=== PATIENT | female | born 1995 | race Hispanic/Latino ===

== ENCOUNTER 2017-09-25 12:31 | Emergency (ER) | payer BC, SELFPAY ==
[2017-09-25] MEDS ORDERED: DIAZEPAM 2 MG TABLET ONE (13:23)
--- NOTE | 2017-09-25 13:23 | ER ---
Nurse's Notes [facility] Name: Brittany Ingram Age: 22 yrs Sex: Female : 1995 Arrival Date: 09/25/2017 Time: 12:33 Bed 15 Private MD: Diagnosis: Anxiety disorder, unspecified Presentation: 09/25 12:37 Presenting complaint: Patient states: "I had a panic attack last night and I aj hyperventilated so much that I couldn't stand up." Patient ambulated to triage with steady gait. Transition of care: patient was not received from another setting of care. Onset of symptoms was September 24, 2017. Care prior to arrival: None. 12:37 Method Of Arrival: Ambulatory aj 12:37 Acuity: WILL 4 aj Triage Assessment: 12:38 General: Appears in no apparent distress. comfortable, Behavior is calm, cooperative, aj appropriate for age. Pain: Denies pain. Neuro: Level of Consciousness is awake, alert, obeys commands, Oriented to person, place, time, situation. Respiratory: Reports shortness of breath Airway is patent Respiratory effort is even, unlabored, Respiratory pattern is regular, symmetrical. Derm: Skin is intact, is healthy with good turgor, Skin is pink, warm \\T\\ dry. normal. 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 - Social history:: Smoking status: Patient/guardian denies using tobacco. Screenin:19 Abuse screen: Denies threats or abuse. Denies injuries from another. Nutritional sv screening: No deficits noted. Tuberculosis screening: No symptoms or risk factors identified. Fall Risk None identified. Assessment: 13:20 General: Appears in no apparent distress. comfortable, well developed, Behavior is sv calm, cooperative, appropriate for age, Reports she's been having more frequent anxiety attacks. Pt stated that she works and is in school and hasn't had much sleep. Pain: Denies pain. Neuro: Level of Consciousness is awake, alert, obeys commands, Oriented to person, place, time, situation, Moves all extremities. Full function Gait is steady. Cardiovascular: Patient's skin is warm and dry. Respiratory: Respiratory effort is even, unlabored, Respiratory pattern is regular, symmetrical. Derm: Skin is pink, warm \\T\\ dry. Musculoskeletal: Range of motion: intact in all extremities. Vital Signs: 12:38 BP 144 / 94; Pulse 87; Resp 20; Temp 97.9; Pulse Ox 98% on R/A; Weight 63.5 kg; Height aj 5 ft. 2 in. (157.48 cm); Pain 0/10; 12:38 Body Mass Index 25.61 (63.50 kg, 157.48 cm) aj ED Course: 12:33 Patient arrived in ED. as 12:38 Triage completed. aj 12:38 Arm band placed on right wrist. Patient placed in waiting room, Patient notified of wait time. 12:40 Liza Greene FNP-C is PHCP. kb 12:40 Sameer Donnelly MD is Attending Physician. kb 13:04 Danielle Benitez, RN is Primary Nurse. sv 13:19 Patient has correct armband on for positive identification. Bed in low position. Call sv light in reach. Adult w/ patient. Door closed. Head of bed elevated. 13:29 No provider procedures requiring assistance completed. Patient did not have IV access sv during this emergency room visit. Administered Medications: 13:29 Drug: Valium 2 mg Route: PO; sv 13:29 Follow up: Response: Medication administered at discharge. sv Outcome: 13:22 Discharge ordered by MD. kb 13:29 Discharged to home ambulatory, with family. sv 13:29 Condition: stable 13:29 Discharge instructions given to patient, Instructed on discharge instructions, follow up and referral plans. Demonstrated understanding of instructions, follow-up care. 13:30 Patient left the ED. sv Signatures: Liza Greene FNP-C FNP-Danielle Bradshaw RN Cortney Sin RN RN aj Martinez, Amelia as
--- NOTE | 2017-09-25 13:23 | EDPHYS ---
Physician Documentation [facility] Name: Brittany Ingram Age: 22 yrs Sex: Female : 1995 Arrival Date: 09/25/2017 Time: 12:33 Bed 15 Private MD: ED Physician Sameer Donnelly HPI: 09/25 13:17 This 22 yrs old Female presents to ER via Ambulatory with complaints of kb Anxiety. 13:17 The patient presents to the emergency department with anxiety, over unknown kb circumstances. Onset: The symptoms/episode began/occurred yesterday. Associated signs and symptoms: Pertinent positives; anxiety, shortness of breath, Pertinent negatives: abdominal pain, chest pain, chills, delusions, depression, fever, hallucinations, headache, homicidal ideation, nausea, night sweats, palpitations, paranoia, substance abuse, suicide ideation, tremor, vomiting. Severity of symptoms: At their worst the symptoms were moderate in the emergency department the symptoms have improved. The patient has not experienced similar symptoms in the past. The patient has not recently seen a physician. Pt states she has been having a lot of anxiety. Last night had an attack and was hyperventilating so she passed out. States she has been going to school and work and not sleeping much. Also gets nervous during the morning chappell at work because of all the people coming in. 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 - Social history:: Smoking status: Patient/guardian denies using tobacco. ROS: 13:16 Constitutional: Negative for fever, chills, and weight loss, Cardiovascular: Negative kb for chest pain, palpitations, and edema, Respiratory: Negative for shortness of breath, cough, wheezing, and pleuritic chest pain, Abdomen/GI: Negative for abdominal pain, nausea, vomiting, diarrhea, and constipation, MS/Extremity: Negative for injury and deformity, Skin: Negative for injury, rash, and discoloration, Neuro: Negative for headache, weakness, numbness, tingling, and seizure. 13:16 Psych: Positive for anxiety, Negative for depression, drug dependence, alcohol dependence, auditory hallucinations, visual hallucinations, homicidal ideation, insomnia, suicide gesture, suicidal ideation. Exam: 13:16 Constitutional: This is a well developed, well nourished patient who is awake, alert, kb and in no acute distress. Head/Face: Normocephalic, atraumatic. Neck: Trachea midline, no thyromegaly or masses palpated, and no cervical lymphadenopathy. Supple, full range of motion without nuchal rigidity, or vertebral point tenderness. No Meningismus. Chest/axilla: Normal chest wall appearance and motion. Nontender with no deformity. No lesions are appreciated. Cardiovascular: Regular rate and rhythm with a normal S1 and S2. No gallops, murmurs, or rubs. Normal PMI, no JVD. No pulse deficits. Respiratory: Lungs have equal breath sounds bilaterally, clear to auscultation and percussion. No rales, rhonchi or wheezes noted. No increased work of breathing, no retractions or nasal flaring. Abdomen/GI: Soft, non-tender, with normal bowel sounds. No distension or tympany. No guarding or rebound. No evidence of tenderness throughout. Skin: Warm, dry with normal turgor. Normal color with no rashes, no lesions, and no evidence of cellulitis. MS/ Extremity: Pulses equal, no cyanosis. Neurovascular intact. Full, normal range of motion. Neuro: Awake and alert, GCS 15, oriented to person, place, time, and situation. Cranial nerves II-XII grossly intact. Motor strength 5/5 in all extremities. Sensory grossly intact. Cerebellar exam normal. Normal gait. Vital Signs: 12:38 BP 144 / 94; Pulse 87; Resp 20; Temp 97.9; Pulse Ox 98% on R/A; Weight 63.5 kg; Height aj 5 ft. 2 in. (157.48 cm); Pain 0/10; 12:38 Body Mass Index 25.61 (63.50 kg, 157.48 cm) aj MDM: 13:00 Patient medically screened. kb 13:16 Data reviewed: vital signs, nurses notes. Data interpreted: Pulse oximetry: on room air kb is 98 %. Interpretation: normal. Counseling: I had a detailed discussion with the patient and/or guardian regarding: the historical points, exam findings, and any diagnostic results supporting the discharge/admit diagnosis, the need for outpatient follow up, a family practitioner, to return to the emergency department if symptoms worsen or persist or if there are any questions or concerns that arise at home. Administered Medications: 13:29 Drug: Valium 2 mg Route: PO; sv 13:29 Follow up: Response: Medication administered at discharge. sv Disposition: 09/26 08:01 Co-signature as Attending Physician, Sameer Donnelly MD I agree with the assessment and wa plan of care. Disposition: 09/25/17 13:22 Discharged to Home. Impression: Anxiety disorder, unspecified. - Condition is Stable. - Discharge Instructions: Panic Attacks, [id number]. - Medication Reconciliation Form, Thank You Letter, Antibiotic Education, Prescription Opioid Use form. - Work release form (09/25/17 13:31). hb - Follow up: Emergency Department; When: As needed; Reason: Worsening of condition. Follow up: Private Physician; When: 2 - 3 days; Reason: Recheck today's complaints, Continuance of care, Re-evaluation by your physician. Signatures: Liza Greene, QUALITY CONTROL SPECIALIST-C QUALITY CONTROL SPECIALIST-Ckb Danielle Benitez, RN Cortney Sin RN Sameer Jaime MD MD wa Baxter, Heather RN
== END 2017-09-25 13:30 | disposition home or self-care (01) ==
LOC: ER 12:31
DX: F41.9 Anxiety disorder, unspecified (principal)
CPT/HCPCS: 99283

== ENCOUNTER 2019-01-18 23:04 | Emergency (ER) | payer SELFPAY ==
--- OUTSIDE RECORDS SUMMARY | 2019-01-18 23:07 | XMS REPORT | Clinical Summary ---
:1995 Author Organization [facility] Address [address] [place] [address] Care Team Providers Name Role Phone Asked, No Pcp Primary Care Provider Unavailable Allergies No Known Allergies Medications Medication Sig Dispensed Refills Start Date End Date Status acetaminophen-codeine Take 1 tablet 20 tablet 0 10/22/2018 10/27/2018 (TYLENOL WITH CODEINE by mouth every #3) 300-30 mg per 6 (six) hours tablet as needed (severe pain) for up to [address] ondansetron ODT Take 1 tablet 10 tablet 0 10/22/2018 10/27/2018 (ZOFRAN ODT) 4 MG (4 mg total) by disintegrating tablet mouth every 8 (eight) hours as needed for nausea or vomiting for up to 5 days. sulfamethoxazole-trime Take 1 tablet 6 tablet 0 10/22/2018 10/25/2018 thoprim (BACTRIM DS) by mouth 2 800-160 mg per tablet (two) times a day for 3 days. smx-tmp DS (BACTRIM) 800-160 mg tabs (1tab q12 D10) Active Problems Not on file Encounters Date Type Specialty Care Team Description 10/22/2018 Emergency Emergency Medicine Juan David Dumont, Syncope and collapse (Primary Dx); Migraine without status migrainosus, not intractable, unspecified migraine type; Non-intractable vomiting with nausea, unspecified vomiting type; Periumbilical abdominal pain; Urinary tract infection without hematuria, site unspecified 10/22/2018 Travel after 01/17/2018 Family History Medical History Relation Name Comments No Known Problems Brother No Known Problems Cousin No Known Problems Daughter No Known Problems Father No Known Problems Maternal Grandfather No Known Problems Maternal Grandmother No Known Problems Mother No Known Problems Other No Known Problems Paternal Grandfather No Known Problems Paternal Grandmother No Known Problems Sister No Known Problems Son Asthma Neg Hx Diabetes Neg Hx Heart failure Neg Hx Hyperlipidemia Neg Hx Hypertension Neg Hx Migraines Neg Hx Osteoarthritis Neg Hx Rashes / Skin problems Neg Hx Rheum arthritis Neg Hx Seizures Neg Hx Stroke Neg Hx Thyroid disease Neg Hx Relation Name Status Comments Brother Cousin Daughter Father Maternal Grandfather Maternal Grandmother Mother Other Paternal Grandfather Paternal Grandmother Sister Son Social History Tobacco Use Types Packs/Day Years Used Date Never Smoker Tobacco Cessation: Counseling Given: No Alcohol Use Drinks/Week oz/Week Comments Yes socia Alcohol Habits Answer Date Recorded How often do you have a drink containing alcohol? Never 10/22/2018 How many drinks containing alcohol do you have on a typical Not asked day when you are drinking? How often do you have six or more drinks on one occasion? Not asked Sex Assigned at Date Recorded Not on file Job Start Date Occupation Industry Not on file Not on file Not on file Travel History Travel Start Travel End No recent travel history available. Last Filed Vital Signs Vital Sign Reading Time Taken Blood Pressure 102/66 10/22/2018 12:00 PM CDT Pulse 62 10/22/2018 12:00 PM CDT Temperature 37.1 C (98.7 F) 10/22/2018 11:53 AM CDT Respiratory Rate 19 10/22/2018 12:00 PM CDT Oxygen Saturation 97% 10/22/2018 12:00 PM CDT Inhaled Oxygen Concentration - - Weight 72.6 kg (160 lb) 10/22/2018 9:22 AM CDT Height 157.5 cm (5' 2") 10/22/2018 9:22 AM CDT Body Mass Index 29.26 10/22/2018 9:22 AM CDT Plan of Treatment Health Maintenance Due Date Last Done Comments CHLAMYDIA SCREENING 2013 INFLUENZA VACCINE 01/14/2019 Procedures Procedure Name Priority Date/Time Associated Comments Diagnosis CT ABDOMEN PELVIS W STAT 10/22/2018 11:43 Results for this CONTRAST AM CDT procedure are in the results section. CT HEAD WO CONTRAST STAT 10/22/2018 11:17 Results for this AM CDT procedure are in the results section. ECG ED PRELIMINARY Routine 10/22/2018 10:05 Results for this INTERPRETATION AM CDT procedure are in the results section. ESTIMATED GFR STAT 10/22/2018 9:46 Results for this AM CDT procedure are in the results section. TROPONIN, I-STAT STAT 10/22/2018 9:46 Results for this AM CDT procedure are in the results section. AMYLASE LEVEL STAT 10/22/2018 9:46 Results for this AM CDT procedure are in the results section. COMPREHENSIVE METABOLIC STAT 10/22/2018 9:46 Results for this PANEL AM CDT procedure are in the results section. HC COMPLETE BLD COUNT STAT 10/22/2018 9:46 Results for this W/AUTO DIFF AM CDT procedure are in the results section. HCG QUALITATIVE, URINE STAT 10/22/2018 9:45 Results for this SCREEN AM CDT procedure are in the results section. URINALYSIS STAT 10/22/2018 9:45 Results for this AM CDT procedure are in the results section. ECG 12-LEAD STAT 10/22/2018 9:26 Results for this AM CDT procedure are in the results section. after 01/17/[address] Abdomen Pelvis W Contrast (10/22/2018 11:43 AM CDT) Specimen Narrative Performed At EXAMINATION:CT ABDOMEN PELVIS W CONTRAST [facility]IANT CLINICAL HISTORY: 23 yearsFemale periumbilical abdominal painvomiting TECHNIQUE: Multiple axial images of the abdomen and pelvis were obtained following intravenous administration of iodinated contrast. Sagittal and coronal computerized reformatted images were also obtained. CT imaging was performed with iterative reconstruction techniques and/or automated exposure control to reduce radiation dose. COMPARISON:None. IMPRESSION: LUNG BASES: The lung bases are free of acute disease. ABDOMEN: Liver: The liver is normal. No focal mass. Gallbladder/Biliary: The gallbladder is normal. There is no evidence of intra or extrahepatic biliary ductal dilatation. Spleen: The spleen is not enlarged. Pancreas: The pancreas is unremarkable. Adrenal Glands: The adrenal glands are unremarkable. Kidneys: The kidneys are unremarkable. No mass, hydronephrosis or calculi. Vascular: The abdominal aorta is nonaneurysmal. Nodes: No enlarged retroperitoneal or mesenteric lymphadenopathy. Bowel: No bowel obstruction or inflammatory changes. Appendix is normal. Ascites/fluid collections: No ascites or fluid collections. PELVIS: Bladder, uterus and ovaries are within normal limits. There is no pelvic adenopathy. Trace fluid in the pelvic cul-de-sac noted, likely physiologic. MUSCULOSKELETAL: Visualized osseous structures are within normal limits. SUMMARY: 1.No acute abnormality noted in the abdomen and pelvis. 2.No intestinal obstruction. Normal appendix. Procedure Note Interface, Radiology Results Incoming - 10/22/2018 11:56 AM CDT EXAMINATION: CT ABDOMEN PELVIS W CONTRAST CLINICAL HISTORY: 23 yearsFemale periumbilical abdominal pain vomiting TECHNIQUE: Multiple axial images of the abdomen and pelvis were obtained following intravenous administration of iodinated contrast. Sagittal and coronal computerized reformatted images were also obtained. CT imaging was performed with iterative reconstruction techniques and/or automated exposure control to reduce radiation dose. COMPARISON: None. IMPRESSION: LUNG BASES: The lung bases are free of acute disease. ABDOMEN: Liver: The liver is normal. No focal mass. Gallbladder/Biliary: The gallbladder is normal. There is no evidence of intra or extrahepatic biliary ductal dilatation. Spleen: The spleen is not enlarged. Pancreas: The pancreas is unremarkable. Adrenal Glands: The adrenal glands are unremarkable. Kidneys: The kidneys are unremarkable. No mass, hydronephrosis or calculi. Vascular: The abdominal aorta is nonaneurysmal. Nodes: No enlarged retroperitoneal or mesenteric lymphadenopathy. Bowel: No bowel obstruction or inflammatory changes. Appendix is normal. Ascites/fluid collections: No ascites or fluid collections. PELVIS: Bladder, uterus and ovaries are within normal limits. There is no pelvic adenopathy. Trace fluid in the pelvic cul-de-sac noted, likely physiologic. MUSCULOSKELETAL: Visualized osseous structures are within normal limits. SUMMARY: 1. No acute abnormality noted in the abdomen and pelvis. 2. No intestinal obstruction. Normal appendix. Performing Organization Address City/State/Zipcode Phone Number [facility] [address] [place] [address] CT Head Wo Contrast (10/22/2018 11:17 AM CDT) Specimen Narrative Performed At EXAMINATION: CT HEAD WO CONTRAST [facility] CLINICAL HISTORY: headachesyncopephotophobia COMPARISON:None TECHNIQUE: Noncontrast enhanced images of the brain were obtained from the skull base to the vertex. Both soft tissue and bone reconstruction algorithms were performed.CT imaging was performed with iterative reconstruction technique and/or automated exposure control to reduce radiation dose. FINDINGS: The brain parenchyma has no acute lesion. The waters-white matter differentiation is preserved. No evidence of acute intra or extra-axial hemorrhage, mass, mass effect or acute territorial infarction. There is no acute hydrocephalus. Basal cisterns are patent. No acute intracranial trauma or hemorrhage. No acute soft tissue hematoma or laceration. Paranasal sinuses shows no acute air-fluid levels. Mastoid air cells are clear.No skull fractures or aggressive bony lesions. IMPRESSION: No acute intracranial abnormality identified. [id number] Procedure Note Interface, Radiology Results Incoming - 10/22/2018 11:44 AM CDT EXAMINATION: CT HEAD WO CONTRAST CLINICAL HISTORY: headache syncope photophobia COMPARISON: None TECHNIQUE: Noncontrast enhanced images of the brain were obtained from the skull base to the vertex. Both soft tissue and bone reconstruction algorithms were performed. CT imaging was performed with iterative reconstruction technique and/or automated exposure control to reduce radiation dose. FINDINGS: The brain parenchyma has no acute lesion. The waters-white matter differentiation is preserved. No evidence of acute intra or extra-axial hemorrhage, mass, mass effect or acute territorial infarction. There is no acute hydrocephalus. Basal cisterns are patent. No acute intracranial trauma or hemorrhage. No acute soft tissue hematoma or laceration. Paranasal sinuses shows no acute air-fluid levels. Mastoid air cells are clear. No skull fractures or aggressive bony lesions. IMPRESSION: No acute intracranial abnormality identified. [id number] Performing Organization Address City/State/Zipcode Phone Number [facility] [address] [place] [address] ECG ED Preliminary Interpretation - Not an Order (10/22/2018 10:05 AM CDT) Narrative Performed At Juan David Dumont MD 10/22/2018 12:08 PM ECG ED Preliminary Interpretation - Not an Order Performed by: Juan David Dumont MD Authorized by: Juan David Dumont MD Interpretation: Interpretation: normal Rate: ECG rate:97 ECG rate assessment: normal Rhythm: Rhythm: sinus rhythm Ectopy: Ectopy: none QRS: QRS axis:Normal QRS intervals:Normal Conduction: Conduction: normal ST segments: ST segments:Normal T waves: T waves: normal Estimated GFR (10/22/2018 9:46 AM CDT) [facility] Estimated GFR >=90 mL/min/1.73 [facility] Comment: m2 [facility] [employer] G1 >=90 Normal or high G2 60-89Mildly decreased [id number] to moderately decreased [id number] to severely decreased G4 15-29Severely decreased G5 <15Kidney failure The eGFR was calculated using the Chronic Kidney Disease Epidemiology Collaboration (CKD-EPI) equation. Interpretation is based on recommendations of the National Kidney Foundation-Kidney Disease Outcomes Quality Initiative (NKF-KDOQI) published in 2014. Specimen Plasma specimen Performing Organization Address City/[facility]/Zipcode Phone Number DEPARTMENT PATHOLOGY AND [address] [place] [address] EMER[address]ENCY [address] Troponin, I-Stat (10/22/2018 9:46 AM CDT) Pathologist [facility] Troponin, I-Stat 0.00 0.00 - 0.08 [facility] Comment: ng/mL [facility] 0.09 - 1.49 ng/mlMay indicate increased risk of acute [facility] coronary syndrome. >=1.5 ng/mlConsistent with acute myocardial infarction. The diagnostic value of a single normal or non-diagnostic result is questionable.Serial samples at 2-6 hour intervals are required to rule out acute myocardial injury. Specimen Plasma specimen Performing Organization Address City/[facility] Phone Number DEPARTMENT OF PATHOLOGY AND [address] [place] [address] CBC with platelet and differential (10/22/2018 9:46 AM CDT) WBC 7.91 4.50 - 11.00 k/uL [facility] RBC 4.60 4.20 - 5.50 m/uL [facility] HGB 13.2 12.0 - 16.0 g/dL [facility] HCT 39.4 37.0 - 47.0 % [facility] MCV 85.7 82.0 - 100.0 fL [facility] MCH 28.7 27.0 - 34.0 pg [facility] MCHC 33.5 31.0 - 37.0 g/dL [facility] RDW - SD 40.2 37.0 - 55.0 fL [facility] MPV 9.4 8.8 - 13.2 fL [facility] Platelet count 356 150 - 400 k/uL [facility] Neutrophils 81.9 (H) 39.0 - 69.0 % [facility] Lymphocytes 14.2 (L) 25.0 - 45.0 % [facility] Monocytes 3.5 0.0 - 10.0 % [facility] Eosinophils 0.1 0.0 - 5.0 % [facility] Basophils 0.3 0.0 - 1.0 % [facility] Specimen Blood Performing Organization Address City/[facility] Phone Number DEPARTMENT OF PATHOLOGY AND [address] [place] [address] Amylase level (10/22/2018 9:46 AM CDT) Amylase 28 14 - 97 U/L [facility] Specimen Plasma specimen Performing Organization Address City/[facility] Phone Number DEPARTMENT OF PATHOLOGY AND [address] [place] [address] Comprehensive metabolic panel (10/22/2018 9:46 AM CDT) Sodium 138 128 - 145 mEq/L [facility] Potassium 3.8 3.6 - 5.1 mEq/L [facility] CO2 22 18 - 33 mEq/L [facility] Chloride 101 98 - 108 mEq/L [facility] Glucose 96 73 - 118 mg/dL [facility] Calcium 9.6 8.0 - 10.3 mg/dL [facility] BUN 9 7 - 22 mg/dL [facility] Creatinine 0.6 0.5 - 0.9 mg/dL [facility] Alkaline phosphatase 79 42 - 141 U/L [facility] ALT 16 10 - 47 U/L [facility] AST 23 11 - 38 U/L [facility] Total bilirubin 0.6 0.2 - 1.6 mg/dL [facility] Albumin 4.2 3.3 - 5.5 g/dL [facility] Protein 7.3 6.4 - 8.1 g/dL [facility] Anion gap 15@ANIO 7 - 15 mEq/L [facility] A/G ratio 1.4 0.7 - 3.8 [facility] Specimen Plasma specimen Performing Organization Address City/[facility] Phone Number DEPARTMENT OF PATHOLOGY AND [address] [place] [address] Urinalysis (10/22/2018 9:45 AM CDT) Glucose, UA Negative Negative [facility] Bilirubin, UA Negative Negative [facility] Ketones, UA Negative Negative [facility] Specific gravity, 1.010 1.001 - 1.035 [facility] Blood, UA Small (A) Negative [facility] pH, UA 5.5 5.0 - 8.5 [facility] Protein, UA Negative Negative [facility] Urobilinogen, UA <2.0 <2.0 [facility] Nitrite, UA Positive (A) Negative [facility] Leukocyte esterase, Small (A) Negative [facility] Color, UA Yellow [facility] Appearance, UA Hazy [facility] Specimen Urine Performing Organization Address City/[facility] Phone Number DEPARTMENT OF PATHOLOGY AND [address] [place] [address] hCG qualitative, urine screen (10/22/2018 9:45 AM CDT) hCG qualitative, Negative [facility] urine Comment: [facility] Sensitivity of HCG test: 25 mIU/mL [facility] Negative test results in patients suspected to be should be retested with a sample obtained 48-72 hours later, or by performing a quantitative assay. Specimen Urine Performing Organization Address City/State/Zipcode Phone Number DEPARTMENT OF PATHOLOGY AND [address] [facility] [place] [address] GENOMIC MEDICINE, [facility] [address] [place] [address] [facility] ECG 12 lead (10/22/2018 9:26 AM CDT) Ventricular rate 97 [facility] Atrial rate 97 [facility] FL interval 108 [facility] QRSD interval 84 [facility] QT interval 354 [facility] QTC interval 449 [facility] P axis 1 38 [facility] QRS axis 1 31 [facility] T wave axis 18 [facility] EKG impression Sinus rhythm with short [facility] FL-Junctional ST depression, probably normal-Borderline ECG-No previous ECGs available-Electronicall y Signed By Sherly HANLEY, Chris Sherwood ([id number]) on 10/23/2018 9:28:31 PM Specimen Narrative Performed At Performing Organization Address City/State/Zipcode Phone Number [facility] [address] [place] [address] after 01/17/2018 Advance Directives Patient has advance care planning documents on file. For more information, please contact:[facility] [address] [place] [address]
--- OUTSIDE RECORDS SUMMARY | 2019-01-18 23:07 | XMS REPORT ---
:1995 Author Organization [facility] Address [address] [place] [address] [place] [address] Care Team Providers Name Role Phone Unavailable Unavailable Unavailable Problems This patient has no known problems. Allergies, Adverse Reactions, Alerts This patient has no known allergies or adverse reactions. Medications This patient has no known medications.
--- NOTE | 2019-01-19 01:03 | ER ---
Nurse's Notes [facility] Name: Brittany Ingram Age: 23 yrs Sex: Female : 1995 Arrival Date: 01/18/2019 Time: 23:17 Bed 15 Private MD: Diagnosis: Chest pain on breathing Presentation: 01/18 23:17 Presenting complaint: Patient states: right rib pain with inspiration since this ak1 morning. no resp distress noted in triage. Transition of care: patient was not received from another setting of care. Onset of symptoms is unknown. Risk Assessment: Do you want to hurt yourself or someone else? Patient reports no desire to harm self or others. Initial Sepsis Screen: Does the patient meet any 2 criteria? No. Patient's initial sepsis screen is negative. Does the patient have a suspected source of infection? No. Patient's initial sepsis screen is negative. Care prior to arrival: None. 23:17 Method Of Arrival: Ambulatory ak1 23:17 Acuity: WILL 3 ak1 Triage Assessment: 23:18 General: Appears in no apparent distress. Behavior is calm, cooperative. ak1 [employer]: 23:18 irregular ak1 Historical: - Allergies: 23:18 No Known Allergies; ak1 - Home Meds: 23:18 None [Active]; ak1 - PMHx: 23:18 None; ak1 - PSHx: 23:18 None; ak1 - Immunization history:: Adult Immunizations unknown. - Social history:: Smoking status: Patient uses tobacco products, denies chronic smoking, but will smoke occasionally. - Ebola Screening: : No symptoms or risks identified at this time. Assessment: 01/19 01:17 Reassessment: Patient appears in no apparent distress at this time. Patient is alert, aa1 oriented x 3, equal unlabored respirations, skin warm/dry/pink. Discussed d/c \T\ f/u instructions with pt \T\ significant other; denies questions or concerns at this time. Ambulatory to lobby with steady gait. Vital Signs: 01/18 23:18 BP 135 / 90; Pulse 67; Resp 18; Temp 97.7; Pulse Ox 98% on R/A; Weight 77.11 kg (R); ak1 Height 5 ft. 2 in. (157.48 cm) (R); Pain 6/10; 01/19 01:17 BP 127 / 82; Pulse 63; Resp 16; Temp 97.9; Pulse Ox 99% on R/A; Pain 3/10; aa1 01/18 23:18 Body Mass Index 31.09 (77.11 kg, 157.48 cm) ak1 ED Course: 01/18 23:17 Patient arrived in ED. ak1 23:18 Triage completed. ak1 23:18 Arm band placed on Patient placed in waiting room, Patient notified of wait time. ak1 23:38 Liza Greene FNP-C [facility]. kb 23:38 Jessee Swenson MD is Attending Physician. kb 01/19 00:09 Patient moved to radiology via wheelchair. kw 00:12 Chest Pa And Lat (2 Views) XRAY In Process Unspecified. EDMS 00:14 X-ray completed. Patient tolerated procedure well. Patient moved back from radiology. kw 00:24 Marianna Henning, RN is Primary Nurse. aa1 00:41 EKG done, by ED staff, reviewed by Liza LEIGH. aa1 01:17 No provider procedures requiring assistance completed. Patient did not have IV access aa1 during this emergency room visit. Administered Medications: No medications were administered Outcome: 01:01 Discharge ordered by MD. kb 01:17 Discharged to home ambulatory, with significant other. aa1 01:17 Condition: good 01:17 Discharge instructions given to patient, significant other, Instructed on discharge instructions, follow up and referral plans. Demonstrated understanding of instructions, follow-up care. 01:32 Patient left the ED. aa1 Signatures: Dispatcher [employer] EDID Liza Greene FNP-C BAKER HEAD-Marianna Gallo, RN RN aa1 Donna Velasco Amber, RN RN ak1
--- NOTE | 2019-01-19 01:03 | EDPHYS ---
Physician Documentation [facility] Name: Brittany Ingram Age: 23 yrs Sex: Female : 1995 Arrival Date: 01/18/2019 Time: 23:17 Bed 15 Private MD: ED Physician Jessee Swenson HPI: 01/19 00:33 This 23 yrs old Female presents to ER via Ambulatory with complaints of right kb rib pain with inspiration. 00:33 The patient or guardian reports chest pain that is located primarily in the anterior kb chest wall, right. The pain radiates to right back. Associated signs and symptoms: The patient has no apparent associated signs or symptoms. The chest pain is described as sharp. Duration: The patient or guardian reports multiple episodes. Modifying factors: The symptoms are alleviated by nothing. the symptoms are aggravated by breathing. Severity of pain: At its worst the pain was mild moderate in the emergency department the pain is unchanged. The patient has experienced similar episodes in the past, chronically. The patient has not recently seen a physician. Pt reports right upper chest pain that radiates to the back. Has the pain with inspiration only. States she has had this pain since she was little, but not as often now. 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 - Social history:: Smoking status: Patient uses tobacco products, denies chronic smoking, but will smoke occasionally. - Ebola Screening: : No symptoms or risks identified at this time. ROS: 01/19 00:32 Constitutional: Negative for fever, chills, and weight loss, ENT: Negative for injury, kb pain, and discharge, Neck: Negative for injury, pain, and swelling, Respiratory: Negative for shortness of breath, cough, wheezing, and pleuritic chest pain, Abdomen/GI: Negative for abdominal pain, nausea, vomiting, diarrhea, and constipation, Back: Negative for injury and pain, MS/Extremity: Negative for injury and deformity, Skin: Negative for injury, rash, and discoloration, Neuro: Negative for headache, weakness, numbness, tingling, and seizure. Cardiovascular: Positive for chest pain, of the anterior aspect of right upper chest, with inspiration. Exam: 00:32 Constitutional: This is a well developed, well nourished patient who is awake, alert, kb and in no acute distress. Head/Face: Normocephalic, atraumatic. ENT: Nares patent. No nasal discharge, no septal abnormalities noted. Tympanic membranes are normal and external auditory canals are clear. Oropharynx with no redness, swelling, or masses, exudates, or evidence of obstruction, uvula midline. Mucous membranes moist. Neck: Trachea midline, no thyromegaly or masses palpated, and no cervical lymphadenopathy. Supple, full range of motion without nuchal rigidity, or vertebral point tenderness. No Meningismus. Chest/axilla: Normal chest wall appearance and motion. Nontender with no deformity. No lesions are appreciated. Cardiovascular: Regular rate and rhythm with a normal S1 and S2. No gallops, murmurs, or rubs. Normal PMI, no JVD. No pulse deficits. Respiratory: Lungs have equal breath sounds bilaterally, clear to auscultation and percussion. No rales, rhonchi or wheezes noted. No increased work of breathing, no retractions or nasal flaring. Abdomen/GI: Soft, non-tender, with normal bowel sounds. No distension or tympany. No guarding or rebound. No evidence of tenderness throughout. Skin: Warm, dry with normal turgor. Normal color with no rashes, no lesions, and no evidence of cellulitis. MS/ Extremity: Pulses equal, no cyanosis. Neurovascular intact. Full, normal range of motion. Neuro: Awake and alert, GCS 15, oriented to person, place, time, and situation. Cranial nerves II-XII grossly intact. Motor strength 5/5 in all extremities. Sensory grossly intact. Cerebellar exam normal. Normal gait. Vital Signs: 01/18 23:18 BP 135 / 90; Pulse 67; Resp 18; Temp 97.7; Pulse Ox 98% on R/A; Weight 77.11 kg (R); ak1 Height 5 ft. 2 in. (157.48 cm) (R); Pain 6/10; 01/19 01:17 BP 127 / 82; Pulse 63; Resp 16; Temp 97.9; Pulse Ox 99% on R/A; Pain 3/10; aa1 01/18 23:18 Body Mass Index 31.09 (77.11 kg, 157.48 cm) ak1 MDM: 01/18 23:40 Patient medically screened. kb 01/19 00:33 Data reviewed: vital signs, nurses notes. Data interpreted: Pulse oximetry: on room air kb is 98 %. Interpretation: normal. 01:01 Counseling: I had a detailed discussion with the patient and/or guardian regarding: the kb historical points, exam findings, and any diagnostic results supporting the discharge/admit diagnosis, radiology results, the need for outpatient follow up, a family practitioner, to return to the emergency department if symptoms worsen or persist or if there are any questions or concerns that arise at home. 01/18 23:56 Order name: Chest Pa And Lat (2 Views) XRAY kb 01/19 00:08 Order name: EKG; Complete Time: 00:10 kb 01/19 00:08 Order name: EKG - Nurse/Tech; Complete Time: 00:36 kb Administered Medications: No medications were administered Disposition: 07:12 Co-signature as Attending Physician, Jessee Swenson MD Available for consultation at ps1 all times. . Disposition: 01/19/19 01:01 Discharged to Home. Impression: Chest pain on breathing. - Condition is Stable. - Discharge Instructions: Costochondritis, [id number]. - Medication Reconciliation Form, Thank You Letter, Antibiotic Education, Prescription Opioid Use form. - Work release form (01/19/19 07:40). bd - Follow up: Emergency Department; When: As needed; Reason: Worsening of condition. Follow up: Private Physician; When: 2 - 3 days; Reason: Recheck today's complaints, Continuance of care, Re-evaluation by your physician. Signatures: Dispatcher [employer] Liza Gonzalez, REESE WASHINGTON-Marianna Gallo RN RN aa1 Juana Ho RN RN ak1 Jessee Swenson MD MD ps1 Dirrim, Barbara bd Corrections: (The following items were deleted from the chart) 01:32 01:01 01/19/2019 01:01 Discharged to Home. Impression: Chest pain on breathing. aa1 Condition is Stable. Forms are Medication Reconciliation Form, Thank You Letter, Antibiotic Education, Prescription Opioid Use. Follow up: Emergency Department; When: As needed; Reason: Worsening of condition. Follow up: Private Physician; When: 2 - 3 days; Reason: Recheck today's complaints, Continuance of care, Re-evaluation by your physician. kb
--- NOTE | 2019-01-19 07:34 | EKG ---
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
--- NOTE | 2019-01-19 08:43 | RAD REPORT ---
EXAM DESCRIPTION: Leodan Ramirez (2 Views)01/19/2019 12:12 am CLINICAL HISTORY: Chest pain COMPARISON: 2008 FINDINGS: The lungs appear clear of acute infiltrate. The heart is normal size IMPRESSION: No acute abnormalities displayed
== END 2019-01-19 01:32 | disposition home or self-care (01) ==
LOC: ER 23:04
DX: R07.1 Chest pain on breathing (principal); Z72.0 Tobacco use
CPT/HCPCS: 71046; 93005; 99283

== ENCOUNTER 2019-05-19 22:58 | Emergency (ER) | payer SELFPAY ==
--- OUTSIDE RECORDS SUMMARY | 2019-05-19 23:00 | XMS REPORT ---
:1995 [facility] [address] [place] [address] [place] [id number] Care Team Providers Name Role Phone Unavailable Unavailable Unavailable Problems This patient has no known problems. Allergies, Adverse Reactions, Alerts This patient has no known allergies or adverse reactions. Medications This patient has no known medications.
[2019-05-19] MEDS ORDERED: ONDANSETRON 4 MG/2 ML VIAL ONE (23:38)
[2019-05-19] MEDS ORDERED: NA CHLORIDE 0.9% 1,000 ML ONE (23:38)
[2019-05-20 00:26] LABS: Basophils % 0.3 % (0-1.3); Hematocrit 38.6 % (36.0-45.0); Lymphocytes % 32.6 % (15.3-44.8); MPV 7.7 fL (7.6-11.3); RBC Red Blood Cell Count 4.53 M/uL (3.86-4.86)
[2019-05-20 00:27] LABS: ALT/SGPT 22 U/L (12-78); AST/SGOT 12 U/L (15-37); Albumin 3.4 g/dL (3.4-5.0); Alkaline Phosphatase 91 U/L (45-117); BUN Blood Urea Nitrogen 13 mg/dL (7-18); Bicarbonate 28 mmol/L (21-32); Bilirubin Direct < 0.1 mg/dL (0-0.2); Bilirubin Total 0.3 mg/dL (0.2-1.0); Glucose Level 114 mg/dL (74-106); Lipase 88 U/L (73-393); Protein, Total 7.1 g/dL (6.4-8.2); Sodium Level 140 mmol/L (136-145)
[2019-05-20 00:57] LABS: Urine Blood NEGATIVE (NEG); Urine Glucose NEGATIVE (NEG); Urine Protein NEGATIVE (NEG); Urine pH 7.5 (5.0-7.0)
--- NOTE | 2019-05-20 01:02 | EDPHYS ---
Physician Documentation [facility] Name: Brittany Ingram Age: 24 yrs Sex: Female : 1995 Arrival Date: 05/19/2019 Time: 23:06 Bed 20 Private MD: ED Physician Jimi Andrews HPI: 05/20 03:33 This 24 yrs old Female presents to ER via Ambulatory with complaints of Cough. tw4 03:33 The patient or guardian reports cough. tw4 03:33 Onset: The symptoms/episode began/occurred 3 day(s) ago. Severity of symptoms: At their tw4 worst the symptoms were moderate. Modifying factors: The symptoms are alleviated by nothing, the symptoms are aggravated by nothing. Associated signs and symptoms: The patient has no apparent associated signs or symptoms. The patient has not experienced similar symptoms in the past. 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 - Social history:: Smoking status: Patient uses tobacco products, denies chronic smoking, but will smoke occasionally. - Ebola Screening: : Patient negative for fever greater than or equal to 101.5 degrees Fahrenheit, and additional compatible Ebola Virus Disease symptoms Patient denies exposure to infectious person. ROS: 05/20 03:33 Eyes: Negative for injury, pain, redness, and discharge, ENT: Negative for injury, tw4 pain, and discharge, Cardiovascular: Negative for chest pain, palpitations, and edema, Back: Negative for injury and pain, MS/Extremity: Negative for injury and deformity, Skin: Negative for injury, rash, and discoloration, Neuro: Negative for headache, weakness, numbness, tingling, and seizure. Constitutional: Positive for body aches. Respiratory: Positive for cough, Negative for dyspnea on exertion, hemoptysis, orthopnea, pleurisy, shortness of breath. Abdomen/GI: Positive for nausea and vomiting, nausea, vomiting, and diarrhea, nausea, vomiting, diarrhea, Negative for abdominal pain. Exam: 03:33 Constitutional: This is a well developed, well nourished patient who is awake, alert, tw4 and in no acute distress. Head/Face: Normocephalic, atraumatic. Chest/axilla: Normal chest wall appearance and motion. Nontender with no deformity. No lesions are appreciated. Cardiovascular: Regular rate and rhythm with a normal S1 and S2. No gallops, murmurs, or rubs. Normal PMI, no JVD. No pulse deficits. Respiratory: Lungs have equal breath sounds bilaterally, clear to auscultation and percussion. No rales, rhonchi or wheezes noted. No increased work of breathing, no retractions or nasal flaring. Abdomen/GI: Soft, non-tender, with normal bowel sounds. No distension or tympany. No guarding or rebound. No evidence of tenderness throughout. Back: No spinal tenderness. No costovertebral tenderness. Full range of motion. Skin: Warm, dry with normal turgor. Normal color with no rashes, no lesions, and no evidence of cellulitis. MS/ Extremity: Pulses equal, no cyanosis. Neurovascular intact. Full, normal range of motion. Neuro: Awake and alert, GCS 15, oriented to person, place, time, and situation. Cranial nerves II-XII grossly intact. Motor strength 5/5 in all extremities. Sensory grossly intact. Cerebellar exam normal. Normal gait. Vital Signs: 05/19 23:20 BP 126 / 79; Pulse 87; Resp 18; Temp 98.4; Pulse Ox 100% ; Weight 76.66 kg; Height 5 wh ft. 2 in. (157.48 cm); 05/20 00:30 BP 121 / 107; Pulse 83; Resp 18; Pulse Ox 100% on R/A; 05/19 23:20 Body Mass Index 30.91 (76.66 kg, 157.48 cm) MDM: 05/19 23:24 Patient medically screened. tw4 05/20 03:33 Differential Diagnosis: Obstructed Airway Bronchitis Influenza Upper Respiratory tw4 Infection. Data reviewed: vital signs, nurses notes. Data reviewed: lab test result(s), CBC, white blood cell count, hemoglobin, hematocrit, platelets, electrolytes, sodium, potassium, chloride, serum bicarbonate, BUN, creatinine, serum glucose, hepatic panel. Data reviewed: lab test result(s), Flu: negative. Data interpreted: Pulse oximetry: Interpretation: normal. Counseling: I had a detailed discussion with the patient and/or guardian regarding: the historical points, exam findings, and any diagnostic results supporting the discharge/admit diagnosis, lab results. Medication response: Zofran relieved the patient's nausea. Response to treatment: the patient's symptoms have resolved after treatment, and as a result, I will discharge patient. Special discussion: I discussed with the patient/guardian in detail that at this point there is no indication for admission to the hospital. It is understood, however, that if the symptoms persist or worsen the patient needs to return immediately for re-evaluation. 05/19 23:24 Order name: Basic Metabolic Panel; Complete Time: 00:48 tw4 05/20 00:48 Interpretation: Normal except: GLUC 114; GFR 81. 05/19 23:24 Order name: CBC with Diff; Complete Time: 00:48 tw4 05/20 00:48 Interpretation: Within normal limits. 05/19 23:24 Order name: Creatinine for Radiology; Complete Time: 00:48 tw4 05/20 00:48 Interpretation: Within normal limits: CRE 0.86. tw05/19 23:24 Order name: Hepatic Function; Complete Time: 00:48 tw4 05/20 00:48 Interpretation: Normal except: AST 12; GLOB 3.7; A/G 0.9. 05/19 23:24 Order name: Lipase; Complete Time: 00:48 tw4 05/20 00:48 Interpretation: Within normal limits: LIP 88. 05/20 00:30 Order name: Urine Dipstick--Ancillary (enter results); Complete Time: 00:59 cm6 05/20 00:59 Interpretation: Normal except: UPH 7.5. 05/19 23:24 Order name: IV Saline Lock; Complete Time: 23:30 tw4 05/19 23:24 Order name: Labs collected and sent; Complete Time: 23:31 tw4 05/19 23:31 Order name: EKG - Nurse/Tech; Complete Time: 23:31 wh 05/20 00:30 Order name: Urine --Ancillary (enter results); Complete Time: 00:59 cm6 EC:33 Rate is 90 beats/min. Rhythm is regular. QRS [place] is Normal. ME interval is normal. QRS tw4 interval is normal. No Q waves. T waves are Normal. No ST changes noted. Clinical impression: Normal ECG. Interpreted by me. Reviewed by me. Administered Medications: 05/19 23:42 Drug: NS 0.9% 1000 ml Route: IV; Rate: 1 bolus; Site: right antecubital; 05/20 01:14 Follow up: Response: No adverse reaction; IV Status: Completed infusion 05/19 23:42 Drug: Zofran 4 mg Route: IVP; Site: right antecubital; 05/20 01:14 Follow up: Response: No adverse reaction; Nausea is decreased Disposition: 05/20/19 01:01 Discharged to Home. Impression: Other viral enteritis. - Condition is Stable. - Discharge Instructions: Food Choices to Help Relieve Diarrhea, Adult, Viral Gastroenteritis, Adult, Nausea and Vomiting, Adult, Roob-en-Yrnb, Diarrhea, Adult, [id number]. - Prescriptions for Zofran 4 mg Oral Tablet - take 1 tablet by ORAL route every 12 hours As needed; 6 tablet. Lomotil 2.5- 0.025 mg Oral Tablet - take 2 tablet by ORAL route once daily As needed; 20 tablet. - Medication Reconciliation Form, Thank You Letter, Antibiotic Education, Prescription Opioid Use form. - Work release form (05/20/19 01:16). - Follow up: Private Physician; When: Upon discharge from the Emergency Department; Reason: Recheck today's complaints, Continuance of care. - Problem is new. - Symptoms have improved. Signatures: Dispatcher [employer] EDOR Harpal Morrissey Jimi Andrews MD MD tw4 Corrections: (The following items were deleted from the chart) 05/19 23:22 23:17 Immunization history: [facility]/20 01:14 01:01 05/20/2019 01:01 Discharged to Home. Impression: Other viral enteritis. Condition is Stable. Forms are Medication Reconciliation Form, Thank You Letter, Antibiotic Education, Prescription Opioid Use. Follow up: Private Physician; When: Upon discharge from the Emergency Department; Reason: Recheck today's complaints, Continuance of care. Problem is new. Symptoms have improved. tw4
--- NOTE | 2019-05-20 01:02 | ER ---
Nurse's Notes [facility] Name: Brittany Ingram Age: 24 yrs Sex: Female : 1995 Arrival Date: 05/19/2019 Time: 23:06 Bed 20 Private MD: Diagnosis: Other viral enteritis Presentation: 05/19 23:15 Presenting complaint: Patient states: C/O chest pain and vomiting that started yesterday. Diarrhea that started Friday. Transition of care: patient was not received from another setting of care. Onset of symptoms was May 19, 2019. Risk Assessment: Do you want to hurt yourself or someone else? Patient reports no desire to harm self or others. Initial Sepsis Screen: Does the patient meet any 2 criteria? No. Patient's initial sepsis screen is negative. Does the patient have a suspected source of infection? No. Patient's initial sepsis screen is negative. Care prior to arrival: None. 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 - Social history:: Smoking status: Patient uses tobacco products, denies chronic smoking, but will smoke occasionally. - Ebola Screening: : Patient negative for fever greater than or equal to 101.5 degrees Fahrenheit, and additional compatible Ebola Virus Disease symptoms Patient denies exposure to infectious person. Screenin:17 Abuse screen: Denies threats or abuse. Denies injuries from another. Nutritional screening: No deficits noted. Tuberculosis screening: No symptoms or risk factors identified. Fall Risk None identified. Assessment: 23:19 General: Appears in no apparent distress. Behavior is calm, cooperative, appropriate for age. Pain: Complains of pain in chest Pain does not radiate. Pain began 1 day ago. Neuro: Level of Consciousness is awake, alert, obeys commands, Oriented to person, place, time, situation, Appropriate for age. Cardiovascular: Heart tones S1 S2 Rhythm is regular. Respiratory: Airway is patent Respiratory effort is even, unlabored, Respiratory pattern is regular, symmetrical, Breath sounds are clear bilaterally. GI: Abdomen is flat, non-distended. GI: Reports diarrhea, vomiting. : No signs and/or symptoms were reported regarding the genitourinary system. EENT: No signs and/or symptoms were reported regarding the EENT system. Derm: Skin is intact, is healthy with good turgor, Skin is pink, warm \T\ dry. normal. Musculoskeletal: Circulation, motion, and sensation intact. 05/20 00:42 Reassessment: Patient appears in no apparent distress at this time. No changes from previously documented assessment. Patient and/or family updated on plan of care and expected duration. Pain level reassessed. Patient is alert, oriented x 3, equal unlabored respirations, skin warm/dry/pink. Vital Signs: 05/19 23:20 BP 126 / 79; Pulse 87; Resp 18; Temp 98.4; Pulse Ox 100% ; Weight 76.66 kg; Height 5 ft. 2 in. (157.48 cm); 05/20 00:30 BP 121 / 107; Pulse 83; Resp 18; Pulse Ox 100% on R/A; 05/19 23:20 Body Mass Index 30.91 (76.66 kg, 157.48 cm) ED Course: 05/19 23:06 Patient arrived in ED. ag3 23:10 Harpal Morrissey is Primary Nurse. 23:16 Triage completed. 23:18 Patient has correct armband on for positive identification. Placed in gown. Bed in low wh position. Call light in reach. Side rails up X 1. Pulse ox on. NIBP on. 23:18 Arm band placed on. 23:24 Jimi Andrews MD is Attending Physician. tw4 23:40 Initial lab(s) drawn, by or, sent to lab. Inserted saline lock: 22 gauge in left jd2 antecubital area, using aseptic technique. Blood collected. 05/20 01:12 No provider procedures requiring assistance completed. IV discontinued, intact, bleeding controlled, No redness/swelling at site. Administered Medications: 05/19 23:42 Drug: NS 0.9% 1000 ml Route: IV; Rate: 1 bolus; Site: right antecubital; 05/20 01:14 Follow up: Response: No adverse reaction; IV Status: Completed infusion 05/19 23:42 Drug: Zofran 4 mg Route: IVP; Site: right antecubital; 05/20 01:14 Follow up: Response: No adverse reaction; Nausea is decreased Outcome: 01:01 Discharge ordered by . tw4 01:13 Discharged to home ambulatory, with friend. 01:13 Condition: stable 01:13 Discharge instructions given to patient, Instructed on discharge instructions, follow up and referral plans. medication usage, POC Viral Gastroenteritis Demonstrated understanding of instructions, follow-up care, medications, POC Prescriptions given X 2. 01:14 Patient left the ED. Signatures: Kecia Jung Winsy Jimi Andrews MD MD tw4 Anastasiia Bunch 3 Corrections: (The following items were deleted from the chart) 05/19 23:22 23:17 Immunization history: Adult Immunizations not up to date, [facility]
[2019-05-20 02:51] VITALS: TEMP 98.4; O2SAT 100
[2019-05-20 02:52] VITALS: BP 121/107
--- NOTE | 2019-05-20 22:57 | EKG ---
Test Date: 2019-05-19 Test Time: 23:18:40 Stock Broker: CARON MEASUREMENT RESULTS: Intervals: Rate: 90 ND: 122 QRSD: 84 QT: 362 QTc: 442 [place]: P: 38 ND: 122 QRS: 44 T: 41 INTERPRETIVE STATEMENTS: Normal sinus rhythm Normal ECG Compared to ECG 01/19/2019 00:35:46 Sinus arrhythmia no longer present Electronically Signed On 05-20-19 22:56:12 CYBER THREAT ANALYST by Reynaldo Chu
== END 2019-05-20 01:14 | disposition home or self-care (01) ==
LOC: ER 22:58
DX: A08.39 Other viral enteritis (principal); Z72.0 Tobacco use; Z91.040 Latex allergy status; Z91.048 Other nonmedicinal substance allergy status
CPT/HCPCS: 36415; 80048; 80076; 81003; 81025; 83690; 85025; 93005; 96361; 96374; 99284; J2405; J7030

== ENCOUNTER 2020-09-11 15:05 | Emergency (ER) | payer OTHER, SELFPAY ==
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
--- NOTE | 2020-09-11 16:07 | RAD REPORT ---
EXAM DESCRIPTION: US - Matter Jesikaal Tm 1 - 09/11/2020 3:47 pm CLINICAL HISTORY: ABD PAIN Early . COMPARISON: No comparisons FINDINGS: A single gestational sac is seen within the uterus. The shape of the sac is within normal limits for gestational age. Within the sac is a single pole with crown-rump length of 16 mm, co rrelating to estimated gestational age of 14 weeks 6 days. Estimated date of delivery is 03/06/2021. Heart rate is 155 BPM. The placenta is not yet developed / visualized due to early gestational age. The maternal adnexa and right ovary are within normal limits. Normal Doppler blood flow was demonstra jeancarlos to the right ovary. The left ovary was obscured by bowel gas. IMPRESSION: Single live early intrauterine gestation with estimated gestational age of 14 weeks 6 da ys, ZULY 03/06/2021. No unusual or unexpected finding.
--- NOTE | 2020-09-11 16:40 | ER ---
Nurse's Notes [facility] Name: Brittany Ingram Age: 25 yrs Sex: Female : 1995 Arrival Date: 09/11/2020 Time: 15:08 Bed 24 Private MD: Diagnosis: 14 weeks gestation of Presentation: 09/11 15:14 Chief complaint: Patient states: cramps on LUQ and lower abdominal area x 4 - 5 days. ca1 15 wks . HX of miscarriages. Coronavirus screen: Client denies travel out of the [place] in the last 14 days. At this time, the client does not indicate any symptoms associated with coronavirus-19. Ebola Screen: Patient negative for fever greater than or equal to 101.5 degrees Fahrenheit, and additional compatible Ebola Virus Disease symptoms Patient denies exposure to infectious person. Patient denies travel to an Ebola-affected area in the 21 days before illness onset. No symptoms or risks identified at this time. Initial Sepsis Screen: Does the patient meet any 2 criteria? No. Patient's initial sepsis screen is negative. Does the patient have a suspected source of infection? No. Patient's initial sepsis screen is negative. Risk Assessment: Do you want to hurt yourself or someone else? Patient reports no desire to harm self or others. Onset of symptoms was September 11, 2020. 15:14 Method Of Arrival: Ambulatory ca1 15:14 Acuity: WILL 3 ca1 Triage Assessment: 16:55 General: Appears Behavior is calm, cooperative. 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 - Social history:: Smoking status: Patient denies any tobacco usage or history of. Screenin:59 Abuse screen: Denies threats or abuse. Denies injuries from another. Nutritional iw screening: No deficits noted. Tuberculosis screening: No symptoms or risk factors identified. Fall Risk None identified. Assessment: 16:00 General: Appears in no apparent distress. Behavior is calm, cooperative. Pain: iw Complains of pain in left lower quadrant and right lower quadrant. Neuro: Level of Consciousness is awake, alert, obeys commands, Oriented to person, place, time, situation. Cardiovascular: Patient's skin is warm and dry. Respiratory: Respiratory effort is even, unlabored, Respiratory pattern is regular. GI: Bowel sounds present X 4 quads. Abd is soft X 4 quads Reports lower abdominal pain. Derm: Skin is intact, is healthy with good turgor. Musculoskeletal: Range of motion: intact in all extremities. Vital Signs: 15:14 BP 133 / 90; Pulse 106; Resp 18 S; Temp 97.9(TE); Pulse Ox 99% on R/A; Weight 77.11 kg ca1 (R); Height 5 ft. 2 in. (157.48 cm) (R); Pain 0/10; 15:14 Body Mass Index 31.09 (77.11 kg, 157.48 cm) ca1 ED Course: 15:08 Patient arrived in ED. as 15:12 Liza Greene FNP-C is PHCP. kb 15:12 Aiden Vela MD is Attending Physician. kb 15:17 Triage completed. ca1 15:18 Arm band placed on right wrist. ca1 15:46 Matter Eval Tm 1 In Process Unspecified. EDMS 16:00 Patient has correct armband on for positive identification. iw 16:37 Anabelle Mendosa, RN is Primary Nurse. iw 16:59 No provider procedures requiring assistance completed. Patient did not have IV access iw during this emergency room visit. Administered Medications: No medications were administered Outcome: 16:40 Discharge ordered by MD. kb 16:59 Discharged to home ambulatory. iw 16:59 Condition: good 16:59 Discharge instructions given to family, Instructed on discharge instructions, follow up and referral plans. Demonstrated understanding of instructions, follow-up care. 17:00 Patient left the ED. iw Signatures: Dispatcher [employer] EDMS Liza Greene FNP-C FNP-Nargis Webster as Anabelle Mendosa, RN RN iw Clary Perales RN RN ca1
--- NOTE | 2020-09-11 16:40 | EDPHYS ---
Physician Documentation [facility] Name: Brittany Ingram Age: 25 yrs Sex: Female : 1995 Arrival Date: 09/11/2020 Time: 15:08 Bed 24 Private MD: ED Physician Aiden Vela HPI: 09/11 15:17 This 25 yrs old Female presents to ER via Ambulatory with complaints of Pelvic kb Pain - 15 wks preg, Abdominal Pain. 15:17 The patient presents to the emergency department with abdominal pain, of the right kb lower quadrant and left lower quadrant, that started 4 day(s) ago, described as crampy. The estimated gestational age is 15 weeks. course: care: none. Previous pregnancies: in previous pregnancies patient has had. Associated signs and symptoms: Pertinent positives: abdominal pain. The patient has experienced a previous episode. The patient has not recently seen a physician. Pt reports she is 15 weeks . Has had lower abd cramping for 4 days. Last check-up was when she was 6 weeks , then she moved here and hasn't found a dr. . 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 - Social history:: Smoking status: Patient denies any tobacco usage or history of. ROS: 15:19 Constitutional: Negative for fever, chills, and weight loss, Respiratory: Negative for kb shortness of breath, cough, wheezing, and pleuritic chest pain, : Negative for injury, bleeding, discharge, and swelling, MS/Extremity: Negative for injury and deformity, Skin: Negative for injury, rash, and discoloration, Neuro: Negative for headache, weakness, numbness, tingling, and seizure. 15:19 Abdomen/GI: Positive for abdominal cramps. Exam: 15:19 Constitutional: This is a well developed, well nourished patient who is awake, alert, kb and in no acute distress. Head/Face: Normocephalic, atraumatic. Respiratory: Respirations even and unlabored. No increased work of breathing, no retractions or nasal flaring. Abdomen/GI: Soft, non-tender. No distention Skin: Warm, dry with normal turgor. Normal color. MS/ Extremity: Pulses equal, no cyanosis. Neurovascular intact. Full, normal range of motion. Neuro: Awake and alert, GCS 15, oriented to person, place, time, and situation. Moves all extremities. Normal gait. Vital Signs: 15:14 BP 133 / 90; Pulse 106; Resp 18 S; Temp 97.9(TE); Pulse Ox 99% on R/A; Weight 77.11 kg ca1 (R); Height 5 ft. 2 in. (157.48 cm) (R); Pain 0/10; 15:14 Body Mass Index 31.09 (77.11 kg, 157.48 cm) ca1 MDM: 15:19 Data reviewed: vital signs, nurses notes. Data interpreted: Pulse oximetry: on room air kb is 99 %. Interpretation: normal. 15:22 Patient medically screened. kb 16:20 Counseling: I had a detailed discussion with the patient and/or guardian regarding: the kb historical points, exam findings, and any diagnostic results supporting the discharge/admit diagnosis, the need for outpatient follow up, an OB/Gyne specialist, to return to the emergency department if symptoms worsen or persist or if there are any questions or concerns that arise at home. 09/11 16:46 Order name: Urine Dipstick--Ancillary (enter results) 09/11 16:46 Order name: Urine --Ancillary (enter results) bd 09/11 15:17 Order name: Urine Test (obtain specimen); Complete Time: 16:37 kb 09/11 15:17 Order name: NPO; Complete Time: 16:37 kb 09/11 15:17 Order name: Urine Dipstick-Ancillary (obtain specimen); Complete Time: 16:37 kb 09/11 15:46 Order name: Matter Eval Tm 1; Complete Time: 16:13 EDMS Administered Medications: No medications were administered Disposition: 09/11/20 16:40 Discharged to Home. Impression: 14 weeks gestation of . - Condition is Stable. - Discharge Instructions: Second Trimester of , [id number]. - Medication Reconciliation Form, Thank You Letter, Antibiotic Education, Prescription Opioid Use form. - Follow up: Emergency Department; When: As needed; Reason: Worsening of condition. Follow up: Private Physician; When: 2 - 3 days; Reason: Recheck today's complaints, Continuance of care, Re-evaluation by your physician. Addendum: 09/12/2020 18:43 Co-signature as Attending Physician, Aiden Vela MD. m a2 Signatures: Dispatcher [employer] Liza Greene, PHYSIOTHERAPY ASSISTANT-C PHYSIOTHERAPY ASSISTANT-Anabelle Hardy, RN RN iw Aiden Vela MD MD pa2 Clary Perales RN RN ca1 Corrections: (The following items were deleted from the chart) 09/11 15:46 15:17 Transvaginal Ob+US.RAD.BRZ ordered. [facility] 17:00 16:40 09/11/2020 16:40 Discharged to Home. Impression: 14 weeks gestation of . iw Condition is Stable. Forms are Medication Reconciliation Form, Thank You Letter, Antibiotic Education, Prescription Opioid Use. Follow up: Emergency Department; When: As needed; Reason: Worsening of condition. Follow up: Private Physician; When: 2 - 3 days; Reason: Recheck today's complaints, Continuance of care, Re-evaluation by your physician. kb
[2020-09-11 17:24] VITALS: BP 133/90; TEMP 97.9; O2SAT 99
[2020-09-11 17:27] LABS: Urine Blood NEGATIVE (Negative); Urine Glucose NEGATIVE (Negative); Urine Protein NEGATIVE (NEG); Urine Specific Gravity 1.025 (1.005-1.030); Urine Specific Gravity/Preg 1.025 (1.005-1.030); Urine pH 6.5 (5.0-7.0)
== END 2020-09-11 17:00 | disposition home or self-care (01) ==
LOC: ER 15:05
DX: O26.891 Other specified pregnancy related conditions, first trimester (principal); Z3A.14 14 weeks gestation of pregnancy; Z91.040 Latex allergy status; Z91.048 Other nonmedicinal substance allergy status
CPT/HCPCS: 76801; 81003; 81025; 99283

== ENCOUNTER 2021-05-13 11:30 | Emergency (ER) | payer OTHER ==
--- OUTSIDE RECORDS SUMMARY | 2021-05-13 11:44 | XMS REPORT | Continuity of Care Document ---
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 (MACROBID) 00 :00 (two) Medical 100 mg times Branch capsule daily for 7 days. Nitrofurant 2020- No [id number] 100mg Take 1 Univers oin&Nit. 4-19 - capsule by ity of Macrocryst 00:00: 04:59 mouth 2 [place] as (MACROBID) 00 :00 (two) Medical 100 mg times Branch capsule daily for 7 days. Saline No Notes: Memoria Flush 0.9% 2-22 Same as: l 07:45: BD [place] 00 Posiflush Sterile Sodium No 1,000 mL, Memori a Chloride 2-22 1000 l 0.9% 07:45: ml/hr, Huy (Bolus) IV 00 Infuse Over: 1 hr, Route: IV, 1,000, Drug form: INJ, ONCE, Priority: STAT, Dosing Weight 79 kg, Start date: 08/07/20 1:45:00 [employer], Stop date: 08/07/20 1:45:00 [employer], 0 Saline 2021-0 No Notes: Memoria Flush 0.9% 2-22 Same as: l 07:45: BD [facility] 00 Posiflush Sterile Sodium 2021-0 No 1,000 mL, Memori a Chloride 2-22 1000 l 0.9% 07:45: ml/hr, [facility] (Bolus) IV 00 Infuse Over: 1 hr, Route: IV, 1,000, Drug form: INJ, ONCE, Priority: STAT, Dosing Weight 79 kg, Start date: 08/07/20 1:45:00 [employer], Stop date: 08/07/20 1:45:00 [employer], 0 Saline 2021-0 No Notes: Memoria Flush 0.9% 2-22 Same as: l 07:45: BD [facility] 00 Posiflush Sterile Sodium 2021-0 No 1,000 mL, Memori a Chloride 2-22 1000 l 0.9% 07:45: ml/hr, [facility] (Bolus) IV 00 Infuse Over: 1 hr, Route: IV, 1,000, Drug form: INJ, ONCE, Priority: STAT, Dosing Weight 79 kg, Start date: 08/07/20 1:45:00 [employer], Stop date: 08/07/20 1:45:00 [employer], 0 Saline 2021-0 No Notes: Memoria Flush 0.9% 2-22 Same as: l 07:45: BD [place] 00 Posiflush Sterile Sodium 2021-0 No 1,000 mL, Memori a Chloride 2-22 1000 l 0.9% 07:45: ml/hr, [facility] (Bolus) IV 00 Infuse Over: 1 hr, Route: IV, 1,000, Drug form: INJ, ONCE, Priority: STAT, Dosing Weight 79 kg, Start date: 08/07/20 1:45:00 [employer], Stop date: 08/07/20 1:45:00 [employer], 0 Saline 2021-0 No Notes: Memoria Flush 0.9% 2-22 Same as: l 07:45: BD [facility] 00 Posiflush Sterile Sodium 2021-0 No 1,000 mL, Memori a Chloride 2-22 1000 l 0.9% 07:45: ml/hr, Huy (Bolus) IV 00 Infuse Over: 1 hr, Route: IV, 1,000, Drug form: INJ, ONCE, Priority: STAT, Dosing Weight 79 kg, Start date: 08/07/20 1:45:00 [employer], Stop date: 08/07/20 1:45:00 [employer], 0 Acetaminoph No Notes: Do M emoria en 2-13 not exceed l 23:14: 4 gm/day. [facility] 00 (Same as: Tylenol) Acetaminoph No Notes: Do M emoria en 2-13 not exceed l 23:14: 4 gm/day. Huy 00 (Same as: Tylenol) Acetaminoph No Notes: Do M emoria en 2-13 not exceed l 23:14: 4 gm/day. Huy 00 (Same as: Tylenol) Acetaminoph No Notes: Do M emoria en 2-13 not exceed l 23:14: 4 gm/day. Huy 00 (Same as: Tylenol) Acetaminoph No Notes: Do M emoria en 2-13 not exceed l 23:14: 4 gm/day. Huy 00 (Same as: Tylenol) Tylenol No Notes: Do Memor ia - not exceed l 06:39: 4 gm/day. Huy 00 (Same as: Tylenol) Zofran No Notes: Memoria - (Same as: l 06:39: Zofran) Huy MEDICATION WASTE Product Size: 4 mg Product Wasted: ___ mg Tylenol No Notes: Do Memor ia -23 not exceed l 06:39: 4 gm/day. Huy (Same as: Tylenol) Zofran No Notes: Memoria - (Same as: l 06:39: Zofran) Huy 00 MEDICATION WASTE Product Size: 4 mg Product Wasted: ___ mg Tylenol No Notes: Do Memor ia - not exceed l 06:39: 4 gm/day. (Same as: Tylenol) No Notes: Memoria 07-08 (Same as: l 06:39: Zofran) MEDICATION WASTE Product Size: 4 mg Product Wasted: ___ mg Tylenol No Notes: Do Memor ia 07-08 not exceed l 06:39: 4 gm/day. (Same as: Tylenol) No Notes: Memoria 07-08 (Same as: l 06:39: Zofran) MEDICATION WASTE Product Size: 4 mg Product Wasted: ___ mg Tylenol No Notes: Do Memor ia 07-08 not exceed l 06:39: 4 gm/day. (Same as: Tylenol) No Notes: Memoria 07-08 (Same as: l 06:39: Zofran) MEDICATION WASTE Product Size: 4 mg Product Wasted: ___ mg norgestimat 2015-06 No 1{tbl} Take 1 U nivers e-ethinyl 0-28 04-19 tablet by ity of estradiol 00:00: 00:00 mouth [place] (SPRINTEC) 00 :00 daily. Medical 0.25-35 Branch mg-mcg per tablet traMADOL 2015-06 No 50mg Take 1 Univer s (ULTRAM) 50 0-26 04-19 tablet by it y of mg tablet 00:00: 00:00 mouth [place] 00 :00 every 6 Medical (six) Branch hours as needed for Pain (scale 4-6) or Pain (scale 7-10). PNV without 2015-06- No [id number] 1{each} Take 1 Univers Ca-Iron 0-06 04-19 Each by ity of PsCmplx-FA 00:00: 00:00 mouth [place] (SELECT-OB, 00 :00 daily. Medica l FOLIC Branch ACID,) 29-1 mg Chew proMETHazin 2015-06- No [id number] 25mg Take 1 Univers e 0-06 04-19 tablet by ity of (PHENERGAN) 00:00: 00:00 [place] 25 mg 00 :00 every 6 Medical tablet (six) Branch hours as needed for Nausea and Vomiting (N/V). Immunizations Ordered Filled Immunization Date Status Comments [facility] e Immunization Name Name Adacel IM 2020-12-25 Completed [facility] [id number] 14:07:00 Health Fluzone 2020-07-10 Completed [facility] Quadrivalent IM 18:43:00 Health Prefilled Syringe 0.5 mL (PF) [id number] Influenza Virus 2020-06-30 Completed Universit y of Vaccine 00:00:00 [facility] Influenza Virus 2020-06-30 Completed Universit y of Vaccine 00:00:00 [facility] Influenza Virus 2016-03-21 Completed Universit y of Vaccine Quad IM 3+ 00:00:00 [facility] Influenza Virus 2016-03-21 Completed Universit y of Vaccine Quad IM 3+ 00:00:00 [facility] Influenza Virus 2016-03-21 Completed Universit y of Vaccine Quad IM 3+ 00:00:00 [facility] Influenza Virus 2016-03-21 Completed Universit y of Vaccine Quad IM 3+ 00:00:00 [facility] Influenza Virus 2016-03-21 Completed Universit y of Vaccine Quad IM 3+ 00:00:00 [facility] Influenza Virus 2016-03-21 Completed Universit y of Vaccine Quad IM 3+ 00:00:00 [facility] Influenza Virus 2016-03-21 Completed Universit y of Vaccine Quad IM 3+ 00:00:00 [facility] Influenza Virus 2016-03-21 Completed Universit y of Vaccine Quad IM 3+ 00:00:00 [facility] Influenza Virus 2016-03-21 Completed Universit y of Vaccine Quad IM 3+ 00:00:00 [facility] Influenza Virus 2016-03-21 Completed Universit y of Vaccine Quad IM 3+ 00:00:00 [facility] Influenza Virus 2016-03-21 Completed Universit y of Vaccine Quad IM 3+ 00:00:00 [facility] Influenza Virus 2016-03-21 Completed Universit y of Vaccine Quad IM 3+ 00:00:00 [facility] Influenza Virus 2016-03-21 Completed Universit y of Vaccine Quad IM 3+ 00:00:00 [facility] Influenza Virus 2016-03-21 Completed Universit y of Vaccine Quad IM 3+ 00:00:00 [facility] Influenza Virus 2016-03-21 Completed Universit y of Vaccine Quad IM 3+ 00:00:00 [facility] TDAP 2015-03-21 Completed University of 00:00:00 [facility] Branch TDAP 2015-03-21 Completed University of 00:00:00 [facility] Branch TDAP 2015-03-21 Completed University of 00:00:00 [facility] Branch TDAP 2015-03-21 Completed University of 00:00:00 [facility] Branch TDAP 2015-03-21 Completed University of 00:00:00 [facility] Branch TDAP 2015-03-21 Completed University of 00:00:00 [facility] Branch TDAP 2015-03-21 Completed University of 00:00:00 [facility] Branch TDAP 2015-03-21 Completed University of 00:00:00 [facility] TDAP 2015-03-21 Completed University of 00:00:00 [facility] TDAP 2015-03-21 Completed University of 00:00:00 [facility] TDAP 2015-03-21 Completed University of 00:00:00 [facility] TDAP 2015-03-21 Completed University of 00:00:00 [facility] TDAP 2015-03-21 Completed University of 00:00:00 [facility] TDAP 2015-03-21 Completed University of 00:00:00 [facility] TDAP 2015-03-21 Completed University of 00:00:00 [facility] Vital Signs Vital Name Observation Time Observation Value Comments Source Heart rate 2020-10-12 16:45:00 81 /min [facility] Oxygen saturation in 2020-10-12 16:45:00 99 /min [facility] Arterial blood by [facility] Pulse oximetry Branch Systolic blood 2020-10-12 15:30:00 123 mm[Hg] Univer sity of pressure [facility] Diastolic blood 2020-10-12 15:30:00 77 mm[Hg] Unive rsity of pressure [facility] Body temperature 2020-10-12 15:30:00 36.89 Kisha Univ ersity of [facility] Respiratory rate 2020-10-12 15:30:00 18 /min Univ ersity of [facility] Body height 2020-10-12 15:00:00 157.5 cm Universi ty [facility] Body weight 2020-10-12 15:00:00 77.565 kg Universi ty [facility] BMI 2020-10-12 15:00:00 31.28 kg/m2 Universi ty [facility] Systolic blood 2020-10-02 19:36:00 122 mm[Hg] Univer sity of pressure [facility] Diastolic blood 2020-10-02 19:36:00 78 mm[Hg] Unive rsity of [facility] Heart rate 2020-10-02 19:36:00 91 /min Universi ty [facility] Body temperature 2020-10-02 19:36:00 36.89 [facility] 2020-10-02 19:36:00 16 /min [facility] [place] [facility] Body height 2020-10-02 19:36:[address] [facility] Body weight 2020-10-02 19:36:00 78.835 kg [facility] BMI 2020-10-02 19:36:00 31.79 kg/m2 [facility] blood pressure, 2021-04-20 16:50:04 76 mm[Hg] [facility] diastolic Health blood pressure, 2021-04-20 16:50:04 116 mm[Hg] [facility] systolic Health pulse rate 2021-04-20 16:50:04 64 /min [facility] Health temperature E&M 2021-04-20 16:50:04 98.1 [degF] [facility] Health temperature site 2021-04-20 16:50:04 oral [facility] weight E&M 2021-04-20 16:50:04 163 [lb_av] [facility] Health height E&M 2021-04-20 16:50:04 62.3 [in_i] [facility] Health Systolic blood 2021-03-10 14:26:00 137 mm[Hg] [facility] pressure Diastolic blood 2021-03-10 14:26:00 88 mm[Hg] [facility] pressure Heart rate 2021-03-10 14:26:00 99 /min [facility] Body temperature 2021-03-10 14:26:00 36.56 Kisha [facility] Respiratory rate 2021-03-10 14:26:00 16 /min [facility] Oxygen saturation in 2021-03-10 14:26:00 97 /min [facility] Arterial blood by Pulse oximetry Body height 2021-03-10 11:15:[address] [facility] Body weight 2021-03-10 11:15:[address] [facility] BMI 2021-03-10 11:15:00 32.92 kg/m2 [facility] pulse rate 2021-03-03 09:45:41 85 /min [facility] temperature E&M 2021-03-03 09:45:41 98.2 [degF] [facility] blood pressure, 2021-03-03 09:45:41 75 mm[Hg] [facility] diastolic Health blood pressure, 2021-03-03 09:45:41 127 mm[Hg] [facility] systolic Health weight E&M 2021-03-03 09:45:41 190.0 [lb_av] [facility] 2021-03-03 09:45:41 oral [facility] Health height E&M 2021-03-03 09:45:41 62.3 [in_i] [facility] Systolic (mm Hg) 2021-03-03 02:52:00 Teja rial [place] Diastolic (mm Hg) 2021-03-03 02:52:00 Mem orial [facility] Temperature Oral (F) 2021-03-03 02:52:00 98.2 F [facility] Respitory Rate 2021-03-03 02:52:00 Memori al [facility] Weight 2021-03-03 02:29:00 [facility] Systolic (mm Hg) 2021-03-03 02:29:00 Teja rial [facility] Diastolic (mm Hg) 2021-03-03 02:29:00 Mem orial [facility] Heart Rate 2021-03-03 02:29:00 [facility] Respitory Rate 2021-03-03 02:29:00 Memori al [facility] Temperature Oral (F) 2021-03-03 02:29:00 98.2 F [facility], 2021-02-22 16:03:08 80 mm[Hg] [facility] diastolic Health blood pressure, 2021-02-22 16:03:08 130 mm[Hg] [facility] systolic Health pulse rate 2021-02-22 16:03:08 94 /min [facility] Health temperature E&M 2021-02-22 16:03:08 98.4 [degF] [facility] Health weight E&M 2021-02-22 16:03:08 189.8 [lb_av] [facility] temperature site 2021-02-22 16:03:08 oral [facility] Health height E&M 2021-02-22 16:03:08 62.3 [in_i] [facility] Height 2021-02-18 08:23:00 157.48 cm [facility] Huy BMI Calculated 2021-02-18 08:23:00 Ritu cookie [facility]uy Weight 2021-02-18 08:23:00 [facility] Systolic (mm Hg) 2021-02-18 08:23:00 Tejalluvia Son Diastolic (mm Hg) 2021-02-18 08:23:00 [facility] Heart Rate 2021-02-18 08:23:00 [facility] 2021-02-18 08:23[facility]00 [facility] Temperature Oral (F) 2021-02-18 08:23:00 98.2 F [facility] blood pressure, 2021-02-15 10:30:42 80 mm[Hg] [facility] diastolic Health blood pressure, 2021-02-15 10:30:42 120 mm[Hg] [facility] systolic Health pulse rate 2021-02-15 10:30:42 97 /min [facility] Health temperature E&M 2021-02-15 10:30:42 99.6 [degF] [facility] Health weight E&M 2021-02-15 10:30:42 189.6 [lb_av] [facility] temperature site 2021-02-15 10:30:42 oral [facility] Health height E&M 2021-02-15 10:30:42 62.3 [in_i] [facility] pulse rate 2021-02-08 13:25:59 85 /min [facility] temperature E&M 2021-02-08 13:25:59 98.1 [degF] [facility] Health blood pressure, 2021-02-08 13:25:59 80 mm[Hg] [facility] diastolic Health blood pressure, 2021-02-08 13:25:59 119 mm[Hg] [facility] systolic Health weight E&M 2021-02-08 13:25:59 144 [lb_av] [facility] Health temperature site 2021-02-08 13:25:59 oral [facility] height E&M 2021-02-08 13:25:59 62.3 [in_i] [facility] Health blood pressure, 2021-01-08 10:15:00 75 mm[Hg] [facility] diastolic Health blood pressure, 2021-01-08 10:15:00 120 mm[Hg] [facility] systolic Health pulse rate 2021-01-08 10:15:00 80 /min [facility] temperature [facility] 2021-01-08 10:15:00 oral [facility] Health temperature E&M 2021-01-08 10:15:00 98.6 [degF] [facility] Health height E&M 2021-01-08 10:15:00 62.3 [in_i] [facility] weight E&M 2021-01-08 10:15:00 183.8 [lb_av] [facility] Health temperature site 2020-12-25 13:48:49 oral [facility] height E&M 2020-12-25 13:48:49 62.3 [in_i] [facility] blood pressure, 2020-12-25 13:48:49 80 mm[Hg] [facility] diastolic Health blood pressure, 2020-12-25 13:48:49 122 mm[Hg] [facility] systolic Health pulse rate 2020-12-25 13:48:49 101 /min [facility] weight E&M 2020-12-25 13:48:49 184.4 [lb_av] [facility] temperature E&M 2020-12-25 13:48:49 98.0 [degF] [facility] Temperature Oral (F) 2020-08-07 09:58:00 99.0 F [facility] Heart Rate 2020-08-07 09:09:00 [facility] Respitory Rate 2020-08-07 09:09:00 Memori al [place] Systolic (mm Hg) 2020-08-07 09:09:00 Teja rial [facility] Diastolic (mm Hg) 2020-08-07 09:09:00 Mem orial [facility] Weight 2020-08-07 07:20:00 [facility] Systolic (mm Hg) 2020-08-07 07:20:00 Teja rial [facility] Diastolic (mm Hg) 2020-08-07 07:20:00 Mem orial Huy Heart Rate 2020-08-07 07:20:00 [facility] Respitory Rate 2020-08-07 07:20:00 Memori al [place] Temperature Oral (F) 2020-08-07 07:20:00 99 F [facility] Temperature Oral (F) 2020-07-30 02:24:00 98.4 F [facility] Heart Rate 2020-07-30 02:24:00 [facility] Respitory Rate 2020-07-30 02:24:00 Memori al [place] Systolic (mm Hg) 2020-07-30 02:24:00 Teja rial [facility] Diastolic (mm Hg) 2020-07-30 02:24:00 Mem orial [facility] Weight 2020-07-29 22:43:00 [facility] Systolic (mm Hg) 2020-07-29 22:43:00 Teja rial [facility]uy Diastolic (mm Hg) 2020-07-29 22:43:00 Mem orial Huy Heart Rate 2020-07-29 22:43:00 [facility] Respitory Rate 2020-07-29 22:43:00 Memori al [facility] Temperature Oral (F) 2020-07-29 22:43:00 98.3 F [facility] pulse rate 2020-07-10 17:20:38 75 /min [facility] blood pressure, 2020-07-10 17:20:38 73 mm[Hg] [facility] diastolic Health blood pressure, 2020-07-10 17:20:38 112 mm[Hg] [facility] systolic Health temperature E&M 2020-07-10 17:20:38 98.1 [degF] [facility] Health height E&M 2020-07-10 17:20:38 62.3 [in_i] [facility] weight E&M 2020-07-10 17:20:38 171.8 [lb_av] [facility] 2020-07-10 17:20:38 oral [facility] Health Systolic (mm Hg) 2020-07-08 08:37:00 Teja rial [facility] Diastolic (mm Hg) 2020-07-08 08:37:00 Mem orial [facility] Heart Rate 2020-07-08 08:37:00 [facility] Respitory Rate 2020-07-08 08:37:00 Memori al [facility] Temperature Oral (F) 2020-07-08 08:37:00 98.1 F [facility] Weight 2020-07-08 05:30:00 [facility] Systolic (mm Hg) 2020-07-08 05:30:00 Teja rial [facility] Diastolic (mm Hg) 2020-07-08 05:30:00 Mem orial [facility] Heart Rate 2020-07-08 05:30:00 [facility] Respitory Rate 2020-07-08 05:30:00 Memori al [facility] Temperature Oral (F) 2020-07-08 05:30:00 98.5 F [facility] BMI Calculated 2016-03-31 06:14:00 Memori al [facility] Weight 2016-03-31 06:14:00 [facility] Height 2016-03-31 06:14:00 162.48 cm [facility] Temperature Oral (F) 2016-03-31 06:14:00 98.9 F [facility] Systolic (mm Hg) 2016-03-31 06:14:00 Teja rial Huy Diastolic (mm Hg) 2016-03-31 06:14:00 Mem orial [facility] Heart Rate 2016-03-31 06:14:00 [facility] Respitory Rate 2016-03-31 06:14:00 Ritu Walker Procedures Procedure Date / Time Performing Clinician Source Performed Consultation 2021-04-20 17:42:42 [facility] ([place] [facility]) Health XR CHEST 2 VW 2021-03-10 13:19:00 [facility] PELVIS W 2021-03-10 13:18:37 CharyBarak mcgee [facility] CONTRAST COVID-19 QUALITATIVE 2021-03-10 12:36:00 Uma Rios [facility] RT-PCR URINE CULTURE 2021-03-10 12:24:00 [facility] URINALYSIS 2021-03-10 12:24:00 Chary [facility] HCG QUALITATIVE, URINE 2021-03-10 12:24:00 CharyBarak [facility] SCREEN BLOOD CULTURE, AEROBIC & 2021-03-10 12:15:00 Hcary [facility] ANAEROBIC BLOOD CULTURE, AEROBIC & 2021-03-10 12:02:00 Chary [facility] ANAEROBIC RESPIRATORY PATHOGEN 2021-03-10 11:48:00 CharyBarak mcgee [facility] PANEL WITH COVID-19 RT-PCR INFLUENZA ANTIGEN 2021-03-10 11:48:00 CharyBarak mcgee [facility] LACTIC ACID, I-STAT 2021-03-10 11:48:00 CharyBarak mcgee [facility] MANUAL DIFFERENTIAL 2021-03-10 11:48:00 CharyBarak mcgee [facility] CBC WITH PLATELET AND 2021-03-10 11:48:00 CharyBarak [facility] DIFFERENTIAL COMPREHENSIVE METABOLIC 2021-03-10 11:48:00 Chary [facility] PANEL AMYLASE LEVEL 2021-03-10 11:48:[address] [facility] ESTIMATED GFR 2021-03-10 11:48:[address] [facility] [id number] 2021-03-05 00:00:00 ALEXYS BENNETT [place] 2021-01-08 09:26:45 Provider, Darlin Tamayo [employer] Education/Supportive Health Services Health Counseling Consultation 2021-01-08 09:25:26 ProviderDarlin [facility] Health Services Health AUTHORIZATION FOR 2021-01-05 05:01:00 Doctor Unassigned, No [facility] RE[facility] PHI Name Medical Branch Consultation 2020-12-25 14:25:16 Gavi [facility] ([place] Only) Health Becoming A Mom 2020-12-25 14:25:16 Gavi Devine [facility] Vx - Ix admin via 2020-12-25 14:07:15 [facility]avi [facility] ID IM or jet injects Health without counseling by physician Adacel Intramuscular 2020-12-25 14:06:03 [facility]avi [facility] Suspension 5-2-15.5 Health Vaccines Ordered - Print 2020-12-25 14:06:03 Gavi [facility] Consent/Declination Health Forms MEDICAL 2020-11-14 05:01:00 Doctor Unassigned, No [facility] sity [facility] RELEASE/CLEARANCE FORMS Name Medical Branch MEDICAL 2020-10-16 05:01:00 Doctor Unassigned, No [facility] RELEASE/CLEARANCE FORMS Name Medical Branch MEDICAL 2020-10-16 05:01:00 Doctor Unassigned, No [facility] [place] RELEASE/CLEARANCE FORMS Name Medical Branch EXTERNAL PROVIDER 2020-10-13 05:01:00 Doctor Unassigned, No [facility] RECORDS Name Medical Branch ADC CLC OR [facility] ONLY - 2020-10-12 17:32:00 Noni Hobson [facility] WET PREP Medical Branch URINALYSIS 2020-10-12 16:05:00 Noni Hobson [place] [facility] [place] [facility] COVID-19 (ID NOW RAPID 2020-10-12 16:05:[address] [facility] Medical Branch POCT TEST 2020-10-02 19:34:00 Noni Hobson [facility] Medical Branch POCT URINALYSIS W/O 2020-10-02 19:33:00 Noni Hobson [facility] SPECIFIC GRAVITY Medical Branch Vaccines Ordered - Print 2020-07-10 19:01:01 Monty [facility] Consent/Declination Health Forms [employer]ipper 2020-07-10 19:01:01 Monty Devine [facility] [employer]iders - Car Seat 2020-07-10 19:01:01 [facility] Education Class Health Becoming A Mom 2020-07-10 19:01:01 Monty Devine [employer] [facility] Ultrasound of 2020-07-10 19:00:56 [facility] Uterus- 1st trimester Health First Vx - Ix admin via 2020-07-10 18:41:44 [facility] ID IM or jet injects Health without counseling by physician Fluzone Quadrivalent IM 2020-07-10 18:41:44 Monty [facility] Prefilled Syringe 0.5 mL Health (PF) Health 2020-06-29 16:29:05 Provider, [facility] [employer] Education/Supportive Health Services Health Counseling Plan of Care Planned Activity Planned Date Details Comments Source Future Scheduled 2025-03-21 DTaP,Tdap,and Td Univers [facility] Test 00:00:00 Vaccines (2 - Td) Medical Br anch [code = DTaP,Tdap,and Td Vaccines (2 - Td)] Future Scheduled 2023-10-03 Screening for [facility] Test 00:00:00 malignant neoplasm of Medica l Branch cervix (procedure) [code = 016439512] Future Scheduled 2021-10-12 Screening for [facility] Test 00:00:00 Chlamydia trachomatis Medica l Branch (procedure) [code = 960419844] Future Scheduled 2021-02-14 INFLUENZA VACCINE Univer sity [facility] Test 00:00:00 (Season Ended) [code = Medic al Branch INFLUENZA VACCINE (Season Ended)] Future Scheduled 2009 Depression screening Uni [facility] Test 00:00:00 (procedure) [code = Medical Branch 702480181] Future Scheduled 2008 [facility]IN[facility] 2-dose series) [code = Medic al Branch HPV VACCINES (1 - 2-dose series)] Future Scheduled 2007 MENINGOCOCCAL B [facility] Test 00:00:00 VACCINES (1 of 2 - Medical B ranch Risk Bexsero 2-dose series) [code = MENINGOCOCCAL B VACCINES (1 of 2 - Risk Bexsero 2-dose series)] Future Scheduled CHLAMYDIA SCREENING [facility] Test [code = CHLAMYDIA SCREENING] Future Scheduled COVID-19 VACCINE (1) [facility] Test [code = COVID-19 VACCINE (1)] Future Scheduled Hepatitis C screening [facility] Test (procedure) [code = 450408158] Future Scheduled [facility] Test malignant neoplasm of cervix (procedure) [code = 874326181] Future Scheduled INFLUENZA VACCINE [facility] Test [code = INFLUENZA VACCINE] Encounters Start End Encounter Admission Attending Care Care Encounter Source Date/Time Date/Time Type Type Clinicians Facility Department ID 2021-04-27 Outpatient marco [facility] [id number] Legacy 09:08:04 [id number] [facility] 2021-04-15 Outpatient U [facility] ERT [id number] [facility] [facility] [id number] Univers 16:04:08 [facility] 2021-04-05 Inpatient [facility] JAMES [id number] [facility] 01:10:00 [id number] [facility] 2021-03-11 Inpatient EM Franquraheel, [facility] OBPP [id number] [facility] 08:40:00 Nathan [id number] [facility] 2021-03-10 Inpatient EM Franquraheel, [facility] OBPP [id number] [facility] 12:42:00 Nathan [id number] [facility] 2021-03-04 Inpatient Luisito Wu [facility] PHILIP [id number] [facility] 10:49:00 [id number] [facility] 2021-03-03 Inpatient ROCK Umanzor PHILIP [id number] [facility] 20:33:00 Gavi [id number] [facility] 2020-12-29 Inpatient MHSW MHSW 1197 [facility]HS W 10:54:40 2021-04-20 2021-04-20 Office NicoleMarileeLatha [facility] 81 [id number] Legacy 00:00:00 00:00:00 Visit Mirtha Lind 11 105 Gisela Gannon Lizzy Romero [facility] 2021-04-05 2021-04-05 Emergency EM Jd, [facility] [id number] [facility] 01:10:00 04:00:00 Berto 54 [facility] 2021-03-11 2021-03-17 Inpatient EM Carolina, [facility] OBPP [id number] [facility] 08:40:00 11:24:00 Nathan 01 [facility] 2021-03-10 2021-03-10 Emergency Barak Trevino 1.2.840.1 [id number] Methodi 06:11:00 10:28:[address] 3.430.2.7 Hospit a .3.690428 l .8 2021-03-10 2021-03-10 Travel 1.2.840.1 1.2.438.784 [id number] [id number] Methodi 00:00:00 00:00:[address] 3.430.2.7 0.2.7.3.698 Ho spita .3.658578 084.8 l .8 2021-03-04 2021-03-08 Inpatient EM Laureen Watkins [facility] OBPP [id number] [facility] 11:31:00 11:39:00 10 [facility] 2021-03-06 2021-03-06 [facility] [id number] [facility] 22:49:00 22:49:[id number] [facility] 2021-03-03 2021-03-03 Emergency EM Noé, [facility] PHILIP [id number] [facility] 20:33:00 21:17:00 Gavi 53 [facility] 2021-03-03 2021-03-03 Emergency Critical access hospital [id number] Memoria 02:26:00 03:19:00 r Huy 07 l [facility] 2021-03-03 2021-03-03 Office Monty Devine [facility] En counter/ Legacy 00:00:00 00:00:00 Visit Lavinia Pillai [id number] Yessica Osman [id number] [facility] 2021-03-02 2021-03-02 Emergency E [facility] 7507 [facility] 21:26:00 21:26:00 2021-01-31 2021-03-02 Recurring Critical access hospital [id number] Memoria 18:43:00 04:59:00 r Huy 00 l [facility] 2021-02-22 2021-02-22 Office Monty Devine [facility] 81 [id number] Legacy 00:00:00 00:00:00 Visit Flaquito Casey 28783 [facility] 2021-02-18 2021-02-18 Emergency Critical access hospital 85601 [id number] Memoria 08:01:37 08:56:00 r Huy 06 l [facility] 2021-02-18 2021-02-18 Emergency E [facility] 7506 [facility] 03:01:00 03:01:00 2021-02-15 2021-02-15 Office Korey Costello [facility] [id number] Legacy 00:00:00 00:00:00 Visit Courtney Valdovinos 87588 [facility] 2021-02-08 2021-02-08 Office Monty Devine [facility] 81 [id number] Legacy 00:00:00 00:00:00 Visit Yamilex Haines 1 0826 Yessica Osman [facility] 2021-01-31 2021-01-31 Outpatient [facility] 9600 [facility] 13:43:00 13:43:00 2021-01-08 2021-01-08 Office Gavi Devine [facility] [id number] Legacy 00:00:00 00:00:00 Visit Luisa Shahid 84149 Lizzy Nath [facility] 2021-01-05 2021-01-05 Orders Doctor VANESA 1.2.840.114 [id number] Univers 00:00:00 00:00:00 Only Unassigned, FLORENTINO 350.1.13.10 ity of [place] [facility] 4.2.7.2.686 Eliseo as [phone] [address] 2020-12-25 2020-12-25 Office Gavi Devine [facility] [id number] Legacy 00:00:00 00:00:00 Visit Courtney Valdovinos 19189 Sabrina Negro Rosa He alth 2020-12-21 2020-12-21 Emergency E [facility] 7505 [facility] 23:43:00 23:43:00 2020-12-01 2020-12-01 Emergency E [facility] 7504 [facility] 21:53:00 21:53:00 2020-11-30 2020-11-[address] [facility] 294 064Q-20 Univers 14:30:00 14:30:00 [id number] ity [facility] 2020-11-30 2020-11-30 Outpatient R FISH, TANJA [facility] [id number] Univers 14:30:00 14:30:00 ity [facility] 2020-11-23 2020-11-23 Outpatient R FISH, TANJA [facility] 294 064Q-20 Univers 14:30:00 14:30:00 [id number] [facility] 2020-11-23 2020-11-[address] [facility] [id number] Univers 14:30:00 14:30:00 ity [facility] 2020-11-20 2020-11-20 Outpatient R FISH, TANJA [facility] 294 064Q-20 Univers 14:30:00 14:30:00 [id number] [facility] 2020-11-20 2020-11-[address] [facility] [id number] Univers 14:30:00 14:30:00 ity [facility] 2020-11-14 2020-11-14 Orders Doctor ALEXIS 1.2.840.114 [id number] Univers 00:00:00 00:00:00 Only Unassigned, FLORENTINO 350.1.13.10 ity of [address]7.2.686 [place] as [phone] [address] 2020-11-09 2020-11-09 Outpatient R T[address]JA [facility] 294 064Q-20 Univers 13:00:00 13:00:00 [id number] ity [facility] 2020-11-09 2020-11-09 [address] [facility] [facility] [id number] Univers 13:00:00 13:00:00 ity [facility] 2020-11-02 2020-11-02 Outpatient R [address] [facility] 294 064Q-20 Univers 14:30:00 14:30:00 [id number] ity [facility] 2020-11-02 2020-11-02 [address] [facility] [facility] [id number] Univers 14:30:00 14:30:00 ity [facility] 2020-10-31 2020-10-31 Agricultural Pilot Ultrasound, [facility] 1.2 .840.114 [id number] Univers 14:09:40 15:09:40 Visit Collins Mayfield DRUM STRAIGHTENER 350.1.13.10 ity [facility] 4.2.7.2.686 [place]iseo as MATERNAL [phone] [facility] [address] [place] [address] 2020-10-31 2020-10-[address] [facility] [id number] Univers 14:00:00 14:00:00 [id number] ity [facility] 2020-10-31 2020-10-[address] [facility] [id number] Univers 14:00:00 14:00:00 ity [facility] 2020-10-30 2020-10-30 Outpatient R [address]I [facility]ON [facility] [id number] 4Q-20 Univers 15:30:00 15:30:00 [id number] ity [facility] 2020-10-30 2020-10-30 [address] [facility] [id number] Univers 15:30:00 15:30:00 ity [facility] 2020-10-20 2020-10-20 Telephone Noni Hobson ILLOBITO 1.2.840.114 [id number] Univers 00:00:00 00:00:00 [place] 350.1.13.10 i [place] [phone] Hi dical nal [address] [place] [address] 2020-10-18 2020-10-18 Telephone Noni Hobson [facility] 1.2.840.114 [id number] Univers 00:00:00 00:00:00 Cam [place] 350.1.13.10 i ty of [place] [phone] Hi dical nal [address] [place] [address] 2020-10-17 2020-10-17 Telephone Noni Hobson [facility] 1.2.840.114 [id number] Univers 00:00:00 00:00:00 Cam [place] 350.1.13.10 i ty of [place] 4[place].7.2.[place] [phone] Hi dical nal [address] [place] [address] 2020-10-16 2020-10-16 Orders Doctor VANESA 1.2.840.114 [id number] Univers 00:00:00 00:00:00 Only Unassigned, FLORENTINO 350.1.13.10 ity of [place] [facility] 4.2.7.2.686 [place] as [phone] [address] 2020-10-13 2020-10-13 Orders Doctor VANESA 1.2.840.114 [id number] Univers 00:00:00 00:00:00 Only Unassigned, FLORENTINO 350.1.13.10 ity of [place] [facility] 4.2.7.2.686 [place] as [phone] [address] 2020-10-13 2020-10-13 Telephone Noni Hobson [facility] 1.2.840.114 [id number] Univers 00:00:00 00:00:00 Cam [place] 350.1.13.10 i ty of [place] [phone] Hi dical nal [address] [place] [address] 2020-10-12 2020-10-12 Emergency Noni Hobson [facility] 1.2.840.114 [id number] Univers 09:48:00 12:45:00 Melba Munguia 350.1.13.10 i ty of [place] 4[place]2.7.2.686 [place] [phone] [address] 2020-10-10 2020-10-[address] [facility] [id number] 4Q-20 Univers 11:15:00 11:15:00 FLAQUITO [id number] ity of [facility] 2020-10-10 2020-10-[address] [facility] [id number] Univers 11:15:00 11:15:00 [facility] 2020-10-04 2020-10-04 [facility] 1.2.235.703 [id number] Univers 00:00:00 00:00:00 Management Flaquito Munguia 350.1.13.10 ity of [place] [phone] Hi dical nal 134 [facility] 2020-10-02 2020-10-02 Agricultural Pilot Cyril, [place] [facility] 1.2.8 40.114 [id number] Univers 16:04:43 16:19:43 Visit Noni Hobson Melba Munguia 350.1.13.10 ity of [place].2.[place] [phone] Hi dical nal 353 [facility] 2020-10-02 2020-10-02 [facility] 1.2.212.232 [id number] 8204 Univers 14:17:16 15:41:44 Melba Munguia 350.1.13.10 ity of Visit [place] 4[place]2.7.2.[place] [phone] Hi dical nal 134 [facility] 2020-10-02 2020-10-[address] [facility] [id number] 4Q-20 Univers 14:15:00 14:15:00 [id number] ity of [facility] 2020-10-02 2020-10-02 Out[facility] [id number] Univers 14:15:00 14:15:00 [facility] 2020-09-25 2020-09-[address] [facility] [id number] Univers 18:00:00 18:00:00 LYRIC [facility] 2020-09-25 2020-09-25 Out[address] R [address] [facility] [id number] [id number] Univers 14:30:00 14:30:00 [id number] [facility] 2020-09-20 2020-09-[address] [facility] [id number] Univers 14:30:00 14:30:00 DEEPIKA [id number] [facility] 2020-09-20 2020-09-[address] [facility] [id number] Univers 14:30:00 14:30:00 DEEPIKA [facility] 2020-09-07 2020-09-07 Outpatient R TANJA [facility]AH [facility] 294 064Q-20 Univers 10:30:00 10:30:00 [id number] [facility] 2020-09-07 2020-09-07 Outpatient R TANJA [facility] [facility] [id number] Univers 10:30:00 10:30:00 [facility] 2020-08-07 2020-08-07 [facility] 36039 18079 Memoria 07:18:07 10:08:00 patrick Son 03 l [facility] 2020-08-07 2020-08-07 Emergency E [facility] 7503 [facility] 01:18:00 01:18:00 2020-07-29 2020-07-30 [facility] 39555 41378 Memoria 22:36:22 02:28:00 patrick Son 02 l [facility] 2020-07-10 2020-07-10 Office Monty Devine [facility] 81 [id number] [facility] 00:[facility]:00 00:00:00 Visit Yuliet Bucio 32070 Lorelei Ojeda Rosa He alth Prieto, Natalie 2020-07-08 2020-07-08 [facility] [id number] [id number] Memoria 05:28:36 09:18:00 r Huy 01 l [facility] 2016-03-31 2016-03-31 Emergency Critical access hospital [id number] [id number] Memoria 05:34:00 11:16:00 r [place] 00 l [facility] Results Test Description Test Time Test Comments Results Result Comments Source HCG SERUM 2021-04-05 02:43:00 Test Item Value Reference Range Interpretation Comme nts HCG SERUM (test code = HCG) <1 INTERPRETATION:VALUES BETWEEN 15-20 milliInternatio nal units/mL NEED TO BERETESTED WITHIN 48 HOURS . All units for these ranges are in milliInternatio nalunits/mL0-1 WK AFTER CONCEPTION 0-50 1-2 WKS AFTER CONCEPTION 40-3002-3 WK S AFTER CONCEPTION 100-1,0003-4 WK S AFTER CONCEPTION 500-6,0001-2 MO NTHS AFTER CONCEPTION 5,000-200,0002- 3 MONTHS AFTER CONCEPTION 10,000-100,0002 ND TRIMESTER 3,000-50,0003RD TRIMESTER 1,000-50,000 SP ECIMENS WITH AN HCG LEVEL FROM 0-6 milliInternatio nalunits/mL SHOULD BE CONSIDERED NEGATIVE COMPREHENSIVE METABOLIC [id number] 02:41:00 Test Item Value Reference Range Interpretation Comments SODIUM (test code = NA) 141 mEq/L 135-145 N POTASSIUM (test code = K) 4.6 mEq/L 3.5-5.0 N CHLORIDE (test code = CL) 106 mEq/L 100-115 N CARBON DIOXIDE (test code = CO2) 27 mEq/L 22-31 N ANION GAP (test code = GAP) 13.00 10-20 N GLUCOSE (test code = GLU) 93 mg/dL 65-110 N BLOOD UREA NITROGEN (test code = 11 mg/dL 7-18 N BUN) GLOMERULAR FILTRATION RATE (test 104 ml/min >60 N code = GFR) CREATININE (test code = CREAT) 0.7 mg/dL 0.5-1.0 N TOTAL PROTEIN (test code = PROT) 7.3 gm/dL 6.3-8.2 N ALBUMIN (test code = ALB) 3.6 gm/dL 3.4-4.8 N CALCIUM (test code = CA) 8.7 mg/dL 8.4-10.2 N BILIRUBIN TOTAL (test code = 0.5 mg/dL 0.2-1.0 N BILT) SGOT/AST (test code = AST) 47 units/L 15-37 H SGPT/ALT (test code = ALT) 25 units/L 12-78 N ALKALINE PHOSPHATASE TOTAL (test 127 units/L 46-116 H code = ALKP) [id number] 02:41:00 Test Item Value Reference Range Interpretation Comments LIPASE (test code = LIP) 87 units/L 73-393 N CBC W/AUTO [id number] 02:15:00 Test Item Value Reference Range Interpretation Comments WHITE BLOOD CELL (test code = WBC) 11.6 K/mm3 6.5-12.3 N RED BLOOD CELL (test code = RBC) 4.64 M/mm3 3.51-4.69 N HEMOGLOBIN (test code = HGB) 11.0 g/dL 10.1-13.8 N HEMATOCRIT (test code = HCT) 36.6 % 32.5-41.8 N MEAN CELL VOLUME (test code = MCV) 78.9 fL 84.6-96.6 L MEAN CELL HGB (test code = MCH) 23.7 pg 27.3-33.9 L MEAN CELL HGB CONCETRATION (test 30.1 gm/dL 32.0-34.2 L code = MCHC) RED CELL DISTRIBUTION WIDTH (test 24.2 % 12.2-16.3 H code = RDW) PLATELET COUNT (test code = PLT) 299 K/mm3 134-363 N MEAN PLATELET VOLUME (test code = 10.5 fL 9.2-12.7 N MPV) NEUTROPHIL % (test code = NT%) 74.8 % 57.9-77.3 N LYMPHOCYTE % (test code = LY%) 17.6 % 14.5-29.7 N MONOCYTE % (test code = MO%) 5.3 % 3.6-10.2 N EOSINOPHIL % (test code = EO%) 1.7 % 0.0-3.0 N BASOPHIL % (test code = BA%) 0.3 % 0.1-0.9 N NEUTROPHIL # (test code = NT#) 8.7 K/mm3 LYMPHOCYTE # (test code = LY#) 2.0 K/mm3 MONOCYTE # (test code = MO#) 0.6 K/mm3 EOSINOPHIL # (test code = EO#) 0.20 K/mm3 BASOPHIL # (test code = BA#) 0.0 K/mm3 RBC MORPHOLOGY REQUIRED (test code NORMAL NORMAL = RBCM) PLATELET MORPHOLOGY REQUIRED (test NORMAL NORMAL code = PLTMR) UA RFLX MICR CULT IF [id number] 01:43:00 Test Item Value Reference Range Interpretation Comments UA COLOR (test code = YELLOW YELLOW COLU) UA APPEARANCE (test code CLOUDY CLEAR A = APPU) UA GLUCOSE DIPSTICK (test NEGATIVE NEG code = DGLUU) UA BILIRUBIN DIPSTICK NEGATIVE NEG (test code = BILU) UA KETONE DIPSTICK (test NEGATIVE NEG code = KETU) UA SPECIFIC GRAVITY (test 1.027 1.001-1.035 N code = SGU) UA BLOOD DIPSTICK (test NEG NEG code = VICTORIA) UA PH DIPSTICK (test code 5.0 5-9 = MONIKA) UA PROTEIN DIPSTICK (test 1+ NEG A code = PROU) UA UROBILINIOGEN DIPSTICK NEGATIVE mg/dL NEG (test code = URO) UA NITRITE DIPSTICK (test NEG NEG code = JACINDA) UA LEUKOCYTE ESTERASE 3+ NEG A DIPSTICK (test code = LEUU) UA WBC (test code = WBCU) TOO NUMEROUS TO CNT NONE SEEN A #/hpf UA RBC (test code = RBCU) 16-20 #/hpf NONE SEEN A UA EPITHELIAL CELLS (test MANY #/HPF RARE-FEW A code = EPIU) UA BACTERIA (test code = RARE /HPF RARE-FEW BACU) UA TRANSITIONAL CELLS FEW #/hpf NONE SEEN (test code = TRANU) UA MUCUS (test code = 2+ NONE SEEN MUCU) Indication for culture: Flank PainSpecimen Description: CLEAN CATCH- US ABDOMEN [id number] 00:00:00 [facility] : 1995 Sex: F Patient Name: FANI GARCIA Unit No: [id number] EXAMS: CPT CODE: [id number] US ABDOMEN LTD 88846 PROCEDURE INFORMATION: Exam: US Abdomen, Limited; Right Upper Quadrant Exam date and time: 04/05/2021 1:53 AM Age: 25 years old Clinical indication: Abdominal pain; Generalized; Prior surgery; Surgery date: 1-6 months; Surgery type: C/s 03/05/21; Additional info: Abd pain, S/P TECHNIQUE: Imaging protocol: US abdomen. Real time ultrasound with image documentation. Limited exam focused on the right upper quadrant. COMPARISON: OT US PELVISCOMPLETE 03/12/2021 5:18 PM FINDINGS: Liver: Normal. No masses. Gallbladder: There are echogenic foci with posterior shadowing in the gallbladder is within the dependent portion. The gallbladder wall is normal in thickness. Common bile duct: Normal. No stones. No dilation. Pancreas: Visualized pancreas is unremarkable. Right kidney: Normal. No mass. No hydronephrosis. IMPRESSION: Cholelithiasis. at 0245 Reported and signed by: Lauren Dee MD CC: CARLOS POLK NP Technologist: Caroline Durham RDMS Probe: Trnscrbd D/ (0245) GCD.CPS Orig Print D/T: S: 04/05/2021 (0245) [facility] NAME: FANI GARCIA Radiology Department PHYS: Berto Harp [address] : 1995 AGE: 25 SEX: F [place], [place] [address] LOC: KOURTNEY PHONE #: [phone] EXAM DATE: 04/05/2021 STATUS: REG ER FAX #: [phone] RAD NO: Page 1 Signed Report Patient Name: FANI GARCIA Unit No: [id number] EXAMS: CPT CODE: [id number] US ABDOMEN LTD 21417 <Continued> [facility] NAME: JOSEFANI Radiology Department PHYS: MAJOREboniMeghna Berto Miles [address] : 1995 AGE: 25 SEX: F [place], [place] [address] LOC: CarmelERS PHONE #: [phone] EXAM DATE: 04/05/2021 STATUS: REG ER FAX #: [phone] RAD NO: Page 2 Signed ReportBASIC METABOLIC [id number] 08:04:00 Test Item Value Reference Range Interpretation Comments SODIUM (test code = NA) 143 mEq/L 135-145 N POTASSIUM (test code = K) 4.7 mEq/L 3.5-5.0 N CHLORIDE (test code = CL) 106 mEq/L 100-115 N CARBON DIOXIDE (test code = CO2) 29 mEq/L 22-31 N ANION GAP (test code = GAP) 13.00 10-20 N GLUCOSE (test code = GLU) 79 mg/dL 65-110 N BLOOD UREA NITROGEN (test code = 10 mg/dL 7-18 N BUN) GLOMERULAR FILTRATION RATE (test 153 ml/min >60 N code = GFR) CREATININE (test code = CREAT) 0.5 mg/dL 0.5-1.0 N CALCIUM (test code = CA) 9.0 mg/dL 8.4-10.2 N CBC W/AUTO [id number] 07:53:00 Test Item Value Reference Range Interpretation Comments WHITE BLOOD CELL (test code = WBC) 8.8 K/mm3 6.5-12.3 N RED BLOOD CELL (test code = RBC) 4.00 M/mm3 3.51-4.69 N HEMOGLOBIN (test code = HGB) 8.5 g/dL 10.1-13.8 L HEMATOCRIT (test code = HCT) 29.7 % 32.5-41.8 L MEAN CELL VOLUME (test code = MCV) 74.3 fL 84.6-96.6 L MEAN CELL HGB (test code = MCH) 21.3 pg 27.3-33.9 L MEAN CELL HGB CONCETRATION (test 28.6 gm/dL 32.0-34.2 L code = MCHC) RED CELL DISTRIBUTION WIDTH (test 20.5 % 12.2-16.3 H code = RDW) PLATELET COUNT (test code = PLT) 771 K/mm3 134-363 H MEAN PLATELET VOLUME (test code = 9.8 fL 9.2-12.7 N MPV) NEUTROPHIL % (test code = NT%) 61.4 % 57.9-77.3 N LYMPHOCYTE % (test code = LY%) 30.1 % 14.5-29.7 H MONOCYTE % (test code = MO%) 5.3 % 3.6-10.2 N EOSINOPHIL % (test code = EO%) 1.9 % 0.0-3.0 N BASOPHIL % (test code = BA%) 0.5 % 0.1-0.9 N NEUTROPHIL # (test code = NT#) 5.4 K/mm3 LYMPHOCYTE # (test code = LY#) 2.7 K/mm3 MONOCYTE # (test code = MO#) 0.5 K/mm3 EOSINOPHIL # (test code = EO#) 0.17 K/mm3 BASOPHIL # (test code = BA#) 0.0 K/mm3 RBC MORPHOLOGY REQUIRED (test code NORMAL NORMAL = RBCM) PLATELET MORPHOLOGY REQUIRED (test NORMAL NORMAL code = PLTMR) BASIC METABOLIC [id number] 05:26:00 Test Item Value Reference Range Interpretation Comments SODIUM (test code = NA) 144 mEq/L 135-145 N POTASSIUM (test code = K) 4.4 mEq/L 3.5-5.0 N CHLORIDE (test code = CL) 108 mEq/L 100-115 N CARBON DIOXIDE (test code = CO2) 28 mEq/L 22-31 N ANION GAP (test code = GAP) 12.50 10-20 N GLUCOSE (test code = GLU) 83 mg/dL 65-110 N BLOOD UREA NITROGEN (test code = 8 mg/dL 7-18 N BUN) GLOMERULAR FILTRATION RATE (test 153 ml/min >60 N code = GFR) CREATININE (test code = CREAT) 0.5 mg/dL 0.5-1.0 N CALCIUM (test code = CA) 8.6 mg/dL 8.4-10.2 N VANCOMYCIN [id number] 05:26:00 Test Item Value Reference Range Interpretation Comments VANCOMYCIN TROUGH (test code = 6.30 mcg/mL 10.0-20.0 L VANCT) CBC W/AUTO [id number] 05:17:00 Test Item Value Reference Range Interpretation Comments WHITE BLOOD CELL (test code = WBC) 11.1 K/mm3 6.5-12.3 N RED BLOOD CELL (test code = RBC) 3.84 M/mm3 3.51-4.69 N HEMOGLOBIN (test code = HGB) 8.2 g/dL 10.1-13.8 L HEMATOCRIT (test code = HCT) 28.7 % 32.5-41.8 L MEAN CELL VOLUME (test code = MCV) 74.7 fL 84.6-96.6 L MEAN CELL HGB (test code = MCH) 21.4 pg 27.3-33.9 L MEAN CELL HGB CONCETRATION (test 28.6 gm/dL 32.0-34.2 L code = MCHC) RED CELL DISTRIBUTION WIDTH (test 19.9 % 12.2-16.3 H code = RDW) PLATELET COUNT (test code = PLT) 656 K/mm3 134-363 H MEAN PLATELET VOLUME (test code = 9.8 fL 9.2-12.7 N MPV) NEUTROPHIL % (test code = NT%) 66.3 % 57.9-77.3 N LYMPHOCYTE % (test code = LY%) 25.2 % 14.5-29.7 N MONOCYTE % (test code = MO%) 6.1 % 3.6-10.2 N EOSINOPHIL % (test code = EO%) 1.4 % 0.0-3.0 N BASOPHIL % (test code = BA%) 0.2 % 0.1-0.9 N NEUTROPHIL # (test code = NT#) 7.4 K/mm3 LYMPHOCYTE # (test code = LY#) 2.8 K/mm3 MONOCYTE # (test code = MO#) 0.7 K/mm3 EOSINOPHIL # (test code = EO#) 0.15 K/mm3 BASOPHIL # (test code = BA#) 0.0 K/mm3 RBC MORPHOLOGY REQUIRED (test code NORMAL NORMAL = RBCM) PLATELET MORPHOLOGY REQUIRED (test NORMAL NORMAL code = PLTMR) BASIC METABOLIC [id number] 09:18:00 Test Item Value Reference Range Interpretation Comments SODIUM (test code = NA) 141 mEq/L 135-145 N POTASSIUM (test code = K) 5.0 mEq/L 3.5-5.0 N CHLORIDE (test code = CL) 107 mEq/L 100-115 N CARBON DIOXIDE (test code = CO2) 26 mEq/L 22-31 N ANION GAP (test code = GAP) 13.10 10-20 N GLUCOSE (test code = GLU) 76 mg/dL 65-110 N BLOOD UREA NITROGEN (test code = 7 mg/dL 7-18 N BUN) GLOMERULAR FILTRATION RATE (test 153 ml/min >60 N code = GFR) CREATININE (test code = CREAT) 0.5 mg/dL 0.5-1.0 N CALCIUM (test code = CA) 8.6 mg/dL 8.4-10.2 N CBC W/AUTO [id number] 09:01:00 Test Item Value Reference Range Interpretation Comments WHITE BLOOD CELL (test code = WBC) 12.5 K/mm3 6.5-12.3 H RED BLOOD CELL (test code = RBC) 3.90 M/mm3 3.51-4.69 N HEMOGLOBIN (test code = HGB) 8.2 g/dL 10.1-13.8 L HEMATOCRIT (test code = HCT) 28.9 % 32.5-41.8 L MEAN CELL VOLUME (test code = MCV) 74.1 fL 84.6-96.6 L MEAN CELL HGB (test code = MCH) 21.0 pg 27.3-33.9 L MEAN CELL HGB CONCETRATION (test 28.4 gm/dL 32.0-34.2 L code = MCHC) RED CELL DISTRIBUTION WIDTH (test 19.8 % 12.2-16.3 H code = RDW) PLATELET COUNT (test code = PLT) 692 K/mm3 134-363 H MEAN PLATELET VOLUME (test code = 10.2 fL 9.2-12.7 N MPV) NEUTROPHIL % (test code = NT%) 72.8 % 57.9-77.3 N LYMPHOCYTE % (test code = LY%) 20.5 % 14.5-29.7 N MONOCYTE % (test code = MO%) 4.3 % 3.6-10.2 N EOSINOPHIL % (test code = EO%) 1.2 % 0.0-3.0 N BASOPHIL % (test code = BA%) 0.2 % 0.1-0.9 N NEUTROPHIL # (test code = NT#) 9.1 K/mm3 LYMPHOCYTE # (test code = LY#) 2.6 K/mm3 MONOCYTE # (test code = MO#) 0.5 K/mm3 EOSINOPHIL # (test code = EO#) 0.15 K/mm3 BASOPHIL # (test code = BA#) 0.0 K/mm3 RBC MORPHOLOGY REQUIRED (test code NORMAL NORMAL = RBCM) PLATELET MORPHOLOGY REQUIRED (test NORMAL NORMAL code = PLTMR) URINALYSIS [id number] 19:15:00 Test Item Value Reference Range Interpretation Comments UA COLOR (test code = COLU) YELLOW YELLOW UA APPEARANCE (test code = Slightly-Cloudy CLEAR APPU) UA GLUCOSE DIPSTICK (test NEGATIVE NEG code = DGLUU) UA BILIRUBIN DIPSTICK (test NEGATIVE NEG code = BILU) UA KETONE DIPSTICK (test code NEGATIVE NEG = KETU) UA SPECIFIC GRAVITY (test 1.024 1.001-1.035 N code = SGU) UA BLOOD DIPSTICK (test code 1+ NEG A = VICTORIA) UA PH DIPSTICK (test code = 6.0 5-9 MONIKA) UA PROTEIN DIPSTICK (test NEGATIVE NEG code = PROU) UA UROBILINIOGEN DIPSTICK NEGATIVE mg/dL NEG (test code = URO) UA NITRITE DIPSTICK (test NEG NEG code = JACINDA) UA LEUKOCYTE ESTERASE 2+ NEG A DIPSTICK (test code = LEUU) UA WBC (test code = WBCU) 31-40 #/hpf NONE SEEN A UA RBC (test code = RBCU) 6-10 #/hpf NONE SEEN A UA EPITHELIAL CELLS (test RARE #/HPF RARE-FEW code = EPIU) UA BACTERIA (test code = RARE /HPF RARE-FEW BACU) UA MUCUS (test code = MUCU) 1+ NONE SEEN URINE SAMPLE: CLEAN CATCHCBC W/AUTO [id number] 07:45:00 Test Item Value Reference Range Interpretation Comments WHITE BLOOD CELL (test code = WBC) 13.3 K/mm3 6.5-12.3 H RED BLOOD CELL (test code = RBC) 3.74 M/mm3 3.51-4.69 N HEMOGLOBIN (test code = HGB) 7.9 g/dL 10.1-13.8 L HEMATOCRIT (test code = HCT) 27.0 % 32.5-41.8 L MEAN CELL VOLUME (test code = MCV) 72.2 fL 84.6-96.6 L MEAN CELL HGB (test code = MCH) 21.1 pg 27.3-33.9 L MEAN CELL HGB CONCETRATION (test 29.3 gm/dL 32.0-34.2 L code = MCHC) RED CELL DISTRIBUTION WIDTH (test 18.3 % 12.2-16.3 H code = RDW) PLATELET COUNT (test code = PLT) 574 K/mm3 134-363 H MEAN PLATELET VOLUME (test code = 9.3 fL 9.2-12.7 N MPV) NEUTROPHIL % (test code = NT%) 76.0 % 57.9-77.3 N LYMPHOCYTE % (test code = LY%) 16.3 % 14.5-29.7 N MONOCYTE % (test code = MO%) 5.0 % 3.6-10.2 N EOSINOPHIL % (test code = EO%) 1.4 % 0.0-3.0 N BASOPHIL % (test code = BA%) 0.2 % 0.1-0.9 N NEUTROPHIL # (test code = NT#) 10.1 K/mm3 LYMPHOCYTE # (test code = LY#) 2.2 K/mm3 MONOCYTE # (test code = MO#) 0.7 K/mm3 EOSINOPHIL # (test code = EO#) 0.19 K/mm3 BASOPHIL # (test code = BA#) 0.0 K/mm3 RBC MORPHOLOGY REQUIRED (test code NORMAL NORMAL = RBCM) PLATELET MORPHOLOGY REQUIRED (test NORMAL NORMAL code = PLTMR) BASIC METABOLIC [id number] 06:24:00 Test Item Value Reference Range Interpretation Comments SODIUM (test code = NA) 141 mEq/L 135-145 N POTASSIUM (test code = K) 3.9 mEq/L 3.5-5.0 N CHLORIDE (test code = CL) 107 mEq/L 100-115 N CARBON DIOXIDE (test code = CO2) 25 mEq/L 22-31 N ANION GAP (test code = GAP) 12.80 10-20 N GLUCOSE (test code = GLU) 83 mg/dL 65-110 N BLOOD UREA NITROGEN (test code = 6 mg/dL 7-18 L BUN) GLOMERULAR FILTRATION RATE (test 153 ml/min >60 N code = GFR) CREATININE (test code = CREAT) 0.5 mg/dL 0.5-1.0 N CALCIUM (test code = CA) 8.5 mg/dL 8.4-10.2 N BASIC METABOLIC [id number] 08:55:00 Test Item Value Reference Range Interpretation Comments SODIUM (test code = NA) 142 mEq/L 135-145 N POTASSIUM (test code = K) 4.3 mEq/L 3.5-5.0 N CHLORIDE (test code = CL) 107 mEq/L 100-115 N CARBON DIOXIDE (test code = CO2) 26 mEq/L 22-31 N ANION GAP (test code = GAP) 13.30 10-20 N GLUCOSE (test code = GLU) 75 mg/dL 65-110 N BLOOD UREA NITROGEN (test code = 7 mg/dL 7-18 N BUN) GLOMERULAR FILTRATION RATE (test 153 ml/min >60 N code = GFR) CREATININE (test code = CREAT) 0.5 mg/dL 0.5-1.0 N CALCIUM (test code = CA) 8.5 mg/dL 8.4-10.2 N CBC W/AUTO [id number] 08:42:00 Test Item Value Reference Range Interpretation Comments WHITE BLOOD CELL (test code = WBC) 13.3 K/mm3 6.5-12.3 H RED BLOOD CELL (test code = RBC) 3.70 M/mm3 3.51-4.69 N HEMOGLOBIN (test code = HGB) 7.8 g/dL 10.1-13.8 L HEMATOCRIT (test code = HCT) 26.6 % 32.5-41.8 L MEAN CELL VOLUME (test code = MCV) 71.9 fL 84.6-96.6 L MEAN CELL HGB (test code = MCH) 21.1 pg 27.3-33.9 L MEAN CELL HGB CONCETRATION (test 29.3 gm/dL 32.0-34.2 L code = MCHC) RED CELL DISTRIBUTION WIDTH (test 18.5 % 12.2-16.3 H code = RDW) PLATELET COUNT (test code = PLT) 561 K/mm3 134-363 H MEAN PLATELET VOLUME (test code = 9.9 fL 9.2-12.7 N MPV) NEUTROPHIL % (test code = NT%) 80.8 % 57.9-77.3 H LYMPHOCYTE % (test code = LY%) 12.5 % 14.5-29.7 L MONOCYTE % (test code = MO%) 4.1 % 3.6-10.2 N EOSINOPHIL % (test code = EO%) 1.3 % 0.0-3.0 N BASOPHIL % (test code = BA%) 0.2 % 0.1-0.9 N NEUTROPHIL # (test code = NT#) 10.8 K/mm3 LYMPHOCYTE # (test code = LY#) 1.7 K/mm3 MONOCYTE # (test code = MO#) 0.5 K/mm3 EOSINOPHIL # (test code = EO#) 0.17 K/mm3 BASOPHIL # (test code = BA#) 0.0 K/mm3 RBC MORPHOLOGY REQUIRED (test code NORMAL NORMAL = RBCM) PLATELET MORPHOLOGY REQUIRED (test NORMAL NORMAL code = PLTMR) - DUP AB/PEL/SC/[id number] 00:00:00 [facility] 1995 Sex: F Patient Name: FANI GARCIA Unit No: [id number] EXAMS: CPT CODE: [id number] [facility] AB/PEL/SC/LTD 11277 PROCEDURE INFORMATION: Exam: US Duplex Artery or Vein of the Abdominal and/or Reproductive Organs, Limited Ovaries Exam date and time: 03/12/2021 5:18 PM Age: 25 yearsold Clinical indication: Pelvic pain; Prior surgery; Surgery date: 3-7 days post-operative; Additional info: Pelvic pain, fever, after c/s on 03/05 TECHNIQUE: Imaging protocol: Real-time duplex ultrasound scan of the arterial or venous flow with waters scale, color Doppler flow and spectral waveform analysis with image documentation. Limited duplex exam focused on the ovaries. Duplex images required to evaluate for torsion and other vascular conditions. COMPARISON: OT US FLW UP 03/04/2021 11:49 AM FINDINGS: Right ovary Doppler: Blood flow identified in the right ovary. Left ovary Doppler: Blood flow identified in the left ovary. IMPRESSION:Blood flow noted in both ovaries. PROCEDURE INFORMATION: Exam: US Pelvis Complete, Transabdominal and US Pelvis, Transvaginal Exam date and time: 03/12/2021 5:18 PM Age: 25 years old Clinical indication: Pelvic pain; Prior surgery; Surgery date: 3-7 days post-operative; Additional info: Pelvic pain, fever, after c/s on 03/05 TECHNIQUE: Imaging protocol: Real-time transabdominal and transvaginal pelvic ultrasound (complete) with image documentation. Transvaginal imaging was used for better evaluation of the endometrium, adnexa, and/or cervix. COMPARISON: OT US FLW UP 03/04/2021 11:49 AM FINDINGS: Uterus/cervix: Uterus measures 17.0 x 7.5 x 12.0 cm in greatest dimensions with endometrium measuring 5 mm in thickness. No evidence of retained products of conception is present in endometrial cavity. Changes related to are present in lower uterine segment. No evidence of uterine fibroid is seen. Right adnexa: Rt ovary measures 4.8 x 2.4 x 3.1 cm.Blood flow present in the rt. ovary. Left adnexa: Lt ovary measures 5.0 x 1.3 x 3.2 cm. Blood flow [facility] NAME: FANI GARCIA Radiology Department PHYS: Nathan Berry MD [address] : 1995 AGE: 25 SEX: F [place], [place] [address] LOC: Sarah Wakefield PHONE #: [phone] EXAM DATE: 03/12/2021 STATUS: ADM IN FAX #: [phone] RAD NO: Page 1 Signed Report (CONTINUED) Patient Name: FANI GARCIA Unit No: [id number] EXAMS: CPT CODE: [id number] DUP AB/PEL/SC/LTD 27247 <Continued> present in the lt. ovary. Adjacent to the left ovary and separate from it, there are 2 fluid collections identified which measure 2.2 x 1.1 x 4.6 cm and 2.4 x 1.3 x 5.2 cm. These are thought to represent postsurgical fluid collection after C- section. In addition, a 1.5 x 0.9 x 1.7 cm echogenic free fluid is present in posterior cul-de-sac. Urinary bladder: No significant abnormality seen IMPRESSION: 1. Postpartumuterus without retained products of conception. Changes related to in lower uterine segment. 2. Normal sonographic appearance of ovaries. 3. 2 fluid collections adjacent to the left ovary as described above. These may represent postsurgical collections, possibility of superimposed infection cannot be excluded and clinical correlation is recommended. 4. Small amount of echogenic free fluid in posterior cul-de-sac. at 0720 Reported and signed by: Romeo Flood MD CC: Nathan Figueroa MD Technologist: Lupe Willard RDMS, RVT Probe: Trnscrbd D/ (0720) GCD.CPS Orig Print D/T: S: 03/13/2021 (0721) [facility] Department PHYS: Nathan Berry MD [address] : 1995 AGE: 25 SEX: F [place], [place] [address] LOC: F.2218 A PHONE #: [phone] EXAM DATE: 03/12/2021 STATUS: ADM IN FAX #: [phone] RAD NO: Page 2 Signed Report Patient Name: FANI GARCIA Unit No: [id number] EXAMS: CPT CODE: [id number] DUP AB/PEL/SC/LTD 90000 <Continued> [facility] Rad[facility] Department PHYS: Nathan Berry MD [address] : AGE: 25 SEX: F [place], [place] [address] LOC: [id number] PHONE #: [phone] EXAM DATE: 03/12/2021 STATUS: ADM IN FAX #: [phone] RAD NO: Page 3 Signed Report- US TRANSVAGINAL [id number] 00:00:00[facility] 1995 Sex: F Patient Name: FANI GARCIA Unit No: [id number] EXAMS: CPT CODE: [id number] US TRANSVAGINAL W/PELVIS 41056 PROCEDURE INFORMATION: Exam: US Duplex Artery or Vein of the Abdominal and/or Reproductive Organs, Limited Ovaries Exam date and time: 03/12/2021 5:18 PM Age: 25 yearsold Clinical indication: Pelvic pain; Prior surgery; Surgery date: 3-7 days post-operative; Additional info: Pelvic pain, fever, after c/s on 03/05 TECHNIQUE: Imaging protocol: Real-time duplex ultrasound scan of the arterial or venous flow with waters scale, color Doppler flow and spectral waveform analysis with image documentation. Limited duplex exam focused on the ovaries. Duplex images required to evaluate for torsion and other vascular conditions. COMPARISON: OT US FLW UP 03/04/2021 11:49 AM FINDINGS: Right ovary Doppler: Blood flow identified in the right ovary. Left ovary Doppler: Blood flow identified in the left ovary. IMPRESSION:Blood flow noted in both ovaries. PROCEDURE INFORMATION: Exam: US Pelvis Complete, Transabdominal and US Pelvis, Transvaginal Exam date and time: 03/12/2021 5:18 PM Age: 25 years old Clinical indication: Pelvic pain; Prior surgery; Surgery date: 3-7 days post-operative; Additional info: Pelvic pain, fever, after c/s on 03/05 TECHNIQUE: Imaging protocol: Real-time transabdominal and transvaginal pelvic ultrasound (complete) with image documentation. Transvaginal imaging was used for better evaluation of the endometrium, adnexa, and/or cervix. COMPARISON: OT US FLW UP 03/04/2021 11:49 AM FINDINGS: Uterus/cervix: Uterus measures 17.0 x 7.5 x 12.0 cm in greatest dimensions with endometrium measuring 5 mm in thickness. No evidence of retained products of conception is present in endometrial cavity. Changes related to are present in lower uterine segment. No evidence of uterine fibroid is seen. Right adnexa: Rt ovary measures 4.8 x 2.4 x 3.1 cm.Blood flow present in the rt. ovary. Left adnexa: Lt ovary measures 5.0 x 1.3 x 3.2 cm. Blood flow [facility] NAME: FANI GARCIA Radiology Department PHYS: Nathan Berry MD [address] : 1995 AGE: 25 SEX: F [place], [place] [address] LOC: [place]2218 A PHONE #: [phone] EXAM DATE: 03/12/2021 STATUS: ADM IN FAX #: [phone] RAD NO: Page 1 Signed Report (CONTINUED) Patient Name: FAIN GARCIA Unit No: [id number] EXAMS: CPT CODE: [id number] US TRANSVAGINAL W/PELVIS 95265 <Continued> present in the lt. ovary. Adjacent to the left ovary and separate from it, there are 2 fluid collections identified which measure 2.2 x 1.1 x 4.6 cm and 2.4 x 1.3 x 5.2 cm. These are thought to represent postsurgical fluid collection after C- section. In addition, a 1.5 x 0.9 x 1.7 cm echogenic free fluid is present in posterior cul-de-sac. Urinary bladder: No significant abnormality seen IMPRESSION: 1. Postpartumuterus without retained products of conception. Changes related to in lower uterine segment. 2. Normal sonographic appearance of ovaries. 3. 2 fluid collections adjacent to the left ovary as described above. These may represent postsurgical collections, possibility of superimposed infection cannot be excluded and clinical correlation is recommended. 4. Small amount of echogenic free fluid in posterior cul-de-sac. at 0720 Reported and signed by: Romeo Flood MD CC: Nathan Figueroa MD Technologist: Lupe Willard RDMS, RVT Probe: [id number] Trnscrbd D/ (719) GCD.CPS Orig Print D/T: S: 03/13/2021 (81) [facility] NAME: [facility] Radiology Department PHYS: Nathan Berry MD [address] : 1995 AGE: 25 SEX: F [place] [address] LOC: F.2218 A PHONE #: [phone] EXAM DATE: 03/12/2021 STATUS: ADM IN FAX #: [phone] RAD NO: Page 2 Signed Report Patient Name: [facility] Unit No: [id number] EXAMS: CPT CODE: [id number] US TRANSVAGINAL W/PELVIS 80207 <Continued> [facility] NAME: [facility] Radiology Department PHYS: Nathan Berry MD [address] : AGE: 25 SEX: F [place], [place] [address] LOC: F.2218A PHONE #: [phone] EXAM DATE: 03/12/2021 STATUS: ADM IN FAX #: [phone] RAD NO: Page 3 Signed Report- US PELVIS [id number] 00:00:00[facility] 1995 Sex: F Patient Name: FANI GARCIA Unit No: [id number] EXAMS: CPT CODE: [id number] US PELVIS COMPLETE 20531 PROCEDURE INFORMATION: Exam: US Duplex Artery or Vein of the Abdominal and/or Reproductive Organs, Limited Ovaries Exam date and time: 03/12/2021 5:18 PM Age: 25 yearsold Clinical indication: Pelvic pain; Prior surgery; Surgery date: 3-7 days post-operative; Additional info: Pelvic pain, fever, after c/s on 03/05 TECHNIQUE: Imaging protocol: Real-time duplex ultrasound scan of the arterial or venous flow with waters scale, color Doppler flow and spectral waveform analysis with image documentation. Limited duplex exam focused on the ovaries. Duplex images required to evaluate for torsion and other vascular conditions. COMPARISON: OT US FLW UP 03/04/2021 11:49 AM FINDINGS: Right ovary Doppler: Blood flow identified in the right ovary. Left ovary Doppler: Blood flow identified in the left ovary. IMPRESSION:Blood flow noted in both ovaries. PROCEDURE INFORMATION: Exam: US Pelvis Complete, Transabdominal and US Pelvis, Transvaginal Exam date and time: 03/12/2021 5:18 PM Age: 25 years old Clinical indication: Pelvic pain; Prior surgery; Surgery date: 3-7 days post-operative; Additional info: Pelvic pain, fever, after c/s on 03/05 TECHNIQUE: Imaging protocol: Real-time transabdominal and transvaginal pelvic ultrasound (complete) with image documentation. Transvaginal imaging was used for better evaluation of the endometrium, adnexa, and/or cervix. COMPARISON: OT US FLW UP 03/04/2021 11:49 AM FINDINGS: Uterus/cervix: Uterus measures 17.0 x 7.5 x 12.0 cm in greatest dimensions with endometrium measuring 5 mm in thickness. No evidence of retained products of conception is present in endometrial cavity. Changes related to are present in lower uterine segment. No evidence of uterine fibroid is seen. Right adnexa: Rt ovary measures 4.8 x 2.4 x 3.1 cm.Blood flow present in the rt. ovary. Left adnexa: Lt ovary measures 5.0 x 1.3 x 3.2 cm. Blood flow [facility] NAME: CESAR GARCIAANDRA Radiology Department PHYS: Laureen Greenwood MD [address] : 1995 AGE: 25 SEX: F [place], [place] [address] LOC: [place]2218 [place] PHONE #: [phone] EXAM DATE: 03/12/2021 STATUS: ADM IN FAX #: [phone] RAD NO: Page 1 Signed Report (CONTINUED) Patient Name: FANI GARCIA Unit No: [id number] EXAMS: CPT CODE: [id number] US PELVIS COMPLETE 97208 <Continued> present in the lt. ovary. Adjacent to the left ovary and separate from it, there are 2 fluid collections identified which measure 2.2 x 1.1 x 4.6 cm and 2.4 x 1.3 x 5.2 cm. These are thought to represent postsurgical fluid collection after . In addition, a 1.5 x 0.9 x 1.7 cm echogenic free fluid is present in posterior cul-de-sac. Urinary bladder: No significant abnormality seen IMPRESSION: 1. Postpartumuterus without retained products of conception. Changes related to in lower uterine segment. 2. Normal sonographic appearance of ovaries. 3. 2 fluid collections adjacent to the left ovary as described above. These may represent postsurgical collections, possibility of supe rimposed infection cannot be excluded and clinical correlation is recommended. 4. Small amount of echogenic free fluid in posterior cul-de-sac. at 0720 Reported and signed by: Romeo Flood MD CC: Laureen Watkins MD; Nathan Figueroa MD Technologist: Lupe Willard RDMS, RVT Probe: Trnscrbd D/ (0720) GCD.CPS Orig Print D/T: S: 03/13/2021 (0720) [facility] NAME: [facility] Radiology Department PHYS: Laureen Greenwood MD [address] : 1995 AGE: 25 SEX: F [place] [address] LOC: F.2218 A PHONE #: [phone] EXAM DATE: 03/12/2021 STATUS: ADM IN FAX #: [phone] RAD NO: Page 2 Signed Report [facility] Unit No: [id number] EXAMS: CPT CODE: [id number] US PELVIS COMPLETE 20170 <Continued> [facility] NAME: [facility] Radiology Department PHYS: Laureen Greenwood MD [address] : 1995 AGE: 25 SEX: F [place] [address] LOC: F.2218A PHONE #: [phone] EXAM DATE: 03/12/2021 STATUS: ADM IN FAX #: [phone] RAD NO: Page 3 Signed ReportBASIC METABOLIC [id number] 04:18:00 Test Item Value Reference Range Interpretation Comments SODIUM (test code = NA) 143 mEq/L 135-145 N POTASSIUM (test code = K) 3.8 mEq/L 3.5-5.0 N CHLORIDE (test code = CL) 110 mEq/L 100-115 N CARBON DIOXIDE (test code = CO2) 26 mEq/L 22-31 N ANION GAP (test code = GAP) 11.20 10-20 N GLUCOSE (test code = GLU) 83 mg/dL 65-110 N BLOOD UREA NITROGEN (test code = 6 mg/dL 7-18 L BUN) GLOMERULAR FILTRATION RATE (test 153 ml/min >60 N code = GFR) CREATININE (test code = CREAT) 0.5 mg/dL 0.5-1.0 N CALCIUM (test code = CA) 7.8 mg/dL 8.4-10.2 L VANCOMYCIN [id number] 04:18:00 Test Item Value Reference Range Interpretation Comments VANCOMYCIN TROUGH (test code = 5.40 mcg/mL 10.0-20.0 L VANCT) CBC W/AUTO [id number] 04:01:00 Test Item Value Reference Range Interpretation Comments WHITE BLOOD CELL (test code = WBC) 12.6 K/mm3 6.5-12.3 H RED BLOOD CELL (test code = RBC) 3.48 M/mm3 3.51-4.69 L HEMOGLOBIN (test code = HGB) 7.3 g/dL 10.1-13.8 L HEMATOCRIT (test code = HCT) 25.0 % 32.5-41.8 L MEAN CELL VOLUME (test code = MCV) 71.8 fL 84.6-96.6 L MEAN CELL HGB (test code = MCH) 21.0 pg 27.3-33.9 L MEAN CELL HGB CONCETRATION (test 29.2 gm/dL 32.0-34.2 L code = MCHC) RED CELL DISTRIBUTION WIDTH (test 18.0 % 12.2-16.3 H code = RDW) PLATELET COUNT (test code = PLT) 482 K/mm3 134-363 H MEAN PLATELET VOLUME (test code = 10.2 fL 9.2-12.7 N MPV) NEUTROPHIL % (test code = NT%) 70.9 % 57.9-77.3 N LYMPHOCYTE % (test code = LY%) 19.4 % 14.5-29.7 N MONOCYTE % (test code = MO%) 5.9 % 3.6-10.2 N EOSINOPHIL % (test code = EO%) 1.3 % 0.0-3.0 N BASOPHIL % (test code = BA%) 0.2 % 0.1-0.9 N NEUTROPHIL # (test code = NT#) 9.0 K/mm3 LYMPHOCYTE # (test code = LY#) 2.5 K/mm3 MONOCYTE # (test code = MO#) 0.7 K/mm3 EOSINOPHIL # (test code = EO#) 0.16 K/mm3 BASOPHIL # (test code = BA#) 0.0 K/mm3 RBC MORPHOLOGY REQUIRED (test code NORMAL NORMAL = RBCM) PLATELET MORPHOLOGY REQUIRED (test NORMAL NORMAL code = PLTMR) BASIC METABOLIC [id number] 06:14:00 Test Item Value Reference Range Interpretation Comments SODIUM (test code = NA) 140 mEq/L 135-145 N POTASSIUM (test code = K) 3.6 mEq/L 3.5-5.0 N CHLORIDE (test code = CL) 107 mEq/L 100-115 N CARBON DIOXIDE (test code = CO2) 25 mEq/L 22-31 N ANION GAP (test code = GAP) 11.70 10-20 N GLUCOSE (test code = GLU) 84 mg/dL 65-110 N BLOOD UREA NITROGEN (test code = 6 mg/dL 7-18 L BUN) GLOMERULAR FILTRATION RATE (test 153 ml/min >60 N code = GFR) CREATININE (test code = CREAT) 0.5 mg/dL 0.5-1.0 N CALCIUM (test code = CA) 8.2 mg/dL 8.4-10.2 L CBC W/AUTO [id number] 05:54:00 Test Item Value Reference Range Interpretation Comments WHITE BLOOD CELL (test code = WBC) 11.4 K/mm3 6.5-12.3 N RED BLOOD CELL (test code = RBC) 3.50 M/mm3 3.51-4.69 L HEMOGLOBIN (test code = HGB) 7.4 g/dL 10.1-13.8 L HEMATOCRIT (test code = HCT) 25.3 % 32.5-41.8 L MEAN CELL VOLUME (test code = MCV) 72.3 fL 84.6-96.6 L MEAN CELL HGB (test code = MCH) 21.1 pg 27.3-33.9 L MEAN CELL HGB CONCETRATION (test 29.2 gm/dL 32.0-34.2 L code = MCHC) RED CELL DISTRIBUTION WIDTH (test 17.9 % 12.2-16.3 H code = RDW) PLATELET COUNT (test code = PLT) 389 K/mm3 134-363 H MEAN PLATELET VOLUME (test code = 10.4 fL 9.2-12.7 N MPV) NEUTROPHIL % (test code = NT%) 69.1 % 57.9-77.3 N LYMPHOCYTE % (test code = LY%) 19.7 % 14.5-29.7 N MONOCYTE % (test code = MO%) 7.6 % 3.6-10.2 N EOSINOPHIL % (test code = EO%) 1.6 % 0.0-3.0 N BASOPHIL % (test code = BA%) 0.2 % 0.1-0.9 N NEUTROPHIL # (test code = NT#) 7.9 K/mm3 LYMPHOCYTE # (test code = LY#) 2.3 K/mm3 MONOCYTE # (test code = MO#) 0.9 K/mm3 EOSINOPHIL # (test code = EO#) 0.18 K/mm3 BASOPHIL # (test code = BA#) 0.0 K/mm3 RBC MORPHOLOGY REQUIRED (test code NORMAL NORMAL = RBCM) PLATELET MORPHOLOGY REQUIRED (test NORMAL NORMAL code = PLTMR) COMPREHENSIVE METABOLIC [id number] 16:19:00 Test Item Value Reference Range Interpretation Comments SODIUM (test code = NA) 143 mEq/L 135-145 N POTASSIUM (test code = K) 4.2 mEq/L 3.5-5.0 N CHLORIDE (test code = CL) 107 mEq/L 100-115 N CARBON DIOXIDE (test code = CO2) 25 mEq/L 22-31 N ANION GAP (test code = GAP) 15.20 10-20 N GLUCOSE (test code = GLU) 71 mg/dL 65-110 N BLOOD UREA NITROGEN (test code = 5 mg/dL 7-18 L BUN) GLOMERULAR FILTRATION RATE (test 124 ml/min >60 N code = GFR) CREATININE (test code = CREAT) 0.6 mg/dL 0.5-1.0 N TOTAL PROTEIN (test code = PROT) 5.8 gm/dL 6.3-8.2 L ALBUMIN (test code = ALB) 2.1 gm/dL 3.4-4.8 L CALCIUM (test code = CA) 8.4 mg/dL 8.4-10.2 N BILIRUBIN TOTAL (test code = 0.3 mg/dL 0.2-1.0 N BILT) SGOT/AST (test code = AST) 17 units/L 15-37 N SGPT/ALT (test code = ALT) 11 units/L 12-78 L ALKALINE PHOSPHATASE TOTAL (test 175 units/L 46-116 H code = ALKP) LACTIC [id number] 16:19:00 Test Item Value Reference Range Interpretation Comments LACTIC ACID (test code = LACT) 0.8 MMOL/L 0.5-2.2 N CBC W/AUTO [id number] 15:55:00 Test Item Value Reference Range Interpretation Comments WHITE BLOOD CELL (test code = WBC) 12.1 K/mm3 6.5-12.3 N RED BLOOD CELL (test code = RBC) 3.90 M/mm3 3.51-4.69 N HEMOGLOBIN (test code = HGB) 8.2 g/dL 10.1-13.8 L HEMATOCRIT (test code = HCT) 28.0 % 32.5-41.8 L MEAN CELL VOLUME (test code = MCV) 71.8 fL 84.6-96.6 L MEAN CELL HGB (test code = MCH) 21.0 pg 27.3-33.9 L MEAN CELL HGB CONCETRATION (test 29.3 gm/dL 32.0-34.2 L code = MCHC) RED CELL DISTRIBUTION WIDTH (test 18.1 % 12.2-16.3 H code = RDW) PLATELET COUNT (test code = PLT) 358 K/mm3 134-363 N IMMATURE PLATELET FRACTION (test 7.4 % 0.0-10.8 N code = IPF) MEAN PLATELET VOLUME (test code = 11.5 fL 9.2-12.7 N MPV) NEUTROPHIL % (test code = NT%) 75.8 % 57.9-77.3 N LYMPHOCYTE % (test code = LY%) 13.9 % 14.5-29.7 L MONOCYTE % (test code = MO%) 8.4 % 3.6-10.2 N EOSINOPHIL % (test code = EO%) 0.8 % 0.0-3.0 N BASOPHIL % (test code = BA%) 0.2 % 0.1-0.9 N NEUTROPHIL # (test code = NT#) 9.2 K/mm3 LYMPHOCYTE # (test code = LY#) 1.7 K/mm3 MONOCYTE # (test code = MO#) 1.0 K/mm3 EOSINOPHIL # (test code = EO#) 0.10 K/mm3 BASOPHIL # (test code = BA#) 0.0 K/mm3 RBC MORPHOLOGY REQUIRED (test code NORMAL NORMAL = RBCM) PLATELET MORPHOLOGY REQUIRED (test NORMAL NORMAL code = PLTMR) CT Abdomen Pelvis W [id number] 13:25:46Examination: CT ABDOMEN PELVIS W CONTRAST Clinical history: Abdominal pain fever, 4 days s p stat csection with fever Comparison: October 22, 2018 Technique: Multiple computerized axial tomographic imageswere obtained of the abdomen and pelvis following administration of IV contrast.Sagittal and coronalcomputerized reformatted images were also obtained. Enteric contrast was not CT scans are performedusing radiation dose reduction techniques. Technical factors are evaluated and adjusted to ensure appropriate moderation of exposure. Automated dose management technology is applied to adjust radiation exposure while achieving a diagnostic quality image. IMPRESSION: The visualized lung bases are clear. Abdomen:1. There is mild hepatic steatosis. Borderline bilateral hydronephrosis is likely relatedto recent uterus. There is no evidence of ureteral calculus. The liver, spleen, adrenal glands, pancreas, and kidneys are otherwise unremarkable. 2. Minimal layering sludge or gravel is present within the gallbladder. The pancreatic and biliary ducts are not dilated. The abdominal aorta is normal caliber. 3. The bowel is not dilated. The appendix is normal. 4. There is no significant abdominal wall defect, hernia, or abscess. Pelvis:1. The patient reportedly underwent 4 days ago. Expected postsurgical changes and gas are present within the anterior abdominal wall without abdominal wall hematoma or abscess. 2. Enlarged heterogeneous uterus measuring 18.4 x 9.6 x 14.9 cm is compatible with recent state. A small amount of residual fluid or debris is present throughout the endometrial cavity. Mild heterogeneous central endometrial enhancement may represent asymmetric enhancement of the endometrium, though is nonspecific. 3. There is no pelvic hematoma or acute osseous pathology. CONCLUSION: 1.ENLARGED UTERUS IS COMPATIBLE RECENT STATE. SMALL AMOUNTOF FLUID AND/OR DEBRIS AND GAS WITHIN THE ENDOMETRIAL CAVITY MAY REPRESENT RETAINED PRODUCTS. THERE IS NO EVIDENCE OF FREE PELVIC OR ABDOMINAL WALL HEMATOMA. 2.NO ABSCESS. 3.PLEASE SEE ABOVE. [id number] Interface, Radiology Results 03/10/2021 8:28 AM CDT Examination: CT ABDOMEN PELVIS W CONTRASTClinical history: Abdominal pain fever, 4 days s p stat csection with feverComparison: October 22, 2018Technique: Multiple computerized axial tomographic images were obtained of the abdomen and pelvis following administration of IV contrast.Sagittal and coronal computerized reformatted images were also obtained. Enteric contrast wasnotCT scans are performed using radiation dose reduction techniques. Technical factors are evaluated and adjusted to ensure appropriate moderation of exposure. Automated dose management technology is applied to adjust radiation exposure while achieving a diagnostic quality image.IMPRESSION: The visualized lung bases are clear.Abdomen:1. There is mild hepatic steatosis. Borderline bilateral hydronephrosis is likely related to recent uterus. There is no evidence of ureteral calculus. The liver, spleen, adrenal glands, pancreas, and kidneys are otherwise unremarkable.2. Minimal layering sludge or gravel is present within the gallbladder. The pancreatic and biliary ducts are not dilated. The abdominal aorta is normal caliber.3. The bowel is not dilated. The appendix is normal.4. There is no significant abdominal wall defect, hernia, or abscess.Pelvis:1. The patient reportedly underwent 4 days ago. Expected postsurgical changes and gas are present within the anterior abdominal wall without abdominal wall hematoma or abscess.2. Enlarged heterogeneous uterus measuring 18.4 x 9.6 x 14.9 cm is compatible with recent state. A small amount of residual fluid or debris is present throughout the endometrial cavity. Mild heterogeneous central endometrial enhancement may represent asymmetric enhancement of the endometrium, though is nonspecific.3. There is no pelvic hematoma or acute osseous pathology.CONCLUSION: 1.ENLARGED UTERUS IS COMPATIBLE RECENT STATE. SMALL AMOUNT OF FLUID AND/OR DEBRIS AND GAS WITHIN THE ENDOMETRIAL CAVITY MAY REPRESENT RETAINED PRODUCTS. THERE IS NO EVIDENCE OF FREE PELVIC OR ABDOMINAL WALL HEMATOMA.2.NO ABSCESS.3.PLEASE SEE ABOVE.[id number] [id number] 13:25:02EXAMINATION: XR CHEST 2 VW CLINICAL HISTORY: fever s p c section 4 days ago COMPARISON: None IMPRESSION: The lungs are clear. The heart is not enlarged. No acute bony abnormality. 6 mm linear density projected over the right medial base. Suspect artifact. [id number] Interface, Radiology Results 03/10/2021 8:28 AM CDT EXAMINATION: XR CHEST 2 VWCLINICAL HISTORY: fever s p c section 4 days agoCOMPARISON: NoneIMPRESSION :The lungs are clear.The heart is not enlarged.No acute bony abnormality.6 mm linear density projected over the right medial base. Suspect artifact.[id number] THIRD [id number] 16:12:00 Test Item Value Reference Range Interpretation Comments PLACENTA THIRD TRIMESTER (test code = PLACIII) RUN DATE: 03/08/21 [facility] PAGE 1 RUN TIME: 1910 Specimen Inquiry RUN USER: INTERFACE [place]ERRAT ENT: MELIDA GARCIARA LOC: SURESH U #: [id number] AGE/SX: ROOM: [facility] RE03/04/21REG DR: Laureen Watkins MD : 89 BED: A DIS: 03/08/21 STATUS: DIS IN TLOC: SPEC #: [id number] RECD: 03/06/21 STATUS: JOHN ALBERT #: [id number] RAOUL: 03/05/21- SUBM DR: Laureen Watkins MD ENTERED: 03/06/21 SP TYPE: PLACIII OT DR: ORDERED: LEVEL V SURGICA CODES: [id number] - PLACENTA, NOS PROCEDURES: LEVEL V SURGICA (Incomplete) TISSUES: PLACENTA, NOS - PLACENTA CLINICAL HISTORY 25 year old, 39.6 weeks, section, chorioamnionitis, sepsis, category II FHR (wpd) FINAL DIAGNOSIS Placenta, section: - placenta with mature third trimester villous morphology, 595 gms (approximately 80th percentile) - acute deciduitis - acute chorionic vasculitis - villous infarcts, 0.1 - 0.4 cm - subchorionic and perivillous fibrin deposition - membranes: acute chorioamnionitis, Stage 2; pigment-laden macrophages, compatible with meconium - trivascular umbilical cord: acute vasculitis, Stage 2; focal acute funisitis CPT: 10954 [facility]/wpd GROSS DESCRIPTION The specimen was received in a container labeled with the patient's name, unit number and designated "placenta". The following attributes are observed: Cord insertion: 6 cm from margin Cord length: 37 cm Number of vessels: 3 Cord color: Blue-kulkarni Other cord findings: None surface findings: Steel blue, wrinkled, glistening Vasculature: Unremarkable blood vasculature Membranes rupture site: At the margin CONTINUED ON NEXT PAGE RUN DATE: 03/08/21 [facility] PAGE 2 RUN TIME: 1910 Specimen Inquiry RUN USER: INTERFACE SPEC #: [id number] PATIENT: FANI AGRCIA #[id number] (Continued) ------- GROSS DESCRIPTION (Continued) Membrane color: Kulkarni Other membrane findings: Thickened and opaque The trimmed placental weight: 595 gm Disk measurement: 24 x 22 x 3.3 cm Accessory lobes: None Maternal surface: Contains focal pinpoint calcium deposits Parenchyma: Red, beefy, and spongy Parenchyma lesions: None Cassettes: A1 through A4 hz/wptri 03/06/21 ---- Signed Chelsey Bautista 03/07/21 1612 END OF REPORT [id number] 14:18:00 Test Item Value Reference Range Interpretation Comments FERRITIN (test code = MANJIT) 31.4 NG/ML 6.24-137 N [id number] 14:18:00 Test Item Value Reference Range Interpretation Comments FERRITIN (test code = MANJIT) 31.4 NG/ML 6.24-137 HGB [id number] 17:06:00 Test Item Value Reference Range Interpretation Comments HEMOGLOBIN (test code = HGB) 7.3 g/dL 10.1-13.8 L HEMATOCRIT (test code = HCT) 24.3 % 32.5-41.8 L CBC W/AUTO [id number] 09:04:00 Test Item Value Reference Range Interpretation Comments WHITE BLOOD CELL (test 15.1 K/mm3 6.5-12.3 H code = WBC) RED BLOOD CELL (test 3.22 M/mm3 3.51-4.69 L code = RBC) HEMOGLOBIN (test code = 7.0 g/dL 10.1-13.8 L RESU LTS CALLED TO HGB) DUSTIN GOMEZ AD BACK & CONFIRME D? YBY [id number] 03/06/21 0753Re sults verified by rep eat analysis HEMATOCRIT (test code = 23.5 % 32.5-41.8 L Resu lts verified by HCT) repeat analysis MEAN CELL VOLUME (test 73.0 fL 84.6-96.6 L code = MCV) MEAN CELL HGB (test 21.7 pg 27.3-33.9 L code = MCH) MEAN CELL HGB 29.8 gm/dL 32.0-34.2 L CONCETRATION (test code = MCHC) RED CELL DISTRIBUTION 17.2 % 12.2-16.3 H WIDTH (test code = RDW) PLATELET COUNT (test 275 K/mm3 134-363 N code = PLT) MEAN PLATELET VOLUME 10.4 fL 9.2-12.7 N (test code = MPV) MANUAL DIFF REQUIRED YES (test code = MDIFF) RBC MORPHOLOGY REQUIRED NORMAL NORMAL (test code = RBCM) PLATELET MORPHOLOGY NORMAL NORMAL REQUIRED (test code = PLTMR) WBC [id number] 09:04:00 Test Item Value Reference Range Interpretation Comments SEGMENTED NEUTROPHILS (test code = 82 % 56.5-79.4 H SEG) LYMPHOCYTE (test code = LYMPH) 11 % 20-40 L TOTAL CELLS COUNTED (test code = 100 #CELLS TCC) BAND NEUTROPHIL (test code = BAND) 7 % 0-5 H PLATELET ESTIMATE (test code = ADEQUATE ADEQ PLTEST) PLATELET MORPHOLOGY (test code = NORMAL NORMAL PLTMORPH) CAPILLARY BLOOD [id number] 14:45:00 Test Item Value Reference Range Interpretation Comments CAPILLARY BLOOD GAS PH (test code 7.269 7.35-7.45 L = PHC) CAPILLARY BLOOD GAS PCO2 (test 40.9 mmHg code = PCO2C) CAPILLARY BLOOD GAS PO2 (test code 39.8 mmHg = PO2C) CBG HCO3 (test code = HCO3C) 18.3 meq/L CBG BASE EXCESS (test code = BEC) -8.1 CBG O2 SATURATION (test code = 67.7 % SATC) CAPILLARY BLOOD GAS TYPE (test CBLA code = TYPEC) CAPILLARY BLOOD GAS FIO2 (test 21.0 % code = FIO2C) CAPILLARY BLOOD [id number] 14:45:00 Test Item Value Reference Range Interpretation Comments CAPILLARY BLOOD GAS PH (test code 7.248 7.35-7.45 L = PHC) CAPILLARY BLOOD GAS PCO2 (test 47.0 mmHg code = PCO2C) CAPILLARY BLOOD GAS PO2 (test code 39.9 mmHg = PO2C) CBG HCO3 (test code = HCO3C) 20.1 meq/L CBG BASE EXCESS (test code = BEC) -7.2 CBG O2 SATURATION (test code = 66.2 % SATC) CAPILLARY BLOOD GAS TYPE (test CBLV code = TYPEC) CAPILLARY BLOOD GAS FIO2 (test 21.0 % code = FIO2C) LACTIC [id number] 14:03:00 Test Item Value Reference Range Interpretation Comments LACTIC ACID (test code = LACT) <0.3 MMOL/L 0.5-2.2 L LACTIC [id number] 10:24:00 Test Item Value Reference Range Interpretation Comments LACTIC ACID (test 3.0 MMOL/L 0.5-2.2 H RESULTS CA LLED TO code = LACT) ROBYN MORSE.RE AD BACK & CONFIRMED? YE S.BY [id number] 1024. COMPREHENSIVE METABOLIC [id number] 10:22:00 Test Item Value Reference Range Interpretation Comments SODIUM (test code = NA) 139 mEq/L 135-145 N POTASSIUM (test code = K) 3.6 mEq/L 3.5-5.0 N CHLORIDE (test code = CL) 105 mEq/L 100-115 N CARBON DIOXIDE (test code = CO2) 21 mEq/L 22-31 L ANION GAP (test code = GAP) 17.10 10-20 N GLUCOSE (test code = GLU) 111 mg/dL 65-110 H BLOOD UREA NITROGEN (test code = 3 mg/dL 7-18 L BUN) GLOMERULAR FILTRATION RATE (test 104 ml/min >60 N code = GFR) CREATININE (test code = CREAT) 0.7 mg/dL 0.5-1.0 N TOTAL PROTEIN (test code = PROT) 5.8 gm/dL 6.3-8.2 L ALBUMIN (test code = ALB) 2.0 gm/dL 3.4-4.8 L CALCIUM (test code = CA) 8.0 mg/dL 8.4-10.2 L BILIRUBIN TOTAL (test code = 0.7 mg/dL 0.2-1.0 N BILT) SGOT/AST (test code = AST) 15 units/L 15-37 N SGPT/ALT (test code = ALT) 8 units/L 12-78 L ALKALINE PHOSPHATASE TOTAL (test 243 units/L 46-116 H code = ALKP) PROTHROMBIN [id number] 10:03:00 Test Item Value Reference Range Interpretation Comments PROTHROMBIN TIME PATIENT (test code 11.3 secs 10.1-12.3 N = PTP) IS PATIENT ON ANTICOAGULANTS ? NINTERNATIONAL NORMAL [id number] 10:03:00 Test Item Value Reference Range Interpretation Comments INTERNATIONAL NORMAL 1.02 The INR is to be used RATIO (test code = INR) only for monitoring oral anticoagulantth erapy. INDICATION INR VALUE 1. Prophylaxis inc luding high risk cintron rgery 2.0 - 2.52. Deep venous thr ombosis. Pulmonary em bolism. Atrial fibrilla tion or bioprostheti c heart valves 2.0 - 3.03. Mechanical hear t valves or recurren t systemic emboli sm. 3.0 - 3.5 IS PATIENT ON ANTICOAGULANTS ? NTHROMBOPLASTIN TIME [id number] 10:03:00 Test Item Value Reference Range Interpretation Comments THROMBOPLASTIN TIME PARTIAL (test 27.3 secs 22-38 N code = PTT) IS PATIENT ON ANTICOAGULANTS ? NCBC W/AUTO [id number] 09:58:00 Test Item Value Reference Range Interpretation Comments WHITE BLOOD CELL (test 19.8 K/mm3 6.5-12.3 H Resul ts verified by code = WBC) repeat analysis RED BLOOD CELL (test 4.07 M/mm3 3.51-4.69 N code = RBC) HEMOGLOBIN (test code = 9.0 g/dL 10.1-13.8 L HGB) HEMATOCRIT (test code = 30.1 % 32.5-41.8 L HCT) MEAN CELL VOLUME (test 74.0 fL 84.6-96.6 L code = MCV) MEAN CELL HGB (test code 22.1 pg 27.3-33.9 L = MCH) MEAN CELL HGB 29.9 gm/dL 32.0-34.2 L CONCETRATION (test code = MCHC) RED CELL DISTRIBUTION 17.3 % 12.2-16.3 H WIDTH (test code = RDW) PLATELET COUNT (test 309 K/mm3 134-363 N code = PLT) MEAN PLATELET VOLUME 10.5 fL 9.2-12.7 N (test code = MPV) NEUTROPHIL % (test code 89.6 % 57.9-77.3 H = NT%) LYMPHOCYTE % (test code 4.6 % 14.5-29.7 L = LY%) MONOCYTE % (test code = 5.0 % 3.6-10.2 N MO%) EOSINOPHIL % (test code 0.0 % 0.0-3.0 N = EO%) BASOPHIL % (test code = 0.1 % 0.1-0.9 N BA%) NEUTROPHIL # (test code 17.7 K/mm3 = NT#) LYMPHOCYTE # (test code 0.9 K/mm3 = LY#) MONOCYTE # (test code = 1.0 K/mm3 MO#) EOSINOPHIL # (test code 0 K/mm3 = EO#) BASOPHIL # (test code = 0.0 K/mm3 BA#) RBC MORPHOLOGY REQUIRED NORMAL NORMAL (test code = RBCM) PLATELET MORPHOLOGY NORMAL NORMAL REQUIRED (test code = PLTMR) UA RFLX MICR CULT IF [id number] 09:54:00 Test Item Value Reference Range Interpretation Comments UA COLOR (test code = COLU) YELLOW YELLOW UA APPEARANCE (test code = CLEAR CLEAR APPU) UA GLUCOSE DIPSTICK (test NEGATIVE NEG code = DGLUU) UA BILIRUBIN DIPSTICK (test NEGATIVE NEG code = BILU) UA KETONE DIPSTICK (test code 1+ NEG A = KETU) UA SPECIFIC GRAVITY (test 1.011 1.001-1.035 N code = SGU) UA BLOOD DIPSTICK (test code 1+ NEG A = VICTORIA) UA PH DIPSTICK (test code = 6.0 5-9 MONIKA) UA PROTEIN DIPSTICK (test NEGATIVE NEG code = PROU) UA UROBILINIOGEN DIPSTICK NEGATIVE mg/dL NEG (test code = URO) UA NITRITE DIPSTICK (test NEG NEG code = JACINDA) UA LEUKOCYTE ESTERASE NEG NEG DIPSTICK (test code = LEUU) UA WBC (test code = WBCU) 0-2 #/hpf NONE SEEN UA RBC (test code = RBCU) 11-15 #/hpf NONE SEEN A UA EPITHELIAL CELLS (test NONE SEEN #/HPF RARE-FEW code = EPIU) UA MUCUS (test code = MUCU) RARE NONE SEEN Indication for culture: Temperature > 100.4 FSpecimen Description: CATHETERDRUGS OF ABUSE [id number] 14:13:00 Test Item Value Reference Range Interpretation Comments UR COCAINE (test code = NEGATIVE NEGATIVE DETE CTION CUT OFF: COCAU) 150 ng/mL UR CANNABINOIDS (test NEGATIVE NEGATIVE DETECT ION CUT OFF: code = CANU) 50 ng/mL UR AMPHETAMINE (test code NEGATIVE NEGATIVE DE TECTION CUT OFF: = AMPHU) 500 ng/mL UR BARBITURATE QUAL (test NEGATIVE NEGATIVE DE TECTION CUT OFF: code = BARBQLU) 200 ng/mL UR BENZODIAZEPINE (test NEGATIVE NEGATIVE DETE CTION CUT OFF: code = BENZU) 150 ng/mL UR OPIATES QUAL (test NEGATIVE NEGATIVE DETECT ION CUT OFF: code = OPIAQLU) 100 ng/mL UR PHENCYCLIDINE (PCP) NEGATIVE NEGATIVE DETEC TION CUT OFF: (test code = PHENCU) 25 ng/m L AG HEPATITIS B [id number] 13:25:00 Test Item Value Reference Range Interpretation Comments AG HEPATITIS B SURFACE (test code NONREACTIVE NONREACTIVE = HBSAG) AB HEPATITIS C [id number] 13:25:00 Test Item Value Reference Range Interpretation Comments AB HEPATITIS C (test code = NONREACTIVE NONREACTIVE HCVAB) SIGNAL TO CUTOFF (test code = 0.09 <0.80 N CUTOFF) AB [id number] 13:25:00 Test Item Value Reference Range Interpretation Comments AB TREPONEMA (test code = TREPAB) NONREACTIVE NONREACTIVE AB HIV 1 13:25:00 Test Item Value Reference Range Interpretation Comments AB HIV 1 2 (test NONREACTIVE NONREACTIVE Done by S [employer] code = TFC01BL) 4th Gen HIV Ag/Ab Combo Screen COVID 19 Asymptomatic IH [id number] 12:50:00 Test Item Value Reference Range Interpretation Comments COVID 19 NEGATIVE NEGATIVE This test has b een Asymptomatic IH AG authorize d only for the (test code = detection ofpro teins from COVNONPUIAG) SARS-CoV-2, not for any other viruses orpathogens. N egative results should be treated as presumptive andconfirmed wi th a molecular assay , if necessary for patientmanageme nt. Negative result s do not rule out COVID- 19 andshould not b e used as the sole basis for treatment orpat ient management deci sions, including infec tion controldecision s. Negative result s should be considered i n thecontext of a patient's recent exposure s, history and thepresence of clinical signs and symptoms consis tent withCOVID-19. T his test has not been FD A cleared or approved; th e test hasbeen authori rock by FDA under an Emerge ncy Use Authorization(E UA) for use by laborato gia certified under the CLIA thatmeet the re quirements to perform mode rate, high or waivedcomple xity tests. This radha t is authorized for use at thePoint of Car e (POC), i.e., in patien t care settingsoperati ng under a CLIA Certificat e of Waiver, Certifi yu ofCompliance, o r Certificate of Accreditation. This test is only authori rock for the duration of thedeclaration that circumstances e xist justifying theauthorizatio n of emergency use o f in vitro diagnostic test sfor detection and/o r diagnosis of CO VID-19 under Rgkvomv61 4(b)(1) of the Act, 21 U.S .C. 360bbb-3(b)(1), unless theauthorizatio n is terminated or r evoked sooner. 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: IN ROOMCBC W/AUTO [id number] 11:54:00 Test Item Value Reference Range Interpretation Comments WHITE BLOOD CELL (test code = WBC) 9.3 K/mm3 6.5-12.3 N RED BLOOD CELL (test code = RBC) 4.28 M/mm3 3.51-4.69 N HEMOGLOBIN (test code = HGB) 9.2 g/dL 10.1-13.8 L HEMATOCRIT (test code = HCT) 31.0 % 32.5-41.8 L MEAN CELL VOLUME (test code = MCV) 72.4 fL 84.6-96.6 L MEAN CELL HGB (test code = MCH) 21.5 pg 27.3-33.9 L MEAN CELL HGB CONCETRATION (test 29.7 gm/dL 32.0-34.2 L code = MCHC) RED CELL DISTRIBUTION WIDTH (test 17.2 % 12.2-16.3 H code = RDW) PLATELET COUNT (test code = PLT) 391 K/mm3 134-363 H MEAN PLATELET VOLUME (test code = 10.6 fL 9.2-12.7 N MPV) NEUTROPHIL % (test code = NT%) 70.9 % 57.9-77.3 N LYMPHOCYTE % (test code = LY%) 22.1 % 14.5-29.7 N MONOCYTE % (test code = MO%) 5.6 % 3.6-10.2 N EOSINOPHIL % (test code = EO%) 0.9 % 0.0-3.0 N BASOPHIL % (test code = BA%) 0.1 % 0.1-0.9 N NEUTROPHIL # (test code = NT#) 6.6 K/mm3 LYMPHOCYTE # (test code = LY#) 2.0 K/mm3 MONOCYTE # (test code = MO#) 0.5 K/mm3 EOSINOPHIL # (test code = EO#) 0.08 K/mm3 BASOPHIL # (test code = BA#) 0.0 K/mm3 RBC MORPHOLOGY REQUIRED (test code NORMAL NORMAL = RBCM) PLATELET MORPHOLOGY REQUIRED (test NORMAL NORMAL code = PLTMR) - US FLW [id number] 00:00:00 [facility] : 1995 Sex: F Patient Name: FANI GARCIA Unit No: [id number] EXAMS: CPT CODE: [id number] [place] [address] PROCEDURE INFORMATION: Exam: US ; Follow up Exam date and time: 03/04/2021 11:49 AM Age: 25 years old Clinical indication: Lmp or gestational age (in weeks): 39.6; Other: Loss of fluid; ; Additional info: Noc doc pateint leaking fluid TECHNIQUE: Imaging protocol: Transabdominal ultrasound of the uterus, real time with image documentation. Follow-up (eg, re-evaluation of size by measuring standard growth parameters and amniotic fluid volume, re-evaluation of organ system(s) suspected or confirmed to be abnormal on aprevious scan). COMPARISON: No relevant prior studies available. FINDINGS: Gestation: Intrauterine gestation. Presentation: Cephalic. Placenta: Posteriorly located with maturity gradeof 3. No placenta previa. Amniotic fluid index: 9.8 cm. BIOMETRY: Gestational age (AUA): 39 weeks 6 days Estimated due date (AUA): 03/05/2021 Estimated weight: 3641 g (79.7%) Biparietal diameter: 8.6 cm, 34 weeks 4 days Head circumference: 32.2 cm, 36 weeks 2 days Abdominal circumference: 35.9 cm, 39 weeks 6 days Femur length: 7.7 cm, 39 weeks 3 days biometric ratios: FL/BPD 89.7 (71-87); FL/AC: 21 (20-24); HC/AC: 0.9 (0.91-1.05); CI: 74.7 (70-86) MATERNAL: Cervix: Not visualized. IMPRESSION: Viable intrauterine as described. at 1233 Reported and signed by: Kg Andrade MD CC: Luisito Wu III, MD Technologist: Radha Dickson RDMS Probe: Trnscrbd D/ (1233) GCD.CPS Orig Print D/T: S: 03/04/2021 (1233) [facility] Radiology Department PHYS: Luisito Oropeza III, MD [address] : 1995 AGE: 25 SEX: F [place] [address] LOC: LISA Pierre PHONE #: [phone] EXAM DATE: 03/04/2021 STATUS: ADM IN FAX #: [phone] RAD NO: Page 1 Signed Report Patient Name: FANI GARCIA Unit No: [id number] EXAMS: CPT CODE: [id number] US FLW UP [address]4634 <Continued> [facility] NAME: CESAR GARCIAANDRA Radiology Department PHYS: Luisito Oropeza III, MD [address] : 1995 AGE: 25 SEX: F [place] [address] LOC: LISA Pierre PHONE #: [phone] EXAM DATE: 03/04/2021 STATUS: ADM IN FAX #: [phone] RAD NO: Page 2 Signed ReportVaginal Group B Strep by Real- Time [id number] 14:15:00 Test Item Value Reference Range Interpretation Comments Vaginal Group B Strep by Real-Time Negative Negative PCR (test code = 301817) [facility] [id number] 14:15:00 Test Item Value Reference Range Interpretation Comments Neisseria gonorrhoeae DNA probe Negative Negative (test code = 63682-5) [facility] [id number] 14:15:00 Test Item Value Reference Range Interpretation Comments chlamydia DNA probe (test code = Negative Negative 83286-7) [facility] [id number] 15:00:00 Test Item Value Reference Range Interpretation Comments urine culture (test code = 630-4) LESS [facility]blood glucose, 1 hour after 50 gm oral [id number] 15:00:00 Test Item Value Reference Range Interpretation Comments blood glucose, 1 hour after 50 gm 123 mg/dL 65-139 oral glucose (test code = 1039) [facility]HIV[facility]CMIA (Chemiluminescent Microparticle Immuno Assay) 2020-12-25 15:00:00 Test Item Value Reference Range Interpretation Comments HIV-CMIA (Chemiluminescent Non Reactive Non Reactive Microparticle Immuno Assay) (test code = 564732) [facility] HospitalTreponema pallidum particle agglutination assay (TPPA test)2020-12-25 15:00:00 Test Item Value Reference Range Interpretation Comments Treponema pallidum particle Non Reactive Non Reactive agglutination assay (TPPA test) (test code = 98121-8) [facility] Hospitalrub[facility] antibody, serum, [id number] 15:00:00 Test Item Value Reference Range Interpretation Comments rubella antibody, 1.35 (unknown See_Comment [Automat ed message] serum, IgG (test unit) The system which code = 5334-8) generated thi s result transmitted ref erence range: Immune > 0.99. The reference r alisa was not used to interpret this result as normal/abnor mal. [facility] tszvnikoox0020-95-67 15:00:00 Test Item Value Reference Range Interpretation Comments bacteria, urine microscopy (test code = Few None seen/Few 5769-5) [facility] Hospitalcasts, afkac7446-36-39 15:00:00 Test Item Value Reference Range Interpretation Comments casts, urine (test code = 5626) None seen None seen [facility]epithelial cells, rcjtn9813-41-72 15:00:00 Test Item Value Reference Range Interpretation Comments epithelial cells, urine (test code = >10 0-10 A 5787-7) [facility] HospitalRBC, Fmkvs4177-01-43 15:00:00 Test Item Value Reference Range Interpretation Comments RBC, Urine (test code = None seen /hpf 0-2 73482-2) [facility] ihbxrswqmn7835-78-89 15:00:00 Test Item Value Reference Range Interpretation Comments WBC urine on microscopy (test code = 0-5 /hpf 0-5 1016) [facility]urinalysis, microscopic wegrbhyezbi4543-04-04 15:00:00 Test Item Value Reference Range Interpretation Comments urinalysis, microscopic See below: examination (test code = 89139-1) [facility] Hospitalnitrate, wdspe1417-66-53 15:00:00 Test Item Value Reference Range Interpretation Comments nitrate, urine (test code = 09235-0) Negative Negative [facility] Hospitalurobilinogen, urine, semiquantitative (dipstick) 2020-12-25 15:00:00 Test Item Value Reference Range Interpretation Comments urobilinogen, urine, 0.2 (unknown 0.2-1.0 semiquantitative (dipstick) unit) (test code = 5818-0) [facility]bilirubin, tmuab2394-97-37 15:00:00 Test Item Value Reference Range Interpretation Comments bilirubin, urine (test code = Negative Negative 5770-3) [facility] Hospitalketones, urine, by test ewkjh5369-36-10 15:00:00 Test Item Value Reference Range Interpretation Comments ketones, urine, by test strip (test Trace Negative A code = 5797-6) [facility]glucose, urine, fetxqlfsnuytllwo8126-70-58 15:00:00 Test Item Value Reference Range Interpretation Comments glucose, urine, semiquantitative Negative Negative (test code = 5792-7) [facility]protein, urine, semiquantitative (dipstick)2020-12-25 15:00:00 Test Item Value Reference Range Interpretation Comments protein, urine, semiquantitative 1+ Negative/Trace A (dipstick) (test code = 1753-3) [facility] Hospitalleukocyte esterase, urine, by ctuipuaa4557-44-63 15:00:00 Test Item Value Reference Range Interpretation Comments leukocyte esterase, urine, by dipstick Trace Negative A (test code = 5799-2) [facility] Healthappearance, wgasf1264-80-64 15:00:00 Test Item Value Reference Range Interpretation Comments appearance, urine (test code = 5767-9) Clear Clear [facility] Hospitalurine pftkp9121-89-30 15:00:00 Test Item Value Reference Range Interpretation Comments urine color (test code = 5778-6) Yellow Yellow [facility] HospitalpH, urine, ryczaualosfefzgp1126-46-85 15:00:00 Test Item Value Reference Range Interpretation Comments pH, urine, semiquantitative 5.5 (unknown 5.0-7.5 (test code = 5803-2) unit) [facility] Hospitalspecific gravity, body nczsh4724-43-13 15:00:00 Test Item Value Reference Range Interpretation Comments specific gravity, body 1.029 (unknown unit) 1.005-1.030 fluid (test code = 2964-5) [facility] Hospitalimmature granulocytes, percentage of total cells, blood 2020-12-25 15:00:00 Test Item Value Reference Range Interpretation Comments immature granulocytes, percentage of 0 % total cells, blood (test code = 82664-8) [facility] Hospitalbasophil count, xajabsno4462-17-91 15:00:00 Test Item Value Reference Range Interpretation Comments basophil count, absolute (test 0.0 x10E3/uL 0.0-0.2 code = 07756-7) [facility] HealthEosinophil Absolute Seogm0151-88-05 15:00:00 Test Item Value Reference Range Interpretation Comments Eosinophil Absolute Count (test 0.1 X10E3/UL 0.0-0.4 code = 63208-5) [facility] Hospitalmonocyte count, blood, nmpsgdlbz8390-40-20 15:00:00 Test Item Value Reference Range Interpretation Comments monocyte count, blood, automated 0.5 X10E3/UL 0.1-0.9 (test code = 742-7) [facility] Hospitallymphocyte count, blood, cascxxbhr5116-91-65 15:00:00 Test Item Value Reference Range Interpretation Comments lymphocyte count, blood, 2.2 X10E3/UL 0.7-3.1 automated (test code = 731-0) [facility] HospitalAbsolute Pzzqdzpqsih5260-15-80 15:00:00 Test Item Value Reference Range Interpretation Comments Absolute Neutrophils (test code 6.4 X10E3/UL 1.4-7.0 = 37009-8) [facility] Hospitalbasophils as percent of blood qyoucozcem5010-32-30 15:00:00 Test Item Value Reference Range Interpretation Comments basophils as percent of blood 0 % leukocytes (test code = 707-0) [facility] Hospitaleosinophils as percent of blood ajwrtmatfm2124-44-46 15:00:00 Test Item Value Reference Range Interpretation Comments eosinophils as percent of blood 1 % leukocytes (test code = 713-8) [facility] Healthmonocytes as percent of blood cnplgjorbf2174-31-65 15:00:00 Test Item Value Reference Range Interpretation Comments monocytes as percent of blood 5 % leukocytes (test code = 5905-5) [facility]allymphocytes as percent of blood zhxunigdgl3858-59-57 15:00:00 Test Item Value Reference Range Interpretation Comments lymphocytes as percent of blood 24 % leukocytes (test code = 736-9) [facility] Hospitalneutrophils as percent of blood pugecuixpb2268-26-49 15:00:00 Test Item Value Reference Range Interpretation Comments neutrophils as percent of blood 70 % leukocytes (test code = 770-8) [facility] Hospitalplatelet iwlii0330-95-17 15:00:00 Test Item Value Reference Range Interpretation Comments platelet count (test code = 400 X10E3/UL 150-450 777-3) [facility] Hospitalred blood cell distribution dhafc3614-38-35 15:00:00 Test Item Value Reference Range Interpretation Comments red blood cell distribution width 13.5 % 11.7-15.4 (test code = 788-0) [facility] corpuscular hemoglobin concentration, EMC9321-43-07 15:00:00 Test Item Value Reference Range Interpretation Comments mean corpuscular hemoglobin 32.3 G/DL 31.5-35.7 concentration, RBC (test code = 786-4) [facility] corpuscular hemoglobin, FWP9597-44-32 15:00:00 Test Item Value Reference Range Interpretation Comments mean corpuscular hemoglobin, RBC 25.5 pg 26.6-33.0 L (test code = 785-6) [facility] corpuscular volume, YRC1912-52-71 15:00:00 Test Item Value Reference Range Interpretation Comments mean corpuscular volume, RBC (test code 79 fL 79-97 = 787-2) [facility] Hospitalhematocrit, fqtku4834-01-62 15:00:00 Test Item Value Reference Range Interpretation Comments hematocrit, blood (test code = 4544-3) 31.6 % 34.0-46.6 L [facility] Hospitalhemoglobin, ihlvj3961-62-61 15:00:00 Test Item Value Reference Range Interpretation Comments hemoglobin, blood (test code = 10.2 g/dL 11.1-15.9 L 718-7) [facility] Hospitalerythrocyte (RBC) zldzo6109-01-74 15:00:00 Test Item Value Reference Range Interpretation Comments erythrocyte (RBC) count (test 4.00 X10E6/UL 3.77-5.28 code = 789-8) [facility] Hospitalleukocyte count, vxipa6572-50-09 15:00:00 Test Item Value Reference Range Interpretation Comments leukocyte count, blood (test 9.2 X10E3/UL 3.4-10.8 code = 6690-2) [facility] HospitalCystic Fibrosis DNA, Whole Hyhdj9379-97-06 00:00:00 Test Item Value Reference Range Interpretation Comments Cystic Fibrosis DNA, Whole Blood Negative N (test code = 47530) [facility] CLC OR LCC ONLY - WET DUWG5861-48-58 18:17:39 Test Item Value Reference Range Interpretation Comments CLUE CELLS WET PREP (test code = Few None Seen HPF A 1524241717) BACTERIA WET PREP (test code = Moderate None Seen HPF A 6451105573) WBC WET PREP (test code = Few None Seen HPF A 7386629968) RBC WET PREP (test code = None Seen None Seen HPF 6050207748) TRICHOMONAS WET PREP (test code = None Seen None Seen HPF 2345029386) YEAST WET PREP (test code = Few None Seen HPF A 2325615690) Lab Interpretation (test code = Abnormal 64769-1) [facility]53:10 Test Item Value Reference Range Interpretation Comments APPEARANCE (test code = Hazy Clear A 8751230373) COLOR (test code = Yellow Yellow 6357350827) PH (test code = 4.8-8.0 5067474486) SP GRAVITY (test code = 1.003-1.030 6150946678) GLU U QUAL (test code = Normal Normal 8430291613) BLOOD (test code = 1+ Negative A 9876449586) KETONES (test code = Negative Negative 4273873225) PROTEIN (test code = Negative Negative 2887-8) UROBILIN (test code = Normal Normal 7744509764) BILIRUBIN (test code = Negative Negative 1607534296) NITRITE (test code = Negative Negative 8581221201) LEUK WILFREDO (test code = 250/uL Negative A 8104211157) RBC/HPF (test code = See_Comment [Autom ated message] 5184330983) The system [employer] generated this result transmitted ref erence range: 0 - 3 HP F. The reference range was not used to int erpret this result as normal/abnormal . WBC/HPF (test code = See_Comment [Autom ated message] 0666440967) The system [employer] generated this result transmitted ref erence range: 0 - 5 HP F. The reference range was not used to int erpret this result as normal/abnormal . BACTERIA (test code = Few Negative A 5359161837) MUCOUS (test code = Slight Negative LPF A 2083368597) SQ EPITH (test code = HPF 2067484190) Lab Interpretation (test Abnormal code = 83433-0) [facility]COVID[facility] ([facility] NOW RAPID TESTING)2020-10-12 16:30:06 Test Item Value Reference Range Interpretation Comments SARS-CoV-2 Rapid ID NOW Not Detected Not Detected (test code = 98913-2) ALANIS (test code = ALANIS) ID NOW COVID-19 Assay is an isothermal nucleic acid amplification test intended for the qualitative detection of nucleic acid from SARS-CoV-2 viral RNA in nasopharyngeal (EDUCATION ADVISER) specimens. It is used under Emergency Use Authorization (EUA) by FDA. The limit of detection (LOD) of the assay is 125 Genome Equivalents/mL. A positive result is indicative of the presence of SARS-CoV-2 RNA. ?Clinical correlation with patient history and other diagnostic information is necessary to determine patient infection status. A negative (Not Detected) result does not preclude SARS-CoV-2 infection. In patients with clinical symptoms and other tests that are consistent with SARS-CoV-2 infection, negative results should be treated as presumptive negative and a new specimen should be tested with alternative PCR molecular test. Invalid: Please collect a new specimen for repeat patient testing if clinically indicated. Lab Interpretation Normal (test code = 33119-4) [facility] URINALYSIS W/O SPECIFIC WTZSYWR6273-41-06 19:34:00 Test Item Value Reference Range Interpretation Comments POCT PH U (test code = 3254) 6 mg/dl 5-8 POCT U LEUK EST (test code = 1+ Negative - Negative 3263) POCT U NIT (test code = 3262) positive Negative - Negative POCT U PROT (test code = 3259) trace Negative - Negative POCT U GLU (test code = 3256) neg Negative - Negative POCT U KETONE (test code = 3258) neg Negative - Negative POCT U BLD (test code = 3257) neg Negative - Negative [facility]PO[facility] JAER0654-86-91 19:34:00 Test Item Value Reference Range Interpretation Comments POCT PREG (test code Positive = 1605) On board controls Yes acceptable with C Line (test code = 3574) POCT PREG LOT # (test code = 3575) POCT PREG TEST DATE (test code = 3576) ALANIS (test code = ALANIS) accurate development and interpretation of all internal controls [facility] FWJOM0619-57-25 09:32:00Clear (08/07/20 3:32 AM)[facility] SCARH6285-46-49 09:32:00 Test Item Value Reference Range Interpretation Comments UA Spec Grav (test code = UA Spec 1.019 1 Grav) [facility] FPZAQ0546-13-89 09:32:00 Test Item Value Reference Range Interpretation Comments UA pH (test code = UA pH) 7.0 1 5.0-8.0 [facility] DGOPZ8802-25-23 09:32:00Negative *NA*(08/07/20 3:32 AM) [facility] PMQNU4647-08-99 09:32:00Negative (08/07/20 3:32 AM) [facility] MQPLS8134-14-76 09:32:00Negative (08/07/20 3:32 AM) [facility] XJLVB9048-45-64 09:32:00Negative (08/07/20 3:32 AM) [facility] RTKBW6896-41-72 09:32:00<1[facility] YEYIJ6609-62-66 09:32:001[facility] MPRFC4974-52-66 09:32:00Clear (08/07/20 3:32 AM)[facility] VBUWC8995-22-89 09:32:00 Test Item Value Reference Range Interpretation Comments UA Spec Grav (test code = UA Spec 1.019 1 Grav) [facility] AICOA4078-91-98 09:32:00 Test Item Value Reference Range Interpretation Comments UA pH (test code = UA pH) 7.0 1 5.0-8.0 [facility] NQTZS4732-49-39 09:32:00Negative *NA*(08/07/20 3:32 AM) [facility] ARVSH1561-24-49 09:32:00Negative (08/07/20 3:32 AM) [facility] OJNII2489-12-94 09:32:00Negative (08/07/20 3:32 AM) [facility] LNKBP6792-24-57 09:32:00Negative (08/07/20 3:32 AM) [facility] BRVXA9052-95-67 09:32:00<1[facility] QWTEA1209-08-55 09:32:001[facility] VXEAS2004-74-49 09:32:00Clear (08/07/20 3:32 AM)[facility] LVRSL8137-83-46 09:32:00 Test Item Value Reference Range Interpretation Comments UA Spec Grav (test code = UA Spec 1.019 1 Grav) [facility] EYCKX2546-94-06 09:32:00 Test Item Value Reference Range Interpretation Comments UA pH (test code = UA pH) 7.0 1 5.0-8.0 [facility] DGQWY0215-53-58 09:32:00Negative *NA*(08/07/20 3:32 AM) [facility] ENXDN7301-97-07 09:32:00Negative (08/07/20 3:32 AM) [facility] KYYFT0046-92-23 09:32:00Negative (08/07/20 3:32 AM) [facility] WVTZP5792-23-03 09:32:00Negative (08/07/20 3:32 AM) [facility] GRQLG8428-13-04 09:32:00<1[facility] KJWIZ9213-47-17 09:32:001[facility] UZAGQ7500-08-44 09:32:00Clear (08/07/20 3:32 AM)[facility] UETJH7731-41-35 09:32:00 Test Item Value Reference Range Interpretation Comments UA Spec Grav (test code = UA Spec 1.019 1 Grav) [facility] XTUMS8858-89-40 09:32:00 Test Item Value Reference Range Interpretation Comments UA pH (test code = UA pH) 7.0 1 5.0-8.0 [facility] LCNTD7578-61-30 09:32:00Negative *NA*(08/07/20 3:32 AM) [facility] UXEAK2930-95-40 09:32:00Negative (08/07/20 3:32 AM) [facility] IARIP3915-33-70 09:32:00Negative (08/07/20 3:32 AM) [facility] QVVXJ1466-24-57 09:32:00Negative (08/07/20 3:32 AM) [facility] XMRVE3691-19-63 09:32:00<1[facility] BTDJZ1521-46-60 09:32:001[facility] MTCEB1961-99-70 09:32:00Clear (08/07/20 3:32 AM)[facility] FGZHR9754-25-46 09:32:00 Test Item Value Reference Range Interpretation Comments UA Spec Grav (test code = UA Spec 1.019 1 Grav) [facility] KVGRR9903-63-25 09:32:00 Test Item Value Reference Range Interpretation Comments UA pH (test code = UA pH) 7.0 1 5.0-8.0 [facility] HTLNI4869-67-99 09:32:00Negative *NA*(08/07/20 3:32 AM) [facility] VOYMH4142-50-11 09:32:00Negative (08/07/20 3:32 AM) [facility] YSWCJ9826-13-45 09:32:00Negative (08/07/20 3:32 AM) [facility] PAJBI4175-78-42 09:32:00Negative (08/07/20 3:32 AM) [facility] RXZEU4208-95-60 09:32:00<1[facility] KFNGU0136-92-92 09:32:001[facility] QfqpkioSDIPZQJBMBMAZ1196-76-56 09:00:88147003 [facility] GdxynsfRAZFTFVJTGSNC4021-03-25 09:00:51421583Avoftjml [facility] GZXGIAIMWOPVB4211-47-87 09:00:52831458Cywcioki EjgcibzUICSHDBHEZLCN9543-67-44 09:00:31884052Zwtydvgr GsgarysSANEEYOOIBYZW9001-13-90 09:00:41032725Dprghwvu HermannCHEM GUYWM3030-42-86 08:03:000.60[facility]annCHEM MZJHM1937-56-30 08:03:07019Ntdbszzq [facility]annCHE[facility] GXXGH5380-87-61 08:03:003.4[facility]annCHEM XFMWC9376-29-93 08:03:51242Uvxfmakw [facility]CHE[facility] NNHMV2467-53-15 08:03:0027 [facility]annCHE[facility] JJZIJ0715-83-09 08:03:009.0[facility]annCHEM PANEL 2020-08-07 08:03:0010.4[facility]annCHEM COJCW4507-45-29 08:03:98414Kccdbwlv VnymlswRGBKLMBTORCRD2321-94-71 08:03:00Positive *NA*(08/07/20 2:03 AM)[facility] PyuxtzqHVWZYOBMFH3436-79-81 08:03:008.9[facility] VttuxvoAPWOGXAJNE0305-85-15 08:03:004.22[facility] XunlhrwGVDTMHNBHB3496-10-98 08:03:0012.2[facility] Huy VGGMMGHOPM2901-96-56 08:03:0036.5[facility] BjxplrbQSPSETLDFF7024-70-59 08:03:00 86.6[facility] VysnmyyRVDLSXQIXH1339-44-01 08:03:00 Test Item Value Reference Range Interpretation Comments MCH (test code = MCH) 28.9 pg 27.0-31.0 [facility] TywqysdKAGNHGAJTD2217-51-51 08:03:0033.4[facility]annHEMATOLOGY 2020-08-07 08:03:0013.7[facility] YhgsnpcSTGGYDTULC5687-82-16 08:03:58729Lkntstxb JwmwzrzAHPHJEJKQI3622-59-02 08:03:007.8[facility] TmkbldxKUSNQOCVZJ0623-44-28 08:03:00 Test Item Value Reference Range Interpretation Comments PT (test code = PT) 12.7 s 12.0-14.7 [facility] MbipllyCCZZBHTUGD3800-25-21 08:03:00 Test Item Value Reference Range Interpretation Comments INR (test code = INR) 0.96 1 0.85-1.17 [facility] PhujanrGWYESZKDIL9177-49-16 08:03:00 Test Item Value Reference Range Interpretation Comments PTT (test code = PTT) 29.4 s 22.9-35.8 [facility] MsfivtjOEBTCMVMFC8272-52-19 08:03:0068.7[facility]annHEMATOLOGY 2020-08-07 08:03:0024.2[facility] MxphflwLALPNXNCHA7785-31-80 08:03:005.0[facility] PqdcaqlAKYPGQHVET4253-28-44 08:03:001.8[facility] JuqfctoVQXNQVHWLH5404-76-63 08:03:000.3[facility] ZlgypxhXOCMWWTLAN2508-69-91 08:03:006.1[facility] OMPRHBIXUL2285-13-26 08:03:002.2[facility] ImjhnnvJULSTPDPUL2198-45-32 08:03:000.4 [facility] FsapyypZZOLZGFJJV7752-62-18 08:03:000.2[facility]annHEMATOLOGY 2020-08-07 08:03:000.0[facility]annCARDIAC CKWGAZR0871-65-75 08:03:00<0.02 [facility]annCHEM EMJLM4056-10-43 08:03:0091[facility]annCHEM PANEL 2020-08-07 08:03:004[facility]annCHEM OVDYS1246-49-87 08:03:000.60[facility]annCHEM RDNJJ6617-36-60 08:03:72278Qadqlqxc [facility]annCHEM MHAOZ7350-36-34 08:03:003.4[facility]annCHEM PXFJQ8066-73-47 08:03:30164Hjngibww [facility]annCHEM LXIUO0462-35-97 08:03:0027[facility]annCHEM XXJDY0860-62-15 08:03:009.0 [facility]annCHE[facility] KUVSG1188-14-64 08:03:0010.4[facility]annCHEM PANEL 2020-08-07 08:03:72824Dtjxkknc RtmcpoaYYMZMRLGDPVJX0279-94-81 08:03:00Positive *NA*(08/07/20 2:03 AM)[facility] GaprjusDPUJGOSCYT0139-67-13 08:03:008.9[facility] UqfaifnVJPYSSJODA0953-13-36 08:03:004.22[facility] KwoxdjfBLLQEIFZZN0352-82-07 08:03:0012.2[facility]annCARDIAC YWROOPO9778-32-02 08:03:00<0.02[facility]annCHEM GHSRV9992-45-55 08:03:0091[facility]annCHEM HPVCW7686-19-33 08:03:004[facility]annCHEM TZADD9516-92-51 08:03:000.60[facility]annCHEM SFOOX7843-26-61 08:03:56532Zhbdwpsd [facility]annCHEM PYSFM9085-60-66 08:03:003.4 [facility]annCHEM CMFPP7589-73-39 08:03:91820Ijegwjbo [facility]annHEMATOLOGY 2020-08-07 08:03:0036.5[facility]annCHEM ZOJVI3179-48-72 08:03:0027[facility]annCHEM OFGUG8955-61-94 08:03:009.0[facility]annCHEM NNRYZ4507-65-29 08:03:0010.4[facility]annCHEM LVJZC1694-72-83 08:03:36796Ziugnuyt [facility] XTHCZKHJVNCTQ8497-52-23 08:03:00Positive *NA*(08/07/20 2:03 AM)[facility] KOMLKFDQJP0072-88-55 08:03:008.9[facility] ClkaiugLPYUWZKPRM1171-23-89 08:03:00 4.22[facility] WkhzumyNQWLLWAQRO6638-00-49 08:03:0012.2[facility]annHEMATOLOGY 2020-08-07 08:03:0036.5[facility] MhgtvykETOODDLFCS4121-19-19 08:03:0086.6[facility] XgnmgvbGPFZJUFYME5819-66-50 08:03:0086.6[facility] UqymmhsSTZWWKLLGD0874-37-73 08:03:00 Test Item Value Reference Range Interpretation Comments MCH (test code = MCH) 28.9 pg 27.0-31.0 [facility] HospitalNuxiaxhKDSWVAKQWC7957-30-62 08:03:0033.4[facility]annHEMATOLOGY 2020-08-07 08:03:0013.7[facility] SdfkzzrIIJASFVDIQ8409-00-77 08:03:27511Zazwfthl SbryiuhCLXAUXSIQG4380-73-10 08:03:007.8[facility] XhnezinGGKFTIIJKQ8723-31-80 08:03:00 Test Item Value Reference Range Interpretation Comments PT (test code = PT) 12.7 s 12.0-14.7 [facility] HospitalNtuiphoGYNBOADSJD3294-83-25 08:03:00 Test Item Value Reference Range Interpretation Comments INR (test code = INR) 0.96 1 0.85-1.17 [facility] HospitalGpmybxfBJEAIODXJH7440-46-11 08:03:00 Test Item Value Reference Range Interpretation Comments PTT (test code = PTT) 29.4 s 22.9-35.8 [facility] HospitalShxkfmmRGKQCGZROR1248-97-00 08:03:0068.7[facility]HEMATOLOGY 2020-08-07 08:03:0024.2[facility] FhwtfnfUNHGNXRAPO6214-36-57 08:03:00 Test Item Value Reference Range Interpretation Comments MCH (test code = MCH) 28.9 pg 27.0-31.0 [facility] PlkfzulJTTKQPOHVW1387-35-05 08:03:005.0[facility]annHEMATOLOGY 2020-08-07 08:03:001.8[facility] XnzucwuSXUYOHAIOS0432-39-81 08:03:000.3[facility] YpioxdzJZMHBUQJWG2159-75-48 08:03:006.1[facility] WorjxylOYROMAPAXH3722-27-80 08:03:002.2[facility] HxhfypcIWCZYXDVPH5090-33-80 08:03:000.4[facility] HARGICHGXK1695-76-81 08:03:000.2[facility] EaixequYTKPLWEMLN3259-04-90 08:03:000.0 [facility] IfsxkwnVTLCKVJBRF4937-89-14 08:03:0033.4[facility]annHEMATOLOGY 2020-08-07 08:03:0013.7[facility] ZmrjciqIJECZGBUCM2859-41-53 08:03:22565Lfnyrrfp CkfrsohWSCMUMQSBB2347-59-56 08:03:007.8[facility] WiymjydGKHKNGCSDX4158-36-34 08:03:00 Test Item Value Reference Range Interpretation Comments PT (test code = PT) 12.7 s 12.0-14.7 [facility] ZqjsczyWQFHESRKXJ3492-93-97 08:03:00 Test Item Value Reference Range Interpretation Comments INR (test code = INR) 0.96 1 0.85-1.17 [facility] XwascvbFTVOHBWCZD4094-53-40 08:03:00 Test Item Value Reference Range Interpretation Comments PTT (test code = PTT) 29.4 s 22.9-35.8 [facility] IpbimatLOCJHEFELP0960-60-45 08:03:0068.7[facility]annHEMATOLOGY 2020-08-07 08:03:0024.2[facility] IuiffliDFRFLHBLSX3845-92-01 08:03:005.0[facility] TnsbxkzJDDCOLAKZJ0288-85-51 08:03:001.8[facility] XrhrrgiNEUXDZJPLO9169-28-62 08:03:000.3[facility] GqbjrnuQHVYKRPAQU7335-38-58 08:03:006.1[facility] DPXBLONTDQ7737-91-36 08:03:002.2[facility] AwliqfaBTQEJBNVNG4608-49-78 08:03:000.4 [facility]annCARDIAC FZBSGBX5873-10-52 08:03:00<0.02[facility] HermannCHEM RRIWF4006-91-74 08:03:0091[facility]annCHEM NZFUO0819-06-64 08:03:004[facility]annCHEM AVWLQ2963-73-66 08:03:000.60[facility]annCHEM DMSQO9919-29-82 08:03:46193Euajckev HermannCHEM GEUHF8152-41-47 08:03:003.4[facility] HermannCHEM ICBMM1748-32-18 08:03:42293Timnnusx [facility]annCHEM WTYLF7697-41-55 08:03:0027 [facility]annCHE[facility] PCCZW7442-59-03 08:03:009.0[facility]annHEMATOLOGY 2020-08-07 08:03:000.2[facility]annCHEM KMNTM2529-56-75 08:03:0010.4[facility] HermannCHEM XCXAM1284-49-10 08:03:03110Vbqmvfci WdanvdnNFJKMEPQLAZAT1783-45-95 08:03:00Positive *NA*(08/07/20 2:03 AM)[facility] FeupswnZCXSSKPTVT6898-25-82 08:03:008.9[facility] StrhajsMHCMVOCFIE8267-76-04 08:03:004.22[facility] ZZPTDNUKAY4595-04-74 08:03:0012.2[facility] WhtosntNGORKABOPK4440-52-72 08:03:00 36.5[facility] HloqhatPWOOUVCNCY4173-86-14 08:03:0086.6[facility]annHEMATOLOGY 2020-08-07 08:03:00 Test Item Value Reference Range Interpretation Comments MCH (test code = MCH) 28.9 pg 27.0-31.0 [facility] ZyfsgjpPAZSOYXIGU7716-71-63 08:03:0033.4[facility]annHEMATOLOGY 2020-08-07 08:03:000.0[facility] XnpyyfsPELUCAUXDO6270-67-49 08:03:0013.7[facility] KmuazjpSAYHDKIOUH7215-30-47 08:03:08839Cwlsmvnr IibvpknLTIZRPXAYD7403-18-78 08:03:007.8[facility] XcoweavLPPEOCVMCC0637-58-91 08:03:00 Test Item Value Reference Range Interpretation Comments PT (test code = PT) 12.7 s 12.0-14.7 [facility] LkggztgTRTXVUOPIW4056-33-83 08:03:00 Test Item Value Reference Range Interpretation Comments INR (test code = INR) 0.96 1 0.85-1.17 [facility] GaiyxshCQNHVBYYAD8364-28-46 08:03:00 Test Item Value Reference Range Interpretation Comments PTT (test code = PTT) 29.4 s 22.9-35.8 [facility] BghzibuWPGAMXWVHR4009-54-11 08:03:0068.7[facility]annHEMATOLOGY 2020-08-07 08:03:0024.2[facility] NoozybsTWJDHDYRQO0812-25-40 08:03:005.0[facility] VnbhdanYJTTYPILEM9343-74-49 08:03:001.8[facility] JajcccmLUZZUMAMCZ4165-72-72 08:03:000.3[facility] GbobabnLXOOZDRDGW5852-08-25 08:03:006.1[facility] PASHNGIEMU9186-29-92 08:03:002.2[facility] UwnwfpbIIKLQMNKCE8936-21-66 08:03:000.4 [facility] IksobphJFWSEMAJOU7568-18-07 08:03:000.2[facility]annHEMATOLOGY 2020-08-07 08:03:000.0[facility]annCARDIAC ZCTVJSL5343-71-37 08:03:00<0.02 [facility]annCHEM EOPWF7900-99-25 08:03:0091[facility]annCHEM PANEL 2020-08-07 08:03:004[facility]annCHEM CGUDS5221-52-40 08:03:000.60[facility]annCHEM VBAND6933-50-34 08:03:05096Kylaions HermannCHEM YKQSF2114-13-44 08:03:003.4[facility]annCHEM UKRLG3594-28-30 08:03:40419Gjzjrkej HermannCHEM JTLSM6412-75-16 08:03:0027[facility]annCHEM LJVDT4346-92-71 08:03:009.0 [facility]annCHEM QIGOA2245-39-60 08:03:0010.4[facility]annCHEM PANEL 2020-08-07 08:03:34688Exdvddlc SmlhwjgLDQNNGYGKAWKE6836-53-11 08:03:00Positive *NA*(08/07/20 2:03 AM)[facility] ZgujallZWZYMZZOSL8433-59-96 08:03:008.9[facility] KillckuRWVHZBRAAG8376-34-09 08:03:004.22[facility] DniydshVZFCXCNTML3285-30-25 08:03:0012.2[facility] KxiznvwNXPCJDPEAN3961-68-29 08:03:0036.5[facility] RPWLCWRHHC4854-14-83 08:03:0086.6[facility] YmryrcpJLHYEJQVEB2385-47-62 08:03:00 Test Item Value Reference Range Interpretation Comments MCH (test code = MCH) 28.9 pg 27.0-31.0 [facility] VfywpmpLFFBUIZAEW3367-74-80 08:03:0033.4[facility]annHEMATOLOGY 2020-08-07 08:03:0013.7[facility] NemzqcjGFLUHRLFYJ5068-26-07 08:03:36598Xqojyoth JeztnvlGNALFPDQMK1253-76-12 08:03:007.8[facility] EbbzdqiELNWWFONNA6626-75-61 08:03:00 Test Item Value Reference Range Interpretation Comments PT (test code = PT) 12.7 s 12.0-14.7 [facility] UknspdfLKXGMAECHO6628-49-03 08:03:00 Test Item Value Reference Range Interpretation Comments INR (test code = INR) 0.96 1 0.85-1.17 [facility] YcjvdpuTGDTWNQCJD8354-71-10 08:03:00 Test Item Value Reference Range Interpretation Comments PTT (test code = PTT) 29.4 s 22.9-35.8 [facility] TudxboiFKUUBBYUCL8647-11-28 08:03:0068.7[facility]annHEMATOLOGY 2020-08-07 08:03:0024.2[facility] LvoluvyRLRFBOWRVK5385-01-80 08:03:005.0[facility] XbxcdzxLEOQEHQWYR8863-35-54 08:03:001.8[facility] VchrpmuSRSXVFTYPR0421-29-08 08:03:000.3[facility] LjixxkcITXVSUXQEJ4008-57-00 08:03:006.1[facility] CKVWPPHWLS8699-52-36 08:03:002.2[facility] AqtzcsiHADJXKGQGB4139-86-79 08:03:000.4 [facility] KpukqwuZSVUSZJIYU4300-92-69 08:03:000.2[facility]annHEMATOLOGY 2020-08-07 08:03:000.0[facility]annCARDIAC MSNNAQE6604-25-56 08:03:00<0.02 [facility]annCHEM YCLWA9431-60-93 08:03:0091[facility]annCHEM PANEL 2020-08-07 08:03:004[facility]annCHEM EMSEU2639-84-03 23:56:0025[facility]annCHEM PFFQW6437-10-27 23:56:0068[facility]annCHEM MBQHL2589-21-66 23:56:000.3[facility]annCHEM UCBUR0461-24-78 23:56:40093Fwlpyiaz HermannCHEM CGEKU2542-74-14 23:56:0058[facility] CfmbphgQDJKJCYEIAIVK9399-50-88 23:56:54696655 [facility] GoncqrtXTIRXDRSEK0827-35-87 23:56:006.7[facility]annHEMATOLOGY 2020-07-29 23:56:004.33[facility] GnxwlkcJGXTLCPUFY7963-91-04 23:56:0012.4[facility] GemnqbvVOBUBJMHZH4414-65-94 23:56:0037.9[facility] BtblaodHBFTKZCMHR5317-64-28 23:56:0087.6[facility] RmfnyerDFOSVFMHWO3310-08-31 23:56:00 Test Item Value Reference Range Interpretation Comments MCH (test code = MCH) 28.7 pg 27.0-31.0 [facility] UjfuhjfTBBBKMUHFP7577-96-93 23:56:0032.7[facility]annHEMATOLOGY 2020-07-29 23:56:0013.8[facility] DpmmcpfKEEZCMUCWT0886-62-81 23:56:33030Ddwbljgn DcuovflERDXYSIINP5900-66-40 23:56:007.6[facility] XjbrtvhFMFWSUQUJU0775-53-61 23:56:0070.4[facility] EcigbeoMDNLVNJTQO2097-70-46 23:56:0021.9[facility] YTWLQBOFBJ3551-82-78 23:56:006.2[facility] CaitzexRURJMYCTIJ5555-04-09 23:56:001.2 [facility] RproxjnPJHQQPBWYO6151-95-27 23:56:000.3[facility]annHEMATOLOGY 2020-07-29 23:56:004.7[facility] FlivmouDYPEQUMZBW2509-00-54 23:56:001.5[facility] ZzsntnhRPGIQQZKHV8808-30-91 23:56:000.4[facility] QefoedlXNXHQMEYDN8882-66-29 23:56:000.1[facility] MimakjnZWSWFWVLNG0774-30-30 23:56:000.0[facility]UR[facility] FXHOM3991-89-16 23:56:00Slight *ABN*(07/29/20 5:56 PM)[facility] QKVKT9857-12-64 23:56:00 Test Item Value Reference Range Interpretation Comments UA Spec Grav (test code = UA Spec 1.023 1 Grav) [facility] CUQON5389-55-21 23:56:00 Test Item Value Reference Range Interpretation Comments UA pH (test code = UA pH) 5.0 1 5.0-8.0 [facility] QLAST8348-44-83 23:56:00Negative *NA*(07/29/20 5:56 PM) [facility] CRBTP3490-39-34 23:56:00Large *ABN*(07/29/20 5:56 PM) [facility] JXZVJ6205-86-62 23:56:00Positive *ABN*(07/29/20 5:56 PM)[facility] XFNZW5975-93-86 23:56:00Trace *ABN*(07/29/20 5:56 PM)[facility] KDBHM3048-08-41 23:56:009[facility] ETZGV1859-72-57 23:56:003[facility]annCHEM TRTCP9539-34-16 23:56:0089[facility]annCHEM KZGAZ8682-70-10 23:56:005[facility]annCHEM QFQXF7628-29-58 23:56:000.60[facility]annCHEM TTTJN0512-22-69 23:56:36812Wicsvmkp HermannCHEM ALTZB8763-71-76 23:56:004.8[facility]annCHEM WBVCW1204-43-76 23:56:36294 [facility]annCHE[facility] JJTWW7149-46-94 23:56:0026[facility]annCHEM PANEL 2020-07-29 23:56:0011.8[facility]annCHEM VYPKO3811-71-03 23:56:009.3[facility]annCHEM RKELS9193-24-85 23:56:00 Test Item Value Reference Range Interpretation Comments B/C Ratio (test code = B/C Ratio) 8 1 6-25 [facility]annCHE[facility] UOIWD3264-97-07 23:56:007.6[facility]annCHEM PANEL 2020-07-29 23:56:003.4[facility]annCHEM JQGMC2362-67-19 23:56:004.2[facility]annCHEM MUOAM1135-01-91 23:56:00 Test Item Value Reference Range Interpretation Comments A/G Ratio (test code = A/G Ratio) 0.8 1 0.7-1.6 [facility]annCHEM EPKWX6230-98-91 23:56:0022[facility]annCHEM PANEL 2020-07-29 23:56:0025[facility]annCHEM KZXLQ5210-70-93 23:56:0068[facility]annCHEM NHKWN9106-54-39 23:56:000.3[facility]annCHEM DPKIX8744-85-54 23:56:11722Pqugpksz HermannCHEM EWPWG0243-89-84 23:56:0058[facility] FTUNINGQCVFBG3159-84-18 23:56:61747414Ryydewlt NspggjjORPPRAXMVH3790-62-62 23:56:006.7[facility] PeirgsnLXQIUBJAPU5679-62-10 23:56:004.33[facility] LHDIVNQRRU7751-14-04 23:56:0012.4[facility] OlxpxpkAHBKXXVQGO5947-64-07 23:56:00 37.9[facility] EpgmtacIKWHTUGWVW0975-00-90 23:56:0087.6[facility]annHEMATOLOGY 2020-07-29 23:56:00 Test Item Value Reference Range Interpretation Comments MCH (test code = MCH) 28.7 pg 27.0-31.0 [facility] FdzkdnfVUIGPZYXOI8490-03-31 23:56:0032.7[facility]annHEMATOLOGY 2020-07-29 23:56:0013.8[facility] IistewvRTBMLHLPBN6153-27-49 23:56:72789Orphkiwb XtjutgdIQGVHDAQWL1691-53-19 23:56:007.6[facility] FthaqgvFNAFPBUUHL6691-68-86 23:56:0070.4[facility] AkbjxhkWIWYJDGCKS9757-37-62 23:56:0021.9[facility] UURCBOMVFV0442-33-13 23:56:006.2[facility] WltkdkyGRITZPGAKX0708-01-89 23:56:001.2 [facility] TpojbyvIPAHVQATQP1798-60-58 23:56:000.3[facility]annHEMATOLOGY 2020-07-29 23:56:004.7[facility] WcjanalKUXENRLWMZ1304-52-88 23:56:001.5[facility] BhfsjacWQVEYZFJNC1779-88-96 23:56:000.4[facility] YxwkipqITPUANMYMB3168-83-79 23:56:000.1[facility] EfevlwqLFUVEIEHIS1669-01-87 23:56:000.0[facility] LRRWV3961-37-60 23:56:00Slight *ABN*(07/29/20 5:56 PM)[facility] SNDXL6461-28-61 23:56:00 Test Item Value Reference Range Interpretation Comments UA Spec Grav (test code = UA Spec 1.023 1 Grav) [facility] DWNBQ4607-76-73 23:56:00 Test Item Value Reference Range Interpretation Comments UA pH (test code = UA pH) 5.0 1 5.0-8.0 [facility] OQCIR4967-24-74 23:56:00Negative *NA*(07/29/20 5:56 PM) [facility] RZRVM0877-22-58 23:56:00Large *ABN*(07/29/20 5:56 PM) [facility] MHGMG9738-17-80 23:56:00Positive *ABN*(07/29/20 5:56 PM)[facility] TRKLJ5457-21-88 23:56:00Trace *ABN*(07/29/20 5:56 PM)[facility] QOWXF4210-90-67 23:56:009[facility] KUUXM1775-09-76 23:56:003[facility]annCHEM UEEOM2547-65-68 23:56:0089[facility]annCHEM JEYOU8731-06-74 23:56:005[facility]annCHEM PIYBL0063-08-65 23:56:000.60[facility]annCHEM TEUCX1687-26-30 23:56:50992Egddfpit HermannCHEM TSKCJ3926-36-25 23:56:004.8[facility]annCHEM YOMNA9417-36-63 23:56:67079 [facility]annCHEM VCGVU9825-57-92 23:56:0026[facility]annCHEM PANEL 2020-07-29 23:56:0011.8[facility]annCHEM UOUTK2192-07-29 23:56:009.3[facility]annCHEM GYUXV3173-49-64 23:56:00 Test Item Value Reference Range Interpretation Comments B/C Ratio (test code = B/C Ratio) 8 1 6-25 [facility]annCHEM MQCFX1182-51-42 23:56:007.6[facility]annCHEM PANEL 2020-07-29 23:56:003.4[facility]annCHEM CZVLN3800-33-44 23:56:004.2[facility]annCHEM OSJVT6793-88-46 23:56:00 Test Item Value Reference Range Interpretation Comments A/G Ratio (test code = A/G Ratio) 0.8 1 0.7-1.6 [facility]annCHE[facility] QBJOX8351-29-28 23:56:0022[facility]annCHEM PANEL 2020-07-29 23:56:0025[facility]annCHEM QHLJR2613-72-50 23:56:0068[facility]annCHEM IINSL1364-07-28 23:56:000.3[facility]annCHEM CJEVE1330-59-85 23:56:38884Xvxovgon HermannCHEM AENFN1176-22-50 23:56:0058[facility] SJVWNJLFDCPXF2417-96-67 23:56:90858695Rynnytks XxgocwoFEHZCLHPIZ1389-88-22 23:56:006.7[facility] JiqyqzbMUARABRBCH9532-80-21 23:56:004.33[facility] IHTVCLILFR8579-38-52 23:56:0012.4[facility] XuesktwUQZNUJDIXM9685-92-29 23:56:00 37.9[facility] HqpayenJJVUMYRUJJ9899-50-02 23:56:0087.6[facility]annHEMATOLOGY 2020-07-29 23:56:00 Test Item Value Reference Range Interpretation Comments MCH (test code = MCH) 28.7 pg 27.0-31.0 [facility] QmxnuayARWMVSVPLM8760-82-05 23:56:0032.7[facility]annHEMATOLOGY 2020-07-29 23:56:0013.8[facility] ZmfjiitKCJWTBSOFC3866-10-57 23:56:93047Thhmrshb XcoxoztCSGXELTCLA9812-77-44 23:56:007.6[facility] RgkbiywVSCLXHJGAS2299-32-00 23:56:0070.4[facility] OltnpcyWWCOELXCDD9941-55-67 23:56:0021.9[facility] DLGOPGIATC6630-36-63 23:56:006.2[facility] QrrfyubQVLWGNAWCQ5926-09-34 23:56:001.2 [facility] XsrekagVGLMKZVRZB8230-50-00 23:56:000.3[facility]annHEMATOLOGY 2020-07-29 23:56:004.7[facility] TbmqehaDIPLFOYRNV5166-38-15 23:56:001.5[facility] FcgbdjuFYGZJEBAJF0691-77-85 23:56:000.4[facility] OkcyewrCARKKESDKM1190-07-53 23:56:000.1[facility] EospednQKQKTTVHXH0743-99-54 23:56:000.0[facility]UR[facility] PZTOZ0562-56-94 23:56:00Slight *ABN*(07/29/20 5:56 PM)[facility] AJGYW7597-43-86 23:56:00 Test Item Value Reference Range Interpretation Comments UA Spec Grav (test code = UA Spec 1.023 1 Grav) [facility] JTPGE1416-61-16 23:56:00 Test Item Value Reference Range Interpretation Comments UA pH (test code = UA pH) 5.0 1 5.0-8.0 [facility] DMLQS8165-17-33 23:56:00Negative *NA*(07/29/20 5:56 PM) [facility] PJUDM3469-90-84 23:56:00Large *ABN*(07/29/20 5:56 PM) [facility] JRDLV7943-86-59 23:56:00Positive *ABN*(07/29/20 5:56 PM)[facility] DDPMR3736-04-87 23:56:00Trace *ABN*(07/29/20 5:56 PM)[facility] KYFVK7878-76-84 23:56:009[facility] HXKQY6554-56-92 23:56:003[facility]annCHEM DAUSI4084-75-88 23:56:0089[facility]annCHEM CAYNZ0657-32-41 23:56:005[facility]annCHEM CTFIO2364-25-77 23:56:000.60[facility]annCHEM HAAZU0572-46-44 23:56:55283Rzalgscq HermannCHEM IFCVF1521-74-07 23:56:004.8[facility]annCHEM ZWIVB0060-90-64 23:56:58197 [facility]annCHEM SEINO7871-14-22 23:56:0026[facility]annCHEM PANEL 2020-07-29 23:56:0011.8[facility]annCHEM NWIXV7120-42-08 23:56:009.3[facility]annCHEM JIKDE1038-16-30 23:56:00 Test Item Value Reference Range Interpretation Comments B/C Ratio (test code = B/C Ratio) 8 1 6-25 [facility]annCHE[facility] XVUHI8993-24-73 23:56:007.6[facility]annCHEM PANEL 2020-07-29 23:56:003.4[facility]annCHEM UHWJX1844-35-31 23:56:004.2[facility]annCHEM XKSLD1705-43-59 23:56:00 Test Item Value Reference Range Interpretation Comments A/G Ratio (test code = A/G Ratio) 0.8 1 0.7-1.6 [facility]annCHE[facility] ACIQN3937-69-77 23:56:0022[facility]annCHEM PANEL 2020-07-29 23:56:0025[facility]annCHEM IGQCD6628-61-55 23:56:0068[facility]annCHEM HORWM8286-25-72 23:56:000.3[facility]annCHEM SBISB8996-32-65 23:56:48376Iifukclb HermannCHEM FOUKO2547-34-45 23:56:0058[facility] HLQOAXEIPIIVO5512-06-79 23:56:95917338Nyhqeosb CecbuerWYJLLUCYDJ1759-54-91 23:56:006.7[facility] UbtogxrUTZQUYRYAL3718-22-67 23:56:004.33[facility] YOVBECKPQW7330-02-21 23:56:0012.4[facility] SyejglnOGSOEXZTRU2955-72-03 23:56:00 37.9[facility] UvboolaQLSJOSVHVV3723-48-32 23:56:0087.6[facility]annHEMATOLOGY 2020-07-29 23:56:00 Test Item Value Reference Range Interpretation Comments MCH (test code = MCH) 28.7 pg 27.0-31.0 [facility] TmpdxnoZLOPGISFTS2393-99-25 23:56:0032.7[facility]annHEMATOLOGY 2020-07-29 23:56:0013.8[facility] IzlkzfuOONZZFVAMC1995-26-18 23:56:82547Laljxdqa PasmxgwUGUCACFZYM2327-76-21 23:56:007.6[facility] ZbeoekzAJAEEXBMIC4917-10-22 23:56:0070.4[facility] JvmgldjVAWJRPNXFP0092-80-72 23:56:0021.9[facility] IJFJJOGFNV6399-89-81 23:56:006.2[facility] HkqbpezXCNHPBHKWU0621-97-22 23:56:001.2 [facility] CjejlyxQDSPZMLPQZ9501-05-82 23:56:000.3[facility]annHEMATOLOGY 2020-07-29 23:56:004.7[facility] TfelggiCBVEFJYFYI2134-29-53 23:56:001.5[facility] QdrvnjdIXAHEPLKZD5279-94-91 23:56:000.4[facility] ZhmmiamJLJXMRVACD0425-03-39 23:56:000.1[facility] WqxmompUMZPVWJDKU8486-02-68 23:56:000.0[facility] HJZSY8185-00-35 23:56:00Slight *ABN*(07/29/20 5:56 PM)[facility] QPQCF5681-54-99 23:56:00 Test Item Value Reference Range Interpretation Comments UA Spec Grav (test code = UA Spec 1.023 1 Grav) [facility] ISHIP8244-04-79 23:56:00 Test Item Value Reference Range Interpretation Comments UA pH (test code = UA pH) 5.0 1 5.0-8.0 [facility] KXIXS4412-94-29 23:56:00Negative *NA*(07/29/20 5:56 PM) [facility] NTKLE3584-51-28 23:56:00Large *ABN*(07/29/20 5:56 PM) [facility] TTJAK6048-00-65 23:56:00Positive *ABN*(07/29/20 5:56 PM)[facility] MXENP5306-29-92 23:56:00Trace *ABN*(07/29/20 5:56 PM)[facility] EMJNH9932-97-07 23:56:009[facility] INNYO3086-24-05 23:56:003[facility]annCHEM GOFXQ1208-88-66 23:56:0089[facility]annCHEM WCQIS3704-06-80 23:56:0089[facility]annCHEM ZXPSN0297-46-30 23:56:005[facility]annCHEM ATLWK2626-79-89 23:56:000.60[facility]annCHEM GYHQQ8625-11-66 23:56:61648Cxyauuwl HermannCHEM PCPUC3325-72-62 23:56:005 [facility]annCHEM XZVXM4478-95-65 23:56:004.8[facility]annCHEM PANEL 2020-07-29 23:56:76409Dtjchhhe HermannCHEM DQOBF2206-47-24 23:56:0026[facility]annCHEM VBUCS6368-47-47 23:56:0011.8[facility]annCHEM PTOYR7464-05-31 23:56:009.3[facility]annCHEM BAWTA6828-33-65 23:56:00 Test Item Value Reference Range Interpretation Comments B/C Ratio (test code = B/C Ratio) 8 1 6-25 [facility]annCHE[facility] GAYSK0478-82-43 23:56:007.6[facility]annCHEM PANEL 2020-07-29 23:56:003.4[facility]annCHEM EYZIB1387-54-51 23:56:004.2[facility]annCHEM GZDTK3324-19-11 23:56:00 Test Item Value Reference Range Interpretation Comments A/G Ratio (test code = A/G Ratio) 0.8 1 0.7-1.6 [facility]annCHE[facility] ZKYQP0516-51-45 23:56:000.60[facility]annCHEM PANEL 2020-07-29 23:56:0022[facility]annCHEM MNSIG3228-93-01 23:56:0025[facility]annCHEM GTWWR2990-46-09 23:56:0068[facility]annCHEM KKTEE7937-05-38 23:56:000.3[facility]annCHEM LNXTE0337-35-41 23:56:05073Kgtcogff HermannCHEM FDQMN6908-55-34 23:56:0058[facility] XwlspunZKYIOASKWKQZD3932-22-14 23:56:30334614 [facility] [place]YYCZRQSLHX9522-46-82 23:56:006.7[facility]annHEMATOLOGY 2020-07-29 23:56:004.33[facility] OiuzpszSPLPPZJNLB6433-52-21 23:56:0012.4[facility] HermannCHEM ZJBML3212-72-63 23:56:87525Zyyvrzut PuinuvtGSCBXXQMOB4567-77-28 23:56:0037.9[facility] HvvssrnEVXOCLOBBI1916-09-92 23:56:0087.6[facility] CXOVSTCSXP4746-32-42 23:56:00 Test Item Value Reference Range Interpretation Comments MCH (test code = MCH) 28.7 pg 27.0-31.0 [facility] NpqdndzSMYHAFSNYL4999-58-20 23:56:0032.7[facility]annHEMATOLOGY 2020-07-29 23:56:0013.8[facility] CxuevebMRCDXKGJDC3872-42-67 23:56:80488Gzlrvuje UbxgvvvZIBYLSJYSB5347-54-13 23:56:007.6[facility] JwkglwcHMGOXVIINB3294-81-53 23:56:0070.4[facility] YnvxsgpHCAMWEMBET0583-79-46 23:56:0021.9[facility] TOOMMEAEJA4509-59-81 23:56:006.2[facility] HermannCHEM HBLGS8015-53-42 23:56:004.8 [facility] FgbflmkRVEMEZEZYY4134-53-00 23:56:001.2[facility]annHEMATOLOGY 2020-07-29 23:56:000.3[facility] SzllexaLZHZVULVTG3147-88-67 23:56:004.7[facility] YscfmijCKOCDMJSZV9654-78-91 23:56:001.5[facility] WxwbevbUADKZJHBWL5270-64-68 23:56:000.4[facility] XiudhyrYLJBXMATFU5931-62-34 23:56:000.1[facility] OCVRKZXRNA9781-17-24 23:56:000.0[facility] SQJUK9522-91-20 23:56:00Slight *ABN*(07/29/20 5:56 PM)[facility] DLNQI7342-01-25 23:56:00 Test Item Value Reference Range Interpretation Comments UA Spec Grav (test code = UA Spec 1.023 1 Grav) [facility] UFWNA2939-92-03 23:56:00 Test Item Value Reference Range Interpretation Comments UA pH (test code = UA pH) 5.0 1 5.0-8.0 [facility]annCHEM GGDSX6776-94-77 23:56:17236Ftpytgtf [facility]URINE AND STOOL 2020-07-29 23:56:00Negative *NA*(07/29/20 5:56 PM)[facility] STOOL 2020-07-29 23:56:00Large *ABN*(07/29/20 5:56 PM)[facility] STOOL 2020-07-29 23:56:00Positive *ABN*(07/29/20 5:56 PM)[facility] KPVWQ4875-30-44 23:56:00Trace *ABN*(07/29/20 5:56 PM)[facility] RELFB7426-23-20 23:56:009[facility]UR[facility] UKSFF8846-07-62 23:56:003 [facility]annCHEM XIVYT0216-72-08 23:56:0026[facility] HermannCHEM PANEL 2020-07-29 23:56:0011.8[facility] HermannCHEM GBVMK0508-45-36 23:56:009.3[facility] HermannCHEM UAHMB3355-75-60 23:56:00 Test Item Value Reference Range Interpretation Comments B/C Ratio (test code = B/C Ratio) 8 1 6-25 [facility]annCHEM DRJMU1940-89-55 23:56:007.6[facility]annCHEM PANEL 2020-07-29 23:56:003.4[facility] HermannCHEM RHQSC5595-65-99 23:56:004.2[facility] HermannCHEM TDRFK9942-07-11 23:56:00 Test Item Value Reference Range Interpretation Comments A/G Ratio (test code = A/G Ratio) 0.8 1 0.7-1.6 [facility] HermannCHEM [id number] 23:56:0022[facility] Hermannrapid plasma reagin antibody, [id number] 19:54:00 Test Item Value Reference Range Interpretation Comments rapid plasma reagin antibody, Non Reactive Non Reactive serum (test code = 5291-0) [facility] [id number] 19:54:00 Test Item Value Reference Range Interpretation Comments Neisseria gonorrhoeae DNA probe Negative Negative (test code = 09282-1) [facility] [id number] 19:54:00 Test Item Value Reference Range Interpretation Comments chlamydia DNA probe (test code = Negative Negative 32640-1) [facility]imm[facility], percentage of total cells, blood 2020-07-10 19:54:00 Test Item Value Reference Range Interpretation Comments immature granulocytes, percentage of 0 % total cells, blood (test code = 17532-9) [facility], [id number] 19:54:00 Test Item Value Reference Range Interpretation Comments basophil count, absolute (test 0.0 x10E3/uL 0.0-0.2 code = 57244-2) [facility] HospitalEosinophil Absolute [id number] 19:54:00 Test Item Value Reference Range Interpretation Comments Eosinophil Absolute Count (test 0.1 X10E3/UL 0.0-0.4 code = 03592-0) [facility], blood, [id number] 19:54:00 Test Item Value Reference Range Interpretation Comments monocyte count, blood, automated 0.4 X10E3/UL 0.1-0.9 (test code = 742-7) [facility], blood, [id number] 19:54:00 Test Item Value Reference Range Interpretation Comments lymphocyte count, blood, 1.7 X10E3/UL 0.7-3.1 automated (test code = 731-0) [facility] HospitalAbsolute Foipbaymkuv5178-07-14 19:54:00 Test Item Value Reference Range Interpretation Comments Absolute Neutrophils (test code 5.8 X10E3/UL 1.4-7.0 = 56996-1) [facility] percent of blood [id number] 19:54:00 Test Item Value Reference Range Interpretation Comments basophils as percent of blood 0 % leukocytes (test code = 707-0) [facility]aleosin[facility] percent of blood pgrtspvnro9534-15-93 19:54:00 Test Item Value Reference Range Interpretation Comments eosinophils as percent of blood 1 % leukocytes (test code = 713-8) [facility]mon[facility] percent of blood [id number] 19:54:00 Test Item Value Reference Range Interpretation Comments monocytes as percent of blood 5 % leukocytes (test code = 5905-5) [facility]mph[facility] percent of blood yfcezmcnwo9461-83-92 19:54:00 Test Item Value Reference Range Interpretation Comments lymphocytes as percent of blood 21 % leukocytes (test code = 736-9) [facility]neutrophils [facility] percent of blood [id number] 19:54:00 Test Item Value Reference Range Interpretation Comments neutrophils as percent of blood 73 % leukocytes (test code = 770-8) [facility] Hospitalplatelet [id number] 19:54:00 Test Item Value Reference Range Interpretation Comments platelet count (test code = 361 X10E3/UL 150-450 777-3) [facility]red [facility] cell distribution [id number] 19:54:00 Test Item Value Reference Range Interpretation Comments red blood cell distribution width 13.0 % 11.7-15.4 (test code = 788-0) [facility]mean corpuscular hemoglobin concentration, [id number] 19:54:00 Test Item Value Reference Range Interpretation Comments mean corpuscular hemoglobin 32.6 G/DL 31.5-35.7 concentration, RBC (test code = 786-4) [facility]mean [facility] hemoglobin, [id number] 19:54:00 Test Item Value Reference Range Interpretation Comments mean corpuscular hemoglobin, RBC 28.7 pg 26.6-33.0 (test code = 785-6) [facility]mean corpus[facility] volume, [id number] 19:54:00 Test Item Value Reference Range Interpretation Comments mean corpuscular volume, RBC (test code 88 fL 79-97 = 787-2) [facility]hematocrit, [id number] 19:54:00 Test Item Value Reference Range Interpretation Comments hematocrit, blood (test code = 4544-3) 38.6 % 34.0-46.6 [facility]hemoglobin, [id number] 19:54:00 Test Item Value Reference Range Interpretation Comments hemoglobin, blood (test code = 12.6 g/dL 11.1-15.9 718-7) [facility]erythrocyte (RBC) [id number] 19:54:00 Test Item Value Reference Range Interpretation Comments erythrocyte (RBC) count (test 4.39 X10E6/UL 3.77-5.28 code = 789-8) [facility]leuk[facility] count, [id number] 19:54:00 Test Item Value Reference Range Interpretation Comments leukocyte count, blood (test 7.9 X10E3/UL 3.4-10.8 code = 6690-2) [facility] Hospitalphencyclidine screen, [id number] 19:54:00 Test Item Value Reference Range Interpretation Comments phencyclidine screen, urine (test Negative Cutoff=25 code = 3936-2) [facility]opiates, urine, ckrblkiluwqoulwv6185-45-01 19:54:00 Test Item Value Reference Range Interpretation Comments opiates, urine, semiquantitative Negative Hpesrd=717 (test code = 3879-4) [facility] Hospitalcannabinoid screen, [id number] 19:54:00 Test Item Value Reference Range Interpretation Comments cannabinoid screen, urine (test code Negative Cutoff=50 = 3426-4) [facility] Hospitalurine ripbdqk2937-92-39 19:54:00 Test Item Value Reference Range Interpretation Comments urine culture (test code = Escherichia coli A 630-4) [facility]benzodiazepine screen, [id number] 19:54:00 Test Item Value Reference Range Interpretation Comments benzodiazepine screen, urine (test Negative Vhjdud=345 code = 3390-2) [facility], ijmdm0810-11-74 19:54:00 Test Item Value Reference Range Interpretation Comments amphetamine screen, urine (test code Negative Vqvxcd=3523 = 3349-8) [facility] odomunx7445-14-39 19:54:00 Test Item Value Reference Range Interpretation Comments hepatitis B surface antigen (test Negative Negative code = 79) [facility] yjqsgwdt0655-90-34 19:54:00 Test Item Value Reference Range Interpretation Comments Rh antibody (test code = 256) Negative Negative [facility] 1 hour after 50 gm oral zeiofoi8328-96-50 19:54:00 Test Item Value Reference Range Interpretation Comments blood glucose, 1 hour after 50 gm 135 mg/dL 65-139 oral glucose (test code = 1039) [facility]HIV[facility] (Chemiluminescent Microparticle Immuno Assay) 2020-07-10 19:54:00 Test Item Value Reference Range Interpretation Comments HIV-CMIA (Chemiluminescent Non Reactive Non Reactive Microparticle Immuno Assay) (test code = 638553) [facility] gvbuzbj1814-36-74 19:54:00 Test Item Value Reference Range Interpretation Comments Rh antigen (test code = 255) Positive [facility] blood uxsyk0247-04-34 19:54:00 Test Item Value Reference Range Interpretation Comments ABO blood group (test code = 116) O [facility] dojmo3190-79-52 19:54:00 Test Item Value Reference Range Interpretation Comments alcohol, urine (test code = 2458) Negative % Cutoff=0.020 [facility]coc[facility], emtwj5914-11-83 19:54:00 Test Item Value Reference Range Interpretation Comments cocaine, urine (test code = 3292) Negative Wpbese=123 [facility], dfocx0381-81-31 19:54:00 Test Item Value Reference Range Interpretation Comments barbiturates screen, urine (test Negative Ruzrtb=515 code = 2460) [facility] antibody, rakju0034-32-16 19:54:00 Test Item Value Reference Range Interpretation Comments hepatitis C antibody, serum (test code <0.1 0.0-0.9 = 5199-5) [facility] HospitalHerpes Simplex Virus Vhterle9178-89-85 17:20:38 Test Item Value Reference Range Interpretation Comments Herpes Simplex Virus Genital (test code no = 4258) [facility]CHE[facility] LBWBV3917-24-28 06:04:60058Naaasijf HermannCHEM LUKYG2790-29-33 06:04:009[facility]annCHE[facility] FNILM0679-29-79 06:04:000.80 [facility]CHE[facility] KQEEO4553-75-39 06:04:94338Rmiizhjm HermannCHEM PANEL 2020-07-08 06:04:003.7[facility]annCHEM WENRI2944-06-19 06:04:69909Gadinsgj HermannCHEM LUJEY8942-85-40 06:04:0026[facility]annCHEM KYBIX8250-60-04 06:04:009.6[facility]annCHEM FDWNO9012-00-09 06:04:007.8[facility]annCHEM SMWWB0527-03-21 06:04:003.8[facility]annCHEM ZEIIU9660-91-99 06:04:0026 [facility]annCHEM NEDVS6738-41-34 06:04:0012[facility]annCHEM PANEL 2020-07-08 06:04:0082[facility] HermannCHEM LVDRF6826-63-87 06:04:000.3[facility]annCHEM IWAZE6632-42-79 06:04:009.7[facility]annCHEM RGNWC2599-30-06 06:04:00 Test Item Value Reference Range Interpretation Comments B/C Ratio (test code = B/C Ratio) 11 1 12-08 [facility] HermannCHEM JEICD5983-43-10 06:04:004.0[facility] HermannCHEM PANEL 2020-07-08 06:04:00 Test Item Value Reference Range Interpretation Comments A/G Ratio (test code = A/G Ratio) 1.0 1 0.7-1.6 [facility]annCHEM LFSEB7711-71-62 06:04:95853Kvbmuhbz HermannENDOCRINOLOGY 2020-07-08 06:04:9986237Iwghzmgf OvfpesvYAEIWOMQZN2323-85-46 06:04:009.6[facility] DpyamngBOSBUFLRQC9145-49-51 06:04:004.42[facility] YhqavroQXHGHBSRMQ1713-89-86 06:04:0012.5[facility] FrookppAAGFDNJDZX7402-38-41 06:04:0038.6[facility] NWSGEJSSHF3926-74-36 06:04:0087.3[facility] FewpoviMMKTPFSEQB9044-05-95 06:04:00 Test Item Value Reference Range Interpretation Comments MCH (test code = MCH) 28.2 pg 27.0-31.0 [facility] IecxmxnEWQWGFYDVE0954-23-12 06:04:0032.3[facility] HermannHEMATOLOGY 2020-07-08 06:04:0013.3[facility] WybfebgRXEHNJYARY0241-77-28 06:04:21154Ojuopyib JcmrnpeZNANTJEYRU1792-93-35 06:04:007.6[facility] BfhwlxdDIGGHYRWAL3871-22-12 06:04:0077.2[facility] GfkjfgdMBIKZIQNYG9833-97-82 06:04:0017.0[facility] HLXZWXTZMX3781-78-10 06:04:004.2[facility] WyeispsUYQHLPOZVF4289-10-37 06:04:001.4 [facility] TfukjdeDSKURWXETA0508-19-57 06:04:000.2[facility] HermannHEMATOLOGY 2020-07-08 06:04:007.4[facility] WjpomzaFGLSZPELBH4802-35-63 06:04:001.6[facility] ZxhevuaKJQEDLLJQL3061-67-25 06:04:000.4[facility] YfzvnekXELMBUFDKQ0798-86-28 06:04:000.1[facility] WqcpvmwQXGXUZTJZJ9511-63-06 06:04:000.0[facility]UR[facility] ZHGNB1813-69-45 06:04:00Slight *ABN*(07/08/20 12:04 AM)[facility] ZWMRC0171-58-49 06:04:00 Test Item Value Reference Range Interpretation Comments UA Spec Grav (test code = UA Spec 1.020 1 Grav) [facility] YWZJD0485-48-70 06:04:00 Test Item Value Reference Range Interpretation Comments UA pH (test code = UA pH) 5.0 1 5.0-8.0 [facility] IASRU2849-11-94 06:04:00Negative *NA*(07/08/20 12:04 AM)[facility] ZZBOG1142-35-40 06:04:00Negative (07/08/20 12:04 AM) [facility] WXXNJ8718-58-25 06:04:00Positive *ABN*(07/08/20 12:04 AM)[facility] JDUXX8254-96-75 06:04:00Trace *ABN*(07/08/20 12:04 AM)[facility] OHXPS1816-98-34 06:04:006[facility] UWPYX5400-29-31 06:04:002[facility]UR[facility] AND CSQYV2475-01-49 06:04:003 [facility]annCHEM EJVBO8886-86-35 06:04:89549Cjnfvegv HermannCHEM PANEL 2020-07-08 06:04:009[facility] HermannCHEM EMHMV8500-49-36 06:04:000.80[facility]annCHEM XKMVA2942-50-51 06:04:94440Fvpjlqag HermannCHEM CJSZG4021-98-97 06:04:003.7[facility] HermannCHEM VXRHE4525-14-34 06:04:16062Fnkikoid HermannCHEM YBMGD5322-47-95 06:04:0026[facility]annCHEM VZFIA0249-62-84 06:04:009.6 [facility]annCHEM TZPGX3351-09-02 06:04:007.8[facility] HermannCHEM PANEL 2020-07-08 06:04:003.8[facility] HermannCHEM WKCZT2692-04-73 06:04:0026[facility]annCHEM OLCSX9873-14-66 06:04:0012[facility]annCHEM PRDCU5445-31-26 06:04:0082[facility]annCHEM XKVQT2907-11-72 06:04:000.3[facility] HermannCHEM GJXXA3711-38-64 06:04:009.7[facility] HermannCHEM MIHTZ8116-06-91 06:04:00 Test Item Value Reference Range Interpretation Comments B/C Ratio (test code = B/C Ratio) 11 1 6-25 [facility]annCHEM FCTDD7777-58-11 06:04:004.0[facility] HermannCHEM PANEL 2020-07-08 06:04:00 Test Item Value Reference Range Interpretation Comments A/G Ratio (test code = A/G Ratio) 1.0 1 0.7-1.6 [facility] HermannCHEM INRHE0226-32-13 06:04:92014Zlzbajwi HermannENDOCRINOLOGY 2020-07-08 06:04:7728981Meheinci LoryxfjUSLIDRGYXL3289-47-41 06:04:009.6[facility] AobjccsTOWEUXYFNM5396-92-53 06:04:004.42[facility] WvmlpxuWYUOWDACRF6720-38-29 06:04:0012.5[facility] HvorievVAWPDAHEDA3485-20-54 06:04:0038.6[facility] PELBMELXKR1235-90-85 06:04:0087.3[facility] EqmodhtBMHZIRHLLP9607-10-45 06:04:00 Test Item Value Reference Range Interpretation Comments MCH (test code = MCH) 28.2 pg 27.0-31.0 [facility] WchjgxfAMGLZWNHLU2018-09-58 06:04:0032.3[facility] HermannHEMATOLOGY 2020-07-08 06:04:0013.3[facility] IdiyzftUVCLJHCROC9838-17-78 06:04:46354Alqwygvi UmzwgmiUXZLGXURQP7268-39-74 06:04:007.6[facility] CyxrbdbDXWGBFICIH3176-62-59 06:04:0077.2[facility] EedalnwTEKLOINOWR1679-18-72 06:04:0017.0[facility] YDVXVOZCRM0812-12-85 06:04:004.2[facility] QufuayqSFRQAZJRKL2295-00-92 06:04:001.4 [facility] AidmkugLWWWAYMNBF8961-43-32 06:04:000.2[facility] HermannHEMATOLOGY 2020-07-08 06:04:007.4[facility] SliuzgkGXEQCPYBPZ5412-96-64 06:04:001.6[facility] VihrrsaBAJHXAMZHC8951-12-02 06:04:000.4[facility] YgbblbxQTBDWJHFZO5341-74-09 06:04:000.1[facility] ZazldxnUUIJUAUCJX8105-52-40 06:04:000.0[facility]UR[facility] AND RRYMG3200-91-85 06:04:00Slight *ABN*(07/08/20 12:04 AM)[facility] SXRYG0568-24-13 06:04:00 Test Item Value Reference Range Interpretation Comments UA Spec Grav (test code = UA Spec 1.020 1 Grav) [facility] FNMKG4313-98-44 06:04:00 Test Item Value Reference Range Interpretation Comments UA pH (test code = UA pH) 5.0 1 5.0-8.0 [facility] YMSSK6979-95-38 06:04:00Negative *NA*(07/08/20 12:04 AM)[facility] MPAAP6719-01-38 06:04:00Negative (07/08/20 12:04 AM) [facility] ZKANW3484-90-95 06:04:00Positive *ABN*(07/08/20 12:04 AM)[facility] WFYHX1049-99-12 06:04:00Trace *ABN*(07/08/20 12:04 AM)[facility] QMJGR9259-64-09 06:04:006[facility] TVSQC8262-26-16 06:04:002[facility] YJCJN3472-96-13 06:04:003 [facility]annCHEM BFHFD5667-99-35 06:04:85424Zwjmuunj HermannCHEM PANEL 2020-07-08 06:04:009[facility] HermannCHEM AFXUG6252-02-73 06:04:000.80[facility] HermannCHEM EOFYC5436-22-02 06:04:19475Pidqmiwn HermannCHEM YSJYF2550-81-45 06:04:003.7[facility] HermannCHEM KHPFO3205-26-74 06:04:42296Apcbxkbu HermannCHEM DKNJY1518-68-04 06:04:0026[facility] HermannCHEM QYZEW6772-46-49 06:04:009.6 [facility]annCHEM KOGIX0020-96-86 06:04:007.8[facility] HermannCHEM PANEL 2020-07-08 06:04:003.8[facility] HermannCHEM NCESZ1229-46-75 06:04:0026[facility] HermannCHEM CQVXB5951-24-99 06:04:0012[facility] HermannCHEM ZLHPZ8446-72-65 06:04:0082[facility] HermannCHEM ERKNB8805-43-40 06:04:000.3[facility] HermannCHEM RMGHU7137-32-01 06:04:009.7[facility] HermannCHEM MMUFQ7237-97-24 06:04:00 Test Item Value Reference Range Interpretation Comments B/C Ratio (test code = B/C Ratio) 11 1 6-25 [facility]annCHEM QGGRZ7157-79-74 06:04:004.0[facility] HermannCHEM PANEL 2020-07-08 06:04:00 Test Item Value Reference Range Interpretation Comments A/G Ratio (test code = A/G Ratio) 1.0 1 0.7-1.6 [facility]annCHEM FJUYI1950-32-56 06:04:10281Deshspnj HermannENDOCRINOLOGY 2020-07-08 06:04:3227745Dczbpinw JkwogleWBFLIPUJNS2211-32-66 06:04:009.6[facility] LjbeewiVBOBPCMTYX4425-81-81 06:04:004.42[facility] EuoeegeRBZJAQXJAY2805-79-83 06:04:0012.5[facility] GwxvqcsVYEJFDBZDX5279-18-68 06:04:0038.6[facility] XXAYBXEREF1627-79-81 06:04:0087.3[facility] OiwqfhtITRJZOVXRH3749-84-64 06:04:00 Test Item Value Reference Range Interpretation Comments MCH (test code = MCH) 28.2 pg 27.0-31.0 [facility] YctbopqOJQNFCYAGT4578-37-18 06:04:0032.3[facility] HermannHEMATOLOGY 2020-07-08 06:04:0013.3[facility] IdmxchaOBSWYBJQMU4353-95-08 06:04:98549Waywiiur TbraqgoOUBNYHMIEO6095-49-55 06:04:007.6[facility] GeeqihnKOZSPPKRAC9621-15-30 06:04:0077.2[facility] IkzheovWNNVOSVDFA4705-00-58 06:04:0017.0[facility] RHBTRNLXNR7511-59-74 06:04:004.2[facility] BdnmrzeQTNYQYZWLP2843-72-47 06:04:001.4 [facility] ImhlzxeGLIXRLIGLA1890-98-17 06:04:000.2[facility] HermannHEMATOLOGY 2020-07-08 06:04:007.4[facility] CysljjvUEHPQKNIWM3715-84-58 06:04:001.6[facility] KqczvckSUSDNEETTN6852-90-53 06:04:000.4[facility] QmsnlwcYMKMBODKVQ7746-98-02 06:04:000.1[facility] UxrprkpEKNPQDJWOC8998-80-96 06:04:000.0[facility]UR[facility] AND BPULF5569-57-88 06:04:00Slight *ABN*(07/08/20 12:04 AM)[facility] RFWXQ0845-53-83 06:04:00 Test Item Value Reference Range Interpretation Comments UA Spec Grav (test code = UA Spec 1.020 1 Grav) [facility] IKLMK9804-88-09 06:04:00 Test Item Value Reference Range Interpretation Comments UA pH (test code = UA pH) 5.0 1 5.0-8.0 [facility] STBWN6896-23-54 06:04:00Negative *NA*(07/08/20 12:04 AM)[facility] TZYHE8374-18-76 06:04:00Negative (07/08/20 12:04 AM) [facility] EGGKH6112-83-23 06:04:00Positive *ABN*(07/08/20 12:04 AM)[facility] OWNUR1108-70-77 06:04:00Trace *ABN*(07/08/20 12:04 AM)[facility] LGLSG3329-65-25 06:04:006[facility] YDPXO7603-50-19 06:04:002[facility] QSDRK8622-69-95 06:04:003 [facility]annCHEM BZMSP4026-65-42 06:04:19146Jtjzmesj HermannCHEM PANEL 2020-07-08 06:04:009[facility] HermannCHEM WMRFG2548-45-70 06:04:000.80[facility] HermannCHEM ICFTE9977-22-72 06:04:72047Mdptctdh HermannCHEM URICR8427-57-32 06:04:003.7[facility] HermannCHEM NNFMU5932-87-48 06:04:75782Exenaxym HermannCHEM TKSCV2830-67-20 06:04:0026[facility] HermannCHEM PRDCZ9482-08-98 06:04:009.6 [facility]annCHEM UAJOG1418-18-66 06:04:007.8[facility] HermannCHEM PANEL 2020-07-08 06:04:003.8[facility] HermannCHEM THISA2759-04-02 06:04:0026[facility] HermannCHEM KFUEQ1223-99-53 06:04:0012[facility] HermannCHEM KWPPM4523-95-97 06:04:0082[facility] HermannCHEM JOJXT4058-73-39 06:04:000.3[facility] HermannCHEM YGBDG1588-44-69 06:04:009.7[facility] HermannCHEM CBYPZ5821-72-16 06:04:00 Test Item Value Reference Range Interpretation Comments B/C Ratio (test code = B/C Ratio) 11 1 6-25 [facility]annCHEM JFJCL7092-24-08 06:04:004.0[facility] HermannCHEM PANEL 2020-07-08 06:04:00 Test Item Value Reference Range Interpretation Comments A/G Ratio (test code = A/G Ratio) 1.0 1 0.7-1.6 [facility]annCHEM ORNGK4213-10-81 06:04:59194Lvutzwox HermannENDOCRINOLOGY 2020-07-08 06:04:5505102Gndctjpd GolmkzwQVRLVSIZML0908-48-70 06:04:009.6[facility] OkzjtjjQVQACBLYWC3686-04-84 06:04:004.42[facility] EkxsptfZUAWASTAOX9875-94-64 06:04:0012.5[facility] DrwktvlUCJSXHVYBQ4873-29-34 06:04:0038.6[facility] HHNXEMPERF6340-88-31 06:04:0087.3[facility] BxrslifBNEJSSFWFR7905-76-65 06:04:00 Test Item Value Reference Range Interpretation Comments MCH (test code = MCH) 28.2 pg 27.0-31.0 [facility] UtwdgyyEIBIAZHGJA4365-05-87 06:04:0032.3[facility] HermannHEMATOLOGY 2020-07-08 06:04:0013.3[facility] BvhbiywQEOLVBOAIG8750-32-90 06:04:63139Zguhbyos EswzsokFQINGHVZCW7013-56-73 06:04:007.6[facility] VhihwknSKBUXGULIE1415-87-48 06:04:0077.2[facility] TxdjrxaOYUTIMPIUY3104-20-45 06:04:0017.0[facility] SYXYSXCSHJ3096-27-56 06:04:004.2[facility] OjuxxdeVEOATHKMDF6011-57-72 06:04:001.4 [facility] QdidobvMXUQKCUGEC5596-91-09 06:04:000.2[facility] HermannHEMATOLOGY 2020-07-08 06:04:007.4[facility] TjkjzbiTXGEDRGVYE8326-28-60 06:04:001.6[facility] ZuywxltYQNYQHBWPV3527-08-32 06:04:000.4[facility] TjozjbcIKEIAHSDLF4606-61-92 06:04:000.1[facility] JxcvtwrVVNPRPGYZK6688-13-31 06:04:000.0[facility]UR[facility] AND OFMVC7105-29-12 06:04:00Slight *ABN*(07/08/20 12:04 AM)[facility] BUWBZ5563-06-12 06:04:00 Test Item Value Reference Range Interpretation Comments UA Spec Grav (test code = UA Spec 1.020 1 Grav) [facility] VPUMF9800-21-67 06:04:00 Test Item Value Reference Range Interpretation Comments UA pH (test code = UA pH) 5.0 1 5.0-8.0 [facility] XJQBR9552-30-95 06:04:00Negative *NA*(07/08/20 12:04 AM)[facility] OKNYM8597-90-96 06:04:00Negative (07/08/20 12:04 AM) [facility] TBQVS1116-34-10 06:04:00Positive *ABN*(07/08/20 12:04 AM)[facility] ABCNL4213-18-09 06:04:00Trace *ABN*(07/08/20 12:04 AM)[facility] DFXBE8671-85-12 06:04:006[facility] LXBPV8529-77-65 06:04:002[facility] NVXFV0027-87-31 06:04:003 [facility]annCHEM XXQWJ1851-82-72 06:04:04371Nhtcjzyj HermannCHEM PANEL 2020-07-08 06:04:009[facility] HermannCHEM YICBO8763-80-36 06:04:000.80[facility] HermannCHEM QXNDK0062-73-24 06:04:90554Vvizdcwq [facility]annCHEM AEQOI9631-54-95 06:04:003.7[facility] HermannCHEM FJQRH8059-35-36 06:04:91562Yifijope HermannCHEM IXOKW0396-59-20 06:04:0026[facility] HermannCHEM QXHJZ6448-57-44 06:04:009.6 [facility]annCHEM JGJBU6827-07-25 06:04:007.8[facility] HermannCHEM PANEL 2020-07-08 06:04:003.8[facility] HermannCHEM DCXOA9466-86-23 06:04:0026[facility] HermannCHEM YOCYE5994-05-29 06:04:0012[facility] HermannCHEM SHSCV6121-80-94 06:04:0082[facility] HermannCHEM LRBLE2210-73-55 06:04:000.3[facility] HermannCHEM ZFZGP8477-88-63 06:04:009.7[facility] HermannCHEM GBITH6090-95-70 06:04:00 Test Item Value Reference Range Interpretation Comments B/C Ratio (test code = B/C Ratio) 11 1 6-25 [facility]annCHEM NBWIF3693-08-24 06:04:004.0[facility] HermannCHEM PANEL 2020-07-08 06:04:00 Test Item Value Reference Range Interpretation Comments A/G Ratio (test code = A/G Ratio) 1.0 1 0.7-1.6 [facility]annCHEM UICLO5361-27-77 06:04:34147Winobbpe HermannENDOCRINOLOGY 2020-07-08 06:04:2096437Zyycrqsz SuovrurMCVBZHKNBX0186-76-55 06:04:009.6[facility] TjxdgfaDGDCTJGCWL0397-58-01 06:04:004.42[facility] NafljsvIOJAGQCUZM8233-96-66 06:04:0012.5[facility] IholhffKUUWVOOQZY3871-72-89 06:04:0038.6[facility] KEVXYVPICE0894-23-85 06:04:0087.3[facility] CtbbivtBXNXDFLFBA9110-26-07 06:04:00 Test Item Value Reference Range Interpretation Comments MCH (test code = MCH) 28.2 pg 27.0-31.0 [facility] KhpdbafJNIAFMHHHV7934-38-28 06:04:0032.3[facility] HermannHEMATOLOGY 2020-07-08 06:04:0013.3[facility] XhrchoeYQSULVEDOM9253-79-41 06:04:31509Pvkmoihi PjxdhyxNJIVWZSFLY8442-36-83 06:04:007.6[facility] YabaldfTJLPIBAZPU6354-68-86 06:04:0077.2[facility] YfbduofADWSBTFAUE5321-91-14 06:04:0017.0[facility] XWMTKJTXXU1467-10-37 06:04:004.2[facility] IkspphaUOFEMTWEGF8100-90-95 06:04:001.4 [facility] MgpzfvyYXJNFJVJZM8643-43-89 06:04:000.2[facility] HermannHEMATOLOGY 2020-07-08 06:04:007.4[facility] AwvcmxpSTUIXXPHZC8522-60-23 06:04:001.6[facility] SxganhlTLGASBSOSF0648-15-10 06:04:000.4[facility] UzqoulyBBSLFYZYUB7652-64-56 06:04:000.1[facility] JuhiexhYQDFFDADCW2740-37-82 06:04:000.0[facility]UR[facility] AND YSJYA8078-11-43 06:04:00Slight *ABN*(07/08/20 12:04 AM)[facility] GFABS2001-46-83 06:04:00 Test Item Value Reference Range Interpretation Comments UA Spec Grav (test code = UA Spec 1.020 1 Grav) [facility] ZXZPL2673-31-87 06:04:00 Test Item Value Reference Range Interpretation Comments UA pH (test code = UA pH) 5.0 1 5.0-8.0 [facility] BBEQW9608-49-30 06:04:00Negative *NA*(07/08/20 12:04 AM)[facility] MGZMT2694-73-56 06:04:00Negative (07/08/20 12:04 AM) [facility] FWZYS8441-84-39 06:04:00Positive *ABN*(07/08/20 12:04 AM)[facility] FRGFH1666-50-64 06:04:00Trace *ABN*(07/08/20 12:04 AM)[facility] HVRVX9253-77-28 06:04:006[facility] GZALF5273-74-14 06:04:002[facility] QBMSR6148-18-89 06:04:003 [facility] Hermannbeta HCG, urine, rlkhlzcqwrxfrsqe0662-02-85 16:09:20 Test Item Value Reference Range Interpretation Comments beta HCG, urine, semiquantitative positive (test code = 2106-3) [facility]
[2021-05-13] MEDS ORDERED: ONDANSETRON 4 MG/2 ML VIAL ONE (12:30)
[2021-05-13] MEDS ORDERED: MORPHINE 4 MG/ML SYR ONE (12:30)
[2021-05-13] MEDS ORDERED: NA CHLORIDE 0.9% 1,000 ML ONE ×2 (12:30→13:21)
--- NOTE | 2021-05-13 12:55 | RAD REPORT ---
EXAM DESCRIPTION: US - Abdomen Exam Limited - 05/13/2021 12:45 pm CLINICAL HISTORY: EPIGASTRIC PAIN COMPARISON: No comparisons FINDINGS: The gallbladder demonstrates small gallstones in the gallbladder. No pericholecystic fluid or gallbladder wall thickening. The common bile duct mildly prominent measuring 6 mm. The liver demonstrates no findings of intrahepatic biliary dilatation. IMPRESSION: Cholelithiasis. Common bile duct is mildly prominent measuring 6 mm. Choledocholithiasis is a possible. MRCP followup would be suggested.
[2021-05-13 12:58] LABS: Urine Blood 3+ (Negative); Urine Glucose Negative (Negative); Urine Protein Negative (Negative); Urine Specific Gravity >=1.030 (1.005-1.030); Urine pH 5.5 (5.0-7.0)
[2021-05-13 12:59] LABS: Absolute Lymphocytes (CBC) 1.8 K/uL (0.7-4.9); Basophils % 0.3 % (0-1.3); Hematocrit 39.4 % (36.0-45.0); Lymphocytes % 20.6 % (15.3-44.8); MPV 7.9 fL (7.6-11.3)
[2021-05-13 13:15] LABS: ALT/SGPT 108 U/L (12-78); AST/SGOT 106 U/L (15-37); Albumin 3.7 g/dL (3.4-5.0); Alkaline Phosphatase 237 U/L (45-117); BUN Blood Urea Nitrogen 10 mg/dL (7-18); Bicarbonate 28 mmol/L (21-32); Bilirubin Direct 0.4 mg/dL (0-0.2); Bilirubin Total 0.6 mg/dL (0.2-1.0); Glucose Level 94 mg/dL (74-106); Lipase 114 U/L (73-393); Potassium 3.9 mmol/L (3.5-5.1); Sodium Level 142 mmol/L (136-145)
[2021-05-13 13:21] LABS: Urine Specific Gravity/Preg >1.030 (1.005-1.030)
[2021-05-13] MEDS ORDERED: NA CHLORIDE 0.9% 100 ML ONE (13:21)
[2021-05-13] MEDS ORDERED: PIPERACIL/TAZO 3.375 GM VIAL IV ONE (13:21)
[2021-05-13 13:44] LABS: Anisocytosis 1+; Blood Morphology Comment NOTED (NOT SEEN); Platelet Estimate ADEQ; White Blood Cell Scan OK (OK)
--- NOTE | 2021-05-13 13:52 | RAD REPORT ---
EXAM DESCRIPTION: CTAbdomen Pelvis W Contrast - 05/13/2021 1:33 pm CLINICAL HISTORY: Abdominal pain. EPIGASTRIC PAIN COMPARISON: CT ABD PELVIS W CONTRAST dated 06/23/2008 TECHNIQUE: Biphasic CT imaging of the abdomen and pelvis was performed with 100 ml non-ionic IV cont rast. All CT scans are performed using dose optimization technique as appropriate and may include automated exposure control or mA/KV adjustment according to patient size. FINDINGS: The lung bases are clear. The liver, spleen, pancreas, adrenal glands and kidneys are within normal limits. Multi stone choleli thiasis. Common bile duct is mildly prominent measuring up to 7 mm. No bowel obstruction, free air, free fluid or abscess. The appendix is normal in size measuring up t o 7 mm. No evidence of significant lymphadenopathy. No suspicious bony findings. The uterus appears prominent in size. IMPRESSION: Cholelithiasis. Prominent common bile duct for age could indicate choledocholithiasis. F ollowup MRCP or ERCP would be suggested. Prominent uterine size.
--- NOTE | 2021-05-13 14:50 | EDPHYS ---
Physician Documentation [facility] Name: Brittany Ingram Age: 26 yrs Sex: Female : 1995 Arrival Date: 05/13/2021 Time: 11:30 Bed 19 Private MD: ED Physician Emir Casillas HPI: 05/13 12:11 This 26 yrs old Female presents to ER via Ambulatory with complaints of pm1 Epigastric Pain. 12:11 The patient presents with abdominal pain in the epigastric area. Onset: The pm1 symptoms/episode began/occurred this morning. The symptoms do not radiate. Associated signs and symptoms: Pertinent positives: nausea and vomiting, Pertinent negatives: diarrhea, dysuria, fever. The symptoms are described as achy. Modifying factors: The symptoms are alleviated by nothing, the symptoms are aggravated by nothing. Severity of pain: in the emergency department the pain is actually worse. The patient has experienced a previous episode, approximately 1 months ago, diagnosed at another ER with cholelithiasis. The patient has not recently seen a physician. 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 - Social history:: Smoking status: Patient denies any tobacco usage or history of. ROS: 12:11 Constitutional: Negative for fever, chills, and weight loss, Cardiovascular: Negative pm1 for chest pain, palpitations, and edema, Respiratory: Negative for shortness of breath, cough, wheezing, and pleuritic chest pain. 12:11 Back: Negative for injury and pain, MS/Extremity: Negative for injury and deformity, Skin: Negative for injury, rash, and discoloration, Neuro: Negative for headache, weakness, numbness, tingling, and seizure. 12:11 Abdomen/GI: Positive for abdominal pain, nausea and vomiting, of the epigastric area, Negative for diarrhea, constipation. 12:11 All other systems are negative. Exam: 12:11 Constitutional: This is a well developed, well nourished patient who is awake, alert, pm1 and in no acute distress. Head/Face: Normocephalic, atraumatic. 12:11 Back: No spinal tenderness. No costovertebral tenderness. Full range of motion. Skin: Warm, dry with normal turgor. Normal color with no rashes, no lesions, and no evidence of cellulitis. MS/ Extremity: Pulses equal, no cyanosis. Neurovascular intact. Full, normal range of motion. 12:11 Eyes: Exam is negative for acute changes, Extraocular movements: no acute changes. 12:11 ENT: Exam is negative for acute changes, Mouth: no acute changes, Lips: normal, moist, Oral mucosa: normal, pink and intact, moist. 12:11 Cardiovascular: Exam negative for acute changes, Rate: normal, Rhythm: regular, Pulses: no pulse deficits are appreciated. 12:11 Respiratory: Exam negative for acute changes, respiratory distress, shortness of breath. 12:11 Neuro: Exam negative for acute changes, Orientation: is normal, Mentation: is normal, Motor: is normal, moves all fours. 12:11 Abdomen/GI: Inspection: abdomen appears normal, Palpation: soft, in all quadrants, mild pm1 abdominal tenderness, in the epigastric area, rebound tenderness, is not appreciated. Vital Signs: 11:56 BP 133 / 94; Pulse 64; Resp 16; Temp 97.1; Pulse Ox 100% on R/A; Weight 70.76 kg; iw Height 5 ft. 2 in. (157.48 cm); Pain 9/10; 12:34 BP 129 / 90; Pulse 67; Resp 18; Pulse Ox 100% ; Pain 8/10; sl2 14:18 BP 126 / 88; Pulse 69; Resp 18; Pulse Ox 100% on R/A; ld1 11:56 Body Mass Index 28.53 (70.76 kg, 157.48 cm) iw MDM: 12:04 Patient medically screened. pm1 12:55 Data reviewed: vital signs. Data interpreted: Pulse oximetry: on room air is 100 %. pm1 Interpretation: normal. 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 15:03 ED course: Patient passed PO challenge and is currently without any pain. Discussed pm1 with patient and her mother in detail the lab and imaging results. With joint decision making patient decided to follow-up with gastroenterology for further imaging, MRCP, evaluation and treatment. Patient educated on return precautions. Patient reports she does not want surgery if possible and she was educated on dietary restrictions with cholelithiasis. 05/13 12:11 Order name: Basic Metabolic Panel; Complete Time: 13:18 pm1 05/13 12:11 Order name: CBC with Diff; Complete Time: 13:45 pm1 05/13 12:11 Order name: Hepatic Function; Complete Time: 13:18 pm1 05/13 12:11 Order name: Lipase; Complete Time: 13:18 pm1 05/13 12:58 Order name: Urine Dipstick-Ancillary; Complete Time: 13:06 EDMS 05/13 12:59 Order name: Urine --Ancillary (enter results); Complete Time: 13:26 em1 05/13 12:11 Order name: US Abdomen Limited; Complete Time: 12:55 pm1 05/13 13:18 Order name: CT Abd/Pelvis - IV Contrast Only; Complete Time: 14:14 pm1 05/13 13:44 Order name: CBC Smear Scan; Complete Time: 13:45 EDMS 05/13 12:11 Order name: IV Saline Lock; Complete Time: 12:59 pm1 05/13 12:11 Order name: Labs collected and sent; Complete Time: 12:59 pm1 05/13 12:11 Order name: Urine Dipstick-Ancillary (obtain specimen); Complete Time: 12:59 pm1 05/13 12:11 Order name: Urine Test (obtain specimen); Complete Time: 12:59 pm1 05/13 13:19 Order name: NPO; Complete Time: 13:20 pm1 05/13 14:50 Order name: PO challenge; Complete Time: 15:00 pm1 Administered Medications: 12:58 Drug: NS 0.9% 1000 ml Route: IV; Rate: 1000 ml; Site: left antecubital; sl2 12:59 Drug: morphine 4 mg Route: IVP; Site: left antecubital; sl2 12:59 Follow up: Response: No adverse reaction sl2 12:59 Drug: Zofran (Ondansetron) 4 mg Route: IVP; Site: left antecubital; sl2 12:59 Follow up: Response: No adverse reaction sl2 13:57 Drug: NS 0.9% 1000 ml Route: IV; Rate: 125 ml/hr; Site: left antecubital; ld1 13:57 Drug: Zosyn (piperacillin-tazobactam) 3.375 grams Route: IVPB; Infused Over: 60 mins; ld1 Site: left antecubital; Disposition: 05/14 09:24 Co-signature as Attending Physician, Emir Casillas MD I agree with the assessment and sp3 plan of care. Disposition Summary: 05/13/21 14:49 Discharge Ordered Location: Home pm1 Problem: new pm1 Symptoms: have improved pm1 Condition: Stable pm1 Diagnosis - Cholelithiasis pm1 Followup: pm1 - With: Emergency Department - When: As needed - Reason: Worsening of condition Followup: pm1 - With: Private Physician - When: 2 - 3 days - Reason: Recheck today's complaints, Continuance of care, Re-evaluation by your physician Discharge Instructions: - Discharge Summary Sheet pm1 - Cholelithiasis pm1 Forms: - Medication Reconciliation Form pm1 - Thank You Letter pm1 - Antibiotic Education pm1 - Prescription Opioid Use pm1 Prescriptions: - ondansetron 4 mg Oral tablet,disintegrating - take 1 tablet by ORAL route every 8 hours As needed; 12 tablet; Refills: 0, pm1 Product Selection Permitted - dicyclomine 20 mg Oral Tablet - take 1 tablet by ORAL route every 6 hours As needed; 20 tablet; Refills: 0, pm1 Product Selection Permitted Signatures: Dispatcher [employer] Anabelle King RN RN iw Marinas, Patrick, NP TOOL MAKER pm1 Keshia Puckett RN RN ld1 Emir Casillas MD MD sp3 Rocio Brown RN RN sl2
--- NOTE | 2021-05-13 14:50 | ER ---
Nurse's Notes [facility] Name: Brittany Ingram Age: 26 yrs Sex: Female : 1995 Arrival Date: 05/13/2021 Time: 11:30 Bed 19 Private MD: Diagnosis: Cholelithiasis Presentation: 05/13 11:56 Chief complaint: Patient states: has hx of gallstones, started having epigastric pain iw this morning. Coronavirus screen: At this time, the client does not indicate any symptoms associated with coronavirus-19. Ebola Screen: Patient negative for fever greater than or equal to 101.5 degrees Fahrenheit, and additional compatible Ebola Virus Disease symptoms Patient denies exposure to infectious person. Patient denies travel to an Ebola-affected area in the 21 days before illness onset. No symptoms or risks identified at this time. Initial Sepsis Screen: Does the patient meet any 2 criteria? No. Patient's initial sepsis screen is negative. Does the patient have a suspected source of infection? No. Patient's initial sepsis screen is negative. Risk Assessment: Do you want to hurt yourself or someone else? Patient reports no desire to harm self or others. Onset of symptoms was May 13, 2021. 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 - Social history:: Smoking status: Patient denies any tobacco usage or history of. Screenin:34 Abuse screen: Denies threats or abuse. Denies injuries from another. Nutritional sl2 screening: No deficits noted. Tuberculosis screening: No symptoms or risk factors identified. Fall Risk None identified. Assessment: 12:34 General: Appears in no apparent distress. comfortable, Behavior is calm, cooperative, sl2 appropriate for age. Pain: Complains of pain in epigastric area Pain does not radiate. Pain currently is 8 out of 10 on a pain scale. Quality of pain is described as stabbing, throbbing, Pain began gradually, Is continuous. Neuro: Level of Consciousness is awake, alert, obeys commands, Oriented to person, place, time, situation, Appropriate for age. Cardiovascular: Capillary refill < 3 seconds Patient's skin is warm and dry. Respiratory: Airway is patent Respiratory effort is even, unlabored, Respiratory pattern is regular, symmetrical. GI: Abdomen is flat, non-distended. : No signs and/or symptoms were reported regarding the genitourinary system. EENT: No signs and/or symptoms were reported regarding the EENT system. Derm: No signs and/or symptoms reported regarding the dermatologic system. Musculoskeletal: No signs and/or symptoms reported regarding the musculoskeletal system. 12:36 Reassessment: Ultrasound at bedside. sl2 14:18 Reassessment: Patient appears in no apparent distress at this time. No changes from ld1 previously documented assessment. Patient and/or family updated on plan of care and expected duration. Pain level reassessed. Patient is alert, oriented x 3, equal unlabored respirations, skin warm/dry/pink. Vital Signs: 11:56 BP 133 / 94; Pulse 64; Resp 16; Temp 97.1; Pulse Ox 100% on R/A; Weight 70.76 kg; iw Height 5 ft. 2 in. (157.48 cm); Pain 9/10; 12:34 BP 129 / 90; Pulse 67; Resp 18; Pulse Ox 100% ; Pain 8/10; sl2 14:18 BP 126 / 88; Pulse 69; Resp 18; Pulse Ox 100% on R/A; ld1 11:56 Body Mass Index 28.53 (70.76 kg, 157.48 cm) iw ED Course: 11:30 Patient arrived in ED. as 11:58 Triage completed. iw 11:58 Arm band placed on. iw 12:04 Eros Wellington NP is PHCP. pm1 12:04 Emir Casillas MD is Attending Physician. pm1 12:28 Rocio Brown, ROME is Primary Nurse. sl2 12:34 Patient has correct armband on for positive identification. Placed in gown. Bed in low sl2 position. Call light in reach. Side rails up X2. library monitor on. Pulse ox on. NIBP on. Door closed. Noise minimized. Warm blanket given. 12:34 No provider procedures requiring assistance completed. sl2 12:45 US Abdomen Limited In Process Unspecified. EDMS 12:59 Inserted saline lock: 22 gauge in left antecubital area, using aseptic technique. Blood sl2 collected. 13:02 Primary Nurse role handed off by Rocio Brown RN ld1 13:02 Keshia Puckett, RN is Primary Nurse. ld1 13:33 CT Abd/Pelvis - IV Contrast Only In Process Unspecified. EDMS 15:08 IV discontinued, intact, bleeding controlled, No redness/swelling at site. ld1 Administered Medications: 12:58 Drug: NS 0.9% 1000 ml Route: IV; Rate: 1000 ml; Site: left antecubital; sl2 12:59 Drug: morphine 4 mg Route: IVP; Site: left antecubital; sl2 12:59 Follow up: Response: No adverse reaction sl2 12:59 Drug: Zofran (Ondansetron) 4 mg Route: IVP; Site: left antecubital; sl2 12:59 Follow up: Response: No adverse reaction sl2 13:57 Drug: NS 0.9% 1000 ml Route: IV; Rate: 125 ml/hr; Site: left antecubital; ld1 13:57 Drug: Zosyn (piperacillin-tazobactam) 3.375 grams Route: IVPB; Infused Over: 60 mins; ld1 Site: left antecubital; Outcome: 14:49 Discharge ordered by MD. pm1 15:08 Discharged to home ambulatory, with family. ld1 15:08 Condition: stable 15:08 Discharge instructions given to patient, family, Instructed on discharge instructions, follow up and referral plans. medication usage, Demonstrated understanding of instructions, follow-up care, medications, Prescriptions given X 2. 15:08 Patient left the ED. ld1 Signatures: Dispatcher [employer] Nargis Daigle Irene, RN RN iw Marinas, Patrick, EITAN GETTER WELDER pm1 Keshia Puckett, ROME RN ld1 Rocio Brown RN RN sl2
[2021-05-13 15:16] VITALS: TEMP 97.1; O2SAT 100
[2021-05-13 15:18] VITALS: BP 126/88
== END 2021-05-13 15:08 | disposition home or self-care (01) ==
LOC: ER 11:30
DX: K80.20 Calculus of gallbladder without cholecystitis without obstruction (principal); Z91.040 Latex allergy status; Z91.048 Other nonmedicinal substance allergy status; Z20.822 Contact with and (suspected) exposure to COVID-19
CPT/HCPCS: 85025; 80048; 36415; 81025; 80076; 81003; 83690; 74177; 76705; 96375; 96374; 99284; U0003; Q9967; J2543; J7030 ×2; J2405

== ENCOUNTER 2023-03-02 22:05 | Emergency (ER) | payer OTHER ==
--- OUTSIDE RECORDS SUMMARY | 2023-03-02 22:17 | XMS REPORT | Continuity of Care Document ---
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 00:00: 00:00 mouth 00 :00 twice a day for 5 days (METRONIDAZ 2021- No Carrie 1 1 tablet OLE) 500 MG 11-30 [place] by mouth s t OB TABS 00:00: 00:00 twice a 00 :00 day with meals VITAFOL Yes Deb 1 Take 1 [facility] ULTRA 6-[address] [address] OB (PRENAT-FE 00:00: mouth once POLY-METHFO 00 a day L-FA-DHA) 29-0.6-0.4- 200 MG CAPS (TERCONAZOL 2021- No Carrie 1 Insert 1 E) 0.4 % 614 01-[address] OB CREA 00:00: 00:00 ful into 00 :00 vagina at bedtime for 7 days ibuprofen Yes Methodi (ADVIL) 600 9-23 st MG tablet 00:00: Hospita 00 l valacyclovi Yes 500 mg = 1 Memoria r 500 MG 9-18 tab, PO, l Oral Tablet 03:03: BID, 0 Herm christen [Valtrex] 00 Refill(s) valacyclovi Yes 500 mg = 1 Memoria r 500 MG 9-18 tab, PO, l Oral Tablet 03:03: BID, 0 Herm christen [Valtrex] 00 Refill(s) valacyclovi 2021-0 Yes 500 mg = 1 Memoria r 500 MG 18 tab, PO, l Oral Tablet 03:03: BID, 0 Herm christen [Valtrex] 00 Refill(s) VALTREX 2021- No Korey 1 Take 1 Sout [facility] (VALACYCLOV 02-[address] OB IR HCL) 500 00:00: 00:00 mouth MG TABS 00 :00 twice a day VALTREX No Monty 1 Take 1 Sout [facility]we (VALACYCLOV 02-[address] OB IR HCL) 500 00:00: 00:00 mouth MG TABS 00 :00 twice a day for 3 days at first sign of outbreak. Also, start 1 tablet by mouth twice daily starting at 35 weeks to prevent an outbreak. VITAFOL No Gavi 1 1xD 1 capsule S [facility] ULTRA 01-[address] OB (PRENAT-FE 00:00: 00:00 once a day POLY-METHFO 00 :00 L-FA-DHA) 29-0.6-0.4- 200 MG CAPS CALCIUM 2021- No 1 1 tablet [facility] 600/VITAMIN 01-[address] O B D 600-400 00:00: 00:00 day MG-UNIT 00 :00 TABS (FERROUS No Gavi by mouth [facility] GLUCONATE) 12-[address] OB 324 (38 Fe) 00:00: 00:00 MG TABS 00 :00 (TERCONAZOL No Gavi 1 Insert 1 [facility] E) 0.4 % 12-25 Sutaria applicator s t OB CREA 00:00: 00:00 vaginally 00 :00 every night (FAMOTIDINE 2020- No 1 1 tablet S [facility] ) 20 MG 12-[address] OB TABS 00:00: 00:00 once a day 00 :00 (METRONIDAZ No Gavi 1 2xD 1 tablet [facility] OLE) 500 MG 12-[address] OB TABS 00:00: 00:00 twice a 00 :00 day metroNIDAZO Yes [id number] 500mg Take 1 Univers LE (FLAGYL) 5-20 tablet by ity of 500 mg 00:00: mouth 2 [place] tablet 00 (two) Medical times Branch daily. Yes [id number] 1{tbl} Take 1 U nivers vit w/iron 5-20 tablet by ity of fumarate 00:00: mouth [place] and FA 00 daily. Medical ( Branch VITAMIN WITH MINERALS) tablet metroNIDAZO Yes [id number] 500mg Take 1 Univers LE (FLAGYL) 5-20 tablet by ity of 500 mg 00:00: mouth 2 [place] tablet 00 (two) Medical times Branch daily. Yes [id number] 1{tbl} Take 1 U nivers vit w/iron 5-20 tablet by ity of fumarate 00:00: mouth [place] and FA 00 daily. Medical ( Branch VITAMIN WITH MINERALS) tablet fluconazole Yes [id number] 200mg Take 1 Univers (DIFLUCAN) 4-29 tablet by ity of 200 mg 00:00: mouth [place] tablet 00 daily. Medical Branch fluconazole Yes [id number] 200mg Take 1 Univers (DIFLUCAN) 4-29 tablet by ity of 200 mg 00:00: mouth [place] tablet 00 daily. Medical Branch fluconazole Yes [id number] 200mg Take 1 Univers (DIFLUCAN) 4-29 tablet by ity of 200 mg 00:00: mouth [place] tablet 00 daily. Medical Branch fluconazole Yes [id number] 200mg Take 1 Univers (DIFLUCAN) 4-29 tablet by ity of 200 mg 00:00: mouth [place] tablet 00 daily. [facility] Branch fluconazole Yes [id number] 200mg Take 1 Univers (DIFLUCAN) 4-29 tablet by ity of 200 mg 00:00: mouth [place] tablet 00 daily. [facility] Branch fluconazole Yes [id number] 200mg Take 1 Univers (DIFLUCAN) 4-29 tablet by ity of 200 mg 00:00: mouth [place] tablet 00 daily. [facility] Branch fluconazole Yes [id number] 200mg Take 1 Univers (DIFLUCAN) 4-29 tablet by ity of 200 mg 00:00: mouth [place] tablet 00 daily. [facility] Branch fluconazole Yes [id number] 200mg Take 1 Univers (DIFLUCAN) 4-29 tablet by ity of 200 mg 00:00: mouth [place] tablet 00 daily. Medical Branch fluconazole 2020-0 Yes [id number] 200mg Take 1 Univers (DIFLUCAN) 4-29 tablet by ity of 200 mg 00:00: mouth [place] tablet 00 daily. Medical Branch metroNIDAZO 2020-0 Yes [id number] 500mg Take 1 Univers LE 500 mg 4-21 tablet by ity o f tablet 00:00: mouth [place] 00 every 12 Medical (twelve) Branch hours. metroNIDAZO 2020-0 Yes [id number] 500mg Take 1 Univers LE 500 mg 4-21 tablet by ity o f tablet 00:00: mouth [place] 00 every 12 Medical (twelve) Branch hours. metroNIDAZO 2020-0 Yes [id number] 500mg Take 1 Univers LE 500 mg 4-21 tablet by ity o f tablet 00:00: mouth [place] 00 every 12 Medical (twelve) Branch hours. metroNIDAZO 2020-0 Yes [id number] 500mg Take 1 Univers LE 500 mg 4-21 tablet by ity o f tablet 00:00: mouth [place] 00 every 12 Medical (twelve) Branch hours. metroNIDAZO 2020-0 Yes [id number] 500mg Take 1 Univers LE 500 mg 4-21 tablet by ity o f tablet 00:00: mouth [place] 00 every 12 Medical (twelve) Branch hours. metroNIDAZO 2020-0 Yes [id number] 500mg Take 1 Univers LE 500 mg 4-21 tablet by ity o f tablet 00:00: mouth [place] 00 every 12 Medical (twelve) Branch hours. metroNIDAZO 2020-0 Yes [id number] 500mg Take 1 Univers LE 500 mg 4-21 tablet by ity o f tablet 00:00: mouth [place] 00 every 12 Medical (twelve) Branch hours. metroNIDAZO 2020-0 Yes [id number] 500mg Take 1 Univers LE 500 mg 4-21 tablet by ity o f tablet 00:00: mouth [place] 00 every 12 Medical (twelve) Branch hours. metroNIDAZO 2020-0 Yes [id number] 500mg Take 1 Univers LE 500 mg 4-21 tablet by ity o f tablet 00:00: mouth [place] 00 every 12 Medical (twelve) Branch hours. metroNIDAZO 2020-0 Yes [id number] 500mg Take 1 Univers LE 500 mg 4-21 tablet by ity o f tablet 00:00: mouth [place] 00 every 12 Medical (twelve) Branch hours. fluconazole 2020-2020- No [id number] 200mg Take 1 Univers 200 mg 4-21 04-23 tablet by ity of tablet 00:00: 04:59 mouth [place] 00 :00 daily for Medical 1 day. Branch famotidine 2020-0 Yes [id number] 20mg Take 1 Univers 20 mg 4-19 tablet by ity of tablet 00:00: mouth [place] (two) Medical times Branch daily. PNV 2020-0 Yes [id number] Take 1 Univers 102-iron-fo 4-19 TAB-CAP/M2 it y of late-dha 00:00: by mouth [place] (VITAFOL FE 00 daily. Medica l PLUS) 90 mg Branch iron- 1 mg-200 mg Cap famotidine 2020-0 Yes [id number] 20mg Take 1 Univers 20 mg 4-19 tablet by ity of tablet 00:00: mouth [address] [place] [address] (two) Medical times Branch daily. PNV 2020-0 Yes [id number] Take 1 Univers 102-iron-fo 4-19 TAB-CAP/M2 it y of late-dha 00:00: by mouth [place] (VITAFOL FE 00 daily. Medica l PLUS) 90 mg Branch iron- 1 mg-200 mg Cap famotidine 2020-0 Yes [id number] 20mg Take 1 Univers 20 mg 4-19 tablet by ity of tablet 00:00: mouth [address] [place] [address] (two) Medical times Branch daily. PNV 2020-0 Yes [id number] Take 1 Univers 102-iron-fo 4-19 TAB-CAP/M2 it y of late-dha 00:00: by mouth [place] (VITAFOL FE 00 daily. Medica l PLUS) 90 mg Branch iron- 1 mg-200 mg Cap famotidine 2020-0 Yes [id number] 20mg Take 1 Univers 20 mg 4-19 tablet by ity of tablet 00:00: mouth [address] [place] [address] (two) Medical times Branch daily. famotidine 2020-0 Yes [id number] 20mg Take 1 Univers 20 mg 4-19 tablet by ity of tablet 00:00: mouth [address] [place] [address] (two) Medical times Branch daily. famotidine 0 Yes [id number] 20mg Take 1 Univers 20 mg 4-19 tablet by ity of tablet 00:00: mouth (two) Medical times Branch daily. PNV 2020-0 Yes [id number] Take 1 Univers 102-iron-fo 4-19 TAB-CAP/M2 it y of late-dha 00:00: by mouth [place] (VITAFOL FE 00 daily. Medica l PLUS) 90 mg Branch iron- 1 mg-200 mg Cap PNV 2020-0 Yes [id number] Take 1 Univers 102-iron-fo 4-19 TAB-CAP/M2 it y of late-dha 00:00: by mouth [place] (VITAFOL FE 00 daily. Medica l PLUS) 90 mg Branch iron- 1 mg-200 mg Cap famotidine 2020-0 Yes [id number] 20mg Take 1 Univers 20 mg 4-19 tablet by ity of tablet 00:00: mouth (two) Medical times Branch daily. PNV 2020-0 Yes [id number] Take 1 Univers 102-iron-fo 4-19 TAB-CAP/M2 it y of late-dha 00:00: by mouth [place] (VITAFOL FE 00 daily. Medica l PLUS) 90 mg Branch iron- 1 mg-200 mg Cap famotidine 2020-0 Yes [id number] 20mg Take 1 Univers 20 mg 4-19 tablet by ity of tablet 00:00: mouth (two) Medical times Branch daily. PNV 2020-0 Yes [id number] Take 1 Univers 102-iron-fo 4-19 TAB-CAP/M2 it y of late-dha 00:00: by mouth [place] (VITAFOL FE 00 daily. Medica l PLUS) 90 mg Branch iron- 1 mg-200 mg Cap famotidine 2020-0 Yes [id number] 20mg Take 1 Univers 20 mg 4-19 tablet by ity of tablet 00:00: mouth (two) Medical times Branch daily. PNV 2020-0 Yes [id number] Take 1 Univers 102-iron-fo 4-19 TAB-CAP/M2 it y of late-dha 00:00: by mouth [place] (VITAFOL FE 00 daily. Medica l PLUS) 90 mg Branch iron- 1 mg-200 mg Cap famotidine 2020-0 Yes [id number] 20mg Take 1 Univers 20 mg 4-19 tablet by ity of tablet 00:00: mouth 2 [place] (two) Medical times Branch daily. PNV 2020-0 Yes [id number] Take 1 Univers 102-iron-fo 4-19 TAB-CAP/M2 it y of late-dha 00:00: by mouth [place] (VITAFOL FE 00 daily. Medica l PLUS) 90 mg Branch iron- 1 mg-200 mg Cap famotidine 2020-0 Yes [id number] 20mg Take 1 Univers 20 mg 4-19 tablet by ity of tablet 00:00: mouth 2 [place] (two) Medical times Branch daily. PNV 2020-0 Yes [id number] Take 1 Univers 102-iron-fo 4-19 TAB-CAP/M2 it y of late-dha 00:00: by mouth [place] (VITAFOL FE 00 daily. Medica l PLUS) 90 mg Branch iron- 1 mg-200 mg Cap famotidine 2020-0 Yes [id number] 20mg Take 1 Univers 20 mg 4-19 tablet by ity of tablet 00:00: mouth 2 [place] (two) Medical times Branch daily. PNV 2020-0 Yes [id number] Take 1 Univers 102-iron-fo 4-19 TAB-CAP/M2 it y of late-dha 00:00: by mouth [place] (VITAFOL FE 00 daily. Medica l PLUS) 90 mg Branch iron- 1 mg-200 mg Cap famotidine 2020-0 Yes [id number] 20mg Take 1 Univers 20 mg 4-19 tablet by ity of tablet 00:00: mouth 2 [place] (two) Medical times Branch daily. PNV 2020-0 Yes [id number] Take 1 Univers 102-iron-fo 4-19 TAB-CAP/M2 it y of late-dha 00:00: by mouth [place] (VITAFOL FE 00 daily. Medica l PLUS) 90 mg Branch iron- 1 mg-200 mg Cap Nitrofurant 2020- No [id number] 100mg Take 1 Univers oin&Nit. 4-02 10- capsule by ity of Macrocryst 00:00: 04:59 mouth 2 [place] (MACROBID) 00 :00 (two) Medical 100 mg times Branch capsule daily for 7 days. Nitrofurant 2020- No [id number] 100mg Take 1 Univers oin&Nit. 419 10-10 capsule by ity of Macrocryst 00:00: 04:59 mouth 2 [place] (MACROBID) 00 :00 (two) Medical 100 mg times Branch capsule daily for 7 days. Saline No Notes: Memoria Flush 0.9% 2-22 Same as: l 07:45: BD Huy 00 Posiflush Sterile Sodium 0 No 1,000 mL, Memori a Chloride 2-22 1000 l 0.9% 07:45: ml/hr, [place] (Bolus) IV 00 Infuse Over: 1 hr, Route: IV, 1,000, Drug form: INJ, ONCE, Priority: STAT, Dosing Weight 79 kg, Start date: 08/07/20 1:45:00 PRESS FEEDER BROOMCORN, Stop date: 08/07/20 1:45:00 PRESS FEEDER BROOMCORN, 0 Saline No Notes: Memoria Flush 0.9% 2-22 Same as: l 07:45: BD Huy 00 Posiflush Sterile Sodium No 1,000 mL, Memori a Chloride 2-22 1000 l 0.9% 07:45: ml/hr, H[place] (Bolus) IV 00 Infuse Over: 1 hr, Route: IV, 1,000, Drug form: INJ, ONCE, Priority: STAT, Dosing Weight 79 kg, Start date: 08/07/20 1:45:00 PRESS FEEDER BROOMCORN, Stop date: 08/07/20 1:45:00 PRESS FEEDER BROOMCORN, 0 Saline No Notes: Memoria Flush 0.9% 2-22 Same as: l 07:45: BD [place] 00 Posiflush Sterile Sodium 0 No 1,000 mL, Memori a Chloride 2-22 1000 l 0.9% 07:45: ml/hr, Huy (Bolus) IV 00 Infuse Over: 1 hr, Route: IV, 1,000, Drug form: INJ, ONCE, Priority: STAT, Dosing Weight 79 kg, Start date: 08/07/20 1:45:00 PRESS FEEDER BROOMCORN, Stop date: 08/07/20 1:45:00 PRESS FEEDER BROOMCORN, 0 Saline No Notes: Memoria Flush 0.9% 2-22 Same as: l 07:45: BD Huy 00 Posiflush Sterile Sodium No 1,000 mL, Memori a Chloride 2-22 1000 l 0.9% 07:45: ml/hr, [place] (Bolus) IV 00 Infuse Over: 1 hr, Route: IV, 1,000, Drug form: INJ, ONCE, Priority: STAT, Dosing Weight 79 kg, Start date: 08/07/20 1:45:00 PRESS FEEDER BROOMCORN, Stop date: 08/07/20 1:45:00 PRESS FEEDER BROOMCORN, 0 Saline No Notes: Memoria Flush 0.9% 2-22 Same as: l 07:45: BD Huy Posiflush Sterile Sodium No 1,000 mL, Memori a Chloride 2-22 1000 l 0.9% 07:45: ml/hr, [place] (Bolus) IV 00 Infuse Over: 1 hr, Route: IV, 1,000, Drug form: INJ, ONCE, Priority: STAT, Dosing Weight 79 kg, Start date: 08/07/20 1:45:00 PRESS FEEDER BROOMCORN, Stop date: 08/07/20 1:45:00 PRESS FEEDER BROOMCORN, 0 Acetaminoph No Notes: Do M emoria en 2-13 not exceed l 23:14: 4 gm/day. (Same as: Tylenol) Acetaminoph No Notes: Do [...] l 06:39: 4 gm/day. (Same as: Tylenol) Zofran No Notes: Memoria 07-08 (Same as: l 06:39: Zofran) Hyu 00 MEDICATION WASTE Product Size: 4 mg Product Wasted: ___ mg Tylenol No Notes: Do Memor ia 07-08 not exceed l 06:39: 4 gm/day. Huy (Same as: Tylenol) No Notes: Memoria 07-08 (Same as: l 06:39: Zofran) Huy 00 MEDICATION WASTE Product Size: 4 mg Product Wasted: ___ mg Tylenol No Notes: Do Memor ia 07-08 not exceed l 06:39: 4 gm/day. Huy (Same as: Tylenol) No Notes: Memoria 07-08 (Same as: l 06:39: Zofran) Huy 00 MEDICATION WASTE Product Size: 4 mg Product Wasted: ___ mg Tylenol No Notes: Do Memor ia 07-08 not exceed l 06:39: 4 gm/day. Huy (Same as: Tylenol) No Notes: Memoria 07-08 (Same as: l 06:39: Zofran) Huy 00 MEDICATION WASTE Product Size: 4 mg Product Wasted: ___ mg Tylenol No Notes: Do Memor ia 07-08 not exceed l 06:39: 4 gm/day. Huy (Same as: Tylenol) No Notes: Memoria 07-08 (Same as: l 06:39: Zofran) Huy 00 MEDICATION WASTE Product Size: 4 mg Product Wasted: ___ mg norgestimat 2015-06 No 1{tbl} Take 1 U nivers e-ethinyl 0-28 -19 tablet by ity of estradiol 00:00: 00:00 mouth [place] (SPRINTEC) 00 :00 daily. Medical 0.25-35 Branch mg-mcg per tablet traMADOL 2015-06 No 50mg Take 1 Univer s (ULTRAM) 50 0-26 04-19 tablet by it y of mg tablet 00:00: 00:00 mouth [place] 00 :00 every 6 Medical (six) Branch hours as needed for Pain (scale 4-6) or Pain (scale 7-10). PNV without 2015-06- No [id number] 1{each} Take 1 Univers Ca-Iron 0- Each by ity of PsCmplx-FA 00:00: 00:00 mouth [place] (SELECT-OB, 00 :00 daily. Medica l FOLIC Branch ACID,) 29-1 mg Chew proMETHazin 2015-06- No [id number] 25mg Take 1 Univers e 0- tablet by ity of (PHENERGAN) 00:00: 00:00 mouth [place] 25 mg 00 :00 every 6 Medical tablet (six) Branch hours as needed for Nausea and Vomiting (N/V). Immunizations Ordered Filled Immunization Date Status Comments [facility] Immunization Name Name Fluzone 2022-03-22 Completed [facility] Quadrivalent IM 13:09:00 [facility] Prefilled Syringe 0.5 ML (PF) [id number] Adacel IM 2022-03-22 Completed [facility] [id number] 12:37:00 Health Adacel IM 2020-12-25 Completed [facility] [id number] 14:07:00 Health Fluzone 2020-07-10 Completed [facility] Quadrivalent IM 18:43:00 Health Prefilled Syringe 0.5 mL (PF) [id number] Influenza Virus 2020-06-30 Completed Universit y of Vaccine 00:00:00 [facility] Influenza Virus 2020-06-30 Completed Universit y of Vaccine 00:00:00 [facility] Influenza Vaccine 2016-08-29 Completed [facility] 00:00:00 Influenza Virus 2016-03-21 Completed Universit y of Vaccine Quad IM 3+ 00:00:00 [facility] Influenza Virus 2016-03-21 Completed Universit y of Vaccine Quad IM 3+ 00:00:00 [facility] Influenza Virus 2016-03-21 Completed Universit y of Vaccine Quad IM 3+ 00:00:00 [facility] Influenza Virus 2016-03-21 Completed Universit y of Vaccine Quad IM 3+ 00:00:00 [facility] Influenza Virus 2016-03-21 Completed Universit y of Vaccine Quad IM 3+ 00:00:00 [facility] Influenza Virus 2016-03-21 Completed Universit y of Vaccine Quad IM 3+ 00:00:00 [facility] Influenza Virus 2016-03-21 Completed Universit y of Vaccine Quad IM 3+ 00:00:00 [facility] Influenza Virus 2016-03-21 Completed Universit y of Vaccine Quad IM 3+ 00:00:00 [facility] Influenza Virus 2016-03-21 Completed Universit y of Vaccine Quad IM 3+ 00:00:00 [facility] Influenza Virus 2016-03-21 Completed Universit y of Vaccine Quad IM 3+ 00:00:00 [facility] Influenza Virus 2016-03-21 Completed Universit y of Vaccine Quad IM 3+ 00:00:00 [facility] Influenza Virus 2016-03-21 Completed Universit y of Vaccine Quad IM 3+ 00:00:00 [facility] Influenza Virus 2016-03-21 Completed Universit y of Vaccine Quad IM 3+ 00:00:00 [facility] Influenza Virus 2016-03-21 Completed Universit y of Vaccine Quad IM 3+ 00:00:00 [facility] TDAP 2015-03-21 Completed University of 00:00:00 [facility] TDAP 2015-03-21 Completed University of 00:00:00 [facility] TDAP 2015-03-21 Completed University of 00:00:00 [facility] TDAP 2015-03-21 Completed University of 00:00:00 [facility] TDAP 2015-03-21 Completed University of 00:00:00 [facility] TDAP 2015-03-21 Completed University of 00:00:00 [facility] TDAP 2015-03-21 Completed University of 00:00:00 [facility] TDAP 2015-03-21 Completed University of 00:00:00 [facility] TDAP 2015-03-21 Completed University of 00:00:00 [facility] TDAP 2015-03-21 Completed University of 00:00:00 [facility] TDAP 2015-03-21 Completed University of 00:00:00 [facility] TDAP 2015-03-21 Completed University of 00:00:00 [facility] TDAP 2015-03-21 Completed University of 00:00:00 [facility] TDAP 2015-03-21 Completed University of 00:00:00 [facility] Vital Signs Vital Name Observation Time Observation Value Comments Source Heart rate 2020-10-12 16:45:00 81 /min [facility] [place] [facility] Oxygen saturation in 2020-10-12 16:45:00 99 /min [facility] Arterial blood by [facility] Pulse oximetry Branch Systolic blood 2020-10-12 15:30:00 123 mm[Hg] Univer sity of pressure [place] [facility] Diastolic blood 2020-10-12 15:30:00 77 mm[Hg] Unive rsity of pressure [place] [facility] Body temperature 2020-10-12 15:30:00 36.89 Kisha [facility] [place] [facility] Respiratory rate 2020-10-12 15:30:00 18 /min [facility] [place] [facility] Body height 2020-10-12 15:00:00 157.5 cm [facility] [place] [facility] Body weight 2020-10-12 15:00:00 77.565 kg [facility] [place] [facility] BMI 2020-10-12 15:00:00 31.28 kg/m2 [facility] [place] [facility] Systolic blood 2020-10-02 19:36:00 122 mm[Hg] Univer sity of pressure [place] [facility] Diastolic blood 2020-10-02 19:36:00 78 mm[Hg] Unive rsity of pressure [place] [facility] Heart rate 2020-10-02 19:36:00 91 /min [facility] [place] [facility] Body temperature 2020-10-02 19:36:00 36.89 Kisha [facility] [place] [facility] Respiratory rate 2020-10-02 19:36:00 16 /min [facility] [place] [facility] Body height 2020-10-02 19:36:00 157.5 cm [facility] [place] [facility] Body weight 2020-10-02 19:36:00 78.835 kg [facility] [place] [facility] BMI 2020-10-02 19:36:00 31.79 kg/m2 [facility] [place] [facility] weight E&M 2023-01-16 16:51:00 156 [facility] [employer] Body Mass Index 2023-01-16 15:46:07 28.72 kg/m2 [facility] temperature E&M 2023-01-16 15:46:07 98.3 [degF] [facility] pulse rate 2023-01-16 15:46:07 97 /[facility] Di[facility] 2023-01-16 15:46:07 79 mm[Hg] [facility] pressure Health Systolic blood 2023-01-16 15:46:07 112 mm[facility]Hg[facility]&M 2023-01-16 15:46:07 158.0 [lb_av] [facility] site 2023-01-16 15:46:07 oral [facility] Health height E&M 2023-01-16 15:46:07 62.3 [in_i] [facility] Systolic blood 2022-04-21 18:27:39 132 mm[Hg] Method [facility] pressure Diastolic blood 2022-04-21 18:27:39 87 mm[Hg] [facility] pressure Heart rate 2022-04-21 18:27:39 90 /min [facility] Body temperature 2022-04-21 18:27:39 36.94 Kisha [facility] Respiratory rate 2022-04-21 18:27:39 16 /min [facility] Oxygen saturation in 2022-04-21 03:00:00 98 /min [facility] Arterial blood by Pulse oximetry Body weight 2022-04-17 11:00:00 75.7 kg [facility] BMI 2022-04-17 11:00:00 30.52 kg/m2 [facility] Body height 2022-04-16 14:06:00 157.5 cm [facility] Body Mass Index 2022-04-12 14:01:23 30.36 kg/m2 [facility] Diastolic blood 2022-04-12 14:01:23 80 mm[Hg] [facility] [facility] [place] pressure Health Systolic blood 2022-04-12 14:01:23 134 mm[Hg] [facility] 2022-04-12 14:01:23 112 /min [facility] temperature E&M 2022-04-12 14:01:23 98.2 [degF] [facility] weight E&M 2022-04-12 14:01:23 167 [lb_av] [facility] height E&M 2022-04-12 14:01:23 62.3 [in_i] [facility] Body Mass Index 2022-04-08 15:26:17 30.36 kg/m2 [facility] Diastolic blood 2022-04-08 15:26:17 84 mm[Hg] [facility] pressure Health Systolic blood 2022-04-08 15:26:17 127 mm[Hg] [facility] pulse rate 2022-04-08 15:26:17 76 /min [facility] temperature E&M 2022-04-08 15:26:17 97.9 [degF] [facility] weight E&M 2022-04-08 15:26:17 167 [lb_av] [facility] Health temperature site 2022-04-08 15:26:17 oral Lega [facility] height E&M 2022-04-08 15:26:17 62.3 [in_i] [facility] Body Mass Index 2022-03-22 12:25:45 29.42 kg/m2 [facility] Diastolic blood 2022-03-22 12:25:45 73 mm[Hg] [facility] pressure Health Systolic blood 2022-03-22 12:25:45 118 mm[Hg] [facility] pulse rate 2022-03-22 12:25:45 108 /min [facility] temperature E&M 2022-03-22 12:25:45 98 [degF] [facility] weight E&M 2022-03-22 12:25:45 161.8 [lb_av] [facility] 2022-03-22 12:25:45 oral [facility]ega [facility] height E&M 2022-03-22 12:25:45 62.3 [in_i] [facility] Health blood pressure, 2022-01-21 13:15:24 68 mm[Hg] [facility] diastolic Health blood pressure, 2022-01-21 13:15:24 111 mm[Hg] [facility] systolic Health pulse rate 2022-01-21 13:15:24 70 /min [facility] temperature E&M 2022-01-21 13:15:24 98.2 [degF] [facility] weight E&M 2022-01-21 13:15:24 156.6 [lb_av] [facility] temperature site 2022-01-21 13:15:24 oral Lega cy [facility] height E&M 2022-01-21 13:15:24 62.3 [in_i] [facility] Body Mass Index 2022-01-21 13:15:24 28.47 kg/m2 [facility] ([facility] temperature site 2022-01-21 13:15:24 oral Lega cy [facility] height E&M 2021-11-27 13:43:37 62.3 [in_i] [facility] temperature E&M 2021-11-27 13:43:37 98.9 [degF] [facility] pulse rate 2021-11-27 13:43:37 102 /min [facility] blood pressure, 2021-11-27 13:43:37 67 mm[Hg] [facility] diastolic Health blood pressure, 2021-11-27 13:43:37 125 mm[Hg] [facility] systolic Health temperature site 2021-11-27 13:43:37 oral Lega [facility] Health weight E&M 2021-11-27 13:43:37 151.4 [lb_av] [facility] Body Mass Index 2021-11-27 13:43:37 27.52 kg/m2 [facility] ([facility] Health temperature site 2021-11-27 13:43:37 oral Lega [facility] Health blood pressure, 2021-04-20 16:50:04 76 mm[Hg] [facility] diastolic Health blood pressure, 2021-04-20 16:50:04 116 mm[Hg] [facility] systolic Health pulse rate 2021-04-20 16:50:04 64 /min [facility] temperature E&M 2021-04-20 16:50:04 98.1 [degF] [facility] Health temperature site 2021-04-20 16:50:04 oral Lega cy [facility] Health weight E&M 2021-04-20 16:50:04 163 [lb_av] [facility] height E&M 2021-04-20 16:50:04 62.3 [in_i] [facility] Body Mass Index 2021-04-20 16:50:04 29.63 kg/m2 [facility] ([facility] Health temperature site 2021-04-20 16:50:04 oral Lega [facility] Health Systolic blood 2021-03-10 14:26:00 137 mm[Hg] [facility] pressure Diastolic blood 2021-03-10 14:26:00 88 mm[Hg] [facility] pressure Heart rate 2021-03-10 14:26:00 99 /min [facility] Body temperature 2021-03-10 14:26:00 36.56 Kisha [facility] Respiratory rate 2021-03-10 14:26:00 16 /min [facility] Oxygen saturation in 2021-03-10 14:26:00 97 /min [facility] Arterial blood by Pulse oximetry Body height 2021-03-10 11:15:00 157.5 cm [facility] Body weight 2021-03-10 11:15:00 81.647 kg [facility] BMI 2021-03-10 11:15:00 32.92 kg/m2 [facility] pulse rate 2021-03-03 09:45:41 85 /min [facility] temperature E&M 2021-03-03 09:45:41 98.2 [degF] [facility] Health blood pressure, 2021-03-03 09:45:41 75 mm[Hg] [facility] diastolic Health blood pressure, 2021-03-03 09:45:41 127 mm[Hg] [facility] systolic Health weight E&M 2021-03-03 09:45:41 190.0 [lb_av] [facility] temperature site 2021-03-03 09:45:41 oral Lega cy [facility] Health height E&M 2021-03-03 09:45:41 62.3 [in_i] [facility] Body Mass Index 2021-03-03 09:45:41 34.54 kg/m2 [facility] (Ratio) [facility] temperature site 2021-03-03 09:45:41 oral Lega [facility] Health Systolic (mm Hg) 2021-03-03 02:52:00 Teja [facility] [place] Diastolic (mm Hg) 2021-03-03 02:52:00 Mem [facility] [place] Temperature Oral (F) 2021-03-03 02:52:00 98.2 F [facility] Respitory Rate 2021-03-03 02:52:00 [facility] [place] Weight 2021-03-03 02:29:00 [facility] [place] Systolic (mm Hg) 2021-03-03 02:29:00 Teja [facility] Diastolic (mm Hg) 2021-03-03 02:29:00 Mem [facility] Heart Rate 2021-03-03 02:29:00 [facility] [place] Respitory Rate 2021-03-03 02:29:00 Memori al [facility] Temperature Oral (F) 2021-03-03 02:29:00 98.2 F [facility] [place] blood pressure, 2021-02-22 16:03:08 80 mm[Hg] [facility] diastolic [facility] blood pressure, 2021-02-22 16:03:08 130 mm[Hg] [facility] systolic Health pulse rate 2021-02-22 16:03:08 94 /min [facility] temperature E&M 2021-02-22 16:03:08 98.4 [degF] [facility] Health weight E&M 2021-02-22 16:03:08 189.8 [lb_av] [facility] temperature site 2021-02-22 16:03:08 oral Lega [facility] Health height E&M 2021-02-22 16:03:08 62.3 [in_i] [facility] Body Mass Index 2021-02-22 16:03:08 34.51 kg/m2 [facility] ([facility] temperature site 2021-02-22 16:03:08 oral Lega cy [facility] Health Height 2021-02-18 08:23:00 157.48 cm [facility] [place] BMI Calculated 2021-02-18 08:23:00 Ritu Walker Weight 2021-02-18 08:23:00 Phuc Son Systolic (mm Hg) 2021-02-18 08:23:00 Teja Son Diastolic (mm Hg) 2021-02-18 08:23:00 Pedro Son Heart Rate 2021-02-18 08:23:00 Phuc Son Respitory Rate 2021-02-18 08:23:00 Ritu Walker Temperature Oral (F) 2021-02-18 08:23:00 98.2 F [facility] blood pressure, 2021-02-15 10:30:42 80 mm[Hg] [facility] diastolic Health blood pressure, 2021-02-15 10:30:42 120 mm[Hg] [facility] systolic Health pulse rate 2021-02-15 10:30:42 97 /min [facility] temperature E&M 2021-02-15 10:30:42 99.6 [degF] [facility] Health weight E&M 2021-02-15 10:30:42 189.6 [lb_av] [facility] temperature site 2021-02-15 10:30:42 oral [facility] height E&M 2021-02-15 10:30:42 62.3 [in_i] [facility] Body Mass Index 2021-02-15 10:30:42 34.47 kg/m2 [facility] Health temperature site 2021-02-15 10:30:42 oral Lega [facility] Health pulse rate 2021-02-08 13:25:59 85 /min [facility] temperature E&M 2021-02-08 13:25:59 98.1 [degF] [facility] Health blood pressure, 2021-02-08 13:25:59 80 mm[Hg] [facility] diastolic Health blood pressure, 2021-02-08 13:25:59 119 mm[Hg] [facility] systolic Health weight E&M 2021-02-08 13:25:59 144 [lb_av] [facility] temperature site 2021-02-08 13:25:59 oral Lega [facility] height E&M 2021-02-08 13:25:59 62.3 [in_i] [facility] Health Body Mass Index 2021-02-08 13:25:59 26.18 kg/m2 [facility] (Ratio) [facility] site 2021-02-08 13:25:59 oral Lega [facility] Health blood pressure, 2021-01-08 10:15:00 75 mm[Hg] [facility] diastolic Health blood pressure, 2021-01-08 10:15:00 120 mm[Hg] [facility] systolic Health pulse rate 2021-01-08 10:15:00 80 /min [facility] temperature site 2021-01-08 10:15:00 oral Lega [facility] temperature E&M 2021-01-08 10:15:00 98.6 [degF] [facility] height E&M 2021-01-08 10:15:00 62.3 [in_i] [facility]&M 2021-01-08 10:15:00 183.8 [lb_av] [facility] Body Mass Index 2021-01-08 10:15:00 33.41 kg/m2 [facility] (Ratio) [facility] temperature site 2021-01-08 10:15:00 oral Lega [facility] temperature site 2020-12-25 13:48:49 oral Lega [facility] Health height E&M 2020-12-25 13:48:49 62.3 [in_i] [facility] Body Mass Index 2020-12-25 13:48:49 33.52 kg/m2 [facility] (Ratio) [facility] site 2020-12-25 13:48:49 oral Lega [facility] Health blood pressure, 2020-12-25 13:48:49 80 mm[Hg] [facility] diastolic Health blood pressure, 2020-12-25 13:48:49 122 mm[Hg] [facility] systolic Health pulse rate 2020-12-25 13:48:49 101 /min [facility] weight E&M 2020-12-25 13:48:49 184.4 [lb_av] [facility] temperature E&M 2020-12-25 13:48:49 98.0 [degF] [facility] Temperature Oral (F) 2020-08-07 09:58:00 99.0 F [facility] [place] Heart Rate 2020-08-07 09:09:00 [facility] Respitory Rate 2020-08-07 09:09:00 [facility] [place] Systolic (mm Hg) 2020-08-07 09:09:00 Teja [facility] [place] Diastolic (mm Hg) 2020-08-07 09:09:00 [facility] [place] Weight 2020-08-07 07:20:00 [facility] [place] Systolic (mm Hg) 2020-08-07 07:20:00 Teja [facility] Diastolic (mm Hg) 2020-08-07 07:20:00 [facility] [place] Heart Rate 2020-08-07 07:20:00 [facility] Respitory Rate 2020-08-07 07:20:00 [facility] Temperature Oral (F) 2020-08-07 07:20:00 99 F [facility] Temperature Oral (F) 2020-07-30 02:24:00 98.4 F [facility] Heart Rate 2020-07-30 02:24:00 [facility] Respitory Rate 2020-07-30 02:24:00 [facility] [place] Systolic (mm Hg) 2020-07-30 02:24:00 Teja [facility] Diastolic (mm Hg) 2020-07-30 02:24:00 [facility] [place] Weight 2020-07-29 22:43:00 [facility] [place] Systolic (mm Hg) 2020-07-29 22:43:00 Teja [facility] Diastolic (mm Hg) 2020-07-29 22:43:00 [facility] Heart Rate 2020-07-29 22:43:00 [facility] [place] Respitory Rate 2020-07-29 22:43:00 [facility] Temperature Oral (F) 2020-07-29 22:43:00 98.3 F [facility] pulse rate 2020-07-10 17:20:38 75 /min [facility] blood pressure, 2020-07-10 17:20:38 73 mm[Hg] [facility] diastolic Health blood pressure, 2020-07-10 17:20:38 112 mm[Hg] Legac [facility] systolic Health temperature E&M 2020-07-10 17:20:38 98.1 [degF] Leg y [facility] Health height E&M 2020-07-10 17:20:38 62.3 [in_i] [facility] weight E&M 2020-07-10 17:20:38 171.8 [lb_av] [facility] Health Body Mass Index 2020-07-10 17:20:38 31.23 kg/m2 [facility] ([facility] Health temperature site 2020-07-10 17:20:38 oral Lega cy [facility] Health temperature site 2020-07-10 17:20:38 oral Lega [facility] Health Systolic (mm Hg) 2020-07-08 08:37:00 Teja [facility] [place] Diastolic (mm Hg) 2020-07-08 08:37:00 Mem [facility] Heart Rate 2020-07-08 08:37:00 [facility] Respitory Rate 2020-07-08 08:37:00 [facility] Temperature Oral (F) 2020-07-08 08:37:00 98.1 F [facility] Weight 2020-07-08 05:30:00 [facility] Systolic (mm Hg) 2020-07-08 05:30:00 [facility] [place] Diastolic (mm Hg) 2020-07-08 05:30:00 [facility] [place] Heart Rate 2020-07-08 05:30:00 [facility] [place] Respitory Rate 2020-07-08 05:30:00 [facility] [place] Temperature Oral (F) 2020-07-08 05:30:00 98.5 F [facility] [place] BMI Calculated 2016-03-31 06:14:00 [facility] [place] Weight 2016-03-31 06:14:00 [facility] [place] Height 2016-03-31 06:14:00 162.48 cm [facility] [place] Temperature Oral (F) 2016-03-31 06:14:00 98.9 F [facility] [place] Systolic (mm Hg) 2016-03-31 06:14:00 Teja [facility] Diastolic (mm Hg) 2016-03-31 06:14:00 Pedro Son Heart Rate 2016-03-31 06:14:00 [facility] [place] Respitory Rate 2016-03-31 06:14:00 Ritu Walker Procedures Procedure Date / Time Performing Clinician Source Performed Urine - In 2023-01-16 15:51:10 [facility]23-01-14 15:38:03 Provider, [facility] Education/Supportive Health Services Health Counseling RESPIRATORY PATHOGEN 2022-04-20 20:55:00 [facility] PANEL WITH COVID-19 Vikas RT-PCR PREPARE RBC 2022-04-20 20:45:00 [facility] spital Vikas INFLUENZA ANTIGEN TEST, 2022-04-20 19:55:00 [facility] REFLEX NEGATIVE TO RPP Vikas COVID-19 QUALITATIVE 2022-04-20 19:54:00 [facility] RT-PCR Vikas TYPE AND SCREEN 2022-04-20 19:45:00 [facility] spital Vikas HEMOGLOBIN & HEMATOCRIT 2022-04-20 10:00:00 [facility] CBC WITH PLATELET AND 2022-04-20 03:58:00 [facility] DIFFERENTIAL SMEAR REVIEW 2022-04-20 03:58:00 [place] BLOOD CULTURE, AEROBIC & 2022-04-18 05:02:00 [facility] ANAEROBIC Vikas BLOOD CULTURE, AEROBIC & 2022-04-18 04:55:00 [facility] ANAEROBIC Vikas URINE CULTURE 2022-04-18 04:12:00 [facility] CBC WITH PLATELET AND 2022-04-18 03:56:00 [facility] Vikas XR CHEST 1 VW PORTABLE 2022-04-17 10:56:04 [facility] BASIC METABOLIC PANEL 2022-04-17 09:35:00 [facility] AND 2022-04-17 09:35:00 [facility] DIFFERENTIAL [facility] MAGNESIUM LEVEL 2022-04-17 09:35:00 [facility] PHOSPHORUS LEVEL 2022-04-17 09:35:00 [facility] IONIZED CALCIUM 2022-04-17 09:35:00 [facility] PROTHROMBIN TIME WITH INR 2022-04-17 09:35:00 [facility] ESTIMATED GFR 2022-04-17 09:35:00 [facility] CBC WITH PLATELET AND 2022-04-17 00:51:00 [facility] DIFFERENTIAL BASIC METABOLIC PANEL 2022-04-16 21:56:00 [facility] PROTHROMBIN TIME WITH INR 2022-04-16 21:56:00 Fredrick [facility] ESTIMATED GFR 2022-04-16 21:56:00 Fredrick [facility] spital XR CHEST 1 VW PORTABLE 2022-04-16 21:28:57 Elaine Viveros [facility] POC GLUCOSE 2022-04-16 21:14:00 MoodyElaine [facility] XR ABDOMEN 1 VW PORTABLE 2022-04-16 20:32:56 Viveros E[facility] URINE DRUGS OF ABUSE 2022-04-16 20:17:00 [facility] Elaine [facility] SCREEN SURGICAL PATHOLOGY 2022-04-16 19:58:00 [facility] Elaine [facility] REQUEST ND AN EMERGENT 2022-04-16 19:56:00 Robin Mendez [facility] ENDOTRACHEAL AIRWAY Evan LACTIC ACID LEVEL, SEPSIS 2022-04-16 19:02:00 Renetta Herrera [facility] - NOW AND REPEAT 2X EVERY Shakari 3 HOURS TYPE AND SCREEN, 2022-04-16 15:46:00 [facility] OBSTETRICAL PATIENT COVID-19 QUALITATIVE 2022-04-16 15:46:00 [facility] RT-PCR CBC WITH PLATELET AND 2022-04-16 15:46:00 [facility] DIFFERENTIAL HEPATITIS B SURFACE 2022-04-16 15:46:00 [facility] ANTIGEN ZZRAPID HIV 1 & 2 2022-04-16 15:46:00 [facility] SYPHILIS TREPONEMA SCREEN 2022-04-16 15:46:00 [place] WITH RPR CONFIRMATION (REVERSE ALGORITHM) ESTIMATED GFR 2022-04-16 15:45:00 [place] LACTIC ACID LEVEL, SEPSIS 2022-04-16 15:35:00 [facility] - NOW AND REPEAT 2X EVERY Shakari 3 HOURS US RENAL 2022-04-16 12:36:00 Frieda Dunne spital US LIMITED 2022-04-16 12:15:00 her [facility] BLOOD CULTURE, AEROBIC & 2022-04-16 10:42:00 [facility] ANAEROBIC Shakari BLOOD CULTURE, AEROBIC & 2022-04-16 10:36:00 [facility] ANAEROBIC Shakari URINE CULTURE 2022-04-16 10:23:00 [facility] ospital Shakari URINALYSIS SCREEN AND 2022-04-16 10:02:00 [facility] MICROSCOPY, WITH REFLEX Shakari TO CULTURE LACTIC ACID LEVEL, SEPSIS 2022-04-16 09:43:00 [facility] - NOW AND REPEAT 2X EVERY Shakari 3 HOURS CBC WITH PLATELET AND 2022-04-16 09:43:00 [facility] DIFFERENTIAL Shakari COMPREHENSIVE METABOLIC 2022-04-16 09:43:00 [facility] PANEL Shakari PROTHROMBIN TIME WITH INR 2022-04-16 09:43:00 [facility] Yang PARTIAL THROMBOPLASTIN 2022-04-16 09:43:00 [facility] (PTT[facility] Richiesujit ESTIMATED GFR 2022-04-16 09:43:00 Renetta Herrera H ospital Yang Addl Ix admin via ID IM 2022-03-22 13:17:13 Monty Devine [facility] or jet injects with Health counseling by physician for adult Fluzone Quadrivalent IM 2022-03-22 13:17:13 Monty Devine [facility] Prefilled Syringe 0.5 mL Health (PF) First Ix admin via ID IM 2022-03-22 12:36:26 Monty Devine [facility] or jet injects with Health counseling by physician for adult Adacel Intramuscular 2022-03-22 12:36:26 Monty Devine [facility] Suspension 5-2-15.5 Health Vaccines Ordered - Print 2022-03-22 12:36:12 Devine [facility] Consent/Declination Forms Health Health 2021-09-04 15:30:57 Provider, [facility] [employer] [facility] Education/Supportive Health Services Health Counseling Consultation 2021-04-20 17:42:42 Latha Hayes [facility] (DOCTOR OF DENTAL MEDICINE Only) Health XR CHEST 2 VW 2021-03-10 13:19:[address] [facility] PELVIS W 2021-03-10 13:18:37 [facility] CONTRAST COVID-19 QUALITATIVE 2021-03-10 12:36:00 Uma Rios [facility] RT-PCR URINE CULTURE 2021-03-10 12:24:00 [facility] URINALYSIS 2021-03-10 12:24:00 [facility] HCG QUALITATIVE, URINE 2021-03-10 12:24:00 [facility] SCREEN BLOOD CULTURE, AEROBIC & 2021-03-10 12:15:00 [facility] BLOOD CULTURE, AEROBIC & 2021-03-10 12:02:00 CharyBarak mcgee [facility] ANAEROBIC RESPIRATORY PATHOGEN 2021-03-10 11:48:00 CharyBarak mcgee [facility] PANEL WITH COVID-19 RT-PCR INFLUENZA ANTIGEN 2021-03-10 11:48:00 ChrayBarak mcgee [facility] LACTIC ACID, I-STAT 2021-03-10 11:48:00 CharyBarak mcgee [facility] MANUAL DIFFERENTIAL 2021-03-10 11:48:00 CharyBarak [facility] CBC WITH PLATELET AND 2021-03-10 11:48:00 CharyBarak [facility] DIFFERENTIAL COMPREHENSIVE METABOLIC 2021-03-10 11:48:00 CharyBarak mcgee [facility] PANEL AMYLASE LEVEL 2021-03-10 11:48:00 CharyBarak mcgee [facility] ESTIMATED GFR 2021-03-10 11:48:00 CharyBarak mcgee [facility] [id number] 2021-03-05 00:00:00 ALEXYS [facility] 2021-01-08 09:26:45 Provider, [facility] [employer] Education/Supportive Health Services Health Counseling Consultation 2021-01-08 09:25:26 Provider, Darlin barros [facility] Health AUTHORIZATION FOR RELEASE 2021-01-05 05:01:00 Doctor Unassigned, [facility] OF [facility] Consultation 2020-12-25 14:25:16 Gavi Devine [facility] (DOCTOR OF DENTAL MEDICINE Only) Health Becoming A Mom 2020-12-25 14:25:16 aGvi Devine [facility] First Vx - Ix admin via 2020-12-25 14:07:15 Gavi Devine [facility] ID IM or jet injects Health without counseling by physician Adacel Intramuscular 2020-12-25 14:06:03 Gavi Devine [facility] Suspension 5-2-15.5 Health Vaccines Ordered - Print 2020-12-25 14:06:03 Gavi Devine [facility] Consent/Declination Forms Health MEDICAL RELEASE/CLEARANCE 2020-11-14 05:01:00 Doctor Unassigned, [facility] FORMS [facility] [place] MEDICAL RELEASE/CLEARANCE 2020-10-16 05:01:00 Doctor Unassigned, [facility] FORMS [place] [facility] EXTERNAL PROVIDER RECORDS 2020-10-13 05:01:00 Doctor Unassigned, [facility] [place] ADC CLC OR LCC ONLY - WET 2020-10-12 17:32:00 [facility] 2020-10-12 16:05:00 Noni Hobson [place] o f [facility] COVID-19 (ID NOW RAPID 2020-10-12 16:05:00 Noni Hobson [facility] TESTING) [facility] POCT TEST 2020-10-02 19:34:00 Noni Hobson [facility] POCT URINALYSIS W/O 2020-10-02 19:33:00 Noni Hobson [facility] SPECIFIC GRAVITY [facility] [place] Vaccines Ordered - Print 2020-07-10 19:01:01 Monty Devine [facility] Consent/Declination Forms Health [employer] 2020-07-10 19:01:01 Monty Devine [employer] - [employer]at 2020-07-10 19:01:01 Monty Devine [facility] Education Class Health Becoming A Mom 2020-07-10 19:01:01 [facility]ty Devine [employer] [facility] of 2020-07-10 19:00:56 Monty Devine [facility] Uterus- 1st trimester Health First Vx - Ix admin via 2020-07-10 18:41:44 Monty Devine [facility] ID IM or jet injects Health without counseling by physician Fluzone Quadrivalent IM 2020-07-10 18:41:44 Monty Devine [facility] Prefilled Syringe 0.5 mL Health (PF) Health 2020-06-29 16:29:05 Provider, [facility] [employer] [place] Education/Supportive Health Services Health Counseling DELIVERY, Elaine Viveros [facility] Plan of Care Planned Activity Planned Date Details Comments Source Future Scheduled 2023-03-16 IMM Influenza Chu Hea lt Test 00:00:00 Seasonal (>/= 19 yrs) [code = IMM Influenza Seasonal (>/= 19 yrs)] Future Scheduled 2023-03-02 [facility] Test 22:08:15 screening (procedure) [code = [id number]] Future Scheduled 2023-03-02 [facility] Test 22:08:15 malignant neoplasm of cervix (procedure) [code = 259904236] Future Scheduled 2023-03-02 COVID-19 VACCINE (2 [facility] 22:08:15 - Moderna series) [code = COVID-19 VACCINE (2 - Moderna series)] Future Scheduled 2023-03-02 INFLUENZA VACCINE [facility] 22:08:15 (#1) [code = INFLUENZA VACCINE (#1)] Future Scheduled 2018 [facility] 00:[facility]:00 malignant neoplasm of cervix (procedure) [code = 433549709] Future Scheduled 2018 [facility] 00:00:00 malignant neoplasm of cervix (procedure) [code = 959718749] Future Scheduled 1997 COVID-19 Vaccine [facility] 00:00:00 (#1) [code = COVID-19 Vaccine (#1)] Future Scheduled CHLAMYDIA SCREENING [facility] [code = CHLAMYDIA SCREENING] Future Scheduled COVID-[address] [facility] (1) [code = COVID-19 VACCINE (1)] Future Scheduled [facility] (procedure) [code = 288993246] Future Scheduled [facility] malignant neoplasm of cervix (procedure) [code = 276678037] Future Scheduled INFLUENZA VACCINE [facility] [code = INFLUENZA VACCINE] Encounters Start End Encounter Admission Attending Care Care Encounter Source Date/Time Date/Time Type Type Clinicians Facility Department ID 2023-02-11 Outpatient lc.ttarrant [facility] [id number] [place] 12:55:03 [id number] [facility] 2023-01-24 Outpatient lc.ttarrant [facility] [id number] [facility] 12:29:00 [id number] [facility] 2023-01-15 Outpatient lc.swright [facility] [id number] [facility] 18:03:03 [id number] [facility] 2023-01-[address] [id number] [facility] 15:11:07 77469 [facility] 2022-10-[address] [id number] [facility] 05:03:34 [id number] [facility] 2022-07-[address] [id number] [facility] 06:25:12 [id number] [facility] 2022-05-[address] [id number] [facility] 13:51:09 [id number] [facility] 2022-05-06 Inpatient Elective Harms, [facility] [id number] [facility] 00:00:00 Vito 20 2022-04-[address] [id number] [facility] 18:39:02 [id number] [facility] 2022 Inpatient Elective Harms, [facility] [id number] [facility] 10:00:00 Vito 85 2022-04-[address] [id number] [facility] 07:57:03 [id number] [facility] 2022-04-16 Emergency HFD HFD [id number] JUNG - 05:00:08 [place] [facility] ent 2022-02-01 Outpatient [facility] [id number] [place] 15:05:56 [id number] [facility] 2022-01-22 Outpatient [facility] [id number] [place] 13:36:49 [id number] [facility] 2022-01-17 Outpatient [facility] [id number] [place] 10:47:38 [id number] [facility] 2022-01-14 Outpatient [facility] [id number] [place] 10:53:23 [id number] [facility] 2021-12-20 Outpatient [facility] [id number] [place] 08:54:50 [id number] [facility] 2021-12-19 Outpatient [facility] [id number] [place] 09:26:43 [id number] [facility] 2021-12-19 Outpatient BALDEV WALDRON [facility] [id number] 08:28:56 ALEXIS 2021-04-15 Outpatient U [facility] ERT [id number] Univers 16:09:54 [facility] 2021-04-15 Emergency [facility] [id number] Univers 16:04:08 [facility] 2020-12-29 Inpatient VANITA [facility] 1197 [facility] 10:54:40 ALEXIS 2023-01-16 2023-01-19 In-person Deb Buchanan [facility] Legacy [id number] Legacy 00:00:00 00:00:00 encounter Meagan Kumar [id number] Karie Lock Tyrasb Leroy ty Rubens, [place] supervisor plasma [facility] 2023-01-16 2023-01-19 In-person Deb Buchanan [facility] Legacy Encounter/ Legacy 00:00:00 00:00:00 encounter Meagan Kumar [id number] Karie Lock Tyrasb Leroy [id number] ty Art, [place] supervisor plasma [facility] 2022-09-12 2022-09-13 Emergency E JAVIER, [facility] 7510 [facility] 18:40:00 02:01:00 BRADFORD 2022-07-05 2022-07-05 Emergency E NDUM, [facility] 7509 [facility] 17:23:00 22:12:00 DAVID 2022-04-16 2022-04-21 [facility] Frieda 1.2.840.1 [id number] Methodi 04:22:00 13:40:00 Encounter Elaine Viveros 16608.1.[address] 3.430.2.7 Hospit a .3.122291 l .8 2022-04-21 2022-04-21 Documentat Provider, 1.2.840.1 [id number] Methodi 00:00:00 00:00:00 ion Rosa 38456.1.[address] 3.430.2.7 Hospit a .3.276484 l .8 2022-04-16 2022-04-21 Inpatient [facility] 001 [id number] [place] 00:00:00 00:00:[address] [facility] [address] 2022-04-16 2022-04-16 Anesthesia Robin Mendez 1.2.840 .1 [id number] Methodi 14:50:00 16:03:00 Event Nay Fried 39895.1.1 484 s t 3.430.2.7 Hospit a .3.407742 l .8 2022-04-16 2022-04-16 Surgery Viveros, 1.2.840.1 [id number] 0424 Methodi 00:00:00 00:00:00 Elaine Peters 05137.1.[address] 3.430.2.7 Hospit a .3.070797 l .8 2022-04-16 2022-04-16 Travel 1.2.840.1 1.2.851.631 6680 [id number] Methodi 00:00:00 00:00:[address] 3.430.2.7 0.2.7.3.698 Ho spita .3.044676 084.8 l .8 2022-04-14 2022-04-14 Outpatient Urgent Harms, [facility] [id number] [facility] 16:13:00 18:08:00 Vito Service 42 2022-04-14 2022-04-14 Outpatient [facility] [id number] [facility] 16:13:00 16:13:00 42 2022-04-12 2022-04-12 In-person Monty Devine [facility] [id number] [place] 00:00:00 00:00:00 [place] [id number] [facility] 2022-04-12 2022-04-12 In-person Monty Devine [facility] Encounter/ Legacy 00:00:00 00:00:00 encounter Lizzy Willard OB [id number] Communi [id number] [facility] 2022-04-08 2022-04-10 In-person Nehal [facility] [id number] [facility] 00:00:00 00:00:00 [place] [address] Communi Cinthia Grace [facility] 2022-03-22 2022-03-22 In-person Monty Devine [facility] Encounter/ Legacy 00:00:00 00:00:00 encounter Grace Cinthia OB [id number] Communi [id number] Health 2022-03-22 2022-03-22 In-person Monty Devine [facility] [id number] [facility] 00:00:00 00:00:00 [place] [address] [facility] 2022-02-21 2022-02-21 Outpatient [facility] [id number] [place] 00:00:00 00:00:00 SALLIE [address] 2022-01-23 2022-01-24 Emergency E ALAN, [place] 7508 Memoria 22:34:00 01:25:00 MANDA hartman 2022-01-22 2022-01-22 Outpatient [facility] [id number] [place] 15:30:00 16:16:23 Health 2022-01-21 2022-01-21 Office Monty Devine [facility] En counter/ Legacy 00:00:00 00:00:00 Visit Melly Costa [id number] [facility] AngyJana [id number] Health 2022-01-21 2022-01-21 In-person Monty Devine [facility] [id number] [facility] 00:00:00 00:00:00 encounter Melly Costa OB 208 08 [facility] 2021-11-27 2021-11-28 Office Carrie Correa [facility] En counter/ Legacy 00:00:00 00:00:00 Visit Acosta Soares [id number] Communi [id number] Health 2021-11-27 2021-11-28 In-person Carrie Correa [facility] [id number] [facility] 00:00:00 00:00:00 [place] [address] Communi Yamilex Haines ty [facility] 2021-10-30 2021-10-30 Emergency CHARY, [facility] [id number] [place] 00:00:00 00:00:00 BARAK 613 Method i 2021-06-27 2021-06-27 Emergency [facility] [id number] [place] 20:56:00 20:57:00 [facility] 2021-06-27 2021-06-27 Emergency [facility] [id number] [place] 00:00:00 00:00:00 [facility] 2021-06-25 2021-06-25 Emergency JUHI, [facility] 064 [id number] [place] 00:00:00 00:00:00 ELI 843 Method i 2021-05-24 2021-05-26 Outpatient TAMMY, [facility] 401 [id number] [place] 00:00:00 00:00:00 OZ 061 Method i 2021-04-20 2021-04-20 Office Latha Hayes [facility] En counter/ Legacy 00:00:00 00:00:00 Visit Mirtha Lind 19 [id number] Lizzy Lofton [id number] [facility] 2021-04-20 2021-04-20 In-person Latha Hayes Octaviano [facility] [id number] [facility] 00:00:00 00:00:00 [place] [address] Gisela Gannon ty Lizzy Willard [facility] 2021-04-05 2021-04-05 Inpatient EM Jd [facility] [id number] [facility] 01:10:00 04:00:00 Berto Viviane [facility] 2021-03-11 2021-03-17 Inpatient EM Shahramerrol [facility] OB [id number] [facility] 08:40:00 11:24:00 Nathan 01 [facility] 2021-03-10 2021-03-10 Emergency Barak Diez 1.2.840.1 10 [id number] Methodi 06:11:00 10:28:00 Uma Rios 30133.1.1 280 3.430.2.7 Hospit a .3.162073 l .8 2021-03-10 2021-03-10 Travel 1.2.840.1 1.2.372.513 7139 [id number] Methodi 00:00:00 00:00:[address] 3.430.2.7 0.2.7.3.698 Ho spita .3.439928 084.8 l .8 2021-03-04 2021-03-08 Inpatient EM Luisito Wu [facility] PHILIP [id number] [facility] 10:49:00 11:39:00 10 Woman[facility] 2021-03-06 2021-03-06 Outpatient Laureen Gerardo [facility] [id number] [facility] 22:49:00 22:49:[address] [facility] 2021-03-03 2021-03-03 Inpatient EM Noé [facility]IP [id number] [facility] 20:33:00 21:17:00 Gavi 53 [facility] 2021-03-03 2021-03-03 Emergency Critical access hospital [id number] [facility] 02:26:00 03:19:00 r Huy 07 l [facility] 2021-03-03 2021-03-03 In-person Monty Devine [facility] Seferino dong Encounter/ Legacy 00:00:00 00:00:00 encounter Lavinia Pillai OB [id number] Yessica Osman [id number] [facility] 2021-03-02 2021-03-02 Emergency E VANITA [facility] 7507 [facility] 21:26:00 22:19:00 [facility] 2021-01-31 2021-03-02 Recurring Critical access hospital 88982 12827 [facility] 18:43:00 04:59:00 r Huy 00 l [facility] 2021-01-31 2021-03-01 Outpatient VANITA [facility] 9600 [facility] 13:43:00 23:59:00 [facility] 2021-02-22 2021-02-22 Office Monty Devine [facility] En counter/ Legacy 00:00:00 00:00:00 Visit Flaquito Casey 74696 38885 [facility] 003570 [facility] 2021-02-22 2021-02-22 In-person Monty Devine Seferino dong [id number] Legacy 00:00:00 00:00:00 encounter CarmelaFlaquito OB 109 09 [facility] 2021-02-18 2021-02-18 Emergency Critical access hospital 08740 67943 Memoria 08:01:37 08:56:00 r Huy 06 l [facility] 2021-02-18 2021-02-18 Emergency E VANITA, [facility] 7506 [facility] 03:01:00 03:56:00 ALEXIS 2021-02-15 2021-02-15 Office Korey Costello [facility] Encounter/ Legacy 00:00:00 00:00:00 Visit Courtney Valdovinos [id number] [facility] 133929 ty Health 2021-02-15 2021-02-15 In-person Korey Costello [facility] [id number] Legacy 00:00:00 00:00:00 encounter Courtney Valdovinos OB 1090 2 [facility] ty Health 2021-02-08 2021-02-08 Office Monty Devine [facility] En counter/ Legacy 00:00:00 00:00:00 Visit Yessica Simpson 810125 8420 [facility] 539662 ty Health 2021-02-08 2021-02-08 In-person Monty Devine [facility] [id number] [facility] 00:00:00 00:00:00 [place] [address] [facility] Yessica Simpson Health 2021-01-08 2021-01-08 Office Gavi Devine [facility] E ncounter/ Legacy 00:00:00 00:00:00 Visit Luisa Shahid [id number] Lizzy Lofton [id number] Health 2021-01-08 2021-01-08 In-person Gavi Devine [facility] [id number] [facility] 00:00:00 00:00:00 [place] [address] Lizzy Lofton Health 2021-01-05 2021-01-05 Orders Doctor ALEXIS 1.2.840.114 [id number] Univers 00:00:00 00:00:00 Only Unassigned, FLORENTINO 350.1.13.10 ity of [place] [facility] 4.2.7.2.686 Eliseo as [phone] [address] 2020-12-25 2020-12-25 In-person Sybil Gavi [facility] [id number] Legacy 00:00:00 00:00:00 encounter Courtney Valdovinos OB 1071 2 Elaynei Sabrina Mansfield Gisela Moyer 2020-12-25 2020-12-25 Office Gavi Devine [facility] E ncounter/ Legacy 00:00:00 00:00:00 Visit Courtney Valdovinos [id number] 6956 Karie 597108 [facility] 2020-12-21 2020-12-22 [facility] 7505 [facility] 23:43:00 01:16:00 [facility] 2020-12-01 2020-12-01 [facility] 7504 [facility] 21:53:00 23:59:00 [facility] 2020-11-30 2020-11-30 Outpatient R ALYSSA TANJA [facility] [id number] Univers 14:30:00 14:30:00 ity [facility] 2020-11-23 2020-11-23 Outpatient R ALYSSABEATRIZN [facility] [id number] Univers 14:30:00 14:30:00 ity [facility] 2020-11-20 2020-11-20 Outpatient R ALYSSA TANJA [facility] [id number] Univers 14:30:00 14:30:00 ity [facility] 2020-11-14 2020-11-14 Orders Doctor ALEXIS 1.2.840.114 [id number] Univers 00:00:00 00:00:00 Only Unassigned, FLORENTINO 350.1.13.10 ity [place] [facility] 4.2.7.2.686 Eliseo as [phone] [address] 2020-11-09 2020-11-09 Outpatient R BEATRIZ SHAHN [facility] [id number] Univers 13:00:00 13:00:00 ity [facility] 2020-11-02 2020-11-02 Outpatient R TANJA SAHH [facility] [id number] Univers 14:30:00 14:30:00 ity [facility] 2020-10-31 2020-10-31 Soft Water Mechanic Ultrasound, Roberta [facility] 1.2 .840.114 [id number] Univers 14:09:40 15:09:40 Visit Collins Mayfield [employer] 350.1.13.10 ity [facility] 4.2.7.2.686 Eliseo as MATERNAL [phone] Med ical & CHILD [address] [place] [address] 2020-10-31 2020-10-31 Outpatient P [facility] [id number] Univers 14:00:00 14:00:00 ity [facility] 2020-10-30 2020-10-30 Outpatient R NONI HOBSON [facility] [id number] Univers 15:30:00 15:30:00 ity [facility] 2020-10-20 2020-10-20 Telephone Noni Hobson [facility] 1.2.840.114 [id number] Univers 00:00:00 00:00:00 [place] 350.1.13.10 i ty of [place] [phone] N[place] dic[address] 2020-10-18 2020-10-18 Telephone Hobson Noni [facility] 1.2.840.114 [id number] Univers 00:00:00 00:00:00 Cam [place] 350.1.13.10 i ty of [place] [phone] Nv dical nal [address] [place] [address] 2020-10-17 2020-10-17 Telephone Leonid Noni [facility] 1.2.840.114 [id number] Univers 00:00:00 00:00:00 Cam [place] 350.1.13.10 i ty of [place] 4[place]7.2.[place] [phone] Nv dicne nal [address] [place] [address] 2020-10-16 2020-10-16 Orders Doctor ALEXIS 1.2.840.114 [id number] Univers 00:00:00 00:00:00 Only Unassigned, FLORENTINO 350.1.13.10 ity of [place] [facility] 4.2.7.2.686 Eliseo as [phone] [facility] 00[address] [place] 2020-10-13 2020-10-13 Orders Doctor VANESA 1.2.840.114 [id number] Univers 00:00:00 00:00:00 Only Unassigned, FLORENTINO 350.1.13.10 ity of [place] [facility] 4.2.7.2.686 Eliseo as [phone] [facility] 009 [place] 2020-10-13 2020-10-13 Telephone Noni Hobson [facility] 1.2.840.114 [id number] Univers 00:00:00 00:00:00 Cam [place] 350.1.13.10 i ty [place].2.[place] [phone] N[place] dic[address] 2020-10-12 2020-10-12 Emergency Noni Hobson [facility] 1.2.840.114 [id number] Univers 09:48:00 12:45:00 Cam Ezra 350.1.13.10 i ty of [place].2.[place] [phone] [facility] [address]83 [place] 2020-10-10 2020-10-10 Outpatient R MATTHEW [facility] [id number] Univers 11:15:00 11:15:00 FLAQUITO yost of [facility] 2020-10-04 2020-10-04 Case Matthew [facility] 1.2.256.527 [id number] Univers 00:00:00 00:00:00 Management Flaquito Munguia 350.1.13.10 it[place].2.[place] [phone] Nv dical nal 134 [facility] 2020-10-02 2020-10-02 Soft Water Mechanic Cyril, [place] [facility] Main [facility] 1.2.8 40.114 [id number] Univers 16:04:43 16:19:43 Visit Noni Hobson 350.1.13.10 it[place] of [place].7.2.[place] [phone] Nv dical nal 353 [facility] 2020-10-02 2020-10-02 Initial Noni Hobson [facility] 1.2.838.802 [id number] Univers 14:17:16 15:41:44 Cam Ezra 350.1.13.10 ity of Visit [place].7.2.[place] [phone] Nv dical nal 134 [facility] 2020-10-02 2020-10-02 Outpatient R NONI HOBSON [facility] [id number] Univers 14:15:00 14:15:00 [facility] 2020-09-25 2020-09-25 Outpatient R SONI [facility] [id number] Univers 18:00:00 18:00:00 LYRIC [facility] 2020-09-20 2020-09-20 Outpatient R YONI [facility] [id number] Univers 14:30:00 14:30:00 DEEPIKA [facility] 2020-09-07 2020-09-07 Outpatient R ALYSSA TANJA [facility] [id number] Univers 10:30:00 10:30:00 [facility] 2020-08-10 2020-08-[address] [facility]/ Legacy 00:00:00 00:00:00 Visit Lorelei valdez [id number] C ommuni 838420 [facility] 2020-08-10 2020-08-10 Office Mp [facility] Encoun ter/ Legacy 00:00:00 00:00:00 Visit Lorelei valdez [id number] C ommuni 454946 [facility] 2020-08-07 2020-08-07 Emergency Critical access hospital 75108 05320 [facility] 07:18:07 10:08:00 patrick Son 03 l [facility] 2020-08-07 2020-08-07 Emergency Charline LENTZ NEETA [facility] 7503 [facility] 01:18:00 04:08:00 CLAIRE 2020-08-04 2020-08-04 Office Mp [facility] Encoun ter/ Legacy 00:00:00 00:00:00 Visit Lorelei valdez [id number] C ommuni 274691 ty Health 2020-07-29 2020-07-30 Emergency Critical access hospital 90292 52232 Memoria 22:36:22 02:28:00 patrick Son 02 l [facility] 2020-07-28 2020-07-28 Office Mp MATOS Encoun ter/ Legacy 00:00:00 00:00:00 Visit Lorelei valdez [id number] C ommuni 521702 ty Health 2020-07-11 2020-07-11 Office CARLO Devine Encounter/ Legacy 00:00:00 00:00:00 Visit Monty [id number] Com zoila 040310 ty Health 2020-07-11 2020-07-11 Office CARLO Devine Encounter/ Legacy 00:00:00 00:00:00 Visit Monty [id number] Com zoila 797497 ty Health 2020-07-11 2020-07-11 Office CARLO Devine Encounter/ Legacy 00:00:00 00:00:00 Visit Monty [id number] Com zoila 963842 ty Health 2020-07-11 2020-07-11 Office CARLO Devine Encounter/ Legacy 00:00:00 00:00:00 Visit Monyt [id number] Com zoila 275299 ty Health 2020-07-10 2020-07-10 Office Monty Devine En counter/ Legacy 00:00:00 00:00:00 Visit Yuliet Bucio 537215 9195 Lorelei Ojeda 716 500 ty Jamal Simpsonie Health 2020-07-10 2020-07-10 Office CARLO Pro Encounter / Legacy 00:00:00 00:00:00 Visit Darlin [id number] Com zoila 275368 ty Health 2020-07-10 2020-07-10 Office CARLO Devine Encounter/ Legacy 00:00:00 00:00:00 Visit Monty [id number] Com zoila 203969 ty Health 2020-07-10 2020-07-[address] [facility]/ Legacy 00:00:00 00:00:00 Visit Monty [id number] Com zoila 477508 ty Health 2020-07-10 2020-07-[address] [facility] Encounter/ Legacy 00:00:00 00:00:00 Visit Monty [id number] Com zoila 664774 ty Health 2020-07-10 2020-07-10 In-person Monty Devine [facility] [id number] Legacy 00:00:00 00:00:00 encounter Yuliet Bucio OB 1012 5 Communi Evon, Gisela Palacios Natalie 2020-07-08 2020-07-08 [facility] 46616 01594 Memoria 05:28:36 09:18:00 patrick Son 01 l [facility] 2020-07-07 2020-07-07 Office Puma [facility] Encoun er/ Legacy 00:00:00 00:00:00 Visit Lindy [id number] Com zoila 707453 ty Health 2020-07-07 2020-07-07 Office Meek [facility] Encounter / Legacy 00:00:00 00:00:00 Visit Danielle [id number] C ommuni 902302 ty Health 2020-07-04 2020-07-04 Office Mariajose [facility] Encounter/ Legacy 00:00:00 00:00:00 Visit Lilliana [id number] Com zoila 816135 ty Health 2020-06-29 2020-06-29 Office Provider, Public [facility] Services Javier [facility] Encounter/ Legacy 00:00:00 00:00:00 Visit Codi Rinaldi 05091 49684 Communi 871687 ty Health 2020-06-29 2020-06-29 Office CARLO Rinaldi [facility] Encounter/ Legacy 00:00:00 00:00:00 Visit Codi [id number] Co mmuni 134697 [facility] 2016-03-31 2016-03-31 Emergency nullFlavo [facility] 88430 80424 Memoria 05:34:00 11:16:00 patrick Son 00 l [facility] [place] [facility] Results Test Description Test Time Test Comments Results Result Comments Source urine culture 2023-01-16 16:51:00 Test Item Value Reference Range Interpretation Comme nts urine culture (test code = 630-4) 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 [facility] [id number] 16:51:00 Test Item Value Reference Range Interpretation Comments Rh antigen (test code = 255) RH(D) POSITIVE [facility] [id number] 16:51:00 Test Item Value Reference Range Interpretation Comments ABO blood group (test code = 116) O [facility] [id number] 16:51:00 Test Item Value Reference Range Interpretation Comments Rh antibody (test code NO ANTIBODIES DETECTED N = 256) [facility] pallid[facility] particle agglutination assay (TPPA test)2023-01-16 16:51:00 Test Item Value Reference Range Interpretation Comments Treponema pallidum particle NEGATIVE NEGATIVE N agglutination assay (TPPA test) (test code = 66716-5) [facility] fet[facility], maternal ,serum, multiples of median 2023-01-16 16:51:00 Test Item Value Reference Range Interpretation Comments alpha-1 fetoprotein, maternal 1.04 (?) ,serum, multiples of median (test code = 4302) [facility] fet[facility], [id number] 16:51:00 Test Item Value Reference Range Interpretation Comments alpha-1 fetoprotein, serum (test 44.8 ng/mL code = 2754) [facility] of [id number] 16:51:00 Test Item Value Reference Range Interpretation Comments alpha-fetoprotein Screen negative for interpretation of results open NTD. (test code = 8076) [facility], [id number] 16:51:00 Test Item Value Reference Range Interpretation Comments hepatitis C antibody, serum NON-REACTIVE NON-REACTIVE N (test code = 00681-3) [facility]patitis B surface vbgglmv4201-01-01 16:51:00 Test Item Value Reference Range Interpretation Comments hepatitis B surface antigen NON-REACTIVE NON-REACTIVE N (test code = 96845-3) [facility] Islandbasophils as percent of blood recjtexmhx9921-92-75 16:51:00 Test Item Value Reference Range Interpretation Comments basophils as percent of blood 0.1 % N leukocytes (test code = 707-0) [facility] Healtheosinophils as percent of blood mytzomdbqm7061-27-00 16:51:00 Test Item Value Reference Range Interpretation Comments eosinophils as percent of blood 1.0 % N leukocytes (test code = 714-6) [facility] Healthmonocytes as percent of blood ykxqayqzpe1094-08-49 16:51:00 Test Item Value Reference Range Interpretation Comments monocytes as percent of blood 4.1 % N leukocytes (test code = 5905-5) [facility]lymphocytes as percent of blood qkguwrgsna0281-67-43 16:51:00 Test Item Value Reference Range Interpretation Comments lymphocytes as percent of blood 23.2 % N leukocytes (test code = 736-9) [facility] Islandneutrophils as percent of blood ukjgdeqdyw8494-26-04 16:51:00 Test Item Value Reference Range Interpretation Comments neutrophils as percent of blood 71.6 % N leukocytes (test code = 770-8) [facility]basophil count, rjkqmxfx5009-50-37 16:51:00 Test Item Value Reference Range Interpretation Comments basophil count, absolute (test 7 cells/uL 0-200 N code = 36607-6) [facility] IslandAbsolute Eosinophil cqorq8998-38-70 16:51:00 Test Item Value Reference Range Interpretation Comments Absolute Eosinophil count (test 73 cells/mcL 15-500 N code = 84475-7) [facility] Monocyte ujyab9398-94-78 16:51:00 Test Item Value Reference Range Interpretation Comments Absolute Monocyte count (test 299 cells/mcL 200-950 N code = 87839-1) [facility] Islandlymphocytes, mosqxdum0463-39-24 16:51:00 Test Item Value Reference Range Interpretation Comments lymphocytes, absolute (test 1694 CELLS/UL 850-3900 N code = 84876-1) [facility]Absolute Neutrophil iwgfd4820-51-06 16:51:00 Test Item Value Reference Range Interpretation Comments Absolute Neutrophil count 5227 cells/mcL 6761-1970 N (test code = 06034-7) [facility] Islandmean platelet cceota8665-66-85 16:51:00 Test Item Value Reference Range Interpretation Comments mean platelet volume (test code = 10.2 fL 7.5-12.5 N 776-5) [facility] Islandplatelet xtwxe3558-23-92 16:51:00 Test Item Value Reference Range Interpretation Comments platelet count (test code = 327 THOUSAND/UL 140-400 N 777-3) [facility] Islandred blood cell distribution ymsvg0174-58-69 16:51:00 Test Item Value Reference Range Interpretation Comments red blood cell distribution width 13.8 % 11.0-15.0 N (test code = 788-0) [facility] corpuscular hemoglobin concentration, NJW0216-30-22 16:51:00 Test Item Value Reference Range Interpretation Comments mean corpuscular hemoglobin 32.4 G/DL 32.0-36.0 N concentration, RBC (test code = 786-4) [facility] corpuscular hemoglobin, [id number] 16:51:00 Test Item Value Reference Range Interpretation Comments mean corpuscular hemoglobin, RBC 26.5 pg 27.0-33.0 L (test code = 785-6) [facility], QKP0500-27-93 16:51:00 Test Item Value Reference Range Interpretation Comments mean corpuscular volume, RBC (test 81.9 fL 80.0-100.0 N code = 787-2) [facility] Islandhematocrit, gnxvm5027-92-04 16:51:00 Test Item Value Reference Range Interpretation Comments hematocrit, blood (test code = 4544-3) 35.8 % 35.0-45.0 N [facility] Islandhemoglobin, tloex2686-45-42 16:51:00 Test Item Value Reference Range Interpretation Comments hemoglobin, blood (test code = 11.6 g/dL 11.7-15.5 L 718-7) [facility] Islanderythrocyte (RBC) kptsv7721-21-48 16:51:00 Test Item Value Reference Range Interpretation Comments erythrocyte (RBC) count (test 4.37 MILLION/UL 3.80-5.10 N code = 789-8) [facility] Islandleukocyte count, zebdt4411-72-13 16:51:00 Test Item Value Reference Range Interpretation Comments leukocyte count, blood (test 7.3 THOUSAND/UL 3.8-10.8 N code = 6690-2) [facility] IslandNeisseria gonorrhoeae DNA sbuap7432-07-74 16:51:00 Test Item Value Reference Range Interpretation Comments Neisseria gonorrhoeae DNA probe NOT DETECTED NOT DETECTED N (test code = 67798-8) [facility] Islandchlamydia DNA [id number] 16:51:00 Test Item Value Reference Range Interpretation Comments chlamydia DNA probe (test code = NOT DETECTED NOT DETECTED N 81808-5) [facility] IslandHIV-CMIA (Chemiluminescent Microparticle Immuno Assay) 2023-01-16 16:51:00 Test Item Value Reference Range Interpretation Comments HIV-CMIA (Chemiluminescent NON-REACTIVE NON-REACTIVE N Microparticle Immuno Assay) (test code = 48867-9) [facility] Islandurine fojntcl6720-05-93 16:51:00 Test Item Value Reference Range Interpretation Comments urine culture (test 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 These superficial [facility] IslandNeisseria gonorrhoeae DNA gublg4321-88-74 16:51:00 Test Item Value Reference Range Interpretation Comments Neisseria gonorrhoeae DNA probe NOT DETECTED NOT DETECTED N (test code = 13922-3) [facility] Islandchlamydia DNA xpcsa1173-83-31 16:51:00 Test Item Value Reference Range Interpretation Comments chlamydia DNA probe (test code = NOT DETECTED NOT DETECTED N 36045-6) [facility] IslandpH, urine, cckgdlznucmgbfgb2500-46-79 15:46:07 Test Item Value Reference Range Interpretation Comments pH, urine, semiquantitative 5.5 (unknown (test code = 5803-2) unit) [facility] Islandbeta HCG, urine, ujmaxdbfaxuxpuby1194-94-67 15:46:07 Test Item Value Reference Range Interpretation Comments beta HCG, urine, semiquantitative positive (test code = 2106-3) [facility] Islandglucose, urine, gvncsqoacuaqjhin6873-00-40 15:46:07 Test Item Value Reference Range Interpretation Comments glucose, urine, semiquantitative negative (test code = 5792-7) [facility] Islandbilirubin, dtgmi0130-04-07 15:46:07 Test Item Value Reference Range Interpretation Comments bilirubin, urine (test code = negative 5770-3) [facility] Islandketones, urine, by test ulmqb2234-90-81 15:46:07 Test Item Value Reference Range Interpretation Comments ketones, urine, by test strip (test negative code = 5797-6) [facility] Islandblood in urine (hemoglobin) by gkfhkhsq1256-52-35 15:46:07 Test Item Value Reference Range Interpretation Comments blood in urine (hemoglobin) by negative dipstick (test code = 4998) [facility] Islandprotein, urine, semiquantitative (dipstick)2023-01-16 15:46:07 Test Item Value Reference Range Interpretation Comments protein, urine, semiquantitative negative (dipstick) (test code = 1753-3) [facility] Islandurobilinogen, urine, semiquantitative (dipstick) 2023-01-16 15:46:07 Test Item Value Reference Range Interpretation Comments urobilinogen, urine, negative semiquantitative (dipstick) (test code = 5818-0) [facility] Islandnitrite, urine, cqmwoklfpsnbemqi9197-77-14 15:46:07 Test Item Value Reference Range Interpretation Comments nitrite, urine, semiquantitative negative (test code = 5802-4) [facility] Islandleukocyte esterase, urine, by vfbsptgf1178-51-18 15:46:07 Test Item Value Reference Range Interpretation Comments leukocyte esterase, urine, by negative dipstick (test code = 5799-2) [facility] Islandappearance, vbgqk4926-89-73 15:46:07 Test Item Value Reference Range Interpretation Comments appearance, urine (test code = 5767-9) clear [facility] Islandurine srchu8559-62-61 15:46:07 Test Item Value Reference Range Interpretation Comments urine color (test code = 5778-6) light yellow [facility] Islandspecific gravity, qoayx6851-33-98 15:46:07 Test Item Value Reference Range Interpretation Comments specific gravity, urine 1.025 (unknown unit) (test code = 5811-5) [facility] Islandbeta HCG, urine, flgjovobywqgroyy7404-78-84 14:42:55 Test Item Value Reference Range Interpretation Comments beta HCG, urine, semiquantitative positive (test code = 2106-3) [facility] IslandPrepare RBC, 1 Pcbbz8648-18-95 22:43:00 Test Item Value Reference Range Interpretation Comments Product name (test code Apheresis Red Cell AS3 = 25) #1 LR Unit number (test code [id number] = [id number]) Product code (test code [id number] = 3092) Dispense status (test Transfused code = 24) Blood expiration date (test code = 302) Blood type code (test 5100 code = 308) Blood type (test code = O POSITIVE 1314) Compatibility (test Compatible code = 6400) [facility] [Presence] in Respiratory specimen by ILYA with probe nfunyfmsr9497-32-81 22:01:57 Test Item Value Reference Range Interpretation Comments SARS-CoV-2 (COVID-19) RNA Not detected [Presence] in Respiratory specimen by ILYA with probe detection (test code = 67142-2) Whether patient is employed in a Unknown healthcare setting (test code = 11733-1) Whether the patient has symptoms Unknown related to condition of interest (test code = 11955-9) Whether the patient was Unknown hospitalized for condition of interest (test code = 28355-2) Whether the patient was admitted Unknown to intensive care unit (ICU) for condition of interest (test code = 25391-1) Whether patient resides in a Unknown congregate care setting (test code = 17346-0) status (test code = Unknown 84958-9) Date and time of symptom onset Unknown (test code = 84386-9) [facility] lyxzgrd6091-94-29 21:09:06 Test Item Value Reference Range Interpretation Comments Case number (test code = [id number]) Surgical pathology See link below for report (test code = PDF Lab Report 2255) Result status (test code This is Final Report = [id number]) for [id number] [facility] modbrdk1481-76-60 21:15:00 Test Item Value Reference Range Interpretation Comments POC glucose (test code 105 mg/dL 65-99 H [facility] tor Name: = 02196-1) [facility] FacultadDevice ID: [id number] able: 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 Interpretation Abnormal (test code = 52873-4) [facility] (C[facility]) RNA [Presence] in Respiratory specimen by ILYA with probe qmyxiltyn7325-04-86 12:13:29 Test Item Value Reference Range Interpretation Comments SARS-CoV-2 (COVID-19) RNA Not detected [Presence] in Respiratory specimen by ILYA with probe detection (test code = 45135-0) Whether patient is employed in a Unknown healthcare setting (test code = 33104-3) Whether the patient has symptoms Unknown related to condition of interest (test code = 65383-3) Whether the patient was Unknown hospitalized for condition of interest (test code = 90848-0) Whether the patient was admitted Unknown to intensive care unit (ICU) for condition of interest (test code = 21588-7) Whether patient resides in a Unknown congregate care setting (test code = 46502-3) status (test code = Unknown 96614-5) Date and time of symptom onset Unknown (test code = 59849-6) [facility] Jwuinev7426-38-61 18:43:00 Test Item Value Reference Range Interpretation Comments UC, Urine Culture (test Gram negative ruslan code = UC) [place] Count (test code = <10,000 [place] Count) UA, Urinalysis Rflx Cult/Rvcea3770-40-98 17:41:00 Test Item Value Reference Range Interpretation Comments Color,Urine (test code = UCOL) Dark Yellow Yellow A Clarity,Urine (test code = Turbid Clear A UCLAR) Ph, Urine (test code = UPH) 6.0 5.0-9.0 N Specific [place],Urine (test >= 1.030 1.005-1.030 N code = USG) Blood,Urine (test code = UBLD) Trace mg/dL Negative A Protein,Urine (test code = 30 mg/dL Negative A UPRO) Glucose,Urine (UA) (test code Negative mg/dL Negative = UGLU) Ketones,Urine (test code = 15 mg/dL Negative A UKET) Nitrate,Urine (test code = Negative Negative UNIT) Bilirubin,Urine (test code = Small mg/dL Negative A UBIL) Urobilinogen,Urine (test code 1.0 E.U./dL Normal = UURO) Leukocyte Esterase,Urine (test Large mg/dL Negative A code = ULEU) UF REFLEXUF REFLEXUrine Ikcmbpgvkqf0635-41-65 17:41:00 Test Item Value Reference Range Interpretation Comments RBC,Urine (test code = URBCUF) 0-2 /HPF 0-2 WBC,Urine (test code = UWBCUF) >50 /HPF 0-5 A Epithelial Cell,Urine (test code = 26-50 /HPF 0-5 A UECUF) Casts,Urine (test code = UCASTUF) 0-5 /LPF None Seen Bacteria,Urine (test code = Many /hpf None Seen A UBACTUF) UF REFLEXUF REFLEXTreponema pallidum particle agglutination assay (TPPA test) 2022-04-12 15:30:00 Test Item Value Reference Range Interpretation Comments Treponema pallidum particle NEGATIVE N agglutination assay (TPPA test) (test code = 51774-1) [facility] as percent of blood ifrgtifdlf5673-44-47 15:30:00 Test Item Value Reference Range Interpretation Comments basophils as percent of blood 0.1 % N leukocytes (test code = 707-0) [facility] Islandeosinophils as percent of blood dmnjumlscm9943-22-68 15:30:00 Test Item Value Reference Range Interpretation Comments eosinophils as percent of blood 2.5 % N leukocytes (test code = 714-6) [facility] Islandmonocytes as percent of blood ltxekfajcb2052-00-98 15:30:00 Test Item Value Reference Range Interpretation Comments monocytes as percent of blood 5.1 % N leukocytes (test code = 5905-5) [facility] Islandlymphocytes as percent of blood zvczdclmzd1939-82-26 15:30:00 Test Item Value Reference Range Interpretation Comments lymphocytes as percent of blood 18.6 % N leukocytes (test code = 736-9) [facility] Islandneutrophils as percent of blood sajjlgpqsx7495-66-60 15:30:00 Test Item Value Reference Range Interpretation Comments neutrophils as percent of blood 73.7 % N leukocytes (test code = 770-8) [facility] Islandbasophil count, pmpzxitb4096-33-94 15:30:00 Test Item Value Reference Range Interpretation Comments basophil count, absolute (test 7 cells/uL 0-200 N code = 17477-2) [facility]Absolute Eosinophil acvwf8346-83-17 15:30:00 Test Item Value Reference Range Interpretation Comments Absolute Eosinophil count (test 168 cells/mcL 15-500 N code = 91191-4) [facility]Absolute Monocyte smlqy5938-33-74 15:30:00 Test Item Value Reference Range Interpretation Comments Absolute Monocyte count (test 342 cells/mcL 200-950 N code = 04533-0) [facility] Islandlymphocytes, vqzfiajv0472-97-35 15:30:00 Test Item Value Reference Range Interpretation Comments lymphocytes, absolute (test 1246 CELLS/UL 850-3900 N code = 45607-2) [facility]Absolute Neutrophil iumyh8916-41-87 15:30:00 Test Item Value Reference Range Interpretation Comments Absolute Neutrophil count 4938 cells/mcL 8132-5497 N (test code = 66517-4) [facility] platelet cycapi7001-19-29 15:30:00 Test Item Value Reference Range Interpretation Comments mean platelet volume (test code = 10.8 fL 7.5-12.5 N 776-5) [facility] Islandplatelet zfvwi9140-03-15 15:30:00 Test Item Value Reference Range Interpretation Comments platelet count (test code = 323 THOUSAND/UL 140-400 N 777-3) [facility] Islandred blood cell distribution bkbul9616-29-65 15:30:00 Test Item Value Reference Range Interpretation Comments red blood cell distribution width 16.4 % 11.0-15.0 H (test code = 788-0) [facility] corpuscular hemoglobin concentration, [id number] 15:30:00 Test Item Value Reference Range Interpretation Comments mean corpuscular hemoglobin 30.7 G/DL 32.0-36.0 L concentration, RBC (test code = 786-4) [facility] corpuscular hemoglobin, NEY9185-58-66 15:30:00 Test Item Value Reference Range Interpretation Comments mean corpuscular hemoglobin, RBC 21.8 pg 27.0-33.0 L (test code = 785-6) [facility]cular volume, IMC6440-67-33 15:30:00 Test Item Value Reference Range Interpretation Comments mean corpuscular volume, RBC (test 70.9 fL 80.0-100.0 L code = 787-2) [facility]hematocrit, qejan5278-98-00 15:30:00 Test Item Value Reference Range Interpretation Comments hematocrit, blood (test code = 4544-3) 30.9 % 35.0-45.0 L [facility] Islandhemoglobin, gakoo4121-34-67 15:30:00 Test Item Value Reference Range Interpretation Comments hemoglobin, blood (test code = 9.5 g/dL 11.7-15.5 L 718-7) [facility] Islanderythrocyte (RBC) ogixp1294-17-49 15:30:00 Test Item Value Reference Range Interpretation Comments erythrocyte (RBC) count (test 4.36 MILLION/UL 3.80-5.10 N code = 789-8) [facility] Islandleukocyte count, pgwqh3836-98-56 15:30:00 Test Item Value Reference Range Interpretation Comments leukocyte count, blood (test 6.7 THOUSAND/UL 3.8-10.8 N code = 6690-2) [facility] IslandHIV-CMIA (Chemiluminescent Microparticle Immuno Assay) 2022-04-12 15:30:00 Test Item Value Reference Range Interpretation Comments HIV-CMIA (Chemiluminescent NON-REACTIVE NON-REACTIVE N Microparticle Immuno Assay) (test code = 29721-3) [facility] Islandurine uirooku4254-39-47 15:21:00 Test Item Value Reference Range Interpretation Comments urine culture (test 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 These superficial [facility] vpmsfpk2918-72-30 14:32:00 Test Item Value Reference Range Interpretation Comments urine culture (test Greater than 100,000 A code = 630-4) CFU/mL of Escherichia coli [facility] miaedmh1058-74-56 14:24:00 Test Item Value Reference Range Interpretation Comments Rh antigen (test code = 255) RH(D) POSITIVE [facility] IslandABO blood [id number] 14:24:00 Test Item Value Reference Range Interpretation Comments ABO blood group (test code = 116) O [facility] orhjyuuw8820-17-65 14:24:00 Test Item Value Reference Range Interpretation Comments Rh antibody (test code NO ANTIBODIES DETECTED N = 256) [facility] IslandTreponema pallidum particle agglutination assay (TPPA test)2022-01-21 14:24:00 Test Item Value Reference Range Interpretation Comments Treponema pallidum particle NEGATIVE N agglutination assay (TPPA test) (test code = 20552-8) [facility] Islandrubella antibody, serum, [id number] 14:24:00 Test Item Value Reference Range Interpretation Comments rubella antibody, serum, 1.60 (unknown unit) N IgG (test code = 5334-8) [facility] IslandHepatitis C Antibody, Signal to Mnq-Qyf3805-13-08 14:24:00 Test Item Value Reference Range Interpretation Comments Hepatitis C Antibody, 0.10 (unknown unit) <1.00 N Signal to Cut-Off (test code = 74048-0) [facility] Islandhepatitis C antibody, znivh1718-45-70 14:24:00 Test Item Value Reference Range Interpretation Comments hepatitis C antibody, serum NON-REACTIVE NON-REACTIVE N (test code = 5199-5) [facility] yafdqpv2819-86-87 14:24:00 Test Item Value Reference Range Interpretation Comments hepatitis B surface antigen NON-REACTIVE NON-REACTIVE N (test code = 10038-4) [facility] Healthbasophils as percent of blood pnffuwftoy0203-04-73 14:24:00 Test Item Value Reference Range Interpretation Comments basophils as percent of blood 0.1 % N leukocytes (test code = 707-0) [facility] Islandeosinophils as percent of blood spcbqoebad8108-85-32 14:24:00 Test Item Value Reference Range Interpretation Comments eosinophils as percent of blood 1.3 % N leukocytes (test code = 714-6) [facility] Healthmonocytes as percent of blood okwykxxmyb3408-08-25 14:24:00 Test Item Value Reference Range Interpretation Comments monocytes as percent of blood 4.2 % N leukocytes (test code = 5905-5) [facility] Islandlymphocytes as percent of blood pzyleulsus2952-70-39 14:24:00 Test Item Value Reference Range Interpretation Comments lymphocytes as percent of blood 23.5 % N leukocytes (test code = 736-9) [facility] Islandneutrophils as percent of blood lhokhwaels8428-27-49 14:24:00 Test Item Value Reference Range Interpretation Comments neutrophils as percent of blood 70.9 % N leukocytes (test code = 770-8) [facility] Islandbasophil count, ppsyopwf3841-39-61 14:24:00 Test Item Value Reference Range Interpretation Comments basophil count, absolute (test 7 cells/uL 0-200 N code = 58128-1) [facility]Absolute Eosinophil bszkd3224-38-48 14:24:00 Test Item Value Reference Range Interpretation Comments Absolute Eosinophil count (test 88 cells/mcL 15-500 N code = 04467-1) [facility]Absolute Monocyte mschl9398-52-04 14:24:00 Test Item Value Reference Range Interpretation Comments Absolute Monocyte count (test 286 cells/mcL 200-950 N code = 43990-7) [facility] Islandlymphocytes, ddxnhfoz4087-10-14 14:24:00 Test Item Value Reference Range Interpretation Comments lymphocytes, absolute (test 1598 CELLS/UL 850-3900 N code = 04422-9) [facility] bnzha9368-11-62 14:24:00 Test Item Value Reference Range Interpretation Comments Absolute Neutrophil count 4821 cells/mcL 1142-8364 N (test code = 82386-1) [facility] platelet ivbvgf8836-59-43 14:24:00 Test Item Value Reference Range Interpretation Comments mean platelet volume (test code = 10.3 fL 7.5-12.5 N 776-5) [facility] Islandplatelet bjpyj3452-03-68 14:24:00 Test Item Value Reference Range Interpretation Comments platelet count (test code = 338 THOUSAND/UL 140-400 N 777-3) [facility] Islandred blood cell distribution awipi0336-87-94 14:24:00 Test Item Value Reference Range Interpretation Comments red blood cell distribution width 13.5 % 11.0-15.0 N (test code = 788-0) [facility] corpuscular hemoglobin concentration, [id number] 14:24:00 Test Item Value Reference Range Interpretation Comments mean corpuscular hemoglobin 31.7 G/DL 32.0-36.0 L concentration, RBC (test code = 786-4) [facility] corpuscular hemoglobin, [id number] 14:24:00 Test Item Value Reference Range Interpretation Comments mean corpuscular hemoglobin, RBC 25.9 pg 27.0-33.0 L (test code = 785-6) [facility] Islandmean corpuscular volume, [id number] 14:24:00 Test Item Value Reference Range Interpretation Comments mean corpuscular volume, RBC (test 81.7 fL 80.0-100.0 N code = 787-2) [facility] Islandhematocrit, jtnbd2059-55-51 14:24:00 Test Item Value Reference Range Interpretation Comments hematocrit, blood (test code = 4544-3) 33.4 % 35.0-45.0 L [facility] Islandhemoglobin, vvdwb5746-85-48 14:24:00 Test Item Value Reference Range Interpretation Comments hemoglobin, blood (test code = 10.6 g/dL 11.7-15.5 L 718-7) [facility] Islanderythrocyte (RBC) fqgnf9513-86-61 14:24:00 Test Item Value Reference Range Interpretation Comments erythrocyte (RBC) count (test 4.09 MILLION/UL 3.80-5.10 N code = 789-8) [facility] Islandleukocyte count, rmgxl2251-59-95 14:24:00 Test Item Value Reference Range Interpretation Comments leukocyte count, blood (test 6.8 THOUSAND/UL 3.8-10.8 N code = 6690-2) [facility] Islandblood glucose, 1 hour after 50 gm oral fegnxnh3940-02-63 14:24:00 Test Item Value Reference Range Interpretation Comments blood glucose, 1 hour after 50 gm 111 mg/dL <135 N oral glucose (test code = 1039) [facility] IslandHIV-CMIA (Chemiluminescent Microparticle Immuno Assay) 2022-01-21 14:24:00 Test Item Value Reference Range Interpretation Comments HIV-CMIA (Chemiluminescent NON-REACTIVE NON-REACTIVE N Microparticle Immuno Assay) (test code = 11830-4) [facility] orzkmhh1680-20-20 14:24:00 Test Item Value Reference Range Interpretation Comments Rh antigen (test code = 255) RH(D) POSITIVE [facility] IslandABO blood wehox7783-45-74 14:24:00 Test Item Value Reference Range Interpretation Comments ABO blood group (test code = 116) [facility] [id number] 14:24:00 Test Item Value Reference Range Interpretation Comments Rh antibody (test code NO ANTIBODIES DETECTED N = 256) [facility], [id number] 14:24:00 Test Item Value Reference Range Interpretation Comments hepatitis C antibody, serum NON-REACTIVE NON-REACTIVE N (test code = 60251-5) [facility], 1 hour after 50 gm oral [id number] 14:24:00 Test Item Value Reference Range Interpretation Comments blood glucose, 1 hour after 50 gm 111 mg/dL <135 N oral glucose (test code = 1039) [facility] Papillomavirus test [id number] 18:42:00 Test Item Value Reference Range Interpretation Comments Human Papillomavirus test result HPVNotTested (test code = 26155-6) [facility] Papillomavirus test [id number] 18:42:00 Test Item Value Reference Range Interpretation Comments Human Papillomavirus test result HPVNotTested (test code = 92417-5) [facility] [id number] 18:41:00 Test Item Value Reference Range Interpretation Comments chlamydia DNA probe (test code = Negative Negative 39170-7) [facility]ichomonas vaginalis, [id number] 18:41:00 Test Item Value Reference Range Interpretation Comments trichomonas vaginalis, urine (test Negative Negative code = 5813-1) [facility]isseria gonorrhoeae DNA [id number] 18:41:00 Test Item Value Reference Range Interpretation Comments Neisseria gonorrhoeae DNA probe Negative Negative (test code = 63174-0) [facility] gon[facility]rho[facility]ae DNA [id number] 18:41:00 Test Item Value Reference Range Interpretation Comments Neisseria gonorrhoeae DNA probe Negative Negative (test code = 69370-1) [facility] HCG, urine, [id number] 15:07:56 Test Item Value Reference Range Interpretation Comments beta HCG, urine, semiquantitative positive (test code = 2106-3) [facility], urine, [id number] 14:23:19 Test Item Value Reference Range Interpretation Comments beta HCG, urine, semiquantitative positive (test code = 2106-3) [facility] IslandSARS-CoV-2 (COVID-19) RNA [Presence] in Respiratory specimen by ILYA with probe [id number] 23:07:25 Test Item Value Reference Range Interpretation Comments SARS-CoV-2 (COVID-19) RNA Not detected Not-Detected [Presence] in Respiratory specimen by ILYA with probe detection (test code = 91806-6) Whether patient is employed in a healthcare setting (test code = 47316-4) Whether the patient has symptoms related to condition of interest (test code = 16473-6) Patient was hospitalized because of this condition (test code = 57802-3) Whether the patient was admitted to intensive care unit (ICU) for condition of interest (test code = 84461-6) Whether patient resides in a congregate care setting (test code = 82646-2) status (test code = 67513-5) [facility] [id number] 02:43:00 Test Item Value Reference Range Interpretation Comments HCG SERUM (test <1 INTERPRETATI ON:VALUES BETWEEN code = HCG) 15-20 milliInte rnational units/mL NEED T O BERETESTED WITHIN 48 HOURS . All units for these ranges ar e in milliInternatio nalunits/mL0-1 WK AFTER CONCEP TION 0-50 1-2 WKS AFTER ANGI PTION 40-3002-3 WKS AFTER ANGI PTION 100-1,0003-4 WK S AFTER CONCEPTION 500- 6,0001-2 MONTHS AFTER CONCEPTIO N 5,000-200,0002- 3 MONTHS AFTER CONCEPTION 10,0 00-100,0002ND TRIMESTER 3,000 -50,0003RD TRIMESTER 1,000 -50,000 SPECIMENS WITH AN HCG LEVEL FROM 0-6 milliInternatio nalunits/mL SHOULD BE CONSI DERED NEGATIVE COMPREHENSIVE METABOLIC [id number] 02:41:00 Test Item Value Reference Range Interpretation [...] 127 units/L 46-116 H code = ALKP) [id number] 02:41:00 Test Item Value Reference Range Interpretation Comments LIPASE (test code = LIP) 87 units/L 73-393 N CBC W/AUTO [id number] 02:15:00 Test Item Value Reference Range Interpretation [...] = PLTMR) UA RFLX MICR CULT IF [id number] 01:43:00 Test Item Value Reference Range Interpretation [...] Flank PainSpecimen Description: CLEAN CATCH- US ABDOMEN [id number] 00:00:00 [facility] 1995 Sex: F Patient Name: FANI GARCIA Unit No: [id number] EXAMS: CPT CODE: [id number] US ABDOMEN LTD 61308 PROCEDURE INFORMATION: Exam: US Abdomen, Limited; Right Upper Quadrant Exam date and time: 04/05/2021 1:53 AM Age: 25 years old Clinical indication: Abdominal pain; Generalized; Prior surgery; Surgery date: 1-6 months; Surgery type: C/s 03/05/21; Additional info: Abd pain, S/P TECHNIQUE: Imaging p rotocol: US abdomen. Real time ultrasound with image documentation. Limited exam focused on the right upper quadrant. COMPARISON: OT US PELVIS COMPLETE 03/12/2021 5:18 PM FINDINGS: Liver: Normal. No masses. Gallbladder: There are echogenic foci with posterior shadowing in the gallbladder is within the d ependent portion. The gallbladder wall is normal in thickness. Common bile duct: Normal. No stones. No dilation. Pancreas: Visualized pancreas is unremarkable. Right kidney: Normal. No mass. No hydronephrosis. IMPRESSION: Cholelithiasis. at 0245 Reported and signed by: Lauren Dee MD CC: CARLOS POLK NP Technologist: Caroline Durham RDMS Probe: Trnscrbd D/ (0245) GCD.CPS Orig Print D/T: S: 04/05/2021 (0245) [facility] NAME: FANI GARCIA Radiology Department PHYS: Berto Harp [address] : 1995 AGE: 25 SEX: F [place], [place] [address] LOC: [place] PHONE #: [phone] EXAM DATE: 04/05/2021 STATUS: REG ER FAX #: [phone] RAD NO: Page 1 Signed Report Patient Name: FANI GARCIA Unit No: [id number] EXAMS: CPT CODE: [id number] US ABDOMEN LTD 92256 (Continued) [facility] NAME: CESAR GARCIAANDRA Radiology Department PHYS: Berto Harp [address] : 1995 AGE: 25 SEX: F [place], [place] [address] LOC: [place] PHONE #: [phone] EXAM DATE: 04/05/2021 STATUS: REG ER FAX #: [phone] RAD NO: Page 2 Signed ReportBASIC METABOLIC PANEL 2021-03-17 08:04:00 Test Item Value Reference Range Interpretation [...] CA) 9.0 mg/dL 8.4-10.2 N CBC W/AUTO [id number] 07:53:00 Test Item Value Reference Range Interpretation [...] NORMAL NORMAL code = PLTMR) BASIC METABOLIC [id number] 05:26:00 Test Item Value Reference Range Interpretation [...] = CA) 8.6 mg/dL 8.4-10.2 N VANCOMYCIN [id number] 05:26:00 Test Item Value Reference Range Interpretation Comments VANCOMYCIN TROUGH (test code = 6.30 mcg/mL 10.0-20.0 L VANCT) CBC W/AUTO [id number] 05:17:00 Test Item Value Reference Range Interpretation [...] NORMAL NORMAL code = PLTMR) BASIC METABOLIC [id number] 09:18:00 Test Item Value Reference Range Interpretation [...] CA) 8.6 mg/dL 8.4-10.2 N CBC W/AUTO [id number] 09:01:00 Test Item Value Reference Range Interpretation [...] (test NORMAL NORMAL code = PLTMR) URINALYSIS [id number] 19:15:00 Test Item Value Reference Range Interpretation [...] NONE SEEN URINE SAMPLE: CLEAN CATCHCBC W/AUTO [id number] 07:45:00 Test Item Value Reference Range Interpretation [...] NORMAL NORMAL code = PLTMR) BASIC METABOLIC [id number] 06:24:00 Test Item Value Reference Range Interpretation [...] CA) 8.5 mg/dL 8.4-10.2 N BASIC METABOLIC [id number] 08:55:00 Test Item Value Reference Range Interpretation [...] CA) 8.5 mg/dL 8.4-10.2 N CBC W/AUTO [id number] 08:42:00 Test Item Value Reference Range Interpretation [...] NORMAL NORMAL code = PLTMR) - DUP AB/PEL/SC/[id number] 00:00:00 [facility] 1995 Sex: F Patient Name: FANI GARCIA Unit No: [id number] EXAMS: CPT CODE: [id number] DUP AB/PEL/SC/LTD 01939 PROCEDURE INFORMATION: Exam: US Duplex Artery or Vein of the Abdominal and/or Reproductive Organs, Limited Ovaries Exam date and time: 03/12/2021 5:18 PM Age: 25 years old Clinical indication: Pelvic pain; Prior surgery; Surgery date: 3-7 days post-operative; Additional info: Pelvic pain, fever, afterc/s on 03/05 TECHNIQUE: Imaging protocol: Real-time duplex ultrasound scan of the arterial or venous flow with waters scale, color Doppler flow and spectral waveform analysis with image documentation. Limited duplex exam focused on the ovaries. Duplex images required to evaluate for torsion and other vasc ular conditions. COMPARISON: OT US FLW UP 03/04/2021 11:49 AM FINDINGS: Right ovary Doppler: Blood flow identified in the right ovary. Left ovary Doppler: Blood flow identified in the left ovary. IMPRESSION: Blood flow noted in both ovaries. PROCEDURE INFORMATION: Exam: US Pelvis Complete, Transabdominal and US Pelvis, Transvaginal Exam date and time: 03/12/2021 5:18PM Age: 25 years old Clinical indication: Pelvic pain; Prior surgery; Surgery date: 3-7 days post-operative; Additional info: Pelvic pain, fever, after c/s on 03/05 TECHNIQUE: Imaging protocol: Real-time transabdominal and transvaginal pelvic ultrasound (complete) with image documentation. Transvaginal imaging was used for better evaluation of the endometrium, adnexa, and/or cervix. COMPARISON: OT USPREGNANCY FLW UP 03/04/2021 11:49 AM FINDINGS: Uterus/cervix: Uterus measures 17.0 x 7.5 x 12.0 cm ingreatest dimensions with endometrium measuring 5 mm in thickness. No evidence of retained products of conception is present in endometrial cavity. Changes related to are present in lower uterine segment. No evidence of uterine fibroid is seen. Right adnexa: Rt ovary measures 4.8 x 2.4 x 3.1 cm. Blood flow present in the rt. ovary. Left adnexa: Lt ovary measures 5.0 x 1.3 x 3.2 cm. Blood flow [facility] NAME: FANI GARCIA Radiology Department PHYS: Nathan Berry MD [address] : 1995 AGE: 25 SEX: F [place], [place] [address] LOC:F.2218 A PHONE #: [phone] EXAM DATE: 03/12/2021 STATUS: ADM IN FAX #: [phone] RAD NO: Page1 Signed Report (CONTINUED) Patient Name: FANI GARCIA Unit No: [id number] EXAMS: CPT CODE: [id number] DUP AB/PEL/SC/LTD 83430 (Continued) present in the lt. ovary. Adjacent to [...] bladder: No significant abnormality seen IMPRESSION: 1. uterus without retained products of conception. Changes related to in lower uterine segment. 2. Normal sonographic appearance of ovaries.3. 2 fluid collections adjacent to the left [...] Orig Print D/T: S: 03/13/2021 (0721) [facility] NAME: FANI GARCIA Radiology Department PHYS: Nathan Berry MD [address] : 1995 AGE: 25 SEX: F [place], [place] [address] LOC: F.2218 A PHONE #: [phone] EXAM DATE: 03/12/2021 STATUS: ADM IN FAX #: [phone] RAD NO: Page 2 Signed Report Patient Name: FANI GARCIA Unit No: [id number] EXAMS: CPT CODE: [id number] DUP AB/PEL/SC/LTD 66553 (Continued) [facility] NAME: FANI GARCIA Radiology Department PHYS: Nathan Berry MD [address] : 1995 AGE: 25 SEX: F [place], [place] [address] LOC: F.2218 A PHONE #: [phone] EXAM DATE: 03/12/2021 STATUS: ADM IN FAX #: [phone] RAD NO: Page 3 Signed Report- US TRANSVAGINAL W/[id number] 00:00:00[facility] : 1995 Sex: F Patient Name: FANI GARCIA Unit No: [id number] EXAMS: CPT CODE: [id number] US TRANSVAGINAL [id number] PROCEDURE INFORMATION: Exam: US Duplex Artery or Vein of the Abdominal and/or Reproductive Organs, Limited Ovaries Exam date and time: 03/12/2021 5:18 PM Age: 25 years old Clinical indication: Pelvic pain; Prior surgery; Surgery date: 3-7 days post-operative; Additional info: Pelvic pain, fever,after c/s on 03/05 TECHNIQUE: Imaging protocol: Real-time [...] Blood flow identified in the left ovary. IMPRESSION: Blood flow noted in both ovaries. PROCEDURE INFORMATION: Exam: US Pelvis Complete, Transabdominal and US Pelvis, Transvaginal Exam date and time: 03/12/2021 5:18 PM Age: 25 years old Clinical indication: Pelvic pain; Prior surgery; Surgery date: 3-7 days post-operative; Additional info: Pelvic pain, fever, after c/s on 03/05 TECHNIQUE: Imaging protocol: Real-time transabdominal and transvaginal pelvic ultrasound (complete) with image documentation. Transva ginal imaging was used for better evaluation of the endometrium, adnexa, and/or cervix. COMPARISON: OT US FLW UP 03/04/2021 11:49 AM FINDINGS: Uterus/cervix: Uterus measures 17.0 x 7.5 x 12.0 cm in greatest dimensions with endometrium measuring 5 mm in thickness. No evidence of retained products of conception is present in endometrial cavity. Changes related to are present in loweruterine segment. No evidence of uterine fibroid is seen. Right adnexa: Rt ovary measures 4.8 x 2.4 x 3.1 cm. Blood flow present in the rt. ovary. Left adnexa: Lt ovary measures 5.0 x 1.3 x 3.2 cm. Blood flow [facility] NAME: FANI GARCIA Radiology Department PHYS: Nathan Berry MD [address] : 1995 AGE: 25 SEX: F [place], [place] [address] LOC: Sarah [place]field PHONE #: [phone] EXAM DATE: 03/12/2021 STATUS: ADM IN FAX #: [phone] RAD NO: Page 1 Signed Report (CONTINUED) Patient Name: FANI GARCIA Unit No: [id number] EXAMS: CPT CODE: [id number] US TRANSVAGINAL W/PELVIS 96888 (Continued) present in the lt. ovary. Adjacent to [...] bladder: No significant abnormality seen IMPRESSION: 1. uterus without retained products of conception. Changes related to in lower uterine segment. 2. Normal sonographic appearance of ovaries. 3. 2 fluid collections adjacent to the left ovary as described above. These may represent postsurgical collections, possibility of superimposed infection cannot be excluded and clinicalcorrelation is recommended. 4. Small amount of echogenic free fluid in posterior cul-de-sac. at 0720 Reported and signed by: Romeo Flood MD CC: Nathan Figueroa MD Technologist: Lupe Willard RDMS, RVT Probe: [id number] Trnscrbd D/ (0720) GCD.CPS Orig Print D/T: S: 03/13/2021 (0721) [facility] NAME: [facility] Radiology Department PHYS: Nathan Berry MD [address] : 1995 AGE: 25 SEX: F [place] [address] LOC: F.2218 A PHONE #: [phone] EXAM DATE: 03/12 STATUS: ADM IN FAX #: [phone] RAD NO: Page 2 Signed Report [facility] [id number] EXAMS: CPT CODE: [id number] US TRANSVAGINAL W/PELVIS 64094 (Continued) [facility] NAME: [facility] Radiology Department PHYS: Nathan Berry MD[address] : 1995 AGE: 25 SEX: F [place] [address] LOC: Sarah APHONE #: [phone] EXAM DATE: 03/12/2021 STATUS: ADM IN FAX #: [phone] RAD NO: Page 3 SignedReport- US PELVIS COMPLETE 2021-03-13 00:00:00 [facility] : 1995 Sex: F Patient Name: FANI GARCIA Unit No: [id number] EXAMS: CPT CODE: [id number] US PELVIS COMPLETE 28726 PROCEDURE INFORMATION: Exam: US Duplex Artery or Vein of the Abdominal and/or Reproductive Organs,Limited Ovaries Exam date and time: 03/12/2021 5:18 PM Age: 25 years old Clinical indication: Pelvic pain; Prior surgery; Surgery date: 3-7 days post-operative; Additional info: Pelvic pain, fever, after c/s on 03/05 TECHNIQUE: Imaging protocol: Real-time duplex ultrasound scan of the arterial or venousflow with waters scale, color Doppler flow and spectral waveform analysis with image documentation. Limited duplex exam focused on the ovaries. Duplex images required to evaluate for torsion and other vascular conditions. COMPARISON: OT US FLW UP 03/04/2021 11:49 AM FINDINGS: Right ovary Doppler: Blood flow identified in the right ovary. Left ovary Doppler: Blood flow identified in the left ovary. IMPRESSION: Blood flow noted in both ovaries. PROCEDURE INFORMATION: [...] Rt ovary measures 4.8 x 2.4 x 3.1cm. Blood flow present in the rt. ovary. Left adnexa: Lt ovary measures 5.0 x 1.3 x 3.2 cm. Blood flow [facility] NAME: FANI GARCIA Radiology Department PHYS: Doroteo Greenwood MD [address] : 1995 AGE: 25 SEX: F [place], [place] [address] LOC: Sarah [place] PHONE #: [phone] EXAM DATE: 03/12/2021 STATUS: ADM IN FAX #: [phone] RAD NO: Page 1 Signed Report (CONTINUED) Patient Name: FANI GARCIA Unit No: [id number] EXAMS: CPT CODE: [id number] PELVIS COMPLETE 93065 (Continued) present in the lt. ovary. Adjacent to the left ovary and separate from it, there are 2 fluid collections identified which measure 2.2 x 1.1 x 4.6 cm and 2.4 x 1.3 x5.2 cm. These are thought to represent postsurgical fluid collection after . In addition, a1.5 x 0.9 x 1.7 cm echogenic free fluid is present in posterior cul-de-sac. Urinary bladder: No significant abnormality seen IMPRESSION: 1. uterus without retained products of conception. Changes related [...] signed by: Romeo Flood MD CC: Laureen Gerardo MD;Nathan Figueroa MD Technologist: Lupe Willard RDMS, RVT Probe: Trnscrbd D/ (0720) GCD.CPS Orig Print D/T: S: 03/13/2021 (0720) [facility] NAME: [facility] Radiology Department PHYS: Laureen Greenwood MD [address] : 1995 AGE: 25 SEX: F [place] [address] LOC: F.2218 A PHONE #: [phone] EXAM DATE: 03/12/2021 STATUS: ADMIN FAX #: [phone] RAD NO: Page 2 Signed Report [facility] Unit No: [id number] EXAMS: CPT CODE: [id number] US PELVIS COMPLETE 81354 (Continued) [facility] NAME: [facility] Radiology Department PHYS: Laureen Greenwood MD [address] : 1995 AGE: 25 SEX: F [place] [address] LOC: F.2218 A PHONE #: [phone] EXAM DATE: 03/12/2021 STATUS: ADM IN FAX #: [phone] RAD NO: Page 3 Signed ReportBASIC METABOLIC [id number] 04:18:00 Test Item Value Reference Range Interpretation [...] = CA) 7.8 mg/dL 8.4-10.2 L VANCOMYCIN [id number] 04:18:00 Test Item Value Reference Range Interpretation Comments VANCOMYCIN TROUGH (test code = 5.40 mcg/mL 10.0-20.0 L VANCT) CBC W/AUTO [id number] 04:01:00 Test Item Value Reference Range Interpretation [...] NORMAL NORMAL code = PLTMR) BASIC METABOLIC [id number] 06:14:00 Test Item Value Reference Range Interpretation [...] CA) 8.2 mg/dL 8.4-10.2 L CBC W/AUTO [id number] 05:54:00 Test Item Value Reference Range Interpretation [...] NORMAL NORMAL code = PLTMR) COMPREHENSIVE METABOLIC [id number] 16:19:00 Test Item Value Reference Range Interpretation [...] units/L 46-116 H code = ALKP) LACTIC [id number] 16:19:00 Test Item Value Reference Range Interpretation Comments LACTIC ACID (test code = LACT) 0.8 MMOL/L 0.5-2.2 N CBC W/AUTO [id number] 15:55:00 Test Item Value Reference Range Interpretation [...] code = PLTMR) CT Abdomen Pelvis W [id number] 13:25:46Examination: CT ABDOMEN PELVIS W CONTRAST Clinical history: Abdominal pain fever, 4 days s p stat csection with fever Comparison: October 22, 2018 Technique: Multiple computerized axial tomographic images were obtained of the abdomen and pelvis following administration of IV contrast.Sagittal and coronal computerized reformatted images were also obtained. Enteric contrast was not CT scans are performed using radiation dose reduction techniques. Technical factors are evaluated and adjusted to ensure appropriate moderation of exposure. Automated dose management technology is applied to adjust radiation exposure while achieving a diagnostic quality image. IMPRESSION: The visualized lung bases are clear. Abdomen:1. There is mild hepatic steatosis. Borderline bilateral hydronephrosis is likely related to re cent uterus. There is no evidence of ureteral [...] is no pelvic hematoma or acute osseous path ology. CONCLUSION: 1.ENLARGED UTERUS IS COMPATIBLE RECENT STATE. [...] images were also obtained. Enteric contrast was notCT scans are performed using radiation dose reduction [...] is no pelvic hematoma or acute osseous p athology.CONCLUSION: 1.ENLARGED UTERUS IS COMPATIBLE RECENT STATE. SMALL AMOUNT OF FLUID AND/OR DEBRIS AND GAS WITHIN THE ENDOMETRIAL CAVITY MAY REPRESENT RETAINED PRODUCTS. THERE IS NO EVIDENCE OF FREE PELVIC OR ABDOMINAL WALL HEMATOMA.2.NO ABSCESS.3.PLEASE SEE ABOVE.1D2RAD_PS08[facility] [id number] 13:25:02EXAMINATION: XR CHEST 2 VW CLINICAL HISTORY: [...] s p c section 4 days agoCOMPARISON: NoneIMPRESSION:The lungsare clear.The heart is not enlarged.No acute bony abnormality.6 mm linear density projected over theright medial base. Suspect artifact.6OM1RAD_PS02[facility] PLACENTA THIRD [id number] 16:12:00 Test Item Value Reference Range Interpretation Comments PLACENTA THIRD TRIMESTER (test code = PLACIII) RUN DATE: 03/08/21 [facility] PAGE 1 RUN TIME: 1910 Specimen Inquiry RUN USER: INTERFACE [place]ERR[place] ENT: FANI GARCIA LOC: [facility] U #: [id number] AGE/SX: ROOM: [facility] RE03/04/21REG DR: Laureen Gerardo MD : [birth year] BED: A DIS: 03/08/21 STATUS: DIS IN TLOC: SPEC #: [id number] RECD: 03/06/21 STATUS: JOHN ALBERT #: [id number] RAOUL: 03/05/21- SUBM DR: Laureen Gerardo MD ENTERED: 03/06/21 SP TYPE: PLACIII OTHR DR: ORDERED: LEVEL V SURGICA CODES: [id number] - PLACENTA, NOS PROCEDURES: LEVEL V SURGICA [...] vasculitis, Stage 2; focal acute funisitis CPT: 95189 [facility]/wpd GROSS DESCRIPTION The specimen was received in a container labeled with the patient's name, unit number and designated "placenta". The following attributes are observed: Cord insertion: 6 cm from margin Cord length: 37 cm Number of vessels: 3 Cord color: Blue-potts Other cord findings: None surface findings: Steel blue, wrinkled, glistening Vasculature: Unremarkable blood vasculature Membranes rupture site: At the margin CONTINUED ON NEXT PAGE RUN DATE: 03/08/21 [facility] PAGE 2 RUN TIME: 1910 Specimen Inquiry RUN USER: INTERFACE SPEC #: [id number] PATIENT: FANI GARCIA #[id number] (Continued) ------- GROSS DESCRIPTION (Continued) Membrane color: Potts Other membrane findings: Thickened and opaque The trimmed placental weight: 595 gm Disk measurement: 24 x 22 x 3.3 cm Accessory lobes: None Maternal surface: Contains focal pinpoint calcium deposits Parenchyma: Red, beefy, and spongy Parenchyma lesions: None Cassettes: A1 through A4 hz/wphector 03/06/21 ---- Signed Chelsey Bautista 03/07/21 1612 END OF REPORT [id number] 14:18:00 Test Item Value Reference Range Interpretation Comments FERRITIN (test code = MANJIT) 31.4 NG/ML 6.24-137 N [id number] 14:18:00 Test Item Value Reference Range Interpretation Comments FERRITIN (test code = MANJIT) 31.4 NG/ML 6.24-137 HGB [id number] 17:06:00 Test Item Value Reference Range Interpretation Comments HEMOGLOBIN (test code = HGB) 7.3 g/dL 10.1-13.8 L HEMATOCRIT (test code = HCT) 24.3 % 32.5-41.8 L CBC W/AUTO [id number] 09:04:00 Test Item Value Reference Range Interpretation Comments WHITE BLOOD CELL (test 15.1 K/mm3 6.5-12.3 H code = WBC) RED BLOOD CELL (test 3.22 M/mm3 3.51-4.69 L code = RBC) HEMOGLOBIN (test code = 7.0 g/dL 10.1-13.8 L RESU LTS CALLED TO HGB) DUSTIN GOMEZ AD BACK & CONFIRME D? YBY [id number] 03/06/21 0753Re sults verified by rep eat [...] NORMAL REQUIRED (test code = PLTMR) WBC [id number] 09:04:00 Test Item Value Reference Range Interpretation [...] code = NORMAL NORMAL PLTMORPH) CAPILLARY BLOOD [id number] 14:45:00 Test Item Value Reference Range Interpretation [...] 21.0 % code = FIO2C) CAPILLARY BLOOD [id number] 14:45:00 Test Item Value Reference Range Interpretation [...] (test 21.0 % code = FIO2C) LACTIC [id number] 14:03:00 Test Item Value Reference Range Interpretation Comments LACTIC ACID (test code = LACT) <0.3 MMOL/L 0.5-2.2 L LACTIC [id number] 10:24:00 Test Item Value Reference Range Interpretation Comments LACTIC ACID (test 3.0 MMOL/L 0.5-2.2 H RESULTS CA LLED TO code = LACT) ROBYN ESCALANTE.RE AD BACK & CONFIRMED? SANDRA JoyceBY [id number] 1024. COMPREHENSIVE METABOLIC [id number] 10:22:00 Test Item Value Reference Range Interpretation [...] units/L 46-116 H code = ALKP) PROTHROMBIN [id number] 10:03:00 Test Item Value Reference Range Interpretation Comments PROTHROMBIN TIME PATIENT (test code 11.3 secs 10.1-12.3 N = PTP) IS PATIENT ON ANTICOAGULANTS ? NINTERNATIONAL NORMAL [id number] 10:03:00 Test Item Value Reference Range Interpretation Comments INTERNATIONAL NORMAL 1.02 The INR is to be used RATIO (test code = INR) only for monitoring oral anticoagulantth erapy. INDICATION INR VALUE 1. Prophylaxis inc luding high risk surge ry 2.0 - 2.52. Deep veno us thrombosis. Pul monary embolism. Atria l fibrillation or bioprosthetic h eart valves 2.0 - 3. 03. Mechanical hear t valves or recurrent sy stemic embolism. 3.0 - 3.5 IS PATIENT ON ANTICOAGULANTS ? NTHROMBOPLASTIN TIME [id number] 10:03:00 Test Item Value Reference Range Interpretation Comments THROMBOPLASTIN TIME PARTIAL (test 27.3 secs 22-38 N code = PTT) IS PATIENT ON ANTICOAGULANTS ? NCBC W/AUTO [id number] 09:58:00 Test Item Value Reference Range Interpretation [...] = PLTMR) UA RFLX MICR CULT IF [id number] 09:54:00 Test Item Value Reference Range Interpretation [...] for culture: Temperature > 100.4 FSpecimen Description: CATHETER DRUGS OF ABUSE [id number] 14:13:00 Test Item Value Reference Range Interpretation [...] PHENCU) 25 ng/m L AG HEPATITIS B [id number] 13:25:00 Test Item Value Reference Range Interpretation Comments AG HEPATITIS B SURFACE (test code NONREACTIVE NONREACTIVE = HBSAG) AB HEPATITIS C [id number] 13:25:00 Test Item Value Reference Range Interpretation Comments AB HEPATITIS C (test code = NONREACTIVE NONREACTIVE HCVAB) SIGNAL TO CUTOFF (test code = 0.09 <0.80 N CUTOFF) AB [id number] 13:25:00 Test Item Value Reference Range Interpretation Comments AB TREPONEMA (test code = TREPAB) NONREACTIVE NONREACTIVE AB HIV 1 13:25:00 Test Item Value Reference Range Interpretation Comments AB HIV 1 2 (test NONREACTIVE NONREACTIVE Done by Sie [employer] code = [id number]) 4th Gen HIV Ag/Ab Combo Screen COVID 19 Asymptomatic IH [id number] 12:50:00 Test Item Value Reference Range Interpretation Comments COVID 19 NEGATIVE NEGATIVE This test has b een Asymptomatic IH AG authorize d only for the (test code = detection ofpro teins from COVNONPUIAG) SARS-CoV-2, not for any other viruses orpathogens. Ne gative results should be treated as presumptive andconfirmed [...] of Accreditation. This test is only authori zed for the duration of thedeclaration that circumstances e xist justifying theauthorizatio n of emergency use o f in vitro diagnostic test sfor detection and/o r diagnosis of CO VID-19 under Jpsnlpe90 4(b)(1) of the Act, 21 U.S .C. 360bbb-3(b)(1), unless theauthorizatio n is terminated or r evoked sooner. Comments to Echocardiograph Tech: IN ROOMCB W/AUTO [id number] 11:54:00 Test Item Value Reference Range Interpretation [...] NORMAL code = PLTMR) - US FLW [id number] 00:00:00 [facility] : 1995 Sex: F Patient Name: FANI GARCIA Unit No: [id number] EXAMS: CPT CODE: [id number] [place] 97469 PROCEDURE INFORMATION: Exam: US ; Follow up [...] suspected or confirmed to be abnormal on a previous scan). COMPARISON: No relevant prior studies available. FINDINGS: Gestation: Intrauterine gestation. Presentation: Cephalic. Placenta: Posteriorly located with maturity grade of 3. No placenta previa. Amniotic fluid index: 9.8 cm. BIOMETRY: Gestational age (AUA): 39 weeks 6 days Estimated due date (AUA): 03/05/2021 Estimated weight: 3641 g (79.7%) Biparietal diameter: 8.6 cm, 34 weeks 4 days Head circumference: 32.2 cm, 36 weeks 2 daysAbdominal circumference: 35.9 cm, 39 weeks 6 days Femur length: 7.7 cm, 39 weeks 3 days biometric ratios: FL/BPD 89.7 (71-87); FL/AC: 21 (20- 24); HC/AC: 0.9 (0.91-1.05); CI: 74.7 (70-86) MATERNAL: Cervix: Not visualized. IMPRESSION: Viable intrauterine as described. at 1233 Reported and signed by: Kg Andrade MD CC: Luisito Wu III, MD Technologist: Radha Dickson RDMS Probe: Trnscrbd D/ (1233) GCD.CPS Orig Print D/T: S: 03/04/2021 (1233) [facility] NAME: [facility] Radiology Department PHYS: Luisito Oropeza III, MD [address] : 1995 AGE: 25 SEX: F [place] [address] LOC: LISA Pierre PHONE #: [phone] EXAM DATE: 03/04/2021 STATUS: ADM IN FAX #: [phone] RAD NO: Page 1 Signed Report [facility] Unit No: [id number] EXAMS: CPT CODE: [id number] US FLW UP 88301 (Continued) [facility] NAME: [facility] Radiology Department PHYS: Luisito Oropeza III, MD [address] : 1995 AGE: 25 SEX: F [place] [address] LOC: LISA Pierre PHONE #: [phone] EXAM DATE: 03/04/2021 STATUS: ADM IN FAX #: [phone] RAD NO: Page 2 Signed ReportVaginal Group B Strep by Real-Time PCR 2021-02-08 14:15:00 Test Item Value Reference Range Interpretation Comments Vaginal Group B Strep by Real-Time Negative Negative PCR (test code = 631881) [facility]lam[facility] [id number] 14:15:00 Test Item Value Reference Range Interpretation Comments chlamydia DNA probe (test code = Negative Negative 92665-8) [facility] [id number] 14:15:00 Test Item Value Reference Range Interpretation Comments Neisseria gonorrhoeae DNA probe Negative Negative (test code = 85989-4) [facility] [id number] 14:15:00 Test Item Value Reference Range Interpretation Comments Neisseria gonorrhoeae DNA probe Negative Negative (test code = 83348-2) [facility] Islandurine [id number] 15:00:00 Test Item Value Reference Range Interpretation Comments urine culture (test code = 630-4) LESS [facility] Islandblood glucose, 1 hour after 50 gm oral [id number] 15:00:00 Test Item Value Reference Range Interpretation Comments blood glucose, 1 hour after 50 gm 123 mg/dL 65-139 oral glucose (test code = 1039) [facility] IslandTreponema pallidum particle agglutination assay (TPPA test)2020-12-25 15:00:00 Test Item Value Reference Range Interpretation Comments Treponema pallidum particle Non Reactive Non Reactive agglutination assay (TPPA test) (test code = 67659-5) [facility] Islandrubella antibody, serum, [id number] 15:00:00 Test Item Value Reference Range Interpretation Comments rubella antibody, 1.35 (unknown See_Comment [Automat ed message] serum, IgG (test unit) The system which code = 5334-8) generated thi s result transmitted ref erence range: Immune > 0.99. The reference r alisa was not used to interpret this result as normal/abnor mal. [facility] Islandbacteria, urine kzvhvyflxx7371-12-27 15:00:00 Test Item Value Reference Range Interpretation Comments bacteria, urine microscopy (test code = Few None seen/Few 5769-5) [facility] Islandcasts, [id number] 15:00:00 Test Item Value Reference Range Interpretation Comments casts, urine (test code = 5626) None seen None seen [facility] Islandepithelial cells, uhfwg7191-42-79 15:00:00 Test Item Value Reference Range Interpretation Comments epithelial cells, urine (test code = >10 0-10 A 5787-7) [facility] IslandRBC, [id number] 15:00:00 Test Item Value Reference Range Interpretation Comments RBC, Urine (test code = None seen /hpf 0-2 35259-8) [facility] urine on tpkmcxhkzs3062-70-14 15:00:00 Test Item Value Reference Range Interpretation Comments WBC urine on microscopy (test code = 0-5 /hpf 0-5 1016) [facility] Islandurinalysis, microscopic jwupafxghiz6392-73-49 15:00:00 Test Item Value Reference Range Interpretation Comments urinalysis, microscopic See below: examination (test code = 49931-7) [facility] Islandnitrate, [id number] 15:00:00 Test Item Value Reference Range Interpretation Comments nitrate, urine (test code = 91715-5) Negative Negative [facility] Islandurobilinogen, urine, semiquantitative (dipstick) 2020-12-25 15:00:00 Test Item Value Reference Range Interpretation Comments urobilinogen, urine, 0.2 (unknown 0.2-1.0 semiquantitative (dipstick) unit) (test code = 5818-0) [facility] Islandbilirubin, [id number] 15:00:00 Test Item Value Reference Range Interpretation Comments bilirubin, urine (test code = Negative Negative 5770-3) [facility] Islandketones, urine, by test ajtno7624-10-55 15:00:00 Test Item Value Reference Range Interpretation Comments ketones, urine, by test strip (test Trace Negative A code = 5797-6) [facility] Islandglucose, urine, umlojuaqcsrsknli1884-98-49 15:00:00 Test Item Value Reference Range Interpretation Comments glucose, urine, semiquantitative Negative Negative (test code = 5792-7) [facility] Islandprotein, urine, semiquantitative (dipstick)2020-12-25 15:00:00 Test Item Value Reference Range Interpretation Comments protein, urine, semiquantitative 1+ Negative/Trace A (dipstick) (test code = 1753-3) [facility] Islandleukocyte esterase, urine, by uuflbsdp8141-93-74 15:00:00 Test Item Value Reference Range Interpretation Comments leukocyte esterase, urine, by dipstick Trace Negative A (test code = 5799-2) [facility] Islandappearance, molrh0179-08-81 15:00:00 Test Item Value Reference Range Interpretation Comments appearance, urine (test code = 5767-9) Clear Clear [facility] Islandurine amnaq4574-60-32 15:00:00 Test Item Value Reference Range Interpretation Comments urine color (test code = 5778-6) Yellow Yellow [facility] HealthpH, urine, bmqkxoszeswkdztb1686-98-12 15:00:00 Test Item Value Reference Range Interpretation Comments pH, urine, semiquantitative 5.5 (unknown 5.0-7.5 (test code = 5803-2) unit) [facility] Islandspecific gravity, body [id number] 15:00:00 Test Item Value Reference Range Interpretation Comments specific gravity, body 1.029 (unknown unit) 1.005-1.030 fluid (test code = 2964-5) [facility] Islandimmature granulocytes, percentage of total cells, blood 2020-12-25 15:00:00 Test Item Value Reference Range Interpretation Comments immature granulocytes, percentage of 0 % total cells, blood (test code = 47952-9) [facility] Islandbasophil count, xummgdlv1048-86-00 15:00:00 Test Item Value Reference Range Interpretation Comments basophil count, absolute (test 0.0 x10E3/uL 0.0-0.2 code = 53370-3) [facility] IslandEosinophil Absolute Yfrvn4081-85-13 15:00:00 Test Item Value Reference Range Interpretation Comments Eosinophil Absolute Count (test 0.1 X10E3/UL 0.0-0.4 code = 96901-1) [facility] Islandmonocyte count, blood, qmnwdganm1521-33-23 15:00:00 Test Item Value Reference Range Interpretation Comments monocyte count, blood, automated 0.5 X10E3/UL 0.1-0.9 (test code = 742-7) [facility] Islandlymphocyte count, blood, cdmojrwhv5352-71-61 15:00:00 Test Item Value Reference Range Interpretation Comments lymphocyte count, blood, 2.2 X10E3/UL 0.7-3.1 automated (test code = 731-0) [facility] IslandAbsolute Xhoxsgsjati4460-26-68 15:00:00 Test Item Value Reference Range Interpretation Comments Absolute Neutrophils (test code 6.4 X10E3/UL 1.4-7.0 = 97599-6) [facility] Islandbasophils as percent of blood xcjhnwqgkm3545-53-35 15:00:00 Test Item Value Reference Range Interpretation Comments basophils as percent of blood 0 % leukocytes (test code = 707-0) [facility] Islandeosinophils as percent of blood uswxgydzif3654-18-22 15:00:00 Test Item Value Reference Range Interpretation Comments eosinophils as percent of blood 1 % leukocytes (test code = 713-8) [facility] Healthmonocytes as percent of blood gqfqvodoek0148-64-11 15:00:00 Test Item Value Reference Range Interpretation Comments monocytes as percent of blood 5 % leukocytes (test code = 5905-5) [facility] Islandlymphocytes as percent of blood ysojilayfu1086-81-58 15:00:00 Test Item Value Reference Range Interpretation Comments lymphocytes as percent of blood 24 % leukocytes (test code = 736-9) [facility] Islandneutrophils as percent of blood xosshyndvg0246-07-69 15:00:00 Test Item Value Reference Range Interpretation Comments neutrophils as percent of blood 70 % leukocytes (test code = 770-8) [facility] Islandplatelet dsvdt1973-12-78 15:00:00 Test Item Value Reference Range Interpretation Comments platelet count (test code = 400 X10E3/UL 150-450 777-3) [facility] Islandred blood cell distribution jxohz4271-04-44 15:00:00 Test Item Value Reference Range Interpretation Comments red blood cell distribution width 13.5 % 11.7-15.4 (test code = 788-0) [facility] corpuscular hemoglobin concentration, [id number] 15:00:00 Test Item Value Reference Range Interpretation Comments mean corpuscular hemoglobin 32.3 G/DL 31.5-35.7 concentration, RBC (test code = 786-4) [facility] corpuscular hemoglobin, [id number] 15:00:00 Test Item Value Reference Range Interpretation Comments mean corpuscular hemoglobin, RBC 25.5 pg 26.6-33.0 L (test code = 785-6) [facility] corpuscular volume, [id number] 15:00:00 Test Item Value Reference Range Interpretation Comments mean corpuscular volume, RBC (test code 79 fL 79-97 = 787-2) [facility] Islandhematocrit, fplbo0919-69-84 15:00:00 Test Item Value Reference Range Interpretation Comments hematocrit, blood (test code = 4544-3) 31.6 % 34.0-46.6 L [facility] Islandhemoglobin, vbrcb4052-90-02 15:00:00 Test Item Value Reference Range Interpretation Comments hemoglobin, blood (test code = 10.2 g/dL 11.1-15.9 L 718-7) [facility] Islanderythrocyte (RBC) uowbb7889-75-16 15:00:00 Test Item Value Reference Range Interpretation Comments erythrocyte (RBC) count (test 4.00 X10E6/UL 3.77-5.28 code = 789-8) [facility] Islandleukocyte count, fbtqy5851-12-75 15:00:00 Test Item Value Reference Range Interpretation Comments leukocyte count, blood (test 9.2 X10E3/UL 3.4-10.8 code = 6690-2) [facility] IslandHIV-CMIA (Chemiluminescent Microparticle Immuno Assay) 2020-12-25 15:00:00 Test Item Value Reference Range Interpretation Comments HIV-CMIA (Chemiluminescent Non Reactive Non Reactive Microparticle Immuno Assay) (test code = 52628-2) [facility] Islandblood glucose, 1 hour after 50 gm oral kgdngkd6023-95-27 15:00:00 Test Item Value Reference Range Interpretation Comments blood glucose, 1 hour after 50 gm 123 mg/dL 65-139 oral glucose (test code = 1039) [facility] Islandcasts, pgekg7455-73-67 15:00:00 Test Item Value Reference Range Interpretation Comments casts, urine (test code = 5626) None seen None seen [facility] IslandWBC urine on rudbvwjqbz1651-94-31 15:00:00 Test Item Value Reference Range Interpretation Comments WBC urine on microscopy (test code = 0-5 /hpf 0-5 1016) [facility] IslandOccult Blood, zxojm9460-42-58 15:00:00 Test Item Value Reference Range Interpretation Comments Occult Blood, urine (test code = Negative Negative ) [facility] IslandCystic Fibrosis DNA, Whole Ejjkl1870-80-36 00:00:00 Test Item Value Reference Range Interpretation Comments Cystic Fibrosis DNA, Whole Blood Negative N (test code = 32756) [facility] IslandCystic Fibrosis DNA, Whole Erhsi2775-94-32 00:00:00 Test Item Value Reference Range Interpretation Comments Cystic Fibrosis DNA, Whole Blood Negative N (test code = 90051) [facility] CLC OR LCC ONLY - WET [id number] 18:17:39 Test Item Value Reference Range Interpretation Comments CLUE CELLS WET PREP (test code = Few None Seen HPF A 3940967624) BACTERIA WET PREP (test code = Moderate None Seen HPF A 3375128712) WBC WET PREP (test code = Few None Seen HPF A 5573463702) RBC WET PREP (test code = None Seen None Seen HPF 3455109112) TRICHOMONAS WET PREP (test code = None Seen None Seen HPF 2724528534) YEAST WET PREP (test code = Few None Seen HPF A 3128225534) Lab Interpretation (test code = Abnormal 21972-5) [facility]53:10 Test Item Value Reference Range Interpretation Comments APPEARANCE (test code = Hazy Clear A 7054014582) COLOR (test code = Yellow Yellow 3682126996) PH (test code = 4.8-8.0 9351837668) SP GRAVITY (test code = 1.003-1.030 7376543286) GLU U QUAL (test code = Normal Normal 7849455669) BLOOD (test code = 1+ Negative A 8529489328) KETONES (test code = Negative Negative 9597711365) PROTEIN (test code = Negative Negative 2887-8) UROBILIN (test code = Normal Normal 7346212125) BILIRUBIN (test code = Negative Negative 1844333828) NITRITE (test code = Negative Negative 8836896507) LEUK WILFREDO (test code = 250/uL Negative A 5853939876) RBC/HPF (test code = See_Comment [Autom ated message] 3723641167) The system [employer] generated this result transmitted ref erence range: 0 - 3 HP F. The reference range was not used to int erpret this result as normal/abnormal . WBC/HPF (test code = See_Comment [Autom ated message] 2288194696) The system [employer] generated this result transmitted ref erence range: 0 - 5 HP F. The reference range was not used to int erpret this result as normal/abnormal . BACTERIA (test code = Few Negative A 2581450870) MUCOUS (test code = Slight Negative LPF A 2052810531) SQ EPITH (test code = HPF 6589320369) Lab Interpretation (test Abnormal code = 83524-9) [facility] (ID NOW RAPID TESTING)2020-10-12 16:30:06 Test Item Value Reference Range Interpretation Comments SARS-CoV-2 Rapid ID NOW Not Detected Not Detected (test code = 64634-3) ALANIS (test code = ALANIS) ID NOW COVID-19 Assay is an isothermal nucleic acid amplification test intended for the qualitative detection of nucleic acid from SARS-CoV-2 viral RNA in nasopharyngeal (ASSURANCE SPECIALIST) specimens. It is used under Emergency Use [...] indicated. Lab Interpretation Normal (test code = 89538-0) [facility] URINALYSIS W/O SPECIFIC [id number] 19:34:00 Test Item Value Reference Range Interpretation [...] code = 3257) neg Negative - Negative [facility] [id number] 19:34:00 Test Item Value Reference Range Interpretation Comments POCT PREG (test code Positive = 1605) On board controls Yes acceptable with C Line (test code = 3574) POCT PREG LOT # (test code = 3575) POCT PREG TEST DATE (test code = 357) ALANIS (test code = ALANIS) accurate development and interpretation of all internal controls [facility] [id number] 09:32:00Clear (08/07/20 3:32 AM)[facility] [id number] 09:32:00 Test Item Value Reference Range Interpretation Comments UA Spec Grav (test code = UA Spec 1.019 1 Grav) [facility] [id number] 09:32:00 Test Item Value Reference Range Interpretation Comments UA pH (test code = UA pH) 7.0 1 5.0-8.0 [facility] [id number] 09:32:00Negative *NA*(08/07/20 3:32 AM) [facility] RLLIH3038-05-51 09:32:00Negative (08/07/20 3:32 AM) [facility] [id number] 09:32:00Negative (08/07/20 3:32 AM) [facility] [id number] 09:32:00Negative (08/07/20 3:32 AM) [facility] [id number] 09:32:00<1[facility] VRWYI2047-73-61 09:32:001[facility] [id number] 09:32:00Clear (08/07/20 3:32 AM)[facility] [id number] 09:32:00 Test Item Value Reference Range Interpretation Comments UA Spec Grav (test code = UA Spec 1.019 1 Grav) [facility] [id number] 09:32:00 Test Item Value Reference Range Interpretation Comments UA pH (test code = UA pH) 7.0 1 5.0-8.0 [facility] [id number] 09:32:00Negative *NA*(08/07/20 3:32 AM) [facility] ZVCFF6489-58-08 09:32:00Negative (08/07/20 3:32 AM) [facility] [id number] 09:32:00Negative (08/07/20 3:32 AM) [facility] [id number] 09:32:00Negative (08/07/20 3:32 AM) [facility] HXVAZ3088-75-07 09:32:00<1[facility] VJGKH5988-31-02 09:32:001[facility] QWXWR7700-07-21 09:32:00Clear (08/07/20 3:32 AM)[facility] [id number] 09:32:00 Test Item Value Reference Range Interpretation Comments UA Spec Grav (test code = UA Spec 1.019 1 Grav) [facility] [id number] 09:32:00 Test Item Value Reference Range Interpretation Comments UA pH (test code = UA pH) 7.0 1 5.0-8.0 [facility] XMGFH0562-24-00 09:32:00Negative *NA*(08/07/20 3:32 AM) [facility] VJXOC0494-00-45 09:32:00Negative (08/07/20 3:32 AM) [facility] [id number] 09:32:00Negative (08/07/20 3:32 AM) [facility] CRKGH6841-30-41 09:32:00Negative (08/07/20 3:32 AM) [facility] EBGYT9242-69-05 09:32:00<1[facility] MJUWP9307-26-25 09:32:001[facility] MYWXM7737-09-25 09:32:00Clear (08/07/20 3:32 AM)[facility] MWZYP9277-70-12 09:32:00 Test Item Value Reference Range Interpretation Comments UA Spec Grav (test code = UA Spec 1.019 1 Grav) [facility] [id number] 09:32:00 Test Item Value Reference Range Interpretation Comments UA pH (test code = UA pH) 7.0 1 5.0-8.0 [facility] JGNOW4816-11-69 09:32:00Negative *NA*(08/07/20 3:32 AM) [facility] [id number] 09:32:00Negative (08/07/20 3:32 AM) [facility] LPPPL9907-89-68 09:32:00Negative (08/07/20 3:32 AM) [facility] EHMYB2561-05-95 09:32:00Negative (08/07/20 3:32 AM) [facility] [id number] 09:32:00<1[facility] UXVVU0262-36-52 09:32:001[facility] GZVKS1995-69-32 09:32:00Clear (08/07/20 3:32 AM)[facility] IELHT1110-91-78 09:32:00 Test Item Value Reference Range Interpretation Comments UA Spec Grav (test code = UA Spec 1.019 1 Grav) [facility] [id number] 09:32:00 Test Item Value Reference Range Interpretation Comments UA pH (test code = UA pH) 7.0 1 5.0-8.0 [facility] CUYOY8277-75-13 09:32:00Negative *NA*(08/07/20 3:32 AM) [facility] PRGLQ1437-29-27 09:32:00Negative (08/07/20 3:32 AM) [facility] MBFSW4079-05-26 09:32:00Negative (08/07/20 3:32 AM) [facility] JINBR0096-24-98 09:32:00Negative (08/07/20 3:32 AM) [facility] BNUOG3448-46-20 09:32:00<1[facility] [id number] 09:32:001[facility] BmcqkwqFGFUQHFAATTOV5157-78-81 09:00:46266374 [facility] VivhoxeACQYTPHGVVATZ4124-52-84 09:00:37736376Djodtnby [place] XSMVBQRKHBZRU7714-93-72 09:00:82691829Bmwfdhew UljuohuZCIOGRGJSGBPT3552-72-19 09:00:33460389Nbiqyzkh VqhzhqzKXLLESLGQXRBW8566-63-13 09:00:89198545Dvknnaey HermannCHEM CZHDL3696-46-56 08:03:0027[facility]annCHEM QNLZX9191-91-86 08:03:009.0[facility] HvlqgbiYREZTORSDE5766-60-36 08:03:000.2[facility]annCHEM WXCET2960-48-06 08:03:0010.4[facility]annCHEM VVQOI1418-50-63 08:03:57088 [facility] BaketvdCQGKBLDHNJNWT9728-72-19 08:03:00Positive *NA*(08/07/20 2:03 AM) [facility] JbpyyluBZEZPRPLOE6698-44-57 08:03:008.9[facility]annHEMATOLOGY 2020-08-07 08:03:004.22[facility] DouwlowCGWJHXSCUE3095-93-08 08:03:0012.2[facility] TgruxdwPWLSCJSYHZ9781-17-78 08:03:0036.5[facility] YylkgtkVHFDHVBLNW4644-94-43 08:03:0086.6[facility] UfqmpuwVJSVNGGRIT4011-91-06 08:03:00 Test Item Value Reference Range Interpretation Comments MCH (test code = MCH) 28.9 pg 27.0-31.0 [facility] LvovtzlVAKIUYHMWO2877-30-32 08:03:0033.4[facility]annHEMATOLOGY 2020-08-07 08:03:000.0[facility] YjdeihfLOHEYMSDQZ5036-48-97 08:03:0013.7[facility] SbecflyBVDZWOJHMY2089-41-82 08:03:32073Ixowdcic NppvbdrYTGSUELCPI8665-29-74 08:03:007.8[facility] SzmbpjyFRHJWNTRDL8636-69-59 08:03:00 Test Item Value Reference Range Interpretation Comments PT (test code = PT) 12.7 s 12.0-14.7 [facility] HtxfuusRGIRQVKXVK5072-67-34 08:03:00 Test Item Value Reference Range Interpretation Comments INR (test code = INR) 0.96 1 0.85-1.17 [facility] AyoecihTKVKCBWAHN4670-05-71 08:03:00 Test Item Value Reference Range Interpretation Comments PTT (test code = PTT) 29.4 s 22.9-35.8 [facility] JrfcdzwQOTQOJTPFI8425-53-39 08:03:0068.7[facility]annHEMATOLOGY 2020-08-07 08:03:0024.2[facility] WcvudwhSQJSCFVCVC3917-02-11 08:03:005.0[facility] KfrocnzONLYJCEUFB3882-63-73 08:03:001.8[facility] XnvajvgVETZOOOEDK8870-15-69 08:03:000.3[facility] IidkvdsLXNEWJSUGW3484-61-08 08:03:006.1[facility] GIQGIQXWEC7271-31-05 08:03:002.2[facility] YprizimGNFJKQPFLU2569-60-01 08:03:000.4 [facility] VcurcdwMWURVNZMME2269-84-53 08:03:000.2[facility]annHEMATOLOGY 2020-08-07 08:03:000.0[facility] HermannCARDIAC SQBCJKG2189-59-80 08:03:00<0.02 [facility]annCHEM HDVBB1676-76-49 08:03:0091[facility]annCHEM PANEL 2020-08-07 08:03:004[facility]annCHEM VYWKK8757-91-86 08:03:000.60[facility]annCHEM HRMPH9208-02-06 08:03:95141Kwbdwrcq HermannCHEM BMYXJ3578-57-42 08:03:003.4[facility] HermannCHEM YGZCU3445-72-12 08:03:98843Bucpdhkd HermannCHEM DKDBI3829-78-47 08:03:0027[facility]annCHEM BNMST4815-59-17 08:03:009.0 [facility]annCHEM NCUTW7481-97-14 08:03:0010.4[facility] HermannCHEM PANEL 2020-08-07 08:03:20419Fjmxlvlz CglbhgxERUFFTMZTWASX8749-00-28 08:03:00Positive *NA*(08/07/20 2:03 AM)[facility] RcimxesANWHIQNMSL7829-14-42 08:03:008.9[facility] IwbizicUKEFWUUONT8536-45-92 08:03:004.22[facility] JyrjiaaFTIOBNDHGT8223-41-73 08:03:0012.2[facility] XhrydesRJIVRJCSWZ9745-18-62 08:03:0036.5[facility] WTZGNMPFYY5249-63-35 08:03:0086.6[facility] RexarymZSXFDVSMHH1928-21-45 08:03:00 Test Item Value Reference Range Interpretation Comments MCH (test code = MCH) 28.9 pg 27.0-31.0 [facility] NnjqcolWVWKHWIREQ2277-56-75 08:03:0033.4[facility] HermannHEMATOLOGY 2020-08-07 08:03:0013.7[facility] DfhxcecVEHTSAMIAX6974-46-48 08:03:74293Yumblqsj NvaxxufDTPADEAJRT0188-84-41 08:03:007.8[facility] XnqhihvKNDSMLAHET7635-71-65 08:03:00 Test Item Value Reference Range Interpretation Comments PT (test code = PT) 12.7 s 12.0-14.7 [facility] FvtrtntIBSVUQDDBG0027-22-82 08:03:00 Test Item Value Reference Range Interpretation Comments INR (test code = INR) 0.96 1 0.85-1.17 [facility] LocqijsIXVCCCEYKL8609-54-45 08:03:00 Test Item Value Reference Range Interpretation Comments PTT (test code = PTT) 29.4 s 22.9-35.8 [facility] EhdoqtzOAMHNCCSJZ6520-40-77 08:03:0068.7[facility] HermannHEMATOLOGY 2020-08-07 08:03:0024.2[facility] HvnfnxwHRLPAWXUJZ6277-53-87 08:03:005.0[facility] HgolkljDUHJJHGWNO8907-03-56 08:03:001.8[facility] ZgxpxwzJPTVPWISKJ6246-61-65 08:03:000.3[facility] GjryyhvDSKRDGPSWO6559-72-67 08:03:006.1[facility] LGWORWXPHS2701-85-77 08:03:002.2[facility] WqgwngmGKMFFTYTOY1955-97-70 08:03:000.4 [facility] WlbyazeQLPUSTGPRN4126-82-86 08:03:000.2[facility] HermannHEMATOLOGY 2020-08-07 08:03:000.0[facility] HermannCARDIAC BNVTCHY0380-42-61 08:03:00<0.02 [facility]annCHEM FJYTJ7379-19-99 08:03:0091[facility]annCHEM PANEL 2020-08-07 08:03:004[facility]annCHEM ITCXC7668-73-33 08:03:000.60[facility]annCHEM NKCPR0455-75-47 08:03:51465Teajiuja HermannCHEM EUOYV8858-16-57 08:03:003.4[facility]annCHEM QZTAY7367-26-00 08:03:30351Mudbozus HermannCHEM PLYWA1498-15-54 08:03:0027[facility] HermannCHEM NGSVK2941-68-56 08:03:009.0 [facility] HermannCHEM SIBQN7590-53-15 08:03:0010.4[facility] HermannCHEM PANEL 2020-08-07 08:03:02864Jrpgajun KufbyevYBLFWBBNMMWRX3007-85-94 08:03:00Positive *NA*(08/07/20 2:03 AM)[facility] JkihgjjTSGUKGZEVS9098-75-74 08:03:008.9[facility] KmfbypyQKBCSWASKK4483-01-31 08:03:004.22[facility] HodiosaTCWNWNXBAM1865-98-28 08:03:0012.2[facility] IchfrcnMBUGWVDPLW5437-89-13 08:03:0036.5[facility] TPUIMXKOVV0340-00-82 08:03:0086.6[facility] VqmcfnuBZEFSJZPAT3644-52-14 08:03:00 Test Item Value Reference Range Interpretation Comments MCH (test code = MCH) 28.9 pg 27.0-31.0 [facility] DqqoqrwVKPPTFHVQK3303-34-47 08:03:0033.4[facility] HermannHEMATOLOGY 2020-08-07 08:03:0013.7[facility] KlihtthJLVZTCOJUZ3485-81-19 08:03:88240Pewxcfus XyplfmkNLJYCVYVUC5256-57-38 08:03:007.8[facility] DsgsuyjDNKJDQWIJL3575-38-43 08:03:00 Test Item Value Reference Range Interpretation Comments PT (test code = PT) 12.7 s 12.0-14.7 [facility] OyujlnzYVYEAMMYPL2801-42-55 08:03:00 Test Item Value Reference Range Interpretation Comments INR (test code = INR) 0.96 1 0.85-1.17 [facility] IlwnkuzUTJYHCDDCE7526-88-89 08:03:00 Test Item Value Reference Range Interpretation Comments PTT (test code = PTT) 29.4 s 22.9-35.8 [facility] CieidxuNRFBHHQKJH6983-31-76 08:03:0068.7[facility] HermannHEMATOLOGY 2020-08-07 08:03:0024.2[facility] PihoksrIRLVTYAZRD4287-79-05 08:03:005.0[facility] ZqufjytWCAOWKSCWU8077-35-30 08:03:001.8[facility] KhywcwbFLFBGUYFTY5036-21-10 08:03:000.3[facility] JwlvrtkPLORWEITXP3845-65-64 08:03:006.1[facility] MDFVMFHAJG6526-05-99 08:03:002.2[facility] BudmwiwGRZRBIJXVD4390-29-47 08:03:000.4 [facility] VnxbmexEJMLOAKJMU0574-06-43 08:03:000.2[facility]annHEMATOLOGY 2020-08-07 08:03:000.0[facility] HermannCARDIAC KDYBMCM4422-77-13 08:03:00<0.02 [facility]annCHEM GHGQT8786-43-55 08:03:0091[facility] HermannCHEM PANEL 2020-08-07 08:03:004[facility]annCHEM MMIJL7614-40-48 08:03:000.60[facility]annCHEM YBSBN5997-87-03 08:03:95313Fngwfkvi HermannCHEM WUUKO3952-73-51 08:03:003.4[facility] HermannCHEM KCOKL6233-12-68 08:03:44492Vukfihkj HermannCHEM RHCDG0331-52-54 08:03:0027[facility]annCHEM HWMDO4090-37-63 08:03:009.0 [facility]annCHE[facility] BLGNY5740-63-11 08:03:0010.4[facility] HermannCHEM PANEL 2020-08-07 08:03:81407Ywrmuagg EmxxwqxSLARMVNYHSGNU3315-40-95 08:03:00Positive *NA*(08/07/20 2:03 AM)[facility] VrlrnhrEIOODBPKHL8593-92-52 08:03:008.9[facility] NdagnjaYUJKTQNQOG6559-60-54 08:03:004.22[facility] FnfyhhlAMKQOIINJM4927-65-11 08:03:0012.2[facility] HermannCARDIAC AMOXNYZ4184-91-01 08:03:00<0.02[facility] HermannCHEM DTUUX1536-56-99 08:03:0091[facility]annCHEM QXROE8126-09-13 08:03:004[facility]annCHEM JJVAB6646-57-31 08:03:000.60[facility] HermannCHEM QZHIE6449-75-86 08:03:58893Plybucsl HermannCHEM JCYJX4097-26-64 08:03:003.4 [facility]annCHEM AQFEZ3533-10-84 08:03:42856Pmsnotah HermannHEMATOLOGY 2020-08-07 08:03:0036.5[facility] HermannCHEM ZTHSJ2099-82-53 08:03:0027[facility]annCHEM AWVXL5869-46-69 08:03:009.0[facility] HermannCHEM VLUOZ1311-65-24 08:03:0010.4[facility] HermannCHEM JTLDM6071-87-97 08:03:44352Xbglnshq Huy JOLEPBFFUBPXA8335-60-07 08:03:00Positive *NA*(08/07/20 2:03 AM)[facility] SRRRMTVTGM0026-52-88 08:03:008.9[facility] EwbtcpeTVLJTTBBYF4598-70-61 08:03:00 4.22[facility] TnnntbeEXKEEGJXOC0043-19-67 08:03:0012.2[facility] HermannHEMATOLOGY 2020-08-07 08:03:0036.5[facility] GhdzwaoWMGJBNCSIJ3782-65-74 08:03:0086.6[facility] BzewoboPHJUDWEMID3634-95-09 08:03:0086.6[facility] KvrmuxjTJBJSHHMJR7839-46-71 08:03:00 Test Item Value Reference Range Interpretation Comments MCH (test code = MCH) 28.9 pg 27.0-31.0 [facility] ZaoavzoCXQFEHRWXR0842-56-75 08:03:0033.4[facility] HermannHEMATOLOGY 2020-08-07 08:03:0013.7[facility] GedvhilHKZEYPPTDE3921-52-43 08:03:29052Jngzxtjl QfjxzfbSWJYVBTVUQ5996-63-16 08:03:007.8[facility] AwjidanMEVUQYXBFM0961-00-84 08:03:00 Test Item Value Reference Range Interpretation Comments PT (test code = PT) 12.7 s 12.0-14.7 [facility] TmelwztCGBWFXUJNU2546-26-07 08:03:00 Test Item Value Reference Range Interpretation Comments INR (test code = INR) 0.96 1 0.85-1.17 [facility] MllkweyMFFHWKPCVW8321-02-67 08:03:00 Test Item Value Reference Range Interpretation Comments PTT (test code = PTT) 29.4 s 22.9-35.8 [facility] IgntmwhCHOGPFPOAK0858-80-61 08:03:0068.7[facility] HermannHEMATOLOGY 2020-08-07 08:03:0024.2[facility] AwizucwHURFCYVZJR8984-74-49 08:03:00 Test Item Value Reference Range Interpretation Comments MCH (test code = MCH) 28.9 pg 27.0-31.0 [facility] LmkadbnLSHUONZRUC2687-49-33 08:03:005.0[facility] HermannHEMATOLOGY 2020-08-07 08:03:001.8[facility] UbkxnnkMFJCRLELMD8651-90-02 08:03:000.3[facility] CwonkxhSQLAMPJGJE3225-55-04 08:03:006.1[facility] QevccarZTTERVSFLF4902-26-13 08:03:002.2[facility] DjcqwamERTJRMGICC4620-35-99 08:03:000.4[facility] XKJXZBNQYO3149-62-05 08:03:000.2[facility] HvcntqcPZMQNJDPNK9163-65-89 08:03:000.0 [facility] FbxxdftQJXTIFLRAC9040-38-87 08:03:0033.4[facility] HermannHEMATOLOGY 2020-08-07 08:03:0013.7[facility] WcszvhcVKGZHLJVQY4743-02-67 08:03:99325Txfnajwg ClgoiucNRCUVCPZJQ0995-73-89 08:03:007.8[facility] OsogrquASWFVOREUV8588-36-23 08:03:00 Test Item Value Reference Range Interpretation Comments PT (test code = PT) 12.7 s 12.0-14.7 [facility] JmszkerGLZFRPFIAK1666-08-18 08:03:00 Test Item Value Reference Range Interpretation Comments INR (test code = INR) 0.96 1 0.85-1.17 [facility] EutigfwRZDDCUHPWK9341-05-93 08:03:00 Test Item Value Reference Range Interpretation Comments PTT (test code = PTT) 29.4 s 22.9-35.8 [facility] AiecprtWBQBHHKRDV2087-09-11 08:03:0068.7[facility] HermannHEMATOLOGY 2020-08-07 08:03:0024.2[facility] XeulzfdDHKNDWOYJO6253-26-43 08:03:005.0[facility] UxgnzopUDJSRMJINY3823-12-89 08:03:001.8[facility] TwxmmeqMNEIVLIXQX0328-62-24 08:03:000.3[facility] UjdreiyQPHYLLFCED0824-63-68 08:03:006.1[facility] FHIFIMQJUV6308-54-39 08:03:002.2[facility] QiqvrqtCRRPEMLALA7731-60-86 08:03:000.4 [facility] HermannCARDIAC QGHTWMK2202-98-89 08:03:00<0.02[facility] HermannCHEM YDSJG3204-09-67 08:03:0091[facility] HermannCHEM ZFUZS8349-35-60 08:03:004[facility]annCHEM WGWWY7753-37-89 08:03:000.60[facility] HermannCHEM SBZHZ2959-83-28 08:03:60895Xasgceoc HermannCHEM KZCKV2290-64-86 08:03:003.4[facility] HermannCHEM AQOEM7617-24-31 08:03:16807Qesedkdn [facility]annCHEM YFNJC8452-20-77 23:56:0025 [facility]annCHEM GHOJC7996-30-93 23:56:0068[facility] HermannCHEM PANEL 2020-07-29 23:56:000.3[facility] HermannCHEM DKPHL8339-64-85 23:56:11747Yumelzbx HermannCHEM YJVMH4144-53-52 23:56:0058[facility] VuuxwedYXNFPPTEAUXOL5097-77-82 23:56:04894990Ehabejxg PrtynorJQBDVILWKM1640-47-33 23:56:006.7[facility] TVBXZJFDMX6101-30-61 23:56:004.33[facility] EmpksqxOPLUBDVBCU2903-43-56 23:56:00 12.4[facility] CkwrvrsXYVRDYIEKY8001-36-11 23:56:0037.9[facility]annHEMATOLOGY 2020-07-29 23:56:0087.6[facility] UjvyjooQUXDSLKAFR2283-82-88 23:56:00 Test Item Value Reference Range Interpretation Comments MCH (test code = MCH) 28.7 pg 27.0-31.0 [facility] DnfsqxzKPYFLTHHRP6142-58-97 23:56:0032.7[facility]annHEMATOLOGY 2020-07-29 23:56:0013.8[facility] EcoaeqrHCOEZFUBOS8814-10-30 23:56:49670Cbpazmsf VblsegkYDXJYJHJPZ6170-43-17 23:56:007.6[facility] HgtwtcdYPKLLSCOKA1258-32-53 23:56:0070.4[facility] PbdzfjbBDHIJKNPPY7086-87-21 23:56:0021.9[facility] BWSVOVPFKW1928-33-51 23:56:006.2[facility] DvrlvznZISXVWVMCF2326-69-22 23:56:001.2 [facility] TpzmaudIXHWTYQCQI4835-00-86 23:56:000.3[facility]annHEMATOLOGY 2020-07-29 23:56:004.7[facility] DvcuulwXSBMWNBBYS5443-42-80 23:56:001.5[facility] McpzqopZSQJEZDYIP6981-89-95 23:56:000.4[facility] TlgznnsDKGGSRLVNX8255-43-69 23:56:000.1[facility] XkvjtmgRAFOQWSEHS9794-37-30 23:56:000.0[facility]annURINE AND QUVDI2070-17-59 23:56:00Slight *ABN*(07/29/20 5:56 PM)[facility] OZZVP4941-24-54 23:56:00 Test Item Value Reference Range Interpretation Comments UA Spec Grav (test code = UA Spec 1.023 1 Grav) [facility] WAYBO0148-50-17 23:56:00 Test Item Value Reference Range Interpretation Comments UA pH (test code = UA pH) 5.0 1 5.0-8.0 [facility] DJMFU0177-21-48 23:56:00Negative *NA*(07/29/20 5:56 PM) [facility] OLSIS6220-75-17 23:56:00Large *ABN*(07/29/20 5:56 PM) [facility] CNIMJ9832-51-58 23:56:00Positive *ABN*(07/29/20 5:56 PM)[facility] GMVHI2659-75-03 23:56:00Trace *ABN*(07/29/20 5:56 PM)[facility] LAZWF4653-80-11 23:56:009[facility] HXTIQ3139-66-97 23:56:003[facility]annCHEM TWCJF4387-39-21 23:56:0089[facility]annCHEM KVQCZ0935-23-16 23:56:005[facility]annCHEM TBXYE4119-57-01 23:56:000.60[facility]annCHEM NUNTI3263-29-80 23:56:48383Qaztlvcg HermannCHEM OPWLO7779-59-64 23:56:004.8[facility] HermannCHEM YLKQE0403-18-85 23:56:72131 [facility]annCHEM ZJJGH1355-30-28 23:56:0026[facility]annCHEM PANEL 2020-07-29 23:56:0011.8[facility] HermannCHEM TAWYU9828-58-83 23:56:009.3[facility]annCHEM CUUUQ7629-38-12 23:56:00 Test Item Value Reference Range Interpretation Comments B/C Ratio (test code = B/C Ratio) 8 1 6-25 [facility]annCHEM AWDHF8922-24-84 23:56:007.6[facility]annCHEM PANEL 2020-07-29 23:56:003.4[facility] HermannCHEM UDKTG6162-74-47 23:56:004.2[facility]annCHEM HSXQK5988-35-68 23:56:00 Test Item Value Reference Range Interpretation Comments A/G Ratio (test code = A/G Ratio) 0.8 1 0.7-1.6 [facility]annCHEM JNXCR1328-83-47 23:56:0022[facility]annCHEM PANEL 2020-07-29 23:56:0025[facility]annCHEM QIZMT6142-66-65 23:56:0068[facility]annCHEM JJSPP0856-49-69 23:56:000.3[facility] HermannCHEM LXZEM5411-42-08 23:56:10698Myotkszg HermannCHEM OKWVF4287-82-66 23:56:0058[facility] UQWIRGSOCEEKZ1581-47-65 23:56:47791115Vjgizloo XxzlwplITZVQJHPWQ1048-99-76 23:56:006.7[facility] RkwysmiDHJORDYSEG7768-08-07 23:56:004.33[facility] MATQWAALSA7868-89-08 23:56:0012.4[facility] RkfakahQBIQTJLDGB3333-30-58 23:56:00 37.9[facility] MmkcwzaUOFJRMGLVI2326-31-79 23:56:0087.6[facility]annHEMATOLOGY 2020-07-29 23:56:00 Test Item Value Reference Range Interpretation Comments MCH (test code = MCH) 28.7 pg 27.0-31.0 [facility] WbcceqiKCESEMXODB0586-20-21 23:56:0032.7[facility]annHEMATOLOGY 2020-07-29 23:56:0013.8[facility] BsybfujPGKVXJNKLG5054-65-15 23:56:70610Yxdpfzvn OdmdnqzEJTJDXSMTI1946-72-45 23:56:007.6[facility] ImrbsnkHEKBOYXWAK4595-20-04 23:56:0070.4[facility] FzdwmtcMNGBOJRURE3459-49-96 23:56:0021.9[facility] FZHTZBSCTP5925-56-74 23:56:006.2[facility] NuiofynNZHODVKUIM4160-43-26 23:56:001.2 [facility] FnchgadXFNVJEWKIP1342-98-03 23:56:000.3[facility]annHEMATOLOGY 2020-07-29 23:56:004.7[facility] BqjzuzyNKBITDDLDC3771-63-91 23:56:001.5[facility] DtbvpsvUQPNRBQLGO8720-04-92 23:56:000.4[facility] ScdmnthAESFAJDHUR2181-09-99 23:56:000.1[facility] TevaaqpWXYUFNXDSO9420-13-21 23:56:000.0[facility]annURINE AND QQCDX8658-69-95 23:56:00Slight *ABN*(07/29/20 5:56 PM)[facility] VEKWS0768-96-51 23:56:00 Test Item Value Reference Range Interpretation Comments UA Spec Grav (test code = UA Spec 1.023 1 Grav) [facility] VGEOP3823-75-88 23:56:00 Test Item Value Reference Range Interpretation Comments UA pH (test code = UA pH) 5.0 1 5.0-8.0 [facility] MZOIK7539-04-83 23:56:00Negative *NA*(07/29/20 5:56 PM) [facility] HNPGL3683-81-50 23:56:00Large *ABN*(07/29/20 5:56 PM) [facility] MGXOF8711-59-04 23:56:00Positive *ABN*(07/29/20 5:56 PM)[facility] FDGMI5047-39-54 23:56:00Trace *ABN*(07/29/20 5:56 PM)[facility] IGGQR7204-92-84 23:56:009[facility] WSJQS1390-35-77 23:56:003[facility]annCHEM FLMVA8566-76-31 23:56:0089[facility]annCHEM IDOVI2256-93-43 23:56:005[facility]annCHEM LRDPM6066-76-83 23:56:000.60[facility]annCHEM QQMTC3585-56-63 23:56:67532Qfqfozfy HermannCHEM ZZGHX3451-44-36 23:56:004.8[facility] HermannCHEM CYFWP5635-03-57 23:56:76679 [facility]annCHEM PICAL4615-60-76 23:56:0026[facility]annCHEM PANEL 2020-07-29 23:56:0011.8[facility] HermannCHEM OPHIV4861-38-88 23:56:009.3[facility]annCHEM BJRLO9924-77-13 23:56:00 Test Item Value Reference Range Interpretation Comments B/C Ratio (test code = B/C Ratio) 8 1 6-25 [facility]annCHE[facility] IYKLT9648-79-26 23:56:007.6[facility]annCHEM PANEL 2020-07-29 23:56:003.4[facility] HermannCHEM PAYOU6422-40-91 23:56:004.2[facility]annCHEM DGWUI8392-03-38 23:56:00 Test Item Value Reference Range Interpretation Comments A/G Ratio (test code = A/G Ratio) 0.8 1 0.7-1.6 [facility]annCHEM PIBCJ9766-38-98 23:56:0022[facility]annCHEM PANEL 2020-07-29 23:56:0025[facility] HermannCHEM SJRFH1494-28-79 23:56:0068[facility]annCHEM XCDJR4975-13-80 23:56:000.3[facility] HermannCHEM QJAKT9214-00-73 23:56:93218Qevsndri HermannCHEM MAJEH4092-45-01 23:56:0058[facility] HNXSEGRLBAKMT3682-51-37 23:56:68733951Apojjcvb EvswuhqRMMLUQBFNG3482-70-08 23:56:006.7[facility] LwlcjovNAWGXFNEVV0262-40-08 23:56:004.33[facility] ESXOOJIXRS5719-09-71 23:56:0012.4[facility] KcvgzcjBNDMORVROY7298-51-08 23:56:00 37.9[facility] FtyppocRZBNXNUHJF4087-10-41 23:56:0087.6[facility]annHEMATOLOGY 2020-07-29 23:56:00 Test Item Value Reference Range Interpretation Comments MCH (test code = MCH) 28.7 pg 27.0-31.0 [facility] OmgecgvTRKBDGKCGF7567-05-69 23:56:0032.7[facility]annHEMATOLOGY 2020-07-29 23:56:0013.8[facility] TzzmtdwKJUPZGNFBT8729-58-18 23:56:77949Dunpjtsv TmetogvBIPBVSTHKY3869-99-39 23:56:007.6[facility] PiukwaaIXFNXTBUWU6458-96-80 23:56:0070.4[facility] KkodyadNMJOPAQKTE2601-52-18 23:56:0021.9[facility] MEKKQLETSP8146-07-26 23:56:006.2[facility] EhxqhltBZNGJLQRWR2216-63-46 23:56:001.2 [facility] HhhvdewTZWGKQXYMQ7505-42-28 23:56:000.3[facility]annHEMATOLOGY 2020-07-29 23:56:004.7[facility] XquctnzMMKKPSHAEV2966-00-71 23:56:001.5[facility] TmveffmNDQIJTOMUK1276-11-17 23:56:000.4[facility] WgmqtjgXXSIIQSLJH8041-94-86 23:56:000.1[facility] DletfejAVMNYEOQMA1762-62-67 23:56:000.0[facility]UR[facility] AND FLTJT3147-95-23 23:56:00Slight *ABN*(07/29/20 5:56 PM)[facility] FEGLQ2528-83-44 23:56:00 Test Item Value Reference Range Interpretation Comments UA Spec Grav (test code = UA Spec 1.023 1 Grav) [facility] XBREW5617-87-33 23:56:00 Test Item Value Reference Range Interpretation Comments UA pH (test code = UA pH) 5.0 1 5.0-8.0 [facility] OQFOF3197-69-06 23:56:00Negative *NA*(07/29/20 5:56 PM) [facility] NHCWW6284-92-93 23:56:00Large *ABN*(07/29/20 5:56 PM) [facility] MWTQX4017-86-95 23:56:00Positive *ABN*(07/29/20 5:56 PM)[facility] EXYWL4338-84-52 23:56:00Trace *ABN*(07/29/20 5:56 PM)[facility] IVPTG2497-72-80 23:56:009[facility] TPCNM4346-23-71 23:56:003[facility]CHE[facility] VBYRZ3578-51-67 23:56:0089[facility] JUDVK8365-08-05 23:56:005[facility] AYABR7142-63-39 23:56:000.60[facility] JAVMZ0190-85-34 23:56:79569Bmcbmgmc HermannCHEM JTEVP3165-00-96 23:56:004.8[facility]CHE[facility] YSNIE7762-37-05 23:56:34425 [facility] IIFII9893-59-58 23:56:0026[facility]CHE[facility] PANEL 2020-07-29 23:56:0011.8[facility] DTSSN7491-86-43 23:56:009.3[facility] CQPLS9279-17-31 23:56:00 Test Item Value Reference Range Interpretation Comments B/C Ratio (test code = B/C Ratio) 8 1 6-25 [facility] VPUHX4398-53-06 23:56:007.6[facility]CHE[facility] PANEL 2020-07-29 23:56:003.4[facility] LAPVC7757-31-02 23:56:004.2[facility] YUAMM4619-92-59 23:56:00 Test Item Value Reference Range Interpretation Comments A/G Ratio (test code = A/G Ratio) 0.8 1 0.7-1.6 [facility] UEJDK1568-14-48 23:56:0022[facility]annCHE[facility] PANEL 2020-07-29 23:56:0025[facility] SDFXR4613-95-33 23:56:0068[facility] EBVQS9357-35-27 23:56:000.3[facility] AFCIV5779-53-38 23:56:42204Asxadrxd HermannCHEM DOOJT5618-23-70 23:56:0058[facility] IUBVZENJZUXGM5619-11-84 23:56:42847596Ocsdutnc LjmbrwzUORYEQNMUY3593-07-10 23:56:006.7[facility] WelazwqAKDLCTTLQW5958-22-55 23:56:004.33[facility] NCTUAHOFRT3478-48-37 23:56:0012.4[facility] UvmbozlCGZWARYHIP7325-23-05 23:56:00 37.9[facility] JugqmhiVDFEBCFJJT3256-20-97 23:56:0087.6[facility]annHEMATOLOGY 2020-07-29 23:56:00 Test Item Value Reference Range Interpretation Comments MCH (test code = MCH) 28.7 pg 27.0-31.0 [facility] YlculetALYHHQUPTU8820-57-79 23:56:0032.7[facility]annHEMATOLOGY 2020-07-29 23:56:0013.8[facility] XmahmgdBBPAVYVJKL8305-20-11 23:56:08500Nelhtqzr XikxlooSBIOTJBTIR5032-60-08 23:56:007.6[facility] GtzbikmCBPIMTLGLS0793-16-83 23:56:0070.4[facility] EvyzurlOFEPACSBJW5383-01-59 23:56:0021.9[facility] QWLWWKXPEG2100-19-59 23:56:006.2[facility] PgqnhiyNLRKJLJCMI4889-33-50 23:56:001.2 [facility] MmuurbyNXMMNZDZJP5642-47-38 23:56:000.3[facility]annHEMATOLOGY 2020-07-29 23:56:004.7[facility] WnmbmxqTLEYNCUSTX2355-75-58 23:56:001.5[facility] MggpgchUZHYPMFFQZ3772-01-47 23:56:000.4[facility] IniqknlXBQJSWAOXE9755-76-75 23:56:000.1[facility] ObqjqcdLSCEJQDTZQ5557-71-66 23:56:000.0[facility] DTKWD2260-44-82 23:56:00Slight *ABN*(07/29/20 5:56 PM)[facility] BNREQ3079-26-87 23:56:00 Test Item Value Reference Range Interpretation Comments UA Spec Grav (test code = UA Spec 1.023 1 Grav) [facility] NTGRR5997-92-43 23:56:00 Test Item Value Reference Range Interpretation Comments UA pH (test code = UA pH) 5.0 1 5.0-8.0 [facility] YIGUZ2557-50-81 23:56:00Negative *NA*(07/29/20 5:56 PM) [facility] VIPQD3837-82-06 23:56:00Large *ABN*(07/29/20 5:56 PM) [facility] LNESH7147-47-02 23:56:00Positive *ABN*(07/29/20 5:56 PM)[facility] LXECC8353-02-32 23:56:00Trace *ABN*(07/29/20 5:56 PM)[facility] KZLEQ0183-77-34 23:56:009[facility] JEUOC4647-09-45 23:56:003[facility]annCHE[facility] IBROB2448-06-05 23:56:0089[facility]CHE[facility] ONPXE3117-85-37 23:56:0089[facility]CHE[facility] MCTNW4118-08-61 23:56:005[facility]CHE[facility] XDDSC1731-85-55 23:56:000.60[facility]CHE[facility] MPBQA8977-50-86 23:56:07105Ffjlvihy HermannCHEM CMVAS9816-84-08 23:56:005 [facility]CHE[facility] TUDRI0546-35-71 23:56:004.8[facility]annCHEM PANEL 2020-07-29 23:56:12535Wdcfmspk HermannCHEM EFUUX3417-91-98 23:56:0026[facility]CHE[facility] WLLAN3906-58-76 23:56:0011.8[facility]CHE[facility] GPYEY1489-21-70 23:56:009.3[facility]CHE[facility] BKVSP4777-38-57 23:56:00 Test Item Value Reference Range Interpretation Comments B/C Ratio (test code = B/C Ratio) 8 1 6-25 [facility] FKCNL0256-02-48 23:56:007.6[facility]annCHE[facility] PANEL 2020-07-29 23:56:003.4[facility]CHE[facility] ZVDPL4565-02-17 23:56:004.2[facility]annCHE[facility] GGADG9316-53-17 23:56:00 Test Item Value Reference Range Interpretation Comments A/G Ratio (test code = A/G Ratio) 0.8 1 0.7-1.6 [facility] JWPVH4908-97-50 23:56:000.60[facility]annCHE[facility] PANEL 2020-07-29 23:56:0022[facility]CHE[facility] SPFQM7754-83-65 23:56:0025[facility]annCHE[facility] ERMIG0699-05-49 23:56:0068[facility]CHE[facility] APNJX3761-68-80 23:56:000.3[facility]CHE[facility] QITKN1819-12-26 23:56:70380Xclmyilc HermannCHEM BEDME6770-16-24 23:56:0058[facility] LmnwwlrGWSUMSKMIQNUV8816-49-24 23:56:26231244 [facility] EkpvqfuTEZUKMEAOM1402-93-02 23:56:006.7[facility]annHEMATOLOGY 2020-07-29 23:56:004.33[facility] YxbewbeDWJUPXJXWH4066-63-03 23:56:0012.4[facility]annCHEM VWMLQ0080-66-06 23:56:85249Nfcldilx ScofuftKLOEWKTHRY5737-94-75 23:56:0037.9[facility] KbxyrtnADPNKUWBMP6324-76-37 23:56:0087.6[facility] ZJRFIEEDAU0381-18-84 23:56:00 Test Item Value Reference Range Interpretation Comments MCH (test code = MCH) 28.7 pg 27.0-31.0 [facility] BiheynpMOPEPUZECI7847-78-37 23:56:0032.7[facility]annHEMATOLOGY 2020-07-29 23:56:0013.8[facility] XhxeogaKDEXLDSUVY0360-04-00 23:56:86277Ixorokey GvekzcsHHEGAEUCYH4415-95-89 23:56:007.6[facility] ScryslrTMMDCKBPLN4005-57-97 23:56:0070.4[facility] VnsvvonAZVERXJYPJ7117-29-61 23:56:0021.9[facility] YFTVEKPIOV7178-86-62 23:56:006.2[facility]annCHEM BMVFW6943-08-75 23:56:004.8 [facility] AqctwbeAMVOMTIQPZ1434-45-66 23:56:001.2[facility]annHEMATOLOGY 2020-07-29 23:56:000.3[facility] SbzjaitPQXINXPREA6510-38-39 23:56:004.7[facility] GzzjaseVWWQOXDFWK4683-39-05 23:56:001.5[facility] BhqllsiJKNNIBFDTA5070-73-97 23:56:000.4[facility] DaytbccYGCPQMRSXA9114-91-84 23:56:000.1[facility] TDLCIMODUY6498-10-69 23:56:000.0[facility] BGVMG2995-93-88 23:56:00Slight *ABN*(07/29/20 5:56 PM)[facility] VDDPV3959-12-74 23:56:00 Test Item Value Reference Range Interpretation Comments UA Spec Grav (test code = UA Spec 1.023 1 Grav) [facility] HKFYL3646-76-30 23:56:00 Test Item Value Reference Range Interpretation Comments UA pH (test code = UA pH) 5.0 1 5.0-8.0 [facility] HEYIW0152-92-05 23:56:15150Tjliedfk [facility]annURINE AND STOOL 2020-07-29 23:56:00Negative *NA*(07/29/20 5:56 PM)[facility] 2020-07-29 23:56:00Large *ABN*(07/29/20 5:56 PM)[facility] 2020-07-29 23:56:00Positive *ABN*(07/29/20 5:56 PM)[facility] GOFGR5727-14-87 23:56:00Trace *ABN*(07/29/20 5:56 PM)[facility] JPQBM5751-57-80 23:56:009[facility] IKZAA7097-22-15 23:56:003 [facility]CHE[facility] WTGTY1415-36-74 23:56:0026[facility]annCHEM PANEL 2020-07-29 23:56:0011.8[facility]annCHEM UFVJZ0764-13-45 23:56:009.3[facility]annCHEM WJUCZ1873-52-28 23:56:00 Test Item Value Reference Range Interpretation Comments B/C Ratio (test code = B/C Ratio) 8 1 6-25 [facility] VSVSZ7869-35-22 23:56:007.6[facility]annCHEM PANEL 2020-07-29 23:56:003.4[facility]annCHE[facility] ZCVTZ3286-02-00 23:56:004.2[facility]annCHEM IEWKF0601-01-83 23:56:00 Test Item Value Reference Range Interpretation Comments A/G Ratio (test code = A/G Ratio) 0.8 1 0.7-1.6 [facility] SZVJE1702-93-17 23:56:0022[facility] Hermannrapid plasma reagin antibody, mqcej0300-46-97 19:54:00 Test Item Value Reference Range Interpretation Comments rapid plasma reagin antibody, Non Reactive Non Reactive serum (test code = 5291-0) [facility] latvy5013-04-51 19:54:00 Test Item Value Reference Range Interpretation Comments chlamydia DNA probe (test code = Negative Negative 26393-6) [facility] Islandimmature granulocytes, percentage of total cells, blood 2020-07-10 19:54:00 Test Item Value Reference Range Interpretation Comments immature granulocytes, percentage of 0 % total cells, blood (test code = 07797-9) [facility] Islandbasophil count, jhgphtwq0090-22-21 19:54:00 Test Item Value Reference Range Interpretation Comments basophil count, absolute (test 0.0 x10E3/uL 0.0-0.2 code = 77896-6) [facility] IslandEosinophil Absolute Lrpak4625-10-58 19:54:00 Test Item Value Reference Range Interpretation Comments Eosinophil Absolute Count (test 0.1 X10E3/UL 0.0-0.4 code = 21377-6) [facility] Islandmonocyte count, blood, prgjmroib6893-46-26 19:54:00 Test Item Value Reference Range Interpretation Comments monocyte count, blood, automated 0.4 X10E3/UL 0.1-0.9 (test code = 742-7) [facility]lymph[facility] count, blood, usbbfbice2878-31-73 19:54:00 Test Item Value Reference Range Interpretation Comments lymphocyte count, blood, 1.7 X10E3/UL 0.7-3.1 automated (test code = 731-0) [facility] IslandAbsolute Nwjztvxjtmz0472-75-91 19:54:00 Test Item Value Reference Range Interpretation Comments Absolute Neutrophils (test code 5.8 X10E3/UL 1.4-7.0 = 01623-4) [facility] Islandbasophils as percent of blood wuudaajoyj8966-35-58 19:54:00 Test Item Value Reference Range Interpretation Comments basophils as percent of blood 0 % leukocytes (test code = 707-0) [facility] Islandeosinophils as percent of blood xvqkdxhrpx1216-13-89 19:54:00 Test Item Value Reference Range Interpretation Comments eosinophils as percent of blood 1 % leukocytes (test code = 713-8) [facility] Healthmonocytes as percent of blood pbjudoqlwk3149-99-51 19:54:00 Test Item Value Reference Range Interpretation Comments monocytes as percent of blood 5 % leukocytes (test code = 5905-5) [facility] Islandlymphocytes as percent of blood ykbvileovb4277-75-97 19:54:00 Test Item Value Reference Range Interpretation Comments lymphocytes as percent of blood 21 % leukocytes (test code = 736-9) [facility] Healthneutrophils as percent of blood lrneiihtvu3397-28-07 19:54:00 Test Item Value Reference Range Interpretation Comments neutrophils as percent of blood 73 % leukocytes (test code = 770-8) [facility] Islandplatelet uvbcp8598-78-68 19:54:00 Test Item Value Reference Range Interpretation Comments platelet count (test code = 361 X10E3/UL 150-450 777-3) [facility] Islandred blood cell distribution fumol0613-49-00 19:54:00 Test Item Value Reference Range Interpretation Comments red blood cell distribution width 13.0 % 11.7-15.4 (test code = 788-0) [facility] corpuscular hemoglobin concentration, AXK6511-21-38 19:54:00 Test Item Value Reference Range Interpretation Comments mean corpuscular hemoglobin 32.6 G/DL 31.5-35.7 concentration, RBC (test code = 786-4) [facility] corpuscular hemoglobin, ESB7224-18-41 19:54:00 Test Item Value Reference Range Interpretation Comments mean corpuscular hemoglobin, RBC 28.7 pg 26.6-33.0 (test code = 785-6) [facility] corpuscular volume, SRL7623-21-60 19:54:00 Test Item Value Reference Range Interpretation Comments mean corpuscular volume, RBC (test code 88 fL 79-97 = 787-2) [facility] Islandhematocrit, okhyu2583-14-18 19:54:00 Test Item Value Reference Range Interpretation Comments hematocrit, blood (test code = 4544-3) 38.6 % 34.0-46.6 [facility] Islandhemoglobin, opcbl6627-02-81 19:54:00 Test Item Value Reference Range Interpretation Comments hemoglobin, blood (test code = 12.6 g/dL 11.1-15.9 718-7) [facility] Islanderythrocyte (RBC) wrosp6354-68-64 19:54:00 Test Item Value Reference Range Interpretation Comments erythrocyte (RBC) count (test 4.39 X10E6/UL 3.77-5.28 code = 789-8) [facility] Islandleukocyte count, gnbcd1740-19-60 19:54:00 Test Item Value Reference Range Interpretation Comments leukocyte count, blood (test 7.9 X10E3/UL 3.4-10.8 code = 6690-2) [facility] Islandphencyclidine screen, aqnjz4251-76-27 19:54:00 Test Item Value Reference Range Interpretation Comments phencyclidine screen, urine (test Negative Cutoff=25 code = 3936-2) [facility] Islandopiates, urine, bbsnwpanueoivhww8651-77-73 19:54:00 Test Item Value Reference Range Interpretation Comments opiates, urine, semiquantitative Negative Qcsfep=502 (test code = 3879-4) [facility] Islandhepatitis B surface yedbiln6388-81-55 19:54:00 Test Item Value Reference Range Interpretation Comments hepatitis B surface antigen (test Negative Negative code = 05097-9) [facility] IslandHIV-CMIA (Chemiluminescent Microparticle Immuno Assay) 2020-07-10 19:54:00 Test Item Value Reference Range Interpretation Comments HIV-CMIA (Chemiluminescent Non Reactive Non Reactive Microparticle Immuno Assay) (test code = 65706-0) [facility] Islandcannabinoid screen, gmjgv3497-26-93 19:54:00 Test Item Value Reference Range Interpretation Comments cannabinoid screen, urine (test code Negative Cutoff=50 = 3426-4) [facility] IslandNeisseria gonorrhoeae DNA omrge8311-85-43 19:54:00 Test Item Value Reference Range Interpretation Comments Neisseria gonorrhoeae DNA probe Negative Negative (test code = 73010-2) [facility] Islandurine atwbshd1885-32-89 19:54:00 Test Item Value Reference Range Interpretation Comments urine culture (test code = Escherichia coli A 630-4) [facility] Islandbenzodiazepine screen, nmjwe3412-21-40 19:54:00 Test Item Value Reference Range Interpretation Comments benzodiazepine screen, urine (test Negative Gcrfxy=931 code = 3390-2) [facility] Healthamphetamine screen, nmlip6151-12-30 19:54:00 Test Item Value Reference Range Interpretation Comments amphetamine screen, urine (test code Negative Cbvafq=7484 = 3349-8) [facility] IslandRh sqpjrrhx9555-56-67 19:54:00 Test Item Value Reference Range Interpretation Comments Rh antibody (test code = 256) Negative Negative [facility] Islandhepatitis C antibody, cdqkj7876-33-41 19:54:00 Test Item Value Reference Range Interpretation Comments hepatitis C antibody, serum (test code <0.1 0.0-0.9 = 06219-7) [facility] Islandblood glucose, 1 hour after 50 gm oral tkpyxfm2443-36-49 19:54:00 Test Item Value Reference Range Interpretation Comments blood glucose, 1 hour after 50 gm 135 mg/dL 65-139 oral glucose (test code = 1039) [facility] kxkahvy2402-67-86 19:54:00 Test Item Value Reference Range Interpretation Comments Rh antigen (test code = 255) Positive [facility] IslandABO blood ehdsd1104-18-54 19:54:00 Test Item Value Reference Range Interpretation Comments ABO blood group (test code = 116) O [facility] IslandNeisseria gonorrhoeae DNA kbrco8647-66-68 19:54:00 Test Item Value Reference Range Interpretation Comments Neisseria gonorrhoeae DNA probe Negative Negative (test code = 07484-5) [facility] Islandalcohol, bhbjv5418-62-49 19:54:00 Test Item Value Reference Range Interpretation Comments alcohol, urine (test code = 2458) Negative % Cutoff=0.020 [facility] Healthcocaine, tsvuz8440-44-46 19:54:00 Test Item Value Reference Range Interpretation Comments cocaine, urine (test code = 3292) Negative Smjxyo=543 [facility] Islandbarbiturates screen, jlxis9571-55-60 19:54:00 Test Item Value Reference Range Interpretation Comments barbiturates screen, urine (test Negative Yluvnq=496 code = 2460) [facility] mosdvujj1362-45-14 19:54:00 Test Item Value Reference Range Interpretation Comments Rh antibody (test code = 256) Negative Negative [facility] Islandblood glucose, 1 hour after 50 gm oral pwhmbgl7700-14-64 19:54:00 Test Item Value Reference Range Interpretation Comments blood glucose, 1 hour after 50 gm 135 mg/dL 65-139 oral glucose (test code = 1039) [facility] IslandRh jifvmel2594-50-16 19:54:00 Test Item Value Reference Range Interpretation Comments Rh antigen (test code = 255) Positive [facility] IslandABO blood gbtmv9388-04-59 19:54:00 Test Item Value Reference Range Interpretation Comments ABO blood group (test code = 116) O [facility] Islandalcohol, qkjho2140-66-20 19:54:00 Test Item Value Reference Range Interpretation Comments alcohol, urine (test code = 2458) Negative % Cutoff=0.020 [facility] Islandcocaine, usned4347-62-27 19:54:00 Test Item Value Reference Range Interpretation Comments cocaine, urine (test code = 3292) Negative Gocvgu=940 [facility] Islandbarbiturates screen, qrzgx7403-50-19 19:54:00 Test Item Value Reference Range Interpretation Comments barbiturates screen, urine (test Negative Ueuxth=013 code = 2460) [facility] Islandhepatitis C antibody, ajcmm5389-89-49 19:54:00 Test Item Value Reference Range Interpretation Comments hepatitis C antibody, serum (test code <0.1 0.0-0.9 = 5199-5) [facility] IslandHerpes Simplex Virus Gvikhur0303-85-97 17:20:38 Test Item Value Reference Range Interpretation Comments Herpes Simplex Virus Genital (test code no = 5856-0) [facility] HealthCHEM HJJEK1801-91-89 06:04:76910Mnbuinlt HermannCHEM AQDKW1690-21-39 06:04:009[facility]annCHEM LDWNP3049-19-35 06:04:000.80 [facility]CHE[facility] VJPGK7341-94-60 06:04:30403Yafupsxh HermannCHEM PANEL 2020-07-08 06:04:003.7[facility]annCHEM LWTJX7138-06-04 06:04:80566Lnekjssq HermannCHEM SKRDJ7178-00-77 06:04:0026[facility]annCHEM VRITJ6559-57-34 06:04:009.6[facility]annCHEM CJDAR9037-00-78 06:04:007.8[facility]annCHEM SSLJK8001-07-92 06:04:003.8[facility]annCHEM IJYHX7059-21-49 06:04:0026 [facility]annCHE[facility] MUXZG8759-39-37 06:04:0012[facility]annCHEM PANEL 2020-07-08 06:04:0082[facility]annCHEM GFAQO7516-10-12 06:04:000.3[facility]annCHEM NHOQU7726-20-51 06:04:009.7[facility]annCHEM DWHSY7571-35-31 06:04:00 Test Item Value Reference Range Interpretation Comments B/C Ratio (test code = B/C Ratio) 11 1 6-25 [facility]CHE[facility] WKHNU0680-56-81 06:04:004.0[facility]annCHEM PANEL 2020-07-08 06:04:00 Test Item Value Reference Range Interpretation Comments A/G Ratio (test code = A/G Ratio) 1.0 1 0.7-1.6 [facility] HermannCHEM XPMOP8803-86-31 06:04:38391Fyvtnano HermannENDOCRINOLOGY 2020-07-08 06:04:1983890Rbjizkbk VinwromAPSIZODFZJ5054-25-45 06:04:009.6[facility] UqatmxbJSAXSYPEMH2079-35-23 06:04:004.42[facility] CuvwvbtTGUOOVTVNV0465-68-98 06:04:0012.5[facility] RhlqgykJVWWNNPAMX5481-27-11 06:04:0038.6[facility] SXNJNWYIMJ0516-91-99 06:04:0087.3[facility] PohkacaUISRPWVFHN2221-67-20 06:04:00 Test Item Value Reference Range Interpretation Comments MCH (test code = MCH) 28.2 pg 27.0-31.0 [facility] EvclmnjFOZRASIKDW5077-68-50 06:04:0032.3[facility] HermannHEMATOLOGY 2020-07-08 06:04:0013.3[facility] ChghsdwPBVJDSIBKY8532-83-74 06:04:46547Aczoeygh YtsmqeeOLYVRJMVCU7889-29-70 06:04:007.6[facility] BijngytLMHLOPKXDR9156-22-45 06:04:0077.2[facility] RltcyfbWFVIZTZYAV5823-63-65 06:04:0017.0[facility] NHXXUZXPTH7972-00-20 06:04:004.2[facility] NcexhxkMRLBAIWRUQ8507-44-90 06:04:001.4 [facility] NenmrpyZCWPDGYEUT9127-19-69 06:04:000.2[facility]annHEMATOLOGY 2020-07-08 06:04:007.4[facility] MkmlvulUDBEZMXKRM0939-39-14 06:04:001.6[facility] NefxzpwMQEGWGNWFM0750-51-67 06:04:000.4[facility] LiuxxspDROLZPOIPL1707-36-36 06:04:000.1[facility] JtkyehfCJSSJQNGEG4686-56-04 06:04:000.0[facility]URINE AND UIFQA1288-01-86 06:04:00Slight *ABN*(07/08/20 12:04 AM)[facility] NWICK1818-67-15 06:04:00 Test Item Value Reference Range Interpretation Comments UA Spec Grav (test code = UA Spec 1.020 1 Grav) [facility] KPGWN4242-22-84 06:04:00 Test Item Value Reference Range Interpretation Comments UA pH (test code = UA pH) 5.0 1 5.0-8.0 [facility] AND SDFOV6667-34-37 06:04:00Negative *NA*(07/08/20 12:04 AM)[facility] SIPSP9262-81-72 06:04:00Negative (07/08/20 12:04 AM) [facility] CZZAV7859-64-83 06:04:00Positive *ABN*(07/08/20 12:04 AM)[facility] UIMVO2104-50-45 06:04:00Trace *ABN*(07/08/20 12:04 AM)[facility] ZNXFU2678-78-80 06:04:006[facility] CYMHO7873-44-45 06:04:002[facility]UR[facility] AND FZMCK4152-46-74 06:04:003 [facility]annCHEM YWHIA9408-95-00 06:04:52414Uefogglw HermannCHEM PANEL 2020-07-08 06:04:009[facility]annCHEM HJWFC8508-24-17 06:04:000.80[facility]annCHEM CKBRZ5290-23-66 06:04:03895Ifykqwcv HermannCHEM CKNTG5748-45-86 06:04:003.7[facility]annCHEM JYVNF6415-86-67 06:04:05741Boedibkh HermannCHEM HKVCY6435-86-24 06:04:0026[facility]annCHEM GBDEW4776-12-35 06:04:009.6 [facility]annCHEM YOSFF7160-16-44 06:04:007.8[facility]annCHEM PANEL 2020-07-08 06:04:003.8[facility]annCHEM RFAAK5900-98-30 06:04:0026[facility]annCHEM KCWCE2890-88-19 06:04:0012[facility]annCHEM BNEET5085-66-78 06:04:0082[facility]annCHEM FLODA4394-00-80 06:04:000.3[facility]annCHEM WKFLC3557-74-50 06:04:009.7[facility]annCHEM TAEJS6320-15-57 06:04:00 Test Item Value Reference Range Interpretation Comments B/C Ratio (test code = B/C Ratio) 11 1 6-25 [facility]annCHEM CYWTU1537-98-39 06:04:004.0[facility]annCHEM PANEL 2020-07-08 06:04:00 Test Item Value Reference Range Interpretation Comments A/G Ratio (test code = A/G Ratio) 1.0 1 0.7-1.6 [facility]annCHEM AOWPQ6736-30-74 06:04:58834Xnxsefxp HermannENDOCRINOLOGY 2020-07-08 06:04:3152403Padsjgfe LakadqbUQEBTITFOS8205-14-21 06:04:009.6[facility] DrveviyRHJGRXUOPW3670-19-54 06:04:004.42[facility] JhvzwxcVAYCNUIXDE3674-24-38 06:04:0012.5[facility] MnjobalQZUAPFXQDQ6646-77-19 06:04:0038.6[facility] MYZHNCGJRC7777-74-83 06:04:0087.3[facility] VxquampYUYVBEDMGI8477-29-12 06:04:00 Test Item Value Reference Range Interpretation Comments MCH (test code = MCH) 28.2 pg 27.0-31.0 [facility] RhqoymaYKQDFNJNOJ4131-12-99 06:04:0032.3[facility]annHEMATOLOGY 2020-07-08 06:04:0013.3[facility] EeutcspADILSFHZPS2762-64-10 06:04:65164Ndioxxbk DpvjdffULPCNBGTAR3930-67-81 06:04:007.6[facility] ErqkvmxXSVYVEDEFW9425-99-02 06:04:0077.2[facility] HhkrzdgHQUHNVQHRD9164-42-62 06:04:0017.0[facility] MJROPEYAGO8452-64-68 06:04:004.2[facility] ZnhfvauMKKUTPQMLD6895-57-16 06:04:001.4 [facility] SwmvljuMQZEPOLPPR8095-29-23 06:04:000.2[facility]annHEMATOLOGY 2020-07-08 06:04:007.4[facility] CzccqenCZOODUEFBL2028-10-65 06:04:001.6[facility] VfwwzbkVRTABNFGWO8194-28-22 06:04:000.4[facility] MuhkbtsDNOJHOLVSW7106-18-47 06:04:000.1[facility] QrfjdowFTPWIOKNNJ8182-52-56 06:04:000.0[facility]annURINE AND WXIYQ2249-00-44 06:04:00Slight *ABN*(07/08/20 12:04 AM)[facility] XMEYE9542-30-26 06:04:00 Test Item Value Reference Range Interpretation Comments UA Spec Grav (test code = UA Spec 1.020 1 Grav) [facility] BPAMM7160-03-46 06:04:00 Test Item Value Reference Range Interpretation Comments UA pH (test code = UA pH) 5.0 1 5.0-8.0 [facility] QOUFE3121-42-65 06:04:00Negative *NA*(07/08/20 12:04 AM)[facility] DFQJN1665-89-27 06:04:00Negative (07/08/20 12:04 AM) [facility] KSRMT4849-88-25 06:04:00Positive *ABN*(07/08/20 12:04 AM)[facility] YBYRH0945-28-53 06:04:00Trace *ABN*(07/08/20 12:04 AM)[facility] BRGUW8346-82-79 06:04:006[facility] AND BPTUV1975-63-16 06:04:002[facility] AND HDGVW0574-48-95 06:04:003 [facility]annCHEM BVBQM1122-80-18 06:04:33035Jyplnwpo HermannCHEM PANEL 2020-07-08 06:04:009[facility]annCHEM FRASF2445-58-47 06:04:000.80[facility]annCHEM LSGFE1291-00-28 06:04:52088Ngxqqqjr HermannCHEM JDMJJ6999-04-12 06:04:003.7[facility]annCHEM YOBUV4335-40-34 06:04:90325Tjsccdhf HermannCHEM DJZFU8057-88-37 06:04:0026[facility]annCHEM FCEGR4703-31-19 06:04:009.6 [facility]CHE[facility] ZGWCV0097-25-53 06:04:007.8[facility]annCHEM PANEL 2020-07-08 06:04:003.8[facility]annCHEM EZKPP1856-14-95 06:04:0026[facility]annCHEM CRQLG9141-97-16 06:04:0012[facility]annCHEM CCCNK4623-00-80 06:04:0082[facility]annCHEM ZTSUQ2929-70-79 06:04:000.3[facility]annCHEM NTAFT3743-34-85 06:04:009.7[facility]annCHEM TCSNX3404-55-45 06:04:00 Test Item Value Reference Range Interpretation Comments B/C Ratio (test code = B/C Ratio) 11 1 6-25 [facility]annCHE[facility] XKQID8877-41-37 06:04:004.0[facility]annCHEM PANEL 2020-07-08 06:04:00 Test Item Value Reference Range Interpretation Comments A/G Ratio (test code = A/G Ratio) 1.0 1 0.7-1.6 [facility]annCHEM BUJLV8901-36-75 06:04:05512Oabhruvb HermannENDOCRINOLOGY 2020-07-08 06:04:7274551Urnfewaf MxplpnvDPFUBPDNHV8090-20-03 06:04:009.6[facility] IwalvzbVZBPXKHRCM0820-97-84 06:04:004.42[facility] StzksetKZBRSGOKEV7329-05-66 06:04:0012.5[facility] ZvwuylsTFVVFQABIK9529-14-01 06:04:0038.6[facility] WKRVDWYEZT1909-30-03 06:04:0087.3[facility] ZqgvtbqKPYVXKHACT7633-02-72 06:04:00 Test Item Value Reference Range Interpretation Comments MCH (test code = MCH) 28.2 pg 27.0-31.0 [facility] ZekzcqnJJUBOVYMMW7410-24-02 06:04:0032.3[facility] HermannHEMATOLOGY 2020-07-08 06:04:0013.3[facility] TwrfgumMMQTHBCOIE7881-63-92 06:04:43134Ekyirgqy PwovbtpRQURGFNIEM7165-47-00 06:04:007.emorial MeqtccfXLQGOZMXWZ8448-91-46 06:04:0077.2[facility] ErdotheXHKJTOPFVY4481-85-20 06:04:0017.0[facility] Huy WXGJGOKPPI8972-93-86 06:04:004.2[facility] OtjcfqyHWILVEUWKM0673-70-70 06:04:001.4 [facility] KrosqeoWYJQFPIFKA6960-96-96 06:04:000.2[facility]annHEMATOLOGY 2020-07-08 06:04:007.4[facility] GodgeqdDIHROPKYLU0498-52-46 06:04:001.6[facility] SwhsnpqJNDLQXKIBD8559-12-75 06:04:000.4[facility] RzslguuUEUUQNRFHI1840-27-37 06:04:000.1[facility] VsklxxgDXGREQASHZ9701-36-98 06:04:000.0[facility]annURINE AND ORJYE9054-26-23 06:04:00Slight *ABN*(07/08/20 12:04 AM)[facility] YPSAD8136-43-39 06:04:00 Test Item Value Reference Range Interpretation Comments UA Spec Grav (test code = UA Spec 1.020 1 Grav) [facility] EMEZA0225-51-82 06:04:00 Test Item Value Reference Range Interpretation Comments UA pH (test code = UA pH) 5.0 1 5.0-8.0 [facility] TUDFI8082-51-49 06:04:00Negative *NA*(07/08/20 12:04 AM)[facility] QHUXZ2625-23-55 06:04:00Negative (07/08/20 12:04 AM) [facility] CRXPB6530-62-24 06:04:00Positive *ABN*(07/08/20 12:04 AM)[facility] IFYBT7074-60-87 06:04:00Trace *ABN*(07/08/20 12:04 AM)[facility] CMCWT7398-39-94 06:04:006[facility] AND TEXVL3875-54-35 06:04:002[facility]UR[facility] AND VSCGU1045-16-25 06:04:003 [facility]annCHEM AXRZD3545-55-30 06:04:05656Gwxpqsce HermannCHEM PANEL 2020-07-08 06:04:009[facility] HermannCHEM BIIHY5791-44-02 06:04:000.80[facility] HermannCHEM BFIME5708-61-45 06:04:36040Havyyeil HermannCHEM VNCVE8726-00-53 06:04:003.7[facility] HermannCHEM TDLEP2842-07-46 06:04:60597Iuatesmj HermannCHEM DIQJM0528-43-07 06:04:0026[facility] HermannCHEM IGTOG8258-05-83 06:04:009.6 [facility]annCHEM UUTMT7054-54-09 06:04:007.8[facility] HermannCHEM PANEL 2020-07-08 06:04:003.8[facility] HermannCHEM BEIHX0193-57-56 06:04:0026[facility] HermannCHEM JBATN3309-14-11 06:04:0012[facility]annCHEM POJJQ3199-00-00 06:04:0082[facility] HermannCHEM IAURZ1769-19-89 06:04:000.3[facility]annCHEM GRDUC1701-60-28 06:04:009.7[facility]annCHEM PKEHB6246-68-23 06:04:00 Test Item Value Reference Range Interpretation Comments B/C Ratio (test code = B/C Ratio) 11 1 6-25 [facility]annCHEM WQKSL6294-62-58 06:04:004.0[facility] HermannCHEM PANEL 2020-07-08 06:04:00 Test Item Value Reference Range Interpretation Comments A/G Ratio (test code = A/G Ratio) 1.0 1 0.7-1.6 [facility]annCHEM KRYXA1568-07-71 06:04:44928Hqyhqxji HermannENDOCRINOLOGY 2020-07-08 06:04:9806257Ddoqfxbg WgpoqgkFGXYMBWDDA7847-31-01 06:04:009.emorial BggbzusBBENSJHDVG6863-15-44 06:04:004.42[facility] WaxwdpjYYMPKOHIKH3333-00-26 06:04:0012.5[facility] CclrqwrZBOUDFQSTW1271-22-75 06:04:0038.6[facility] Huy NPNQKBRXKS4748-70-48 06:04:0087.3[facility] WrypujlBSIXOYJEIY0210-24-21 06:04:00 Test Item Value Reference Range Interpretation Comments MCH (test code = MCH) 28.2 pg 27.0-31.0 [facility] KnrsjjzJSLCJRVHQQ4723-60-15 06:04:0032.3[facility] HermannHEMATOLOGY 2020-07-08 06:04:0013.3[facility] ElazurfZYPGPDUIYE0611-86-37 06:04:80206Afbklvio SgyieftFMNYRRMROH0367-64-60 06:04:007.6[facility] CxoxbwxBNIDWCTRNI6010-13-41 06:04:0077.2[facility] UjxsjfsCSPGTLKWSD9919-35-93 06:04:0017.0[facility] WCWSUETLOZ3936-19-37 06:04:004.2[facility] MnsujhrLZIZJSRAYS2660-92-92 06:04:001.4 [facility] OgzrdskKMPLSUXSLI1561-38-83 06:04:000.2[facility]annHEMATOLOGY 2020-07-08 06:04:007.4[facility] LjtkdboRMJCSTQASO8510-47-36 06:04:001.6[facility] TrpkdgbPSDDHLNZFT1437-11-18 06:04:000.4[facility] GdilkyuOQQLHHZCYC5777-42-65 06:04:000.1[facility] FtrbxupRBHKTCDKCV9173-36-64 06:04:000.0[facility]UR[facility] AND GWQMT2852-64-07 06:04:00Slight *ABN*(07/08/20 12:04 AM)[facility] OBSLP1215-89-86 06:04:00 Test Item Value Reference Range Interpretation Comments UA Spec Grav (test code = UA Spec 1.020 1 Grav) [facility] JWYKZ2444-65-53 06:04:00 Test Item Value Reference Range Interpretation Comments UA pH (test code = UA pH) 5.0 1 5.0-8.0 [facility] QAGWK9903-07-15 06:04:00Negative *NA*(07/08/20 12:04 AM)[facility] JARHT6938-43-20 06:04:00Negative (07/08/20 12:04 AM) [facility] HQQBE8143-09-91 06:04:00Positive *ABN*(07/08/20 12:04 AM)[facility] SCJMT6257-86-40 06:04:00Trace *ABN*(07/08/20 12:04 AM)[facility] TDBBR2481-76-74 06:04:006[facility] QCCUY0988-56-31 06:04:002[facility] WEJJS4246-25-65 06:04:003 [facility]annCHEM MCFIC8841-56-69 06:04:52512Vhylrvos HermannCHEM PANEL 2020-07-08 06:04:009[facility]annCHEM FFHVX4002-86-28 06:04:000.80[facility]annCHEM TYOVZ3136-68-63 06:04:72335Wbnwyisl HermannCHEM OSYQE9737-49-85 06:04:003.7[facility]annCHEM MFDUR5325-51-85 06:04:47843Ijhearin HermannCHEM CEGMZ8368-08-34 06:04:0026[facility]annCHEM UFCAV5085-60-31 06:04:009.6 [facility]annCHE[facility] ZVOAJ9692-71-96 06:04:007.8[facility]annCHEM PANEL 2020-07-08 06:04:003.8[facility]annCHEM YIRUV7604-99-77 06:04:0026[facility]annCHEM BFVDL0115-76-89 06:04:0012[facility]annCHEM JCVPB5806-55-76 06:04:0082[facility]annCHEM RQMPN5190-44-30 06:04:000.3[facility]annCHEM LAWTJ4028-21-89 06:04:009.7[facility]annCHEM PPCVZ2258-23-73 06:04:00 Test Item Value Reference Range Interpretation Comments B/C Ratio (test code = B/C Ratio) 11 1 6-25 [facility] [id number] 06:04:004.0[facility] PANEL 2020-07-08 06:04:00 Test Item Value Reference Range Interpretation Comments A/G Ratio (test code = A/G Ratio) 1.0 1 0.7-1.6 [facility] [id number] 06:04:92120Myhpvuyl HermannENDOCRINOLOGY 2020-07-08 06:04:3382403Ijkckttm LweqkxnMSIQSLKMDU4131-54-10 06:04:009.6[facility] CxlgppjXLDRUQDTNQ1065-23-08 06:04:004.42[facility] HjqzuujYECXDKTREJ8504-74-91 06:04:0012.5[facility] OiyffzhHMHKPEIKJD3586-56-84 06:04:0038.6[facility] BNYKZRPRNU6934-79-20 06:04:0087.3[facility] TeghxxzDZPSXTTSNG2480-79-97 06:04:00 Test Item Value Reference Range Interpretation Comments MCH (test code = MCH) 28.2 pg 27.0-31.0 [facility] RwescmkXFULQWDFGB9185-60-32 06:04:0032.3[facility]annHEMATOLOGY 2020-07-08 06:04:0013.3[facility] DstriufJNXFTSJBTW7358-10-97 06:04:57576Sesnvbvz ApcmrkeHQJDZEVIHC1814-70-83 06:04:007.6[facility] ApmoqcmURAUMNBOMW0856-73-02 06:04:0077.2[facility] PxladrcAHRHPMWKSC0436-80-96 06:04:0017.0[facility] GPBSEPTBTJ5529-89-80 06:04:004.2[facility] NtltajrPXJMTZPDDJ6038-01-44 06:04:001.4 [facility] NhkwkqyYTLNJNMEDL9272-46-19 06:04:000.2[facility]annHEMATOLOGY 2020-07-08 06:04:007.4[facility] EugkoaxMTLPYRGENP7507-56-58 06:04:001.6[facility] QgadxuwWSBOHKBMRI2053-81-91 06:04:000.4[facility] GfjknvyUBRLISSMXU2153-48-21 06:04:000.1[facility] ZwqrbhyMGZSLGFSCM0322-15-81 06:04:000.0[facility] AND UCDVD5002-71-76 06:04:00Slight *ABN*(07/08/20 12:04 AM)[facility] [id number] 06:04:00 Test Item Value Reference Range Interpretation Comments UA Spec Grav (test code = UA Spec 1.020 1 Grav) [facility] [id number] 06:04:00 Test Item Value Reference Range Interpretation Comments UA pH (test code = UA pH) 5.0 1 5.0-8.0 [facility] [id number] 06:04:00Negative *NA*(07/08/20 12:04 AM)[facility] [id number] 06:04:00Negative (07/08/20 12:04 AM) [facility] [id number] 06:04:00Positive *ABN*(07/08/20 12:04 AM)[facility] EGLBZ5316-16-28 06:04:00Trace *ABN*(07/08/20 12:04 AM)[facility] [id number] 06:04:006[facility] [id number] 06:04:002[facility] [id number] 06:04:003 [facility]ann[facility] HCG, urine, odeollvvyynuotmh5336-46-19 16:09:20 Test Item Value Reference Range Interpretation Comments beta HCG, urine, semiquantitative positive (test code = 2106-3) [facility] Notes Date/Time Note Provider Source 2022-04-14 15:36:00-00:00 [facility] [address] [place] [address] Emergency Department Document Signed Patient: Fani Garcia Medical Record#: [id number] : 1995 Acct:[id number] Age/Sex: 26 / F Admit/Reg Date: 04/14/22 Loc: SJMLDO Room: Report Number: [id number]: Vito Bull MD Arrival - Arrival ED Triage Note: spotting/abdominal cramping sinc e 0600 am History of Present Illness Nursing note reviewed: Yes Source: patient Exam/History Limitations: no limitations Primary Care Provider: Vito Bull Primary Care Provider Group: [facility]BGY[facility]ilson Resident - Attending Chief Complaint: Vaginal Bleeding Stated Complaint: Spotting History of Present Illness: 26 yo female presents to the ER c/o spotting at 0600 and abdominal cramping since 1430. The patient is A1, due date 11/21/20 22, scheduled for on 04/19. Patient denies any chest pain, shortness of breath, vision changes, weakness, numbness, cough/congestion, fever, dysuria, neck or back pain, rash, sore throat , nausea vomiting diarrhea, SROF, falls, abdominal trauma or syncope. Patient is alert oriented x3 , answering questions appropriately, appears in distress at this time, moves all extremities x4 GCS 15 VSS OBGYN: [facility] (Linsey Matias) Allergies/Adverse Reactions: latex Allergy (Verified 04/14/22 16:36) Swelling of Lip/Tongue/Throat Review of Systems ROS: As reviewed in the HPI. All other systems reviewed are negative or normal. (Linsye Matias) Past Medical/Surgical History Medical History: Medical History (Last Updated 04/14/22 @ 16:37 Arnulfo Escalante RN) Anemia (Medical) D64.9 HSV (herpes simplex virus) infection (Medical) B 00.9 Surgical History: Surgical History (Last Updated 04/14/22 @ 16:37 by aPt Escalante RN) H/O section (Surgical) Z98.891 History of cholecystectomy (Surgical) Z90.49 Physical Exam Physical Exam: CONSTITUTIONAL: Well appearing in no acute distr ess SKIN: Warm, dry, and intact EYES: Extraocular movements are grossly intact, clear conjunctiva HENT: Normocephalic, atraumatic, moist mucus mem branes NECK: No obvious swelling, normal range of motio n PULMONARY: Normal chest rise and fall, no respir atory distress or stridor CARDIOVASCULAR: Regular rate, distal extremities are warm and well perfused GASTROINTESTINAL: Gravid abdomen GENITOURINARY: No CVA tenderness noted NEUROLOGIC: Normal speech, m oves all extremities x4, answering questions appropriately MUSCULOSKELETAL: No gross deformities, atraumati c (Linsey Matias) MDM/COURSE - MDM Medical Decision Making Narrative: DDX: labor, renae díaz, UTI MDM: Patient is hemodynamically stable, appears in no distress at this time. The patient will be sent to L D for spotting, abdominal cramping at 37 weeks gestation (Linsey Matias) Discharge Plan - Disposition Disposition: Home or Self-Care - Discharge Orders Discharge Orders: Discharge (Routine); Ordered 04/14/22 Ordered By: Trinidad Dudley - Discharge Data Reason For Visit: Spotting Primary Care Provider: Vito Bull Attending Provider: Vito Bull - Patient/Caregiver Discharge Instructions Discharge Diagnosis:: Spotting affecting pregnan cy in third trimester Condition: Good Dictated By: Linsey Matias NP Signed By: Linsey Matias ASSURANCE SPECIALIST 04/15/22 0257 Silvia Humphreys DO 04/17/22 1035 DD/ 35 TD/TT: 04/14/221535 Safety Patrol Officer: MILAGROS cc: [email or web address]* Vito Bull MD 2021-04-05 03:37:00-00:00 [facility]) EMERGENCY PROVIDER REPORT REPORT#:[id number] REPORT STATUS: Signed DATE:04/05/21 TIME: 336 PATIENT: FANI GARCIA UNIT #: [id number] ROOM/BED: AGE: 25 SEX: F PCP PHYS: CARLOS POLK ASSURANCE SPECIALIST SERVICE AUTHOR: Berto Miles MD * ALL edits or amendments must be made on the el [facility]/computer document * HPI-General Illness General Patient Type New patient Initial Greet Date/Time 04/05/21 0110 Pt in Research Study? NO Presentation Chief Complaint Abdominal pain Hx Obtained From Patient Sudden in Onset? Yes Onset Occurred Today Symptom Duration Since onset Progression since Onset Gradually worsening Location Abdomen Quality Aching Radiation Abdomen. Severity: Onset Pain level 7 out of 10 Severity: Current Pain level 7 out of 10 Associated with Reports: Abdominal pain. Associated Other Pt denies other symptoms Exacerbated by Moving affected area Relieved by Rest Context Immunization Status General All up to date Recent Healthcare Recent doctor visit Similar Sx Previous Yes Review of Systems ROS Statements All systems rev neg except as marked. Complete sys rev neg except as marked. Review of Systems GI Reports: Abdominal pain. Past Medical History - Adult Stated Complaint S/P , ABD PAIN Allergies Coded Allergies: latex (Intermediate, SWELLING 03/04/21) Home Medications Active Scripts CEFDINIR (OMNICEF) 300 MG PO Q12H CEFDINIR (OMNICEF) 300 MG PO Q12H #14 CAP Prov: 03/17/21 CLINDAMYCIN HCL (CLEOCIN) 300 MG PO Q8H CLINDAMYCIN HCL (CLEOCIN) 300 MG PO Q8H #14 CA P Prov: 03/17/21 ACETAMINOPHEN (TYLENOL) 650 MG PO Q6H PRN PRN PA IN SCALE 1-3 (USE 2ND) ACETAMINOPHEN (TYLENOL) 650 MG PO Q6H PRN PRN P AIN SCALE 1-3 (USE 2ND) #60 TAB Prov: 03/08/21 IBUPROFEN (MOTRIN) 600 MG PO Q6H PRN PRN PAIN SC ARLENE 1-3 (USE 1ST) IBUPROFEN (MOTRIN) 600 MG PO Q6H PRN PRN PAIN S PETROS 1-3 (USE 1ST) #30 TAB Prov: 03/08/21 OXYCODONE HCL (OXYCODONE) 5 MG PO Q4H PRN PRN MO DERATE PAIN (SCALE 4-6) OXYCODONE HCL (OXYCODONE) 5 MG PO Q4H PRN PRN M ODERATE PAIN (SCALE 4-6) # 12 TAB Prov: 03/08/21 DOCUSATE SODIUM (COLACE) 200 MG PO BEDTIME DOCUSATE SODIUM (COLACE) 200 MG PO BEDTIME #100 CAP Prov: 03/08/21 IRON (EZFE 200) 200 MG PO DAILY IRON (EZFE 200) 200 MG PO DAILY #30 CAPS Prov: 03/08/21 Reported Medications PNV WITH FE FUMARATE/FA () 1 TAB PO ADINA Y Calculated Suicide Risk (nurs) No risk Review of Nursing Notes Rev avail, and agree Smoking status: Smoking status for patients 13 years old or old er: Never Smoker Physical Exam Vital Signs Vital Signs First Documented: Result Date Time Pulse Ox 100 04/05 118 B/P 133/76 04/05 118 B/P Mean 95 04/05 118 O2 Delivery Room air 04/05 118 Temp 37.3 04/05 118 Pulse 76 04/05 118 Resp 18 04/05 118 Last Documented: Result Date Time Pulse Ox 97 04/05 400 B/P 119/73 04/05 400 B/P Mean 88 04/05 400 Temp 36.9 04/05 400 Pulse 89 04/05 400 Resp 18 04/05 400 O2 Delivery Room air 04/05 118 Review of Vital Signs Reviewed Physical Exam General/Const General/Const Awake, Alert, Well appearing MS Head Head Normocephalic Ears/Nose/Throat Ears/Nose/Throat Airway patent, Mucous membrane s moist, Pharynx NL Resp/Chest Respiratory/Chest Breath sounds NL, Breath soun ds = bilat, No respiratory distress, No rales, No rhonchi, No wheezing Cardiovascular Cardiovascular Heart rate NL, Regular r hythm, Heart sounds NL, Cap refill not delayed, Peripheral circulation NL Abdomen/GI Abdomen/GI Soft, Non-tender, No guarding, No re bound Tenderness/Guarding/Rebound Tender RUQ. Lymphatic Lymphatic No gross adenopathy MS Upper Extrem Upper Extremity/MS Inspection NL, No swelling, Non-tender, No erythema, No deformity, Neurologic intact, Vascular intact, N o clubbing/cyanosis MS Lower Extrem Lower Ext/Pelvis/MS Inspection NL, No swelling, Non-tender, No erythema, No deformity, Neurologic intact, Vascular intact, N o edema Skin Skin Color NL, Warm, Dry, Turgor NL Neurologic Neurologic Oriented X3, Speech NL, No motor def icits, No sensory deficits Psychiatric Psychiatric Affect NL, Mood NL, Thought content NL Interpretation Diagnostics Lab Results Interpretation Results Laboratory Tests 04/05/21127: [Embedded Image Not Available] Laboratory Tests: 04/05 0124 Chemistry Sodium (135 - 145 mEq/L) 141 Potassium (3.5 - 5.0 mEq/L) 4.6 Chloride (100 - 115 mEq/L) 106 Carbon Dioxide (22 - 31 mEq/L) 27 Anion Gap (10 - 20) 13.00 BUN (7 - 18 mg/dL) 11 Creatinine (0.5 - 1.0 mg/dL) 0.7 Glomerular Filtr Rate (>60 ml/min) 104 Glucose (65 - 110 mg/dL) 93 Calcium (8.4 - 10.2 mg/dL) 8.7 Total Bilirubin (0.2 - 1.0 mg/dL) 0.5 AST (15 - 37 units/L) 47 H ALT (12 - 78 units/L) 25 Total Alk Phosphatase (46 - 116 units/L) 127 H Total Protein (6.3 - 8.2 gm/dL) 7.3 Albumin (3.4 - 4.8 gm/dL) 3.6 Lipase (73 - 393 units/L) 87 Hematology WBC (6.5 - 12.3 K/mm3) 11.6 RBC (3.51 - 4.69 M/mm3) 4.64 Hgb (10.1 - 13.8 g/dL) 11.0 Hct (32.5 - 41.8 %) 36.6 MCV (84.6 - 96.6 fL) 78.9 L MCH (27.3 - 33.9 pg) 23.7 L MCHC (32.0 - 34.2 gm/dL) 30.1 L RDW (12.2 - 16.3 %) 24.2 H Plt Count (134 - 363 K/mm3) 299 MPV (9.2 - 12.7 fL) 10.5 Neut % (Auto) (57.9 - 77.3 %) 74.8 Lymph % (Auto) (14.5 - 29.7 %) 17.6 [place] % (Auto) (3.6 - 10.2 %) 5.3 Eos % (Auto) (0.0 - 3.0 %) 1.7 Baso % (Auto) (0.1 - 0.9 %) 0.3 Neut # (Auto) (K/mm3) 8.7 Lymph # (Auto) (K/mm3) 2.0 [place] # (Auto) (K/mm3) 0.6 Eos # (Auto) (K/mm3) 0.20 Baso # (Auto) (K/mm3) 0.0 Miscellaneous Maternal Serum HCG <1 Urines Urine Color (YELLOW) YELLOW Urine Appearance (CLEAR) CLOUDY A Urine pH (5 - 9) 5.0 Ur Specific [place] (1.001 - 1.035) 1.027 Urine Protein (NEG) 1+ H Urine Glucose (UA) (NEG) NEGATIVE Urine Ketones (NEG) NEGATIVE Urine Blood (NEG) NEG Urine Nitrite (NEG) NEG Urine Bilirubin (NEG) NEGATIVE Urine Urobilinogen (NEG mg/dL) NEGATIVE Ur Leukocyte Esterase (NEG) 3+ H Urine RBC (NONE SEEN #/hpf) 16-20 H Urine WBC (NONE SEEN #/hpf) TOO NUMEROUS TO CNT H Ur Epithelial Cells (RARE - FEW #/HPF) MANY H Ur Transition Epith Cell (NONE SEEN #/hpf) FEW Urine Bacteria (RARE - FEW /HPF) RARE Urine Mucus (NONE SEEN) 2+ Microbiology: Date/Time Procedure - Status Source Growth 04/05 143 Urine Culture - COMP URINE Recent Impressions: ULTRASOUND - US ABDOMEN LTD 04/05 200 Report Impression - Status: SIGNED Entered: 04/05/2021 0245 IMPRESSION: Cholelithiasis. Impression By: Sandor Dee MD Re-Evaluation MDM ED Course Medication(s) Ordered Medication(s) Ordered: Anti-Infective Agents Sig/Corina Start time Last Medication Dose Route Stop Time Status Admin Ceftriaxone Sodium 1,000 MG X1ED STA 04/05 0155 DC 04/05 Sodium Chloride 100 ML IV 04/05 224 0219 Central Nervous System Agents Sig/Corina Start time Last Medication Dose Route Stop Time Status Admin Ketorolac 30 MG X1ED STA 04/05 011 DC 04/05 Tromethamine IV 04/05 113 0218 Skin And Mucous Membrane Agent Sig/Corina Start time Last Medication Dose Route Stop Time Status Admin Phenazopyridine HCl 95 MG X1ED STA 04/05 0155 D C 04/05 PO 04/05 156 0218 Patient Discharge Departure Vital Signs/Condition Vital Signs First Documented: Result Date Time Pulse Ox 100 04/05 0118 B/P 133/76 04/05 0118 B/P Mean 95 04/05 0118 O2 Delivery Room air 04/05 118 Temp 37.3 04/05 118 Pulse 76 04/05 0118 Resp 18 04/05 0118 Last Documented: Result Date Time Pulse Ox 97 04/05 0400 B/P 119/73 04/05 040 B/P Mean 88 04/05 400 Temp 36.9 04/05 400 Pulse 89 04/05 0400 Resp 18 04/05 0400 O2 Delivery Room air 04/05 118 All vital signs available at the time of this en try have been reviewed. Condition Stable, Improved Clinical Impression Clinical Impression Primary Impression: Gallstone Secondary Impressions: Abdominal pain, Cholelith iasis Time of Impression 337 Disposition Decision Discharge )( Discharged to Home Yes )( Time 033 )( Date 04/05/21 Discharge/Care Plan Counseled Regarding Diagnosi s, Lab results, Imaging studies, Need for follow-up, When to return to ED Rx Drug Database Reviewed Yes (Auto) Prescriptions Current Visit Scripts KETOROLAC (TORADOL) 10 MG PO Q6H PRN PRN PAIN KETOROLAC (TORADOL) 10 MG PO Q6H PRN PRN PAIN # 20 TABS ONDANSETRON ODT (ZOFRAN ODT) 4 MG PO Q6H PRN PRN NAUSEA/VOMITING ONDANSETRON ODT (ZOFRAN ODT) 4 MG PO Q6H PRN ND N NAUSEA/VOMITING #30 TABS traMADol (ULTRAM) 50 MG PO Q6H PRN PRN ACUTE LIDIA N traMADol (ULTRAM) 50 MG PO Q6H PRN PRN ACUTE PA IN #15 TABS Prescriptions Reviewed Risks, Benefits, Alternat milo treatment Patient Instructions ED Gallstones with Biliary Colic, Treating Gallstones Referrals Becca Nino MD Departure Forms WORK/SCHOOL EXCUSE VARIABLE WORK/SCHOOL EXCUSE-CAREGIVER Advance Care Planning Documents Reviewed With patient Discharge Note I have spoken with the patie nt and/or caregivers. I have explained the patient's condition, diagnoses and katharine atment plan based on the information available to me at this time. I have answered the patient's and/ or caregiver's questions and addressed any concerns. The patient and/or careg eileen have as good an understanding of the patient 's diagnosis, condition and treatment plan as can be expected at this point. The vital signs have bee n stable. The patient's condition is stable and appr opriate for discharge from the emergency department. The patient will pursue further outpatient evalu ation with the primary care physician or other designated or consulting phys yen as outlined in the discharge instructions. The patient and/or caregivers are agreeable to this plan of care and follow-up instructions have been exp lained in detail. The patient and/or caregivers have received these instructio ns in written format and have expressed an understanding of the discharge inst ructions. The patient and/or caregivers are aware that any significant change in condition or worsening of symptoms should prompt an immediate return to [facility] or the closest emergency department or a call to 911. Quality Measures BP F/U for HTN F/u with PCP/other doc Preg Test for Women w/Abd Pain Female age 14-50 Tobacco Screening/Cessation 18 years or older at 2226 RPT #:[id number] END OF REPORT 2021-03-16 08:54:00-00:00 [facility]) MANAGER FIRE Consult Note REPORT#:[id number] REPORT STATUS: Signed DATE:03/16/21 TIME: 0854 PATIENT: FANI GARCIA UNIT #: [id number] ROOM/BED: [address] : 97 AGE: 25 SEX: F ATTEND: Lourdes Figueroa se, MD ADM AUTHOR: Yuliet Kruse DO * ALL edits or amendments must be made on the el [facility]/computer document * History Medication/Allergy-Vaccine Hx Allergies: Coded Allergies: latex (Intermediate, SWELLING 03/04/21) Free Text PMH Notes Free text PMH notes: HPI Requesting clinician: Dr. Figueroa Reason for consult: PP endometritis HPI: 25 y/o [id number] s/p PLTCS on 03/05 for labor ar rest in the setting of chorioamnionitis admitted as transfer on 03/10/21 from [facility] for concern of endometritis. Thi s morning, patient resting comfortably in bed and in no distress. She denies f/c/n/v/d and is urinati ng and having regular BM's without difficulty. Pain is controlled, no incis ional complaints. She is tolerating PO, regular diet History Medication/Allergy-Vaccine Hx Allergies: Coded Allergies: latex (Intermediate, SWELLING 03/04/21) Ambulatory Status Ambulatory status: Independent Review of Systems Additional notes: 10 systems reviewed and negative Objective Physical Exam VS/I O:Vital Signs: Date Time Temp Pulse Resp B/P B/P Pulse O2 O2 F low FiO2 Mean Ox Delivery Rate 03/16 441 92.0 03/16 441 98.5 69 14 122/73 98 03/16 37 90.0 03/16 37 98.5 70 16 116/73 93 03/15 194 79.0 03/15 1942 99.2 89 15 113/59 98 03/15 1635 98.0 03/15 1635 98.5 89 18 135/78 99 03/15 1120 96.0 03/15 1120 98.8 91 18 130/74 99 24 hour I O ending at 0700: 24 hour I O ending at 0700: 03/16 0700 03/15 1900 Intake Total 1000.00 Output Total Balance 1000.00 Intake, Other 1000.00 PATIENT WEIGHT: Weight (lb): Weight (oz): 6.308871 Weight (kg): 83.2 General appearance: alert, awake, conversational , face symmetrical, no acute distress, mental status normal HEENT: moist mucosal membranes, normocephalic, P ERRLA Neck: full range of motion Cardiovascular: normal rate, no peripheral edema Respiratory: no distress, no tenderness, aeratin g well, symmetric expansion Abdomen: non-tender, soft, no distention, no gua rding, no hernia, no mass/ organomegaly, no rebound, pf annenstiel incision is c/d/i dressed with dermabond and without evidence of infe ction or dehiscence present. 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: alert, oriented x 3, normal speech, n o motor deficits, no sensory deficits Psychiatry: normal affect Results Findings/Data:Laboratory Tests: 03/16 0445 Chemistry Sodium (135 - 145 mEq/L) 144 Potassium (3.5 - 5.0 mEq/L) 4.4 Chloride (100 - 115 mEq/L) 108 Carbon Dioxide (22 - 31 mEq/L) 28 Anion Gap (10 - 20) 12.50 BUN (7 - 18 mg/dL) 8 Creatinine (0.5 - 1.0 mg/dL) 0.5 Glomerular Filtr Rate (>60 ml/min) 153 Glucose (65 - 110 mg/dL) 83 Calcium (8.4 - 10.2 mg/dL) 8.6 Hematology WBC (6.5 - 12.3 K/mm3) 11.1 RBC (3.51 - 4.69 M/mm3) 3.84 Hgb (10.1 - 13.8 g/dL) 8.2 L Hct (32.5 - 41.8 %) 28.7 L MCV (84.6 - 96.6 fL) 74.7 L MCH (27.3 - 33.9 pg) 21.4 L MCHC (32.0 - 34.2 gm/dL) 28.6 L RDW (12.2 - 16.3 %) 19.9 H Plt Count (134 - 363 K/mm3) 656 H MPV (9.2 - 12.7 fL) 9.8 Neut % (Auto) (57.9 - 77.3 %) 66.3 Lymph % (Auto) (14.5 - 29.7 %) 25.2 [place] % (Auto) (3.6 - 10.2 %) 6.1 Eos % (Auto) (0.0 - 3.0 %) 1.4 Baso % (Auto) (0.1 - 0.9 %) 0.2 Neut # (Auto) (K/mm3) 7.4 Lymph # (Auto) (K/mm3) 2.8 [place] # (Auto) (K/mm3) 0.7 Eos # (Auto) (K/mm3) 0.15 Baso # (Auto) (K/mm3) 0.0 Toxicology Vancomycin Trough (10.0 - 20.0 mcg/mL) 6.30 L Laboratory Tests 03/15 0746 Chemistry Sodium (135 - 145 mEq/L) 141 Potassium (3.5 - 5.0 mEq/L) 5.0 Chloride (100 - 115 mEq/L) 107 Carbon Dioxide (22 - 31 mEq/L) 26 Anion Gap (10 - 20) 13.10 BUN (7 - 18 mg/dL) 7 Creatinine (0.5 - 1.0 mg/dL) 0.5 Glomerular Filtr Rate (>60 ml/min) 153 Glucose (65 - 110 mg/dL) 76 Calcium (8.4 - 10.2 mg/dL) 8.6 Laboratory Tests 03/15 0746 Hematology WBC (6.5 - 12.3 K/mm3) 12.5 H RBC (3.51 - 4.69 M/mm3) 3.90 Hgb (10.1 - 13.8 g/dL) 8.2 L Hct (32.5 - 41.8 %) 28.9 L MCV (84.6 - 96.6 fL) 74.1 L MCH (27.3 - 33.9 pg) 21.0 L MCHC (32.0 - 34.2 gm/dL) 28.4 L RDW (12.2 - 16.3 %) 19.8 H Plt Count (134 - 363 K/mm3) 692 H MPV (9.2 - 12.7 fL) 10.2 Neut % (Auto) (57.9 - 77.3 %) 72.8 Lymph % (Auto) (14.5 - 29.7 %) 20.5 [place] % (Auto) (3.6 - 10.2 %) 4.3 Eos % (Auto) (0.0 - 3.0 %) 1.2 Baso % (Auto) (0.1 - 0.9 %) 0.2 Neut # (Auto) (K/mm3) 9.1 Lymph # (Auto) (K/mm3) 2.6 [place] # (Auto) (K/mm3) 0.5 Eos # (Auto) (K/mm3) 0.15 Baso # (Auto) (K/mm3) 0.0 Laboratory Tests 03/14 1830 Urines Urine Color (YELLOW) YELLOW Urine Appearance (CLEAR) Slightly-Cloudy Urine pH (5 - 9) 6.0 Ur Specific [place] (1.001 - 1.035) 1.024 Urine Protein (NEG) NEGATIVE Urine Glucose (UA) (NEG) NEGATIVE Urine Ketones (NEG) NEGATIVE Urine Blood (NEG) 1+ H Urine Nitrite (NEG) NEG Urine Bilirubin (NEG) NEGATIVE Urine Urobilinogen (NEG mg/dL) NEGATIVE Ur Leukocyte Esterase (NEG) 2+ H Urine RBC (NONE SEEN #/hpf) 6-10 H Urine WBC (NONE SEEN #/hpf) 31-40 H Ur Epithelial Cells (RARE - FEW #/HPF) RARE Urine Bacteria (RARE - FEW /HPF) RARE Urine Mucus (NONE SEEN) 1+ Radiology Data: Recent Impressions: ULTRASOUND - US TRANSVAGINAL W/PELVIS 03/12 0485 Report Impression - Status: SIGNED Entered: 03/13/2021 0721 IMPRESSION: Blood flow noted in both ovaries. PROCEDURE INFORMATION: Exam: US Pelvis Complete, Transabdominal and US Pelvis, Transvaginal Exam date and time: 03/12/2021 5:18 PM Age: 25 years old Clinical indication: Pelvic pain; Prior surgery; Surgery date: 3-7 days post-operative; Additional info: Pelvic lidia n, fever, after c/s on 03/05 TECHNIQUE: Imaging protocol: Real-time transabdominal and t ransvaginal pelvic ultrasound (complete) with image documentation. Transvaginal imaging was used for better evaluation of the en dometrium, adnexa, and/or cervix. COMPARISON: OT US FLW UP 03/04/2021 11:49 AM FINDINGS: Uterus/cervix: Uterus measures 17.0 x 7.5 x 12.0 cm in greatest dimensions with endometrium measuring 5 mm in th ickness. No evidence of retained products of conception is p resent in endometrial cavity. Changes related to are present in lower uterine segment. No evidence of uterine fi broid is seen. Right adnexa: Rt ovary measures 4.8 x 2.4 x 3.1 cm. Blood flow present in the rt. ovary. Left adnexa: Lt ovary measures 5.0 x 1.3 x 3.2 c m. Blood flow present in the lt. ovary. Adjacent to the left ovary and separate from it, there are 2 fluid collections identified which measure 2.2 x 1.1 x 4.6 cm and 2.4 x 1.3 x 5.2 cm. These are thought to represent pos tsurgical fluid collection after . In addition, a 1.5 x 0.9 x 1.7 cm echogenic free fluid is present in posterior cul -de-sac. Urinary bladder: No significant abnormality seen IMPRESSION: 1. uterus without retained products o f conception. Changes related to in lower uterine se gment. 2. Normal sonographic appearance of ovaries. 3. 2 fluid collections adjacent to the left ovar y as described above. These may represent postsurgical collecti ons, possibility of superimposed infection cannot be excluded and clinical correlation is recommended. 4. Small amount of echogenic free fluid in poste rior cul-de-sac. Impression By: Damion Flood MD ULTRASOUND - DUP AB/PEL/SC/LTD 03/12 8794 Report Impression - Status: SIGNED Entered: 03/13/2021 3828 IMPRESSION: Blood flow noted in both ovaries. PROCEDURE INFORMATION: Exam: US Pelvis Complete, Transabdominal and US Pelvis, Transvaginal Exam date and time: 03/12/2021 5:18 PM Age: 25 years old Clinical indication: Pelvic pain; Prior surgery; Surgery date: 3-7 days post-operative; Additional info: Pelvic lidia n, fever, after c/s on 03/05 TECHNIQUE: Imaging protocol: Real-time transabdominal and t ransvaginal pelvic ultrasound (complete) with image documentation. Transvaginal imaging was used for better evaluation of the en dometrium, adnexa, and/or cervix. COMPARISON: OT US FLW UP 03/04/2021 11:49 AM FINDINGS: Uterus/cervix: Uterus measures 17.0 x 7.5 x 12.0 cm in greatest dimensions with endometrium measuring 5 mm in th ickness. No evidence of retained products of conception is p resent in endometrial cavity. Changes related to are present in lower uterine segment. No evidence of uterine fi broid is seen. Right adnexa: Rt ovary measures 4.8 x 2.4 x 3.1 cm. Blood flow present in the rt. ovary. Left adnexa: Lt ovary measures 5.0 x 1.3 x 3.2 c m. Blood flow present in the lt. ovary. Adjacent to the left ovary and separate from it, there are 2 fluid collections identified which measure 2.2 x 1.1 x 4.6 cm and 2.4 x 1.3 x 5.2 cm. These are thought to represent pos tsurgical fluid collection after . In addition, a 1.5 x 0.9 x 1.7 cm echogenic free fluid is present in posterior cul -de-sac. Urinary bladder: No significant abnormality seen IMPRESSION: 1. uterus without retained products o f conception. Changes related to in lower uterine se gment. 2. Normal sonographic appearance of ovaries. 3. 2 fluid collections adjacent to the left ovar y as described above. These may represent postsurgical collecti ons, possibility of superimposed infection cannot be excluded and clinical correlation is recommended. 4. Small amount of echogenic free fluid in poste rior cul-de-sac. Impression By: Damion Flood MD ULTRASOUND - US PELVIS COMPLETE 03/12 9145 Report Impression - Status: SIGNED Entered: 03/13/2021 0720 IMPRESSION: Blood flow noted in both ovaries. PROCEDURE INFORMATION: Exam: US Pelvis Complete, Transabdominal and US Pelvis, Transvaginal Exam date and time: 03/12/2021 5:18 PM Age: 25 years old Clinical indication: Pelvic pain; Prior surgery; Surgery date: 3-7 days post-operative; Additional info: Pelvic lidia n, fever, after c/s on 03/05 TECHNIQUE: Imaging protocol: Real-time transabdominal and t ransvaginal pelvic ultrasound (complete) with image documentation. Transvaginal imaging was used for better evaluation of the en dometrium, adnexa, and/or cervix. COMPARISON: OT US FLW UP 03/04/2021 11:49 AM FINDINGS: Uterus/cervix: Uterus measures 17.0 x 7.5 x 12.0 cm in greatest dimensions with endometrium measuring 5 mm in th ickness. No evidence of retained products of conception is p resent in endometrial cavity. Changes related to are present in lower uterine segment. No evidence of uterine fi broid is seen. Right adnexa: Rt ovary measures 4.8 x 2.4 x 3.1 cm. Blood flow present in the rt. ovary. Left adnexa: Lt ovary measures 5.0 x 1.3 x 3.2 c m. Blood flow present in the lt. ovary. Adjacent to the left ovary and separate from it, there are 2 fluid collections identified which measure 2.2 x 1.1 x 4.6 cm and 2.4 x 1.3 x 5.2 cm. These are thought to represent pos tsurgical fluid collection after . In addition, a 1.5 x 0.9 x 1.7 cm echogenic free fluid is present in posterior cul -de-sac. Urinary bladder: No significant abnormality seen IMPRESSION: 1. uterus without retained products o f conception. Changes related to in lower uterine se gment. 2. Normal sonographic appearance of ovaries. 3. 2 fluid collections adjacent to the left ovar y as described above. These may represent postsurgical collecti ons, possibility of superimposed infection cannot be excluded and clinical correlation is recommended. 4. Small amount of echogenic free fluid in poste rior cul-de-sac. Impression By: Damion Flood MD Results: labs reviewed, jenny hartman signs stable, US personally reviewed, current med profile rev'd Treatment Prophylaxis Treatment Prophylaxis Anti-infectives: ceftriaxone, clindamycin, genta micin Diagnosis, Assessment Plan Diagnosis, Assessment Plan Assessment/Plan: 25 y/o [id number] POD#11 s/p PLTCS readmitt ed on POD#5 for PP endometritis and on IV broad spectrum antibiotic s since her admission. Exam is normal this morning, WBC trending down now at 11.1 this am and patien t remains afebrile with last temp 100.3 on 03/13 at 1600. Hgb: stable: 8.2 Recommendations: - Records obtained from [facility]: Urine culture is +E. Coli ( pansensitive) thus already treated with Rocephin Blood cultures from [facility] show "no growth at 5 days". -it appears patient continued IV antibiotics yes terday and WBC continues to trend down and pt remains af ebrile. At this time it's reasonable to discontinue IV antibiotics and discharge home with c lose outpatient followup. IM physician is awaiting ID ergonomics consultant recommendations. -performed corrections counselor ing with patient in the room this am and recommend f /u with OB in 1-2 weeks. Incision care reviewed as well. -OBGYN will sign off for daily consultations at this time-please feel free to call for any further questions or concerns. Charline Kruse DO FACOG Electronically Signed by Yuliet Kruse DO on 07/06 at 0901 RPT #:[id number] END OF REPORT 2021-03-16 08:32:00-00:00 [facility] Hospitalist Progress Note REPORT#:[id number] REPORT STATUS: Signed DATE:03/16/21 TIME: 831 PATIENT: FANI GARCIA UNIT #: [id number] ROOM/BED: [address] : 97 AGE: 25 SEX: F ATTEND: Lourdes Figueroa se, MD ADM AUTHOR: Nathan Figueroa MD * ALL edits or amendments must be made on the [employer]/computer document * Subjective Chief Complaint: Fever. abdominal pain HPI: 25-year-old female with a history of red recent on 03/05/2021 who was recommended to return if any fever after C-secti on. She started having pain above the surgical incision and fever. [facility] where she was tachycardic but afebrile. Leukocyte count was 10 and there were concerns for surgical site infection. As CT scan of the abdom en and pelvis showed some abnormalities but no abscess formation. She was transferred to our facility for postsurgical care and potential sepsis. Past medical history: Anemia of . Obesi ty Surgical history: Social history: Negative 3. Positive for a profe ssional tattoos Allergies: Latex CODE STATUS: Full code Family history: Hypertension and diabetes Hospital course: 03/11/2021: Patient feels feverish. Pending surge ry evaluation. Cellulitis improving. Status changed to inpatient. Cultures negative. Lactic acid normal. Low H H without evidence of bleeding. IV iron or dered. 03/12/2021: Patient was seen by [facility] and I was notified patient had somewhat complicated delivery highly suspicious for endometritis. Antibiotics were changed to Rocephin and clindamycin. She salazar s a slight elevation of leukocytes but no fever. Cultures have been nega tive so far. Patient will receive antibiotics for at least 10 days . She has orders for pelvic ultrasound today. 03/13/2021: Worsening leukocyte count. Fever last night. Pelvic ultrasound is unremarkable. Cultures negative to date. Gentami tiarra added to her antibiotic regimen. 03/14/2021: Persistent leukocytosis. Mild elevated temperature but no fever. ID consulted today. 03/15/2021: Leukocyte count is improving. No feve r for the past 48 hours. Cultures negative to date. ID initiated meropene m and vancomycin yesterday. 03/16/2021: Leukocyte count has improved. No feve r for the past 72 hours. Cultures are negative to date. Pending final rec ommendations from infectious diseases. Possible discharge soon. Subjective: Patient seen and evaluated at bedside. She has no acute complaints. Per nurse, no other acute events. Review of Systems All systems rev neg: except as marked Objective General VS/I O: Vital Signs: Date Time Temp Pulse Resp B/P B/P Pulse O2 O2 F low FiO2 Mean Ox Delivery Rate 03/16 441 92.0 03/16 441 36.9 69 14 122/73 98 03/16 003 90.0 03/16 37 36.9 70 16 116/73 93 03/15 1942 79.0 03/15 1942 37.3 89 15 113/59 98 03/15 1635 98.0 03/15 1635 36.9 89 18 135/78 99 03/15 1120 96.0 03/15 1120 37.1 91 18 130/74 99 24 hour I O ending at 0700: 03/16 0703/15 1900 Intake Total 1000.00 Output Total Balance 1000.00 Intake, Other 1000.00 PATIENT WEIGHT: Weight (lb): Weight (oz): 6.963764 Weight (kg): 83.2 Medications: Active Meds + DC'd Last 24 Hrs Meropenem (MEROPENEM) 500 MG Q6H IV Sodium Chloride (SODIUM CHLORIDE 0.9% - 50 ML) 50 ML Vancomycin HCl (VANCOMYCIN HCL 500 MG VIAL) 1,50 0 MG Q12H IV Sodium Chloride (SODIUM CHLORIDE 0.9% - 250 ML) 250 ML Enoxaparin Sodium (LOVENOX SOD 40MG INJ) 40 MG D AILY SUBQ Ibuprofen (IBUPROFEN 400 MG TAB) 400 MG Q8H PRN PRN PO Melatonin (Melatonin 3 mg) 3 MG BEDTIME PO Acetaminophen (ACETAMINOPHEN 325 MG TAB) 650 MG Q4H PRN PRN PO Benzonatate (TESSALON 100 MG UDCAP) 100 MG TID P RN PO Bisacodyl (DULCOLAX 5 MG UDTAB) 10 MG DAILY PRN PO Hydralazine HCl (hydrALAZINE HCL 20MG) 10 MG Q4H PRN PRN IV Hydrocodone Bitart/Acetaminophen (NORCO 5/325 TA BLET) 1 TAB Q4H PRN PRN PO Labetalol HCl (NORMODYNE 100 MG/20 ML VIAL) 10 M G Q4H PRN PRN IV Multi-Ingredient GI Drug (MAGNESIUM ALUMINUM HYD ROXIDES 30ML ORAL SUSP) 30 ML Q4H PRN PRN PO Ondansetron HCl (ZOFRAN 2 MG/ML 4 MG SYR) 4 MG Q 4H PRN PRN IV Potassium Chloride (K-DUR 20 MEQ SA TAB) 40 MEQ DAILY PRN PRN PO Simethicone (SIMETHICONE 80 MG TAB) 80 MG Q6H ND N PRN PO Sodium Chloride (SODIUM CHLORIDE 0.9% - 1000 ML) 1,000 ML ASDIR IV Results Findings/Data: Laboratory Tests 03/16 445 Chemistry Sodium (135 - 145 mEq/L) 144 Potassium (3.5 - 5.0 mEq/L) 4.4 Chloride (100 - 115 mEq/L) 108 Carbon Dioxide (22 - 31 mEq/L) 28 Anion Gap (10 - 20) 12.50 BUN (7 - 18 mg/dL) 8 Creatinine (0.5 - 1.0 mg/dL) 0.5 Glomerular Filtr Rate (>60 ml/min) 153 Glucose (65 - 110 mg/dL) 83 Calcium (8.4 - 10.2 mg/dL) 8.6 Laboratory Tests 03/16 445 Hematology WBC (6.5 - 12.3 K/mm3) 11.1 RBC (3.51 - 4.69 M/mm3) 3.84 Hgb (10.1 - 13.8 g/dL) 8.2 L Hct (32.5 - 41.8 %) 28.7 L MCV (84.6 - 96.6 fL) 74.7 L MCH (27.3 - 33.9 pg) 21.4 L MCHC (32.0 - 34.2 gm/dL) 28.6 L RDW (12.2 - 16.3 %) 19.9 H Plt Count (134 - 363 K/mm3) 656 H MPV (9.2 - 12.7 fL) 9.8 Neut % (Auto) (57.9 - 77.3 %) 66.3 Lymph % (Auto) (14.5 - 29.7 %) 25.2 [place] % (Auto) (3.6 - 10.2 %) 6.1 Eos % (Auto) (0.0 - 3.0 %) 1.4 Baso % (Auto) (0.1 - 0.9 %) 0.2 Neut # (Auto) (K/mm3) 7.4 Lymph # (Auto) (K/mm3) 2.8 [place] # (Auto) (K/mm3) 0.7 Eos # (Auto) (K/mm3) 0.15 Baso # (Auto) (K/mm3) 0.0 Laboratory Tests 03/16 445 Toxicology Vancomycin Trough (10.0 - 20.0 mcg/mL) 6.30 L Free Text Obj Notes Free Text Obj Notes: General: No acute distress. Awake, alert and hugh ented 3 HEENT: PERRLA, EOMI, nasal septum in the midline . Ears are symmetric. Atraumatic Cardiovascular: Rhythm and rate are regular. No murmurs, rubs, gallops Pulmonary: Clear to auscultation. No wheezing, r honchi or crackles GI: Soft, nontender, nondistended, positive keri l sounds. Skin: Dry, erythema, tenderness and warmth above the surgical incision. No purulent material is evident or flu id collection. Capillary refill is less than 3 seconds Musculoskeletal: Range of motion is intact. No p alpable edema. Neurologic: Cranial nerves II through XII are gr ossly intact. Deep tendon reflex exam normoreflexic. Speech is normal Psychiatric: Normal mood. Cooperative. Diagnosis, Assessment Plan Orders: Procedure Date/time Status VANCOMYCIN TROUGH 03/16 445 Complete Code status: full code Plan discussed with: patient, nurse Free Text DxA P Notes Free text DxA P notes: Assessment: Possible sepsis present on admission ruled out Panniculitis. Cellulitis Possible endometritis Possible surgical site infection. Postoperative complication Ruled out Status post 03/05/2021 state Anemia of Plan: Continue current care Pending final recommendations per infectious dis eases. Leukocyte count improving No fever for the past 72 hours. Cultures negative to date Continue to monitor for fever Pelvic ultrasound unremarkable Lactic acid normal Labs IV iron complete [facility] follows IV fluids Daily labs care Patient is breast-feeding. Guarded prognosis Nathan Figueroa MD [facility] Internal Medicine Answering Service [phone] Electronically Signed by Nathan Figueroa MD on at 5634 RPT #:[id number] END OF REPORT 2021-03-15 10:49:00-00:00 [facility]) MANAGER FIRE Consult Note REPORT#:[id number] REPORT STATUS: Signed DATE:03/15/21 TIME: 1049 PATIENT: FANI GARCIA UNIT #: [id number] ROOM/BED: 2218-A : 97 AGE: 25 SEX: F ATTEND: Lourdes Figueroa se, MD ADM AUTHOR: Yuliet Kruse DO * ALL edits or amendments must be made on the el [employer]/computer document * History of Present Illness HPI Requesting clinician: Dr. Figueroa Reason for consult: PP endometritis HPI: 25 y/o [id number] s/p PLTCS on 03/05 for labor ar rest in the setting of chorioamnionitis admitted as transfer on 03/10/21 from [facility] for concern of endometritis. Thi s morning, patient resting comfortably in bed and in no distress. She denies f/c/n/v/d and is urinati ng and having regular BM's without difficulty. Pain is controlled, no incis ional complaints. She is tolerating PO, regular diet History Medication/Allergy-Vaccine Hx Allergies: Coded Allergies: latex (Intermediate, SWELLING 03/04/21) Ambulatory Status Ambulatory status: Independent Review of Systems Additional notes: 10 systems reviewed and negative Objective Physical Exam VS/I O: Last Documented: Result Date Time B/P Mean 90.0 03/15 0800 Pulse Ox 97 03/15 0800 B/P 124/73 03/15 0800 Temp 99.1 03/15 0800 Pulse 81 03/15 0800 Resp 18 03/15 0800 24 hour I O ending at 0700: 03/15 0700 03/14 1900 Intake Total 1200.00 Output Total Balance 1200.00 Intake, Other 1200.00 PATIENT WEIGHT: Weight (lb): Weight (oz): 6.310832 Weight (kg): 83.2 General appearance: alert, awake, conversational , face symmetrical, no acute distress, mental status normal HEENT: moist mucosal membranes, normocephalic, P ERRLA Neck: full range of motion Cardiovascular: normal rate, no peripheral edema Respiratory: no distress, no tenderness, aeratin g well, symmetric expansion Abdomen: non-tender, soft, no distention, no gua rding, no hernia, no mass/ organomegaly, no rebound, pf annenstiel incision is c/d/i dressed with dermabond and without evidence of infe ction or dehiscence present. 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: alert, oriented x 3, normal speech, n o motor deficits, no sensory deficits Psychiatry: normal affect Results Findings/Data: Laboratory Tests 03/15 746 Chemistry Sodium (135 - 145 mEq/L) 141 Potassium (3.5 - 5.0 mEq/L) 5.0 Chloride (100 - 115 mEq/L) 107 Carbon Dioxide (22 - 31 mEq/L) 26 Anion Gap (10 - 20) 13.10 BUN (7 - 18 mg/dL) 7 Creatinine (0.5 - 1.0 mg/dL) 0.5 Glomerular Filtr Rate (>60 ml/min) 153 Glucose (65 - 110 mg/dL) 76 Calcium (8.4 - 10.2 mg/dL) 8.6 Laboratory Tests 03/15 07 Hematology WBC (6.5 - 12.3 K/mm3) 12.5 H RBC (3.51 - 4.69 M/mm3) 3.90 Hgb (10.1 - 13.8 g/dL) 8.2 L Hct (32.5 - 41.8 %) 28.9 L MCV (84.6 - 96.6 fL) 74.1 L MCH (27.3 - 33.9 pg) 21.0 L MCHC (32.0 - 34.2 gm/dL) 28.4 L RDW (12.2 - 16.3 %) 19.8 H Plt Count (134 - 363 K/mm3) 692 H MPV (9.2 - 12.7 fL) 10.2 Neut % (Auto) (57.9 - 77.3 %) 72.8 Lymph % (Auto) (14.5 - 29.7 %) 20.5 [place] % (Auto) (3.6 - 10.2 %) 4.3 Eos % (Auto) (0.0 - 3.0 %) 1.2 Baso % (Auto) (0.1 - 0.9 %) 0.2 Neut # (Auto) (K/mm3) 9.1 Lymph # (Auto) (K/mm3) 2.6 [place] # (Auto) (K/mm3) 0.5 Eos # (Auto) (K/mm3) 0.15 Baso # (Auto) (K/mm3) 0.0 Laboratory Tests 03/14 1830 Urines Urine Color (YELLOW) YELLOW Urine Appearance (CLEAR) Slightly-Cloudy Urine pH (5 - 9) 6.0 Ur Specific [place] (1.001 - 1.035) 1.024 Urine Protein (NEG) NEGATIVE Urine Glucose (UA) (NEG) NEGATIVE Urine Ketones (NEG) NEGATIVE Urine Blood (NEG) 1+ H Urine Nitrite (NEG) NEG Urine Bilirubin (NEG) NEGATIVE Urine Urobilinogen (NEG mg/dL) NEGATIVE Ur Leukocyte Esterase (NEG) 2+ H Urine RBC (NONE SEEN #/hpf) 6-10 H Urine WBC (NONE SEEN #/hpf) 31-40 H Ur Epithelial Cells (RARE - FEW #/HPF) RARE Urine Bacteria (RARE - FEW /HPF) RARE Urine Mucus (NONE SEEN) 1+ Radiology Data: Recent Impressions: ULTRASOUND - US TRANSVAGINAL W/PELVIS 03/12 1715 Report Impression - Status: SIGNED Entered: 03/13/2021 0721 IMPRESSION: Blood flow noted in both ovaries. PROCEDURE INFORMATION: Exam: US Pelvis Complete, Transabdominal and US Pelvis, Transvaginal Exam date and time: 03/12/2021 5:18 PM Age: 25 years old Clinical indication: Pelvic pain; Prior surgery; Surgery date: 3-7 days post-operative; Additional info: Pelvic lidia n, fever, after c/s on 03/05 TECHNIQUE: Imaging protocol: Real-time transabdominal and t ransvaginal pelvic ultrasound (complete) with image documentation. Transvaginal imaging was used for better evaluation of the en dometrium, adnexa, and/or cervix. COMPARISON: OT US FLW UP 03/04/2021 11:49 AM FINDINGS: Uterus/cervix: Uterus measures 17.0 x 7.5 x 12.0 cm in greatest dimensions with endometrium measuring 5 mm in th ickness. No evidence of retained products of conception is p resent in endometrial cavity. Changes related to are present in lower uterine segment. No evidence of uterine fi broid is seen. Right adnexa: Rt ovary measures 4.8 x 2.4 x 3.1 cm. Blood flow present in the rt. ovary. Left adnexa: Lt ovary measures 5.0 x 1.3 x 3.2 c m. Blood flow present in the lt. ovary. Adjacent to the left ovary and separate from it, there are 2 fluid collections identified which measure 2.2 x 1.1 x 4.6 cm and 2.4 x 1.3 x 5.2 cm. These are thought to represent pos tsurgical fluid collection after . In addition, a 1.5 x 0.9 x 1.7 cm echogenic free fluid is present in posterior cul -de-sac. Urinary bladder: No significant abnormality seen IMPRESSION: 1. uterus without retained products o f conception. Changes related to in lower uterine se gment. 2. Normal sonographic appearance of ovaries. 3. 2 fluid collections adjacent to the left ovar y as described above. These may represent postsurgical collecti ons, possibility of superimposed infection cannot be excluded and clinical correlation is recommended. 4. Small amount of echogenic free fluid in poste rior cul-de-sac. Impression By: Damion Flood MD ULTRASOUND - [facility] 03/12 3690 Report Impression - Status: SIGNED Entered: 03/13/2021 0721 IMPRESSION: Blood flow noted in both ovaries. PROCEDURE INFORMATION: Exam: US Pelvis Complete, Transabdominal and US Pelvis, Transvaginal Exam date and time: 03/12/2021 5:18 PM Age: 25 years old Clinical indication: Pelvic pain; Prior surgery; Surgery date: 3-7 days post-operative; Additional info: Pelvic lidia n, fever, after c/s on 03/05 TECHNIQUE: Imaging protocol: Real-time transabdominal and t ransvaginal pelvic ultrasound (complete) with image documentation. Transvaginal imaging was used for better evaluation of the en dometrium, adnexa, and/or cervix. COMPARISON: OT US FLW UP 03/04/2021 11:49 AM FINDINGS: Uterus/cervix: Uterus measures 17.0 x 7.5 x 12.0 cm in greatest dimensions with endometrium measuring 5 mm in th ickness. No evidence of retained products of conception is p resent in endometrial cavity. Changes related to are present in lower uterine segment. No evidence of uterine fi broid is seen. Right adnexa: Rt ovary measures 4.8 x 2.4 x 3.1 cm. Blood flow present in the rt. ovary. Left adnexa: Lt ovary measures 5.0 x 1.3 x 3.2 c m. Blood flow present in the lt. ovary. Adjacent to the left ovary and separate from it, there are 2 fluid collections identified which measure 2.2 x 1.1 x 4.6 cm and 2.4 x 1.3 x 5.2 cm. These are thought to represent pos tsurgical fluid collection after . In addition, a 1.5 x 0.9 x 1.7 cm echogenic free fluid is present in posterior cul -de-sac. Urinary bladder: No significant abnormality seen IMPRESSION: 1. uterus without retained products o f conception. Changes related to in lower uterine se gment. 2. Normal sonographic appearance of ovaries. 3. 2 fluid collections adjacent to the left ovar y as described above. These may represent postsurgical collecti ons, possibility of superimposed infection cannot be excluded and clinical correlation is recommended. 4. Small amount of echogenic free fluid in poste rior cul-de-sac. Impression By: Damion Flood MD ULTRASOUND - US PELVIS COMPLETE 03/12 9975 Report Impression - Status: SIGNED Entered: 03/13/2021 8116 IMPRESSION: Blood flow noted in both ovaries. PROCEDURE INFORMATION: Exam: US Pelvis Complete, Transabdominal and US Pelvis, Transvaginal Exam date and time: 03/12/2021 5:18 PM Age: 25 years old Clinical indication: Pelvic pain; Prior surgery; Surgery date: 3-7 days post-operative; Additional info: Pelvic lidia n, fever, after c/s on 03/05 TECHNIQUE: Imaging protocol: Real-time transabdominal and t ransvaginal pelvic ultrasound (complete) with image documentation. Transvaginal imaging was used for better evaluation of the en dometrium, adnexa, and/or cervix. COMPARISON: OT US FLW UP 03/04/2021 11:49 AM FINDINGS: Uterus/cervix: Uterus measures 17.0 x 7.5 x 12.0 cm in greatest dimensions with endometrium measuring 5 mm in th ickness. No evidence of retained products of conception is p resent in endometrial cavity. Changes related to are present in lower uterine segment. No evidence of uterine fi broid is seen. Right adnexa: Rt ovary measures 4.8 x 2.4 x 3.1 cm. Blood flow present in the rt. ovary. Left adnexa: Lt ovary measures 5.0 x 1.3 x 3.2 c m. Blood flow present in the lt. ovary. Adjacent to the left ovary and separate from it, there are 2 fluid collections identified which measure 2.2 x 1.1 x 4.6 cm and 2.4 x 1.3 x 5.2 cm. These are thought to represent pos tsurgical fluid collection after . In addition, a 1.5 x 0.9 x 1.7 cm echogenic free fluid is present in posterior cul -de-sac. Urinary bladder: No significant abnormality seen IMPRESSION: 1. uterus without retained products o f conception. Changes related to in lower uterine se gment. 2. Normal sonographic appearance of ovaries. 3. 2 fluid collections adjacent to the left ovar y as described above. These may represent postsurgical collecti ons, possibility of superimposed infection cannot be excluded and clinical correlation is recommended. 4. Small amount of echogenic free fluid in poste rior cul-de-sac. Impression By: Damion Flood MD Results: labs reviewed, jenny l signs stable, US personally reviewed, current med profile rev'd Treatment Prophylaxis Treatment Prophylaxis Anti-infectives: ceftriaxone, clindamycin, genta micin Diagnosis, Assessment Plan Diagnosis, Assessment Plan Assessment/Plan: 25 y/o [id number] POD#10 s/p PLTCS readmitt ed on POD#5 for PP endometritis and on IV broad spectrum antibiotic s since her admission. Exam is normal this morning, WBC trending down modestly a nd patient afebrile with last temp 100.3 on 03/13 at 1600. Hgb: stable, Recommendations: -at this time would consider discontinua tion of IV antibiotics to assess fever curve for at least 24 hours off IV antibiotics - Records obtained from [facility]: Urine culture is +E. Coli ( pansensitive) thus already treated with Rocephin Blood cultures from [facility] show "no growth at 5 days". -hep lock, regular diet, regular ambulation -consider discharge home if afebrile for 24 hours off of IV antibiotics. If pt re-fevers off abx then would consider ID consult ation and re-imaging. Electronically Signed by Yuliet Kruse DO on at 1624 RPT #:[id number] END OF REPORT 2021-03-15 10:43:00-00:00 [id number] [facility] [address], [place] [address] PATIENT NAME: FANI GARCIA ADMIT DATE: 03/11 ACCOUNT NO: [id number] ROOM NO: F.2218 AGE: 25 SEX: F ADMITTING PHYSICIAN: Nathan Figueroa MD ATTENDING PHYSICIAN: Nathan Figueroa MD DATE:03/15/21 INFECTIOUS DISEASE PROGRESS NOTE LOCATION: The patient in room 2218, [facility]. MAIN COMPLAINT: Fever and abdominal pain. General review of systems as outlined in the HPI . Current antibiotic coverage, Merrem and vancomycin. Vancomycin dosage directed by the pharmacy. PHYSICAL EXAMINATION: GENERAL: The patient is COVID negative. No acute distress, awake, and oriented. VITAL SIGNS: Temperature at 7:00 a.m. 99.1, temperature-max on March 14 was 99 degrees. EYES: Pupils are equal and reactive to light and accommodation. Extraocular muscles intact. Ear, nose, and throat negative. NECK: Supple. No lymphadenopathy. Thyroid not en larged. Trachea midline. LUNGS: Clear to auscultation. HEART: PMI fifth intercostal space. S1, S2. No g allop. ABDOMEN: Soft and nontender. Positive bowel soun ds. Csection incision no erythema nor drainage MUSCULOSKELETAL: normal range of motion ,no low nt swelling Normal. NEUROLOGICAL: Normal. LABORATORY DATA: Reviewed. Blood cultures are ne gative to date. Current antibiotic therapy was started yesterday Merrem and Vancomycin. CLINICAL IMPRESSION: 1. Suspected endometritis, post . 2. Review of pathology, placenta did show eviden ce of chorioamnionitis. 3. ? surgical site infection. 4. Status post Csection 03/05/2021. 5. Anemia in . PLAN: Continue current antibiotics. Discussed with the patient. Dr. Wood will resume the primary Infectious dise ase coverage starting on PATIENT NAME: FANI GARCIA [id number] 03/16/2021. Dictated By: Noé Dunne MD WT: PN:TORRI/SANTA/NERISSA Conf#: [id number]/DID#: [id number] Authenticated and Edited by Noé Bartlett On 03/15/21 4:35:52 PM at 0437 PATIENT NAME: FANI GARCIA [id number] 09:02:00-00:00 [facility] ([facility]) Hospitalist Progress Note REPORT#:[id number] REPORT STATUS: Signed DATE:03/15/21 TIME: 901 PATIENT: FANI GARCIA UNIT #: [id number] ROOM/BED: [address] : 97 AGE: 25 SEX: F ATTEND: Lourdes Figueroa se, MD ADM AUTHOR: Nathan Figueroa MD * ALL edits or amendments must be made on the [employer] document * Subjective Chief Complaint: Fever. abdominal pain HPI: 25-year-old female with a history of red recent on 03/05/2021 who was recommended to return if any fever after C-secti on. She started having pain above the surgical incision and fever. [facility] where she was tachycardic but afebrile. Leukocyte count was 10 and there were concerns for surgical site infection. As CT scan of the abdom en and pelvis showed some abnormalities but no abscess formation. She was transferred to our facility for postsurgical care and potential sepsis. Past medical history: Anemia of . Obesi ty Surgical history: Social history: Negative 3. Positive for a profe ssional tattoos Allergies: Latex CODE STATUS: Full code Family history: Hypertension and diabetes Hospital course: 03/11/2021: Patient feels feverish. Pending surge ry evaluation. Cellulitis improving. Status changed to inpatient. Cultures negative. Lactic acid normal. Low H H without evidence of bleeding. IV iron or dered. 03/12/2021: Patient was seen by [facility]OM[facility] PRODUCER and I was notified patient had somewhat complicated delivery highly suspicious for endometritis. Antibiotics were changed to Rocephin and clindamycin. She salazar s a slight elevation of leukocytes but no fever. Cultures have been nega tive so far. Patient will receive antibiotics for at least 10 days . She has orders for pelvic ultrasound today. 03/13/2021: Worsening leukocyte count. Fever last night. Pelvic ultrasound is unremarkable. Cultures negative to date. Gentami tiarra added to her antibiotic regimen. 03/14/2021: Persistent leukocytosis. Mild elevated temperature but no fever. ID consulted today. 03/15/2021: Leukocyte count is improving. No feve r for the past 48 hours. Cultures negative to date. ID initiated meropene m and vancomycin yesterday. Subjective: Patient seen and evaluated at bedside. She has no acute complaints. Per nurse, events as above. Review of Systems All systems rev neg: except as marked Objective General VS/I O: Vital Signs: Date Time Temp Pulse Resp B/P B/P Pulse O2 O2 F low FiO2 Mean Ox Delivery Rate 03/15 527 101.0 03/15 527 36.9 81 16 134/78 95 03/15 0158 96.0 03/158 36.8 81 14 121/79 97 03/14 2031 86.0 03/14 2031 37.2 98 18 125/61 97 03/14 1530 94.0 03/14 1530 37.2 102 16 122/80 96 03/14 1205 112.0 03/14 1205 37.3 105 18 145/95 98 24 hour I O ending at 0700: 03/15 0700 03/14 1900 Intake Total 1200.00 Output Total Balance 1200.00 Intake, Other 1200.00 PATIENT WEIGHT: Weight (lb): Weight (oz): 6.872298 Weight (kg): 83.2 Medications: Active Meds + DC'd Last 24 Hrs Meropenem (MEROPENEM) 500 MG Q6H IV Sodium Chloride (SODIUM CHLORIDE 0.9% - 50 ML) 50 ML Vancomycin HCl (VANCOMYCIN HCL 500 MG VIAL) 1,50 0 MG Q12H IV Sodium Chloride (SODIUM CHLORIDE 0.9% - 250 ML) 250 ML Meropenem (MEROPENEM) 500 MG Q6H IV (DC) Sodium Chloride (SODIUM CHLORIDE 0.9% - 50 ML) 50 ML Gentamicin Sulfate (GENTAMICIN SULFATE 40 MG/ML 2 ML VIAL) 320 MG Q24H IV (DC) Sodium Chloride (SODIUM CHLORIDE 0.9% - 100 ML) 100 ML Miscellaneous Information (GENTAMICIN PHARMACY T O DOSE) 1 EACH ASDIR IV (DC) Clindamycin Phosphate (CLEOCIN 900 MG/NS 50 ML) 50 ML Q8H IV (DC) Ceftriaxone Sodium (ROCEPHIN 1000 MG/VIAL) 1,000 MG DAILY IV (DC) Sodium Chloride (SODIUM CHLORIDE 0.9% 100 ML AD D-[place]) 100 ML Enoxaparin Sodium (LOVENOX SOD 40MG INJ) 40 MG D AILY SUBQ Ibuprofen (IBUPROFEN 400 MG TAB) 400 MG Q8H PRN PRN PO Melatonin (Melatonin 3 mg) 3 MG BEDTIME PO Acetaminophen (ACETAMINOPHEN 325 MG TAB) 650 MG Q4H PRN PRN PO Benzonatate (TESSALON 100 MG UDCAP) 100 MG TID P RN PO Bisacodyl (DULCOLAX 5 MG UDTAB) 10 MG DAILY PRN PO Hydralazine HCl (hydrALAZINE HCL 20MG) 10 MG Q4 H PRN PRN IV Hydrocodone Bitart/Acetaminophen (NORCO 5/325 TA BLET) 1 TAB Q4H PRN PRN PO Labetalol HCl (NORMODYNE 100 MG/20 ML VIAL) 10 M G Q4H PRN PRN IV Multi-Ingredient GI Drug (MAGNESIUM ALUMINUM HYD ROXIDES 30ML ORAL SUSP) 30 ML Q4H PRN PRN PO Ondansetron HCl (ZOFRAN 2 MG/ML 4 MG SYR) 4 MG Q 4H PRN PRN IV Potassium Chloride (K-DUR 20 MEQ SA TAB) 40 MEQ DAILY PRN PRN PO Simethicone (SIMETHICONE 80 MG TAB) 80 MG Q6H ND N PRN PO Sodium Chloride (SODIUM CHLORIDE 0.9% - 1000 ML) 1,000 ML ASDIR IV Results Findings/Data: Laboratory Tests 03/15 0746 Hematology WBC (6.5 - 12.3 K/mm3) 12.5 H RBC (3.51 - 4.69 M/mm3) 3.90 Hgb (10.1 - 13.8 g/dL) 8.2 L Hct (32.5 - 41.8 %) 28.9 L MCV (84.6 - 96.6 fL) 74.1 L MCH (27.3 - 33.9 pg) 21.0 L MCHC (32.0 - 34.2 gm/dL) 28.4 L RDW (12.2 - 16.3 %) 19.8 H Plt Count (134 - 363 K/mm3) 692 H MPV (9.2 - 12.7 fL) 10.2 Neut % (Auto) (57.9 - 77.3 %) 72.8 Lymph % (Auto) (14.5 - 29.7 %) 20.5 [place] % (Auto) (3.6 - 10.2 %) 4.3 Eos % (Auto) (0.0 - 3.0 %) 1.2 Baso % (Auto) (0.1 - 0.9 %) 0.2 Neut # (Auto) (K/mm3) 9.1 Lymph # (Auto) (K/mm3) 2.6 [place] # (Auto) (K/mm3) 0.5 Eos # (Auto) (K/mm3) 0.15 Baso # (Auto) (K/mm3) 0.0 Laboratory Tests 03/14 1830 Urines Urine Color (YELLOW) YELLOW Urine Appearance (CLEAR) Slightly-Cloudy Urine pH (5 - 9) 6.0 Ur Specific [place] (1.001 - 1.035) 1.024 Urine Protein (NEG) NEGATIVE Urine Glucose (UA) (NEG) NEGATIVE Urine Ketones (NEG) NEGATIVE Urine Blood (NEG) 1+ H Urine Nitrite (NEG) NEG Urine Bilirubin (NEG) NEGATIVE Urine Urobilinogen (NEG mg/dL) NEGATIVE Ur Leukocyte Esterase (NEG) 2+ H Urine RBC (NONE SEEN #/hpf) 6-10 H Urine WBC (NONE SEEN #/hpf) 31-40 H Ur Epithelial Cells (RARE - FEW #/HPF) RARE Urine Bacteria (RARE - FEW /HPF) RARE Urine Mucus (NONE SEEN) 1+ Free Text Obj Notes Free Text Obj Notes: General: No acute distress. Awake, alert and hugh ented 3 HEENT: PERRLA, EOMI, nasal septum in the midline . Ears are symmetric. Atraumatic Cardiovascular: Rhythm and rate are regular. No murmurs, rubs, gallops Pulmonary: Clear to auscultation. No wheezing, r honchi or crackles GI: Soft, nontender, nondistended, positive keri l sounds. Skin: Dry, erythema, tenderness and warmth above the surgical incision. No purulent material is evident or flu id collection. Capillary refill is less than 3 seconds Musculoskeletal: Range of motion is intact. No p alpable edema. Neurologic: Cranial nerves II through XII are gr ossly intact. Deep tendon reflex exam normoreflexic. Speech is normal Psychiatric: Normal mood. Cooperative. Diagnosis, Assessment Plan Code status: full code Plan discussed with: patient, nurse Free Text DxA P Notes Free text DxA P notes: Assessment: Possible sepsis present on admission ruled out Panniculitis. Cellulitis Possible endometritis Possible surgical site infection. Postoperative complication Ruled out Status post 03/05/2021 state Anemia of Plan: Continue infectious diseases instructions Leukocyte count improving No fever for the past 48 hours. Cultures negative to date Continue to monitor for fever Pelvic ultrasound unremarkable Lactic acid normal Labs IV iron PROMOTION PRODUCER follows IV fluids Daily labs care Patient is breast-feeding. Guarded prognosis Nathan Figueroa MD [facility] Internal Medicine Answering Service [phone] Electronically Signed by Nathan Figueroa MD on at 0832 [facility] #:[id number] END OF REPORT 2021-03-14 21:55:00-00:00 [id number] [facility] [address], [place] [address] PATIENT NAME: FANI GARCIA ADMIT DATE: 03/11 ACCOUNT NO: [id number] ROOM NO: [id number] AGE: 25 SEX: F ADMITTING PHYSICIAN: Nathan Figueroa MD ATTENDING PHYSICIAN: Nathan Figueroa MD CONSULTATION DATE: 03/14/2021 CONSULTING PHYSICIAN: Noé Dunne MD INFECTIOUS DISEASE CONSULTATION REASON FOR CONSULTATION: Fever, leukocytosis. HISTORY OF PRESENT ILLNESS: The patient is a 25-year-old female who underwent a on 03/05/2021 and she was readmitted t [facility] with fever and abdominal pain. Initially, she went to [facility] Emergency Room tachycardic, but afebrile. There was a concern a bout the surgical site infection and CT scan of the abdomen and pelvis showed some abnormalities and she was transferred to [facility] for high er level of care. PAST MEDICAL HISTORY: Anemia of basica lly. PAST SURGICAL HISTORY: . SOCIAL HISTORY: Negative for drugs or alcohol. S he has a number of tattoos on her body. ALLERGIES: LATEX. FAMILY HISTORY: Hypertension and diabetes. 03/11/2021, evidence of cellulitis at the incisi on site. Cultures were no growth. On 03/12/2021, she was seen by [facility]OT[facility] PRODUCER an d a discussion revealed that she had a somewhat complicated delivery raising suspicion of endometritis. She was started on Rocephin and clindamycin ,per sistent leukocytosis. Pelvic ultrasound was performed. On 03/13/2021, white blood cell count higher. The patient was still febrile. Pelvic ul trasound was unremarkable. Cultures pending . On 03/14/2021, persistent leukocytosis ID consult ,the patient was seen and evaluated a t bedside. Chart reviewed. Vital signs reviewed. PATIENT NAME: FANI GARCIA [id number] MEDICATIONS: Reviewed. LABORATORY STUDIES: Reviewed. PHYSICAL EXAMINATION: GENERAL: No acute distress, alert and oriented. HEENT: Extraocular muscles intact. Pupils equal, reactive to light and accommodation. Fundi benign. NECK: No masses. Thyroid not enlarged. Trachea m idline. No lymphadenopathy. LUNGS: Clear. HEART: S1, S2. No gallop, no murmurs. ABDOMEN: Soft, nontender, and nondistended. Keri l sounds present. SKIN: Erythema, tenderness, worse above the C-se ction. No purulent material present. MUSCULOSKELETAL: Normal. NEUROLOGICAL: Normal exam. Blood cultures pending. ASSESSMENT: Post partu endometritis Status post section. PLAN: Medication currently were gentamicin, clin damycin, and Rocephin. I discussed with Dr. Figueroa re antibiotics ,ch anged to Merrem and_vancomycin. Additional blood culture and urine culture will be obtained. I advised the patient regarding the IV antibioti cs and breast feeding. This will be resolved by claims account specialist. Dictated By: Noé Dunne MD WT: CON:FHERSON/SANTA/NTS Conf#: [id number]/DID#: [id number] Authenticated and Edited by Noé Bartlett On 03/15/21 10:03:41 AM at 1005 PATIENT NAME: FANI GARCIA [id number] 16:28:00-00:00 [facility] ([facility]) Pharmacy Prog.Note-Vancomycin REPORT#:[id number] REPORT STATUS: Signed DATE:03/14/21 TIME: 1628 PATIENT: FANI GARCIA UNIT #: [id number] ROOM/BED: [address] : 97 AGE: 25 SEX: F ATTEND: Lourdes Figueroa se, MD ADM AUTHOR: Vanesa Richard [facility] * ALL edits or amendments must be made on the [employer]/computer document * Vancomycin Vancomycin Medication Therapy Goal: trough 15-20 mcg/mL Indication for treatment: SKIN SOFT INFECTION Site of infection: known Current therapy: VANCO 1500 MG Q12 HRS Day of therapy: 14 DAYS VS and I/O: Vital Signs Date Temp Pulse Resp B/P B/P Mean Pulse Ox FiO2 03/11-03/14 36.6-38.3 77-105 16-20 99-146/63-95 75.0-112.0 96-100 72 hours ending at 0703/14 0700 03/13 1900 03/13 0703/12 1900 03/11 07 1900 Intake 1050.00 1000.00 Total Output Total Balance 1050.00 1000.00 Intake, 1050.00 1000.00 Other 72 Hour I O Total 03/14 0703/13 0703/12 0700 Intake Total 1050.00 1000.00 Output Total Balance 1050.00 1000.00 Labs: Laboratory Test : 03/14 03/14 0735 0526 Chemistry BUN (7 - 18 mg/dL) 6 L Creatinine (0.5 - 1.0 mg/dL) 0.5 Hematology WBC (6.5 - 12.3 K/mm3) 13.3 H Microbiology: 03/14 162 BLOOD: Blood Culture - ORD 03/14 162 BLOOD: Blood Culture Gram Stain - ORD 03/14 162 BLOOD: Blood Culture - ORD 03/14 162 BLOOD: Blood Culture Gram Stain - ORD Drug admin history: Lab Lab Level SCr Info Ripsaw Matcher Med Dose Inter action/Dialysis Date/Time Date/Time Notes: Treatment plan: consult Electronically Signed by Vanesa Richard [facility] on 0 03/14/21 at 1631 RPT #:[id number] END OF REPORT 2021-03-14 15:14:00-00:00 [facility] ([facility]) Clinical Note REPORT#:[id number] REPORT STATUS: Signed DATE:03/14/21 TIME: 1514 PATIENT: FANI GARCIA UNIT #: [id number] ROOM/BED: [address] : 97 AGE: 25 SEX: F ATTEND: Lourdes Figueroa se, MD ADM AUTHOR: Laureen Gerardo MD * ALL edits or amendments must be made on the el [employer]/computer document * Clinical Note Note: [id number]Dr Figueroa/Javier Bartlett Hospitalist (AKIN) Covid neg Pt seen @ 1445 on POD#9/HD#5 No complaints, no abd pain/N V/anemia sx, nl loc hia, ambulating voiding w/o probs, tolerating reg diet, post op pain well controlled w po meds, baby now in room w her-BF or pump q 2-3h, now on IV Gent/Cli nda Rocephin 122/80 102 18 99.0 chest unlabored breathing breasts NT/nonengorged, no cracked nipples abd soft/NT, BS nl, no fundal tenderness incis healing well, dermabond-no red/no indurati on/no drainage perineum nl lochia ext no calf tenderness, no edema WBC 13.3 Hgb 7.9 Hct 27.0 Plt 574 US no retained POCs CMP wnl Bld cult cancelled @o mislabeled Urine cult @ Meth unknown 25year old , S/P 1o C/S on 03/05. She pres [facility] with worsening low abd pain and fever. Transferred/re admitted to [facility] on POD #5, accepted by Dr Figueroa to is service. Source still unclear, now AF almost 24h on triple Abx. Pt seems to be improving on curre nt antibiotics -attempt to learn results of Ucult at [facility] -if Temp spikes again, consider reswab for Covid , repeat pelvic CT request ID consult/dsd Electronically Signed by Laureen Gerardo MD on 02/15 03/06 at 1610 RPT #:[id number] END OF REPORT 2021-03-14 08:41:00-00:00 [facility]) Hospitalist Progress Note REPORT#:[id number] REPORT STATUS: Signed DATE:03/14/21 TIME: 840 PATIENT: FANI GARCIA UNIT #: [id number] ROOM/BED: [address] : 97 AGE: 25 SEX: F ATTEND: Lourdes Figueroa se, MD ADM AUTHOR: Nathan Figueroa MD * ALL edits or amendments must be made on the el [facility] [facility]/computer document * Subjective Chief Complaint: Fever. abdominal pain HPI: 25-year-old female with a history of red recent on 03/05/2021 who was recommended to return if any fever after C-secti on. She started having pain above the surgical incision and fever. [facility] where she was tachycardic but afebrile. Leukocyte count was 10 and there were concerns for surgical site infection. As CT scan of the abdom en and pelvis showed some abnormalities but no abscess formation. She was transferred to our facility for postsurgical care and potential sepsis. Past medical history: Anemia of . Obesi ty Surgical history: Social history: Negative 3. Positive for a profe ssional tattoos Allergies: Latex CODE STATUS: Full code Family history: Hypertension and diabetes Hospital course: 03/11/2021: Patient feels feverish. Pending surge ry evaluation. Cellulitis improving. Status changed to inpatient. Cultures negative. Lactic acid normal. Low H H without evidence of bleeding. IV iron or dered. 03/12/2021: Patient was seen by PROMOTION PRODUCER and I was notified patient had somewhat complicated delivery highly suspicious for endometritis. Antibiotics were changed to Rocephin and clindamycin. She salazar s a slight elevation of leukocytes but no fever. Cultures have been nega tive so far. Patient will receive antibiotics for at least 10 days . She has orders for pelvic ultrasound today. 03/13/2021: Worsening leukocyte count. Fever last night. Pelvic ultrasound is unremarkable. Cultures negative to date. Gentami tiarra added to her antibiotic regimen. 03/14/2021: Persistent leukocytosis. Mild elevated temperature but no fever. ID consulted today. Subjective: Patient seen and evaluated at bedside. She has no acute complaints. Per nurse, events as above Review of Systems All systems rev neg: except as marked Objective General VS/I O: Vital Signs: Date Time Temp Pulse Resp B/P B/P Pulse O2 O2 F low FiO2 Mean Ox Delivery Rate 03/140 100.0 03/14 042 37.0 88 18 130/85 98 03/14 0020 36.9 03/13 2130 75.0 03/13 2130 36.9 85 18 99/63 96 03/13 1600 37.9 99 18 126/77 100 03/13 1200 37.6 96 18 136/86 99 24 hour I O ending at 0700: 03/14 0700 03/13 1900 Intake Total 1050.00 Output Total Balance 1050.00 Intake, Other 1050.00 PATIENT WEIGHT: Weight (lb): Weight (oz): 6.739514 Weight (kg): 83.2 Medications: Active Meds + DC'd Last 24 Hrs Iron Sucrose (VENOFER) 100 MG ONCE IV (CAN) Sodium Chloride (SODIUM CHLORIDE 0.9% - 100 ML) 100 ML Gentamicin Sulfate (GENTAMICIN SULFATE 40 MG/ML 2 ML VIAL) 320 MG Q24H IV Sodium Chloride (SODIUM CHLORIDE 0.9% - 100 ML) 100 ML Ferric Sodium Gluconate Complex (FERRLECIT INJ 6 2.5MG/5ML AMP) 125 MG ONCE ONE IV (DC) Sodium Chloride (Sodium Chloride 100 mL - OR/NI CU STOCK) 100 ML Miscellaneous Information (GENTAMICIN PHARMACY T O DOSE) 1 EACH ASDIR IV (CKD) Clindamycin Phosphate (CLEOCIN 900 MG/NS 50 ML) 50 ML Q8H IV Ceftriaxone Sodium (ROCEPHIN 1000 MG/VIAL) 1,000 MG DAILY IV Sodium Chloride (SODIUM CHLORIDE 0.9% 100 ML AD D-[place]) 100 ML Enoxaparin Sodium (LOVENOX SOD 40MG INJ) 40 MG D AILY SUBQ Ibuprofen (IBUPROFEN 400 MG TAB) 400 MG Q8H PRN PRN PO Melatonin (Melatonin 3 mg) 3 MG BEDTIME PO Acetaminophen (ACETAMINOPHEN 325 MG TAB) 650 MG Q4H PRN PRN PO Benzonatate (TESSALON 100 MG UDCAP) 100 MG TID P RN PO Bisacodyl (DULCOLAX 5 MG UDTAB) 10 MG DAILY PRN PO Hydralazine HCl (hydrALAZINE HCL 20MG) 10 MG Q4H PRN PRN IV Hydrocodone Bitart/Acetaminophen (NORCO 5/325 TA BLET) 1 TAB Q4H PRN PRN PO Labetalol HCl (NORMODYNE 100 MG/20 ML VIAL) 10 M G Q4H PRN PRN IV Multi-Ingredient GI Drug (MAGNESIUM ALUMINUM HYD ROXIDES 30ML ORAL SUSP) 30 ML Q4H PRN PRN PO Ondansetron HCl (ZOFRAN 2 MG/ML 4 MG SYR) 4 MG Q 4H PRN PRN IV Potassium Chloride (K-DUR 20 MEQ SA TAB) 40 MEQ DAILY PRN PRN PO Simethicone (SIMETHICONE 80 MG TAB) 80 MG Q6H ND N PRN PO Sodium Chloride (SODIUM CHLORIDE 0.9% - 1000 ML) 1,000 ML ASDIR IV Results Findings/Data: Laboratory Tests 03/14 0526 Chemistry Sodium (135 - 145 mEq/L) 141 Potassium (3.5 - 5.0 mEq/L) 3.9 Chloride (100 - 115 mEq/L) 107 Carbon Dioxide (22 - 31 mEq/L) 25 Anion Gap (10 - 20) 12.80 BUN (7 - 18 mg/dL) 6 L Creatinine (0.5 - 1.0 mg/dL) 0.5 Glomerular Filtr Rate (>60 ml/min) 153 Glucose (65 - 110 mg/dL) 83 Calcium (8.4 - 10.2 mg/dL) 8.5 Laboratory Tests 03/14 0735 Hematology WBC (6.5 - 12.3 K/mm3) 13.3 H RBC (3.51 - 4.69 M/mm3) 3.74 Hgb (10.1 - 13.8 g/dL) 7.9 L Hct (32.5 - 41.8 %) 27.0 L MCV (84.6 - 96.6 fL) 72.2 L MCH (27.3 - 33.9 pg) 21.1 L MCHC (32.0 - 34.2 gm/dL) 29.3 L RDW (12.2 - 16.3 %) 18.3 H Plt Count (134 - 363 K/mm3) 574 H MPV (9.2 - 12.7 fL) 9.3 Neut % (Auto) (57.9 - 77.3 %) 76.0 Lymph % (Auto) (14.5 - 29.7 %) 16.3 [place] % (Auto) (3.6 - 10.2 %) 5.0 Eos % (Auto) (0.0 - 3.0 %) 1.4 Baso % (Auto) (0.1 - 0.9 %) 0.2 Neut # (Auto) (K/mm3) 10.1 Lymph # (Auto) (K/mm3) 2.2 [place] # (Auto) (K/mm3) 0.7 Eos # (Auto) (K/mm3) 0.19 Baso # (Auto) (K/mm3) 0.0 Free Text Obj Notes Free Text Obj Notes: General: No acute distress. Awake, alert and hugh ented 3 HEENT: PERRLA, EOMI, nasal septum in the midline . Ears are symmetric. Atraumatic Cardiovascular: Rhythm and rate are regular. No murmurs, rubs, gallops Pulmonary: Clear to auscultation. No wheezing, r honchi or crackles GI: Soft, nontender, nondistended, positive keri l sounds. Skin: Dry, erythema, tenderness and warmth above the surgical incision. No purulent material is evident or flu id collection. Capillary refill is less than 3 seconds Musculoskeletal: Range of motion is intact. No p alpable edema. Neurologic: Cranial nerves II through XII are gr ossly intact. Deep tendon reflex exam normoreflexic. Speech is normal Psychiatric: Normal mood. Cooperative. Diagnosis, Assessment Plan Orders: Procedure Date/time Status BASIC METABOLIC PANEL 03/20 06 Active BASIC METABOLIC PANEL 03/19 06 Active BASIC METABOLIC PANEL 03/18 06 Active CBC W/AUTO DIFF 03/17 07 Active BASIC METABOLIC PANEL 03/17 06 Active CBC W/AUTO DIFF 03/16 07 Active BASIC METABOLIC PANEL 03/16 0600 Active CBC W/AUTO DIFF 03/15 0700 Active Physician Consult 03/14 0840 Active Code status: full code Plan discussed with: patient, nurse Free Text DxA P Notes Free text DxA P notes: Assessment: Possible sepsis present on admission ruled out Panniculitis. Cellulitis Possible endometritis Possible surgical site infection. Postoperative complication Ruled out Status post 03/05/2021 state Anemia of Plan: ID consult Continue monitoring leukocyte count Continue to monitor for fever Pelvic ultrasound unremarkable Blood cultures negative to date Lactic acid normal Labs IV iron PROMOTION PRODUCER follows IV fluids Daily labs care Patient is breast-feeding. Guarded prognosis Nathan Figueroa MD [facility] Internal Medicine Answering Service [phone] Electronically Signed by Nathan iFgueroa MD on 0 03/15/21 at 0902 RPT #:[id number] END OF REPORT 2021-03-13 09:03:00-00:00 [facility] ([facility]) Hospitalist Progress Note REPORT#:[id number] REPORT STATUS: Signed DATE:03/13/21 TIME: 902 PATIENT: FANI GARCIA UNIT #: [id number] ROOM/BED: [facility] : 97 AGE: 25 SEX: F ATTEND: Lourdes Figueroa se, MD ADM AUTHOR: Nathan Figueroa MD * ALL edits or amendments must be made on the el [facility]/computer document * Subjective Chief Complaint: Fever. abdominal pain HPI: 25-year-old female with a history of red recent on 03/05/2021 who was recommended to return if any fever after C-secti on. She started having pain above the surgical incision and fever. [facility] where she was tachycardic but afebrile. Leukocyte count was 10 and there were concerns for surgical site infection. As CT scan of the abdom en and pelvis showed some abnormalities but no abscess formation. She was transferred to our facility for postsurgical care and potential sepsis. Past medical history: Anemia of . Obesi ty Surgical history: Social history: Negative 3. Positive for a profe ssional tattoos Allergies: Latex CODE STATUS: Full code Family history: Hypertension and diabetes Hospital course: 03/11/2021: Patient feels feverish. Pending surge ry evaluation. Cellulitis improving. Status changed to inpatient. Cultures negative. Lactic acid normal. Low H H without evidence of bleeding. IV iron or dered. 03/12/2021: Patient was seen by PROMOTION PRODUCER and I was notified patient had somewhat complicated delivery highly suspicious for endometritis. Antibiotics were changed to Rocephin and clindamycin. She salazar s a slight elevation of leukocytes but no fever. Cultures have been nega tive so far. Patient will receive antibiotics for at least 10 days . She has orders for pelvic ultrasound today. 03/13/2021: Worsening leukocyte count. Fever last night. Pelvic ultrasound is unremarkable. Cultures negative to date. Gentami tiarra added to her antibiotic regimen. Subjective: Patient seen and evaluated at bedside. She refers fever. Per nurse, events as above. Review of Systems All systems rev neg: except as marked Objective General VS/I O: Vital Signs: Date Time Temp Pulse Resp B/P B/P Pulse O2 O2 F low FiO2 Mean Ox Delivery Rate 03/13 400 103.0 09/28 0400 36.6 88 18 144/82 100 03/13 0007 98.0 03/13 0007 36.7 77 18 131/81 97 03/12 2147 37.7 03/12 1951 100.0 03/12 1951 38.3 94 18 143/70 99 03/12 1645 37.0 89 18 135/80 99 03/12 1350 37.1 98 18 128/83 97 03/12 0920 37.3 95 20 129/81 98 24 hour I O ending at 0700: 03/13 0700 03/12 1900 Intake Total 1000.00 Output Total Balance 1000.00 Intake, Other 1000.00 PATIENT WEIGHT: Weight (lb): Weight (oz): 6.435357 Weight (kg): 83.2 Medications: Active Meds + DC'd Last 24 Hrs Ferric Sodium Gluconate Complex (FERRLECIT INJ 6 2.5MG/5ML AMP) 125 MG ONCE ONE IV (UNV) Sodium Chloride (Sodium Chloride 100 mL - OR/NI CU STOCK) 100 ML Miscellaneous Information (GENTAMICIN PHARMACY T O DOSE) 1 EACH ASDIR IV (UNV) Ferric Sodium Gluconate Complex (FERRLECIT INJ 6 2.5MG/5ML AMP) 125 MG ONCE ONE IV (DC) Sodium Chloride (Sodium Chloride 100 mL - OR/NI CU STOCK) 100 ML Clindamycin Phosphate (CLEOCIN 900 MG/NS 50 ML) 50 ML Q8H IV Ceftriaxone Sodium (ROCEPHIN 1000 MG/VIAL) 1,000 MG DAILY IV Sodium Chloride (SODIUM CHLORIDE 0.9% 100 ML AD D-[place]) 100 ML Enoxaparin Sodium (LOVENOX SOD 40MG INJ) 40 MG D AILY SUBQ Ibuprofen (IBUPROFEN 400 MG TAB) 400 MG Q8H PRN PRN PO Melatonin (Melatonin 3 mg) 3 MG BEDTIME PO Acetaminophen (ACETAMINOPHEN 325 MG TAB) 650 MG Q4H PRN PRN PO Benzonatate (TESSALON 100 MG UDCAP) 100 MG TID P RN PO Bisacodyl (DULCOLAX 5 MG UDTAB) 10 MG DAILY PRN PO Hydralazine HCl (hydrALAZINE HCL 20MG) 10 MG Q4H PRN PRN IV Hydrocodone Bitart/Acetaminophen (NORCO 5/325 TA BLET) 1 TAB Q4H PRN PRN PO Labetalol HCl (NORMODYNE 100 MG/20 ML VIAL) 10 M G Q4H PRN PRN IV Multi-Ingredient GI Drug (MAGNESIUM ALUMINUM HYD ROXIDES 30ML ORAL SUSP) 30 ML Q4H PRN PRN PO Ondansetron HCl (ZOFRAN 2 MG/ML 4 MG SYR) 4 MG Q 4H PRN PRN IV Potassium Chloride (K-DUR 20 MEQ SA TAB) 40 MEQ DAILY PRN PRN PO Simethicone (SIMETHICONE 80 MG TAB) 80 MG Q6H ND N PRN PO Sodium Chloride (SODIUM CHLORIDE 0.9% - 1000 ML) 1,000 ML ASDIR IV Results Findings/Data: Laboratory Tests 03/13 07 Chemistry Sodium (135 - 145 mEq/L) 142 Potassium (3.5 - 5.0 mEq/L) 4.3 Chloride (100 - 115 mEq/L) 107 Carbon Dioxide (22 - 31 mEq/L) 26 Anion Gap (10 - 20) 13.30 BUN (7 - 18 mg/dL) 7 Creatinine (0.5 - 1.0 mg/dL) 0.5 Glomerular Filtr Rate (>60 ml/min) 153 Glucose (65 - 110 mg/dL) 75 Calcium (8.4 - 10.2 mg/dL) 8.5 Laboratory Tests 03/13 0748 Hematology WBC (6.5 - 12.3 K/mm3) 13.3 H RBC (3.51 - 4.69 M/mm3) 3.70 Hgb (10.1 - 13.8 g/dL) 7.8 L Hct (32.5 - 41.8 %) 26.6 L MCV (84.6 - 96.6 fL) 71.9 L MCH (27.3 - 33.9 pg) 21.1 L MCHC (32.0 - 34.2 gm/dL) 29.3 L RDW (12.2 - 16.3 %) 18.5 H Plt Count (134 - 363 K/mm3) 561 H MPV (9.2 - 12.7 fL) 9.9 Neut % (Auto) (57.9 - 77.3 %) 80.8 H Lymph % (Auto) (14.5 - 29.7 %) 12.5 L [place] % (Auto) (3.6 - 10.2 %) 4.1 Eos % (Auto) (0.0 - 3.0 %) 1.3 Baso % (Auto) (0.1 - 0.9 %) 0.2 Neut # (Auto) (K/mm3) 10.8 Lymph # (Auto) (K/mm3) 1.7 [place] # (Auto) (K/mm3) 0.5 Eos # (Auto) (K/mm3) 0.17 Baso # (Auto) (K/mm3) 0.0 Radiology data: Recent Impressions: ULTRASOUND - US TRANSVAGINAL W/PELVIS 03/12 1735 Report Impression - Status: SIGNED Entered: 03/13/2021 0721 IMPRESSION: Blood flow noted in both ovaries. PROCEDURE INFORMATION: Exam: US Pelvis Complete, Transabdominal and US Pelvis, Transvaginal Exam date and time: 03/12/2021 5:18 PM Age: 25 years old Clinical indication: Pelvic pain; Prior surgery; Surgery date: 3-7 days post-operative; Additional info: Pelvic lidia n, fever, after c/s on 03/05 TECHNIQUE: Imaging protocol: Real-time transabdominal and t ransvaginal pelvic ultrasound (complete) with image documentation. Transvaginal imaging was used for better evaluation of the en dometrium, adnexa, and/or cervix. COMPARISON: OT US FLW UP 03/04/2021 11:49 AM FINDINGS: Uterus/cervix: Uterus measures 17.0 x 7.5 x 12.0 cm in greatest dimensions with endometrium measuring 5 mm in th ickness. No evidence of retained products of conception is p resent in endometrial cavity. Changes related to are present in lower uterine segment. No evidence of uterine fi broid is seen. Right adnexa: Rt ovary measures 4.8 x 2.4 x 3.1 cm. Blood flow present in the rt. ovary. Left adnexa: Lt ovary measures 5.0 x 1.3 x 3.2 c m. Blood flow present in the lt. ovary. Adjacent to the left ovary and separate from it, there are 2 fluid collections identified which measure 2.2 x 1.1 x 4.6 cm and 2.4 x 1.3 x 5.2 cm. These are thought to represent pos tsurgical fluid collection after . In addition, a 1.5 x 0.9 x 1.7 cm echogenic free fluid is present in posterior cul -de-sac. Urinary bladder: No significant abnormality seen IMPRESSION: 1. uterus without retained products o f conception. Changes related to in lower uterine se gment. 2. Normal sonographic appearance of ovaries. 3. 2 fluid collections adjacent to the left ovar y as described above. These may represent postsurgical collecti ons, possibility of superimposed infection cannot be excluded and clinical correlation is recommended. 4. Small amount of echogenic free fluid in poste rior cul-de-sac. Impression By: Damion Flood MD ULTRASOUND - DUP AB/PEL/SC/LTD 03/12 9246 Report Impression - Status: SIGNED Entered: 03/13/2021 0721 IMPRESSION: Blood flow noted in both ovaries. PROCEDURE INFORMATION: Exam: US Pelvis Complete, Transabdominal and US Pelvis, Transvaginal Exam date and time: 03/12/2021 5:18 PM Age: 25 years old Clinical indication: Pelvic pain; Prior surgery; Surgery date: 3-7 days post-operative; Additional info: Pelvic lidia n, fever, after c/s on 03/05 TECHNIQUE: Imaging protocol: Real-time transabdominal and t ransvaginal pelvic ultrasound (complete) with image documentation. Transvaginal imaging was used for better evaluation of the en dometrium, adnexa, and/or cervix. COMPARISON: OT US FLW UP 03/04/2021 11:49 AM FINDINGS: Uterus/cervix: Uterus measures 17.0 x 7.5 x 12.0 cm in greatest dimensions with endometrium measuring 5 mm in th ickness. No evidence of retained products of conception is p resent in endometrial cavity. Changes related to are present in lower uterine segment. No evidence of uterine fi broid is seen. Right adnexa: Rt ovary measures 4.8 x 2.4 x 3.1 cm. Blood flow present in the rt. ovary. Left adnexa: Lt ovary measures 5.0 x 1.3 x 3.2 c m. Blood flow present in the lt. ovary. Adjacent to the left ovary and separate from it, there are 2 fluid collections identified which measure 2.2 x 1.1 x 4.6 cm and 2.4 x 1.3 x 5.2 cm. These are thought to represent pos tsurgical fluid collection after . In addition, a 1.5 x 0.9 x 1.7 cm echogenic free fluid is present in posterior cul -de-sac. Urinary bladder: No significant abnormality seen IMPRESSION: 1. uterus without retained products o f conception. Changes related to in lower uterine se gment. 2. Normal sonographic appearance of ovaries. 3. 2 fluid collections adjacent to the left ovar y as described above. These may represent postsurgical collecti ons, possibility of superimposed infection cannot be excluded and clinical correlation is recommended. 4. Small amount of echogenic free fluid in poste rior cul-de-sac. Impression By: Damion Flood MD ULTRASOUND - US PELVIS COMPLETE 03/12 8705 Report Impression - Status: SIGNED Entered: 03/13/2021 0720 IMPRESSION: Blood flow noted in both ovaries. PROCEDURE INFORMATION: Exam: US Pelvis Complete, Transabdominal and US Pelvis, Transvaginal Exam date and time: 03/12/2021 5:18 PM Age: 25 years old Clinical indication: Pelvic pain; Prior surgery; Surgery date: 3-7 days post-operative; Additional info: Pelvic lidia n, fever, after c/s on 03/05 TECHNIQUE: Imaging protocol: Real-time transabdominal and t ransvaginal pelvic ultrasound (complete) with image documentation. Transvaginal imaging was used for better evaluation of the en dometrium, adnexa, and/or cervix. COMPARISON: OT US FLW UP 03/04/2021 11:49 AM FINDINGS: Uterus/cervix: Uterus measures 17.0 x 7.5 x 12.0 cm in greatest dimensions with endometrium measuring 5 mm in th ickness. No evidence of retained products of conception is p resent in endometrial cavity. Changes related to are present in lower uterine segment. No evidence of uterine fi broid is seen. Right adnexa: Rt ovary measures 4.8 x 2.4 x 3.1 cm. Blood flow present in the rt. ovary. Left adnexa: Lt ovary measures 5.0 x 1.3 x 3.2 c m. Blood flow present in the lt. ovary. Adjacent to the left ovary and separate from it, there are 2 fluid collections identified which measure 2.2 x 1.1 x 4.6 cm and 2.4 x 1.3 x 5.2 cm. These are thought to represent pos tsurgical fluid collection after . In addition, a 1.5 x 0.9 x 1.7 cm echogenic free fluid is present in posterior cul -de-sac. Urinary bladder: No significant abnormality seen IMPRESSION: 1. uterus without retained products o f conception. Changes related to in lower uterine se gment. 2. Normal sonographic appearance of ovaries. 3. 2 fluid collections adjacent to the left ovar y as described above. These may represent postsurgical collecti ons, possibility of superimposed infection cannot be excluded and clinical correlation is recommended. 4. Small amount of echogenic free fluid in poste rior cul-de-sac. Impression By: Damion Flood MD Free Text Obj Notes Free Text Obj Notes: General: No acute distress. Awake, alert and hugh ented 3 HEENT: PERRLA, EOMI, nasal septum in the midline . Ears are symmetric. Atraumatic Cardiovascular: Rhythm and rate are regular. No murmurs, rubs, gallops Pulmonary: Clear to auscultation. No wheezing, r honchi or crackles GI: Soft, nontender, nondistended, positive keri l sounds. Skin: Dry, erythema, tenderness and warmth above the surgical incision. No purulent material is evident or flu id collection. Capillary refill is less than 3 seconds Musculoskeletal: Range of motion is intact. No p alpable edema. Neurologic: Cranial nerves II through XII are gr ossly intact. Deep tendon reflex exam normoreflexic. Speech is normal Psychiatric: Normal mood. Cooperative. Diagnosis, Assessment Plan Orders: Procedure Date/time Status Pharmacy Consult 03/13 0901 Active US TRANSVAGINAL W/PELVIS 03/12 2062 Complete Code status: full code Plan discussed with: patient, nurse Free Text DxA P Notes Free text DxA P notes: Assessment: Possible sepsis present on admission ruled out Panniculitis. Cellulitis Possible endometritis Possible surgical site infection. Postoperative complication Ruled out Status post 03/05/2021 state Anemia of Plan: Gentamicin pharmacy to dose ordered Continue monitoring leukocyte count Continue to monitor for fever Pelvic ultrasound unremarkable Blood cultures negative to date Lactic acid normal Labs IV iron PROMOTION PRODUCER follows IV fluids Daily labs care Patient is breast-feeding. Guarded prognosis Nathan Figueroa MD [facility] Internal Medicine Answering Service [phone] Electronically Signed by Nathan Figueroa MD on 0 03/13/21 at 2058 RPT #:[id number] END OF REPORT 2021-03-12 08:50:00-00:00 [facility] ([facility]) Hospitalist Progress Note REPORT#:[id number] REPORT STATUS: Signed DATE:03/12/21 TIME: 0850 PATIENT: FANI GARCIA UNIT #: [id number] ROOM/BED: [address] : 97 AGE: 25 SEX: F ATTEND: Lourdes Figueroa se, MD ADM AUTHOR: Nathan Figueroa MD * ALL edits or amendments must be made on the [employer]/computer document * Subjective Chief Complaint: Fever. abdominal pain HPI: 25-year-old female with a history of red recent on 03/05/2021 who was recommended to return if any fever after C-secti on. She started having pain above the surgical incision and fever. [facility] where she was tachycardic but afebrile. Leukocyte count was 10 and there were concerns for surgical site infection. As CT scan of the abdom en and pelvis showed some abnormalities but no abscess formation. She was transferred to our facility for postsurgical care and potential sepsis. Past medical history: Anemia of . Obesi ty Surgical history: Social history: Negative 3. Positive for a profe ssional tattoos Allergies: Latex CODE STATUS: Full code Family history: Hypertension and diabetes Hospital course: 03/11/2021: Patient feels feverish. Pending surge ry evaluation. Cellulitis improving. Status changed to inpatient. Cultures negative. Lactic acid normal. Low H H without evidence of bleeding. IV iron or dered. 03/12/2021: Patient was seen by [facility]OMOT[facility] PRODUCER and I was notified patient had somewhat complicated delivery highly suspicious for endometritis. Antibiotics were changed to Rocephin and clindamycin. She salazar s a slight elevation of leukocytes but no fever. Cultures have been nega tive so far. Patient will receive antibiotics for at least 10 days . She has orders for pelvic ultrasound today. Subjective: Patient seen and evaluated at bedside. She has no acute complaints. Per nurse, events as above. Review of Systems All systems rev neg: except as marked Objective General VS/I O: Vital Signs: Date Time Temp Pulse Resp B/P B/P Pulse O2 O2 F low FiO2 Mean Ox Delivery Rate 03/12 57 104.0 03/12 005 37.1 88 18 137/81 98 03/11 1945 98.0 03/11 1945 37.6 99 18 137/73 99 03/11 1548 103.0 03/11 1548 37.3 99 18 132/83 97 03/11 1140 36.9 96 18 131/82 99 03/11 0910 37.4 PATIENT WEIGHT: Weight (lb): Weight (oz): 6.264868 Weight (kg): 83.2 Medications: Active Meds + DC'd Last 24 Hrs Ceftriaxone Sodium (ROCEPHIN 1000 MG/VIAL) 1,000 MG DAILY IV Sodium Chloride (SODIUM CHLORIDE 0.9% 100 ML AD D-[place]) 100 ML Ceftriaxone Sodium (ROCEPHIN 1000 MG/VIAL) 1,000 MG DAILY IV (DC) Sodium Chloride (SODIUM CHLORIDE 0.9% PF) 10 ML Enoxaparin Sodium (LOVENOX SOD 40MG INJ) 40 MG D AILY SUBQ Ferric Sodium Gluconate Complex (FERRLECIT INJ 6 2.5MG/5ML AMP) 125 MG ONCE ONE IV (DC) Sodium Chloride (Sodium Chloride 100 mL - OR/NI CU STOCK) 100 ML Ibuprofen (IBUPROFEN 400 MG TAB) 400 MG Q8H PRN PRN PO Melatonin (Melatonin 3 mg) 3 MG BEDTIME PO Vancomycin HCl (VANCOMYCIN HCL 500 MG VIAL) 1,50 0 MG Q12H IV Sodium Chloride (SODIUM CHLORIDE 0.9% - 250 ML) 250 ML Acetaminophen (ACETAMINOPHEN 325 MG TAB) 650 MG Q4H PRN PRN PO Benzonatate (TESSALON 100 MG UDCAP) 100 MG TID P RN PO Bisacodyl (DULCOLAX 5 MG UDTAB) 10 MG DAILY PRN PO Hydralazine HCl (hydrALAZINE HCL 20MG) 10 MG Q4H PRN PRN IV Hydrocodone Bitart/Acetaminophen (NORCO 5/325 TA BLET) 1 TAB Q4H PRN PRN PO Labetalol HCl (NORMODYNE 100 MG/20 ML VIAL) 10 M G Q4H PRN PRN IV Miscellaneous Information (VANCOMYCIN PHARMACY T O DOSE) 1 EACH ASDIR IV (CKD) Multi-Ingredient GI Drug (MAGNESIUM ALUMINUM HYD ROXIDES 30ML ORAL SUSP) 30 ML Q4H PRN PRN PO Ondansetron HCl (ZOFRAN 2 MG/ML 4 MG SYR) 4 MG Q 4H PRN PRN IV Potassium Chloride (K-DUR 20 MEQ SA TAB) 40 MEQ DAILY PRN PRN PO Simethicone (SIMETHICONE 80 MG TAB) 80 MG Q6H ND N PRN PO Sodium Chloride (SODIUM CHLORIDE 0.9% - 1000 ML) 1,000 ML ASDIR IV Results Findings/Data: Laboratory Tests 03/12 0330 Chemistry Sodium (135 - 145 mEq/L) 143 Potassium (3.5 - 5.0 mEq/L) 3.8 Chloride (100 - 115 mEq/L) 110 Carbon Dioxide (22 - 31 mEq/L) 26 Anion Gap (10 - 20) 11.20 BUN (7 - 18 mg/dL) 6 L Creatinine (0.5 - 1.0 mg/dL) 0.5 Glomerular Filtr Rate (>60 ml/min) 153 Glucose (65 - 110 mg/dL) 83 Calcium (8.4 - 10.2 mg/dL) 7.8 L Laboratory Tests 03/12 0330 Hematology WBC (6.5 - 12.3 K/mm3) 12.6 H RBC (3.51 - 4.69 M/mm3) 3.48 L Hgb (10.1 - 13.8 g/dL) 7.3 L Hct (32.5 - 41.8 %) 25.0 L MCV (84.6 - 96.6 fL) 71.8 L MCH (27.3 - 33.9 pg) 21.0 L MCHC (32.0 - 34.2 gm/dL) 29.2 L RDW (12.2 - 16.3 %) 18.0 H Plt Count (134 - 363 K/mm3) 482 H MPV (9.2 - 12.7 fL) 10.2 Neut % (Auto) (57.9 - 77.3 %) 70.9 Lymph % (Auto) (14.5 - 29.7 %) 19.4 [place] % (Auto) (3.6 - 10.2 %) 5.9 Eos % (Auto) (0.0 - 3.0 %) 1.3 Baso % (Auto) (0.1 - 0.9 %) 0.2 Neut # (Auto) (K/mm3) 9.0 Lymph # (Auto) (K/mm3) 2.5 [place] # (Auto) (K/mm3) 0.7 Eos # (Auto) (K/mm3) 0.16 Baso # (Auto) (K/mm3) 0.0 Laboratory Tests 03/12 330 Toxicology Vancomycin Trough (10.0 - 20.0 mcg/mL) 5.40 L Free Text Obj Notes Free Text Obj Notes: General: No acute distress. Awake, alert and hugh ented 3 HEENT: PERRLA, EOMI, nasal septum in the midline . Ears are symmetric. Atraumatic Cardiovascular: Rhythm and rate are regular. No murmurs, rubs, gallops Pulmonary: Clear to auscultation. No wheezing, r honchi or crackles GI: Soft, nontender, nondistended, positive keri l sounds. Skin: Dry, erythema, tenderness and warmth above the surgical incision. No purulent material is evident or flu id collection. Capillary refill is less than 3 seconds Musculoskeletal: Range of motion is intact. No p alpable edema. Neurologic: Cranial nerves II through XII are gr ossly intact. Deep tendon reflex exam normoreflexic. Speech is normal Psychiatric: Normal mood. Cooperative. Diagnosis, Assessment Plan Orders: Procedure Date/time Status BASIC METABOLIC PANEL 03/12 330 Complete Code status: full code Plan discussed with: patient, consultants, nurse Free Text DxA P Notes Free text DxA P notes: Assessment: Possible sepsis present on admission ruled out Panniculitis. Cellulitis Possible endometritis Possible surgical site infection. Postoperative complication Status post 03/05/2021 state Anemia of Plan: Change vancomycin for clindamycin to cover for p ossible endometritis Pending a pelvic ultrasound Blood cultures negative to date Lactic acid normal Labs IV iron PROMOTION PRODUCER follows IV fluids Daily labs care Patient is breast-feeding. Guarded prognosis Nathan Figueroa MD [facility] Internal Medicine Answering Service [phone] Electronically Signed by Nathan Figueroa MD on 0 03/12/21 at 1351 RPT #:[id number] END OF REPORT 2021-03-12 01:10:00-00:00 [facility] ([facility]) Clinical Note REPORT#:[id number] REPORT STATUS: Signed DATE:03/12/21 TIME: 0110 PATIENT: FANI GARCIA UNIT #: [id number] ROOM/BED: [address] : 97 AGE: 25 SEX: F ATTEND: Lourdes Figueroa se, MD ADM AUTHOR: Laureen Gerardo MD * ALL edits or amendments must be made on the [employer]/computer document * Clinical Note Note: [id number]Dr Figueroa Consult L D Hospitalist (AKIN) Covid neg (@ sending facility 03/10/21) PPD#7/POD#7 Notified on evening of 03/11 of consult requested by Dr Figueroa for pt readmitted to [facility] on 03/10. I reviewed pt chart of prior current visit s also records from [facility], then pt seen examined. She reports 03 00 on 03/10, she noted worsening of low abd pain T>102. She reports pel blanka pain started earlier, but she did not seek help-her mom who has salazar d 3 prior C/Ss, told her the "pain was nl". Pt was previously admitted w PROM on 03/04 d eliveredby on 03/05 for NRS mat sepsis (suspected chorio d/t PROM X> 24h). She rec'd Amp/Gent/ Clinda briefly, then was dis charged on POD# 3 w/o Abx. Blood cultures from [facility] on 03/05 all neg. She denies cough/sore th roat or other Covid sx. She tested neg for both Covid flu and CXR neg at [facility] on 03[facility]. She denied tooth abcess, dysuria or flank lidia n (UA @ [facility] not c/w UTI), diarrhea/N V or other GI sx, no skin lesions/no redne ss at old IV sites, no redness/swelling or drainage at Pfan incis, no foul disch arge, lochia reported nl (no ut swab done before Abx started), plac not cultured @ C/S but placental path c/w chorio, CT @ [facility] rep orted possible small amt retained plac-no abcess or other anl fin dings, pt had been BF mostly every few hours w/o engorgement since admit is pumping q2- 3h and storing milk. She denies ill contacts or recen t travel, she was anemic after delivery, but has not received PRBCs tho she has been anemic 9 (but stable) since [facility], she has many tatoos-all>1y old no les associated w th em, hx genital HSV w last outbreak 02/14 recently on Valtrex prophylaxis til delivery. S he denies hx of HIV or o/w being immune compromised. WBCs LA were hi just p rior to [facility], but improved after delivery, and all have been wnl since new sx onset. 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 The patient salazar s multiple tattoos on her face, trunk and extremities. VITAL SIGNS: Height 5 feet 2 inches, weight prio r to the 163 pounds and weight prior to delivery 191 pounds. Blood pressure 137/73, pulse 99, respirations 18 , and temperature 99.7. HEAD AND NECK: Within normal limits without lymp hadenopathy or thyromegaly. CHEST: Unlabored breathing. HEART: Regular rate and rhythm. BREASTS: Non tender/non engorged. Vitiligo bilat erally in areolar areas ABDOMEN: Soft, nontender, no fundal tenderness. Incis w dermabond, no red/no induration/no drainage-appears to be healing wel l. PERINEUM: Normal lochia, no foul odor. EXTREMITIES: Trace pedal edema, no cords. NEUROLOGIC: Awake, alert and oriented x 3, nonfo vamshi. SKIN: Vitiligo on breasts and hands. Multiple ta ttoos on her face, trunk and extremities. Labs /Imaging from current and prior admit, also from [facility] review[facility]. 25year old presented to [facility] ER wit h worsening low abd pain and fever. Transferred/readmitted to [facility] on POD #5, accepted by Dr Figueroa to his service. Feel symptoms l ikely due to endometritis, possibly with contribution from breast engorgement. Afebrile a fter first temp in ER, vitals and labs not consistent with sepsis. CT did ment ion possible retained POCs, though that is less likely w ith a . Pt seems to be improving on current antibiotics, though for endometritis pre manjit Amp or Zosyn with Gent and Clinda. -US to rule out retained POCs, if present needs D C -await new labs today, if cont to improve, chico gr to po antibiotics and discharge home -encourage to breast feed or pump q2-3 hours, an d drink >100oz water daily /dsd Electronically Signed by Laureen Gerardo MD on 02/15 03/06 at 0954 RPT #:[id number] END OF REPORT 2021-03-11 08:17:00-00:00 [facility]) Hospitalist Progress Note REPORT#:[id number] REPORT STATUS: Signed DATE:03/11/21 TIME: 816 PATIENT: FANI GARCIA UNIT #: [id number] ROOM/BED: 2218-[address] : 97 AGE: 25 SEX: F ATTEND: Lourdes Figueroa se, MD ADM AUTHOR: Nathan Figueroa MD * ALL edits or amendments must be made on the el ectronic/computer document * Subjective Chief Complaint: Fever. abdominal pain HPI: 25-year-old female with a history of red recent on 03/05/2021 who was recommended to return if any fever after C-secti on. She started having pain above the surgical incision and fever. She [facility] where she was tachycardic but afebrile. Leukocyte count was 10 and there were concerns for surgical site infection. As CT scan of the abdom en and pelvis showed some abnormalities but no abscess formation. She was transferred to our facility for postsurgical care and potential sepsis. Past medical history: Anemia of . Obesi ty Surgical history: Social history: Negative 3. Positive for a profe ssional tattoos Allergies: Latex CODE STATUS: Full code Family history: Hypertension and diabetes Hospital course: 03/11/2021: Patient feels feverish. Pending surge ry evaluation. Cellulitis improving. Status changed to inpatient. Cultures negative. Lactic acid normal. Low H H without evidence of bleeding. IV iron or dered. Subjective: Patient seen and evaluated. Refers f ever. Per nurse, events as above. Review of Systems All systems rev neg: except as marked Objective General VS/I O: Vital Signs: Date Time Temp Pulse Resp B/P B/P Pulse O2 O2 F low FiO2 Mean Ox Delivery Rate 03/11 0445 36.9 78 18 138/87 98 03/11 0030 36.9 91 18 124/83 98 03/10 2200 37.2 03/10 2055 37.9 111 18 131/78 99 03/10 1850 37.8 108 97 03/10 1654 37.6 99 18 134/67 96 03/10 1038 37.5 100 18 143/89 94 24 hour I O ending at 0700: 03/11 0700 03/10 1900 Intake Total 600.00 Output Total Balance 600.00 Intake, Other 600.00 Patient 83.2 kg Weight PATIENT WEIGHT: Weight (lb): Weight (oz): 6.134578 Weight (kg): 83.2 Medications: Active Meds + DC'd Last 24 Hrs Ceftriaxone Sodium (ROCEPHIN 1000 MG/VIAL) 1,000 MG DAILY IV Sodium Chloride (SODIUM CHLORIDE 0.9% PF) 10 ML Enoxaparin Sodium (LOVENOX SOD 40MG INJ) 40 MG D AILY SUBQ Ibuprofen (IBUPROFEN 400 MG TAB) 400 MG Q8H PRN PRN PO Melatonin (Melatonin 3 mg) 3 MG BEDTIME PO Vancomycin HCl (VANCOMYCIN HCL 500 MG VIAL) 1,50 0 MG Q12H IV (DC) Sodium Chloride (SODIUM CHLORIDE 0.9% - 500 ML) 500 ML Vancomycin HCl (VANCOMYCIN HCL 500 MG VIAL) 1,50 0 MG Q12H IV Sodium Chloride (SODIUM CHLORIDE 0.9% - 250 ML) 250 ML Acetaminophen (ACETAMINOPHEN 325 MG TAB) 650 MG Q4H PRN PRN PO Benzonatate (TESSALON 100 MG UDCAP) 100 MG TID P RN PO Bisacodyl (DULCOLAX 5 MG UDTAB) 10 MG DAILY PRN PO Hydralazine HCl (hydrALAZINE HCL 20MG) 10 MG Q4H PRN PRN IV Hydrocodone Bitart/Acetaminophen (NORCO 5/325 TA BLET) 1 TAB Q4H PRN PRN PO Labetalol HCl (NORMODYNE 100 MG/20 ML VIAL) 10 M G Q4H PRN PRN IV Miscellaneous Information (VANCOMYCIN PHARMACY T O DOSE) 1 EACH ASDIR IV (CKD) Multi-Ingredient GI Drug (MAGNESIUM ALUMINUM HYD ROXIDES 30ML ORAL SUSP) 30 ML Q4H PRN PRN PO Ondansetron HCl (ZOFRAN 2 MG/ML 4 MG SYR) 4 MG Q 4H PRN PRN IV Potassium Chloride (K-DUR 20 MEQ SA TAB) 40 MEQ DAILY PRN PRN PO Simethicone (SIMETHICONE 80 MG TAB) 80 MG Q6H ND N PRN PO Sodium Chloride (SODIUM CHLORIDE 0.9% - 1000 ML) 1,000 ML ASDIR IV Results Findings/Data: Laboratory Tests 03/11 03/10 03/10 0503 1456 1256 Chemistry Sodium (135 - 145 mEq/L) 140 143 Potassium (3.5 - 5.0 mEq/L) 3.6 4.2 Chloride (100 - 115 mEq/L) 107 107 Carbon Dioxide (22 - 31 mEq/L) 25 25 Anion Gap (10 - 20) 11.70 15.20 BUN (7 - 18 mg/dL) 6 L 5 L Creatinine (0.5 - 1.0 mg/dL) 0.5 0.6 Glomerular Filtr Rate (>60 ml/min) 153 124 Glucose (65 - 110 mg/dL) 84 71 Lactic Acid (0.5 - 2.2 MMOL/L) 0.8 Calcium (8.4 - 10.2 mg/dL) 8.2 L 8.4 Total Bilirubin (0.2 - 1.0 mg/dL) 0.3 AST (15 - 37 units/L) 17 ALT (12 - 78 units/L) 11 L Total Alk Phosphatase (46 - 116 units/L) 175 H Total Protein (6.3 - 8.2 gm/dL) 5.8 L Albumin (3.4 - 4.8 gm/dL) 2.1 L Laboratory Tests 03/11 03/10 0503 1456 Hematology WBC (6.5 - 12.3 K/mm3) 11.4 12.1 RBC (3.51 - 4.69 M/mm3) 3.50 L 3.90 Hgb (10.1 - 13.8 g/dL) 7.4 L 8.2 L Hct (32.5 - 41.8 %) 25.3 L 28.0 L MCV (84.6 - 96.6 fL) 72.3 L 71.8 L MCH (27.3 - 33.9 pg) 21.1 L 21.0 L MCHC (32.0 - 34.2 gm/dL) 29.2 L 29.3 L RDW (12.2 - 16.3 %) 17.9 H 18.1 H Plt Count (134 - 363 K/mm3) 389 H 358 MPV (9.2 - 12.7 fL) 10.4 11.5 Neut % (Auto) (57.9 - 77.3 %) 69.1 75.8 Lymph % (Auto) (14.5 - 29.7 %) 19.7 13.9 L [place] % (Auto) (3.6 - 10.2 %) 7.6 8.4 Eos % (Auto) (0.0 - 3.0 %) 1.6 0.8 Baso % (Auto) (0.1 - 0.9 %) 0.2 0.2 Neut # (Auto) (K/mm3) 7.9 9.2 Lymph # (Auto) (K/mm3) 2.3 1.7 [place] # (Auto) (K/mm3) 0.9 1.0 Eos # (Auto) (K/mm3) 0.18 0.10 Baso # (Auto) (K/mm3) 0.0 0.0 Immature Plt Fraction (0.0 - 10.8 %) 7.4 Free Text Obj Notes Free Text Obj Notes: General: No acute distress. Awake, alert and hugh ented 3 HEENT: PERRLA, EOMI, nasal septum in the midline . Ears are symmetric. Atraumatic Cardiovascular: Rhythm and rate are regular. No murmurs, rubs, gallops Pulmonary: Clear to auscultation. No wheezing, r honchi or crackles GI: Soft, nontender, nondistended, positive keri l sounds. Skin: Dry, erythema, tenderness and warmth above the surgical incision. No purulent material is evident or flu id collection. Capillary refill is less than 3 seconds Musculoskeletal: Range of motion is intact. No p alpable edema. Neurologic: Cranial nerves II through XII are gr ossly intact. Deep tendon reflex exam normoreflexic. Speech is normal Psychiatric: Normal mood. Cooperative. Diagnosis, Assessment Plan Orders: Procedure Date/time Status Medication Management Message 03/11 831 Comple te Change Patient Status 03/11 821 Active Code status: full code Plan discussed with: patient, nurse Free Text DxA P Notes Free text DxA P notes: Assessment: Possible sepsis present on admission Panniculitis. Cellulitis Possible surgical site infection. Postoperative complication Status post 03/05/2021 state Anemia of Plan: Inpatient Blood cultures negative to date Lactic acid normal Labs IV iron Rocephin and vancomycin Surgery consult. Pending evaluation IV fluids Daily labs care Patient is breast-feeding. Guarded prognosis Nathan Figueroa MD [facility] Internal Medicine Answering Service [phone] Electronically Signed by Nathan Figueroa MD on 0 03/11/21 at 2025 RPT #:[id number] END OF REPORT 2021-03-10 14:58:00-00:00 [facility] ([facility]) Pharmacy Prog.Note-Vancomycin REPORT#:[id number] REPORT STATUS: Signed DATE:03/10/21 TIME: 1458 PATIENT: FANI GARCIA UNIT #: [id number] ROOM/BED: [address] : 97 AGE: 25 SEX: F ATTEND: Lourdes Figueroa se, MD ADM AUTHOR: Vanesa Richard RPh * ALL edits or amendments must be made on the [employer]/computer document * Vancomycin Vancomycin Medication Therapy Goal: trough 10-15 mcg/mL Indication for treatment: SKIN INFECTION Current therapy: 1500 MG Q12 HRS FOR 17 DAYS Day of therapy: 17 Weight: Actual weight (kg): 82.2 Labs: Microbiology: 03/10 1256 BLOOD: Blood Culture - ORD 03/10 1256 BLOOD: Blood Culture Gram Stain - ORD 03/10 1256 BLOOD: Blood Culture - ORD 03/10 1256 BLOOD: Blood Culture Gram Stain - ORD Drug admin history: Lab Lab Level SCr Info Ripsaw Matcher Med Dose Inter action/Dialysis Date/Time Date/Time Notes: Treatment plan: consult Rationale: FIRST VANCO TROUGH IS 03/12/21 @03:30 Electronically Signed by Vanesa Richard RP on 0 03/10/21 at 1503 RPT #:[id number] END OF REPORT 2021-03-10 14:04:00-00:00 [facility] ([facility]) History Physical - Adult REPORT#:[id number] REPORT STATUS: Signed DATE:03/10/21 TIME: 1404 PATIENT: FANI GARCIA UNIT #: [id number] ROOM/BED: [address] : 97 AGE: 25 SEX: F ATTEND: Lourdes Figueroa se, MD ADM AUTHOR: Nathan Figueroa MD * ALL edits or amendments must be made on the el ectronic/computer document * History of Present Illness HPI Chief complaint: Fever PCP: PCP: Nathan Figueroa MD HPI: 25-year-old female with a history of red recent on 03/05/2021 who was recommended to return if any fever after C-secti on. She started having pain above the surgical incision and fever. [facility] where she was tachycardic but afebrile. Leukocyte count was 10 and there were concerns for surgical site infection. As CT scan of the abdom en and pelvis showed some abnormalities but no abscess formation. She was transferred to our facility for postsurgical care and potential sepsis. Past medical history: Anemia of . Obesi ty Surgical history: Social history: Negative 3. Positive for a profe ssional tattoos Allergies: Latex CODE STATUS: Full code Family history: Hypertension and diabetes History Medication/Allergy-Vaccine Hx Allergies: Coded Allergies: latex (Intermediate, SWELLING 03/04/21) Ambulatory status: Independent Review of Systems All systems rev neg: except as marked Physical Exam VS/I O PATIENT WEIGHT: Weight (lb): Weight (oz): Weight (kg): Results Results: labs reviewed, vital signs stable Free Text PE Notes Free Text PE Notes: General: No acute distress. Awake, alert and hugh ented 3 HEENT: PERRLA, EOMI, nasal septum in the midline . Ears are symmetric. Atraumatic Cardiovascular: Rhythm and rate are regular. No murmurs, rubs, gallops Pulmonary: Clear to auscultation. No wheezing, r honchi or crackles GI: Soft, nontender, nondistended, positive keri l sounds. Skin: Dry, erythema, tenderness and warmth above the surgical incision. No purulent material is evident or flu id collection. Capillary refill is less than 3 seconds Musculoskeletal: Range of motion is intact. No p alpable edema. Neurologic: Cranial nerves II through XII are gr ossly intact. Deep tendon reflex exam normoreflexic. Speech is normal Psychiatric: Normal mood. Cooperative. Diagnosis, Assessment Plan Plan discussed with: patient, nurse Code Status/Resusc. Discussion Resuscitation discussion: Discussed with: patient Code status: full code Free Text DxA P Notes Free Text DxA P Notes: Assessment: Possible sepsis present on admission Panniculitis. Cellulitis Possible surgical site infection. Postoperative complication Status post 03/05/2021 state Anemia of Plan: Observation Blood cultures Lactic acid Labs Rocephin and vancomycin Surgery consult IV fluids Daily labs care Patient is breast-feeding. Guarded prognosis Nathan Figueroa MD [facility] Internal Medicine Answering Service [phone] Electronically Signed by Nathan Figueroa MD on 0 03/10/21 at 1413 RPT #:[id number] END OF REPORT 2021-03-08 06:50:00-00:00 [facility] ([facility]) OB Disch REPORT#:[id number] REPORT STATUS: Signed DATE:03/08/21 TIME: 0650 PATIENT: FANI GARCIA UNIT #: [id number] ROOM/BED: [address] : 97 AGE: 25 SEX: F ATTEND: Laureen Gerardo MD ADM AUTHOR: Rocío Farr DO R2 * ALL edits or amendments must be made on the [employer]/computer document * Rocío Farr 03/08/21 0650: Subjective Subjective Admission EGA: Weeks: 39 Days: 6 EGA at delivery (wks/days): 40 weeks Status/day: post operative (day 3) Patient reports: Patient reports: Yes: normal lochia, pain management effective, tolerating po well, voiding well, tolerating ambulation, flatus, bowel movement, abdominal pain. No: nausea , vomiting, excessive bleeding, perineal pain, h eadache, blurred vision. Objective General VS: Vital Signs Date Temp Pulse Resp B/P B/P Mean Pulse Ox FiO2 03/07-03/08 98.3-98.7 89-112 - 109-143/64-79 87.0-104.0 98 Last Documented: Result Date Time B/P 125/79 03/08 9 Temp 98.3 03/08 000 Pulse 112 03/08 0009 Resp 18 03/08 9 B/P Mean 87.0 03/07 1730 Pulse Ox 98 03/07 1730 PATIENT WEIGHT: Weight (lb): 191 Weight (oz): Weight (kg): 86.955968 Physical Exam Breasts: Breasts: normal, bilateral Cardiac: normal rhythm, no clinically sig murmur Lungs: clear to auscultation, unlabored breathin g Neuro: Exam: alert, oriented x3, normal speech Abdomen: post gravid, soft, no abnormal tenderne ss, no guarding Incision site: well approximated edges, dry, no drainage, no inflammation Uterus: involution appropriate Fundus: firm, below the umbilicus Lochia: normal Lower extremities: Edema: 1+ pitting (bilaterally) Calf tenderness: negative Results Findings/Data: Laboratory Tests: 03/06 03/06 1615 1610 Chemistry Ferritin (6.24 - 137 NG/ML) 31.4 Hematology Hgb (10.1 - 13.8 g/dL) 7.3 L Hct (32.5 - 41.8 %) 24.3 L Discharge Summary General Free Text A P: 25y/o , PNC at [facility], s/p primary LTCS 2/2 nonreassuring FHTs and maternal sepsis @ 40w0d afte r SROM/onset labor. Non-symptomatic anemia, patient denies dizziness or lightheadedness, ferritin le praneeth WNL. POD#3: -Pain well controlled with tylenol, motrin alter nating, occasional use of oxycodone -Vital signs: BP WNL, pulse mildly elevated at t imes -Flatus+/BM+ after milk of magnesium -Ambulating well -Bilateral edema of the legs, encouraged further ambulation and use of compression stockings -Urinating normally -Tolerating normal diet -Declined control - doing well, and suppliment ing with bottle feeding Labs: -Hgb 9.2-->9.0-->7.0-->7.3 -Patient asymptomatic -Rubella immune -Rh positive -WBC: 9.3-->19.8-->15.1 -Ferritin 31.4 Anemia: -Ferritin WNL, indicates good iron stores -Encouraged patient to take OTC oral iron twice daily, encouraged use of miralax for possible constipation -Patient will continue taking PNV Plan: -discharge patient to home -Return precautions discussed -Will rx pain medication: encouraged use of alte rnating tylenol/motrin daily -Patient has declined control, encouraged patient to abstain from sex for at least 6 weeks, and after resumption of sexual activity, condom use to prevent short interval -Will return to [facility] clinic in 3 weeks for fol low up PP visit Date of admission: Date of admission: 03/04/21 Admission diagnosis: PROM-term Hospital course: spontaneous labor, augmentation of labor, primary LTCS in labor (for FHR abnormalities), epidural anesthesia, ge neral anesthesia Procedures: epidural anesthesia, general anesthe ame, primary CS delivery Discharge condition: stable Discharge to: Home/Self Care Discharge management: greater than 30 mins Baby A: status: live born Gender: female 1 minute: 8 5 minutes: 9 Plan: routine care, discharge today Discharge Instructions Instructions: routine instr sheet given, instr a nd warnings rev'd, specific instr as noted Diet: Regular, Increase iron rich foods Activity: Do not Submerge Incision, No Driving, No [place] for 6 Wks, No Lifting >10lbs, No Swimming, Shower Only Additional discharge routines: PCP Follow-Up Contraception discussed: abstinence for 4-6 week s, Condom use Dede Garcia 03/08/21 1017: Attestations Physician Attestation Agree w/findings plan: Agree with the findings and plan as documented heather Farr; * my personal evaluation is I visited with the pt. She has had a few headaches. I reviewed all of her BPs, most are normal (yesterday at 5pm had 14 0/-, and 03/05 had 150/x, but not since then). UA neg protein. Some edema, but no leg pa ins. abd - soft, NT, incis clean w/ suture and glue c losure extr 2+ pitting edema--pt stanind, no calf T, no Coby's Will d/c home. Pt feels ready and wants to go ho me. I went over precautions, to call or go to ER if: SALAZAR (not going away w Tylenol), fever >100, breast infxn, incis changes, N/V, le g pain, SOB/CP. Gave activity precautions, a nd told to follow-up at [facility] in 1-2 and 5-6 weeks. at 0815 Electronically Signed by Dede Garcia MD on at 1021 [facility] #:[id number] END OF REPORT 2021-03-07 07:02:00-00:00 [facility] ([facility]) Clinical Note REPORT#:[id number] REPORT STATUS: Signed DATE:03/07/21 TIME: 701 PATIENT: FANI GARCIA UNIT #: [id number] ROOM/BED: [address] : 97 AGE: 25 SEX: F ATTEND: Laureen Gerardo MD ADM AUTHOR: Rocío Farr DO R2 * ALL edits or amendments must be made on the [employer]/computer document * Rocío Farr 03/07/21 0702: Clinical Note Note: L D Resident (Yordan) with L D Hospitalist(Jose zamora)/POD#2 Complains of some mild pain, ambulating, voiding well, tolerating regular diet, complaints of some constipation but passing gas, pain well controlled with PO medications and morphine 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 Patient desires to leave today. Vitals: BP 112/69, Pulse 70, Temp 98.1, Resp 20 Physical Exam: -Chest: unlabored breathing, clear to auscultati on -Heart: Regular rate and rhythm, no murmurs dete cted -Abdomen: soft, mildly tender to palpation, no g uarding -Incision site clean and dry, no drainage, derma fernandez intact -Breasts: NT, not engorged. Bilateral nipple vit iligo but per patient this is stable and ocurred well before admission -Fundus firm, mildly tender -Perineum nl lochia -Ext +1 pedal edema, no calf tenderness All serologies negative, rub nicole immune per patient records, O pos, ABS neg PP labs: hgb 7.0->7.3, hct 23.5->24.3, F erritin pending, WBC decreased at 15.1 25y/o , PNC at [facility], s/p primary LTCS 2/2 nonreassuring FHTs and maternal sepsis @ 40w0d afte r SROM/onset labor. Non-symptomatic anemia, patient denies dizziness or lightheadedness. Complaining of some constipation. Plan: - control discussed, patient declines depo provera, discussed abstinence for 6 weeks PP and condom use -Discharged morphine MACHINE PLASTER MIXER -Continue with scheduled tylenol and motrin -PRN oxycodone -Q8hr milk of magnesia for constipation -Will follow up on ferritin level, and consider blood transfusion vs iron transfusion if patient becomes symptomatic -Patient will call [facility] to schedule PP visit -Discharge tomorrow Laureen Gerardo. 03/07/21 0926: Clinical Note Note: ATTESTATION: LAUREEN GERARDO MD Pt seen w R2 Dr Farr, agree w above note. R ec defer discharge til POD#3/ PPD#3 to ensure adequate pain control as hold PC A, and d/t multiple pending cultures collected when Code Sepsis call ed, anemia tho asx w pending ferritin, and prolonged constipation/dsd at 0827 Electronically Signed by Laureen Gerardo MD on 02/15 08/06 at 0936 RPT #:[id number] END OF REPORT 2021-03-06 06:50:00-00:00 [facility] ([facility]) OB Postpart Progr Note REPORT#:[id number] REPORT STATUS: Signed DATE:03/06/21 TIME: 0650 PATIENT: FANI GARCIA UNIT #: [id number] ROOM/BED: [address] : 97 AGE: 25 SEX: F ATTEND: Laureen Gerardo MD ADM AUTHOR: Rocío Farr DO R2 * ALL edits or amendments must be made on the el [facility]/computer document * Rocío Farr 03/06/21 0650: Subjective Subjective Admission EGA: Weeks: 39 Days: 6 EGA at delivery (wks/days): 40 weeks Status/Day: post operative (day 1) Patient reports: Patient reports: Yes normal lochia, Yes pain management effective, Yes tolerating po well, Yes voiding well, Yes tolerating ambulation, Yes fla tus, Yes abdominal pain, No bowel movement, No nausea, N o vomiting, No excessive bleeding, No perineal pain, No difficulty nursing, No headache, No blurred v ision Objective General VS: Vital Signs: Date Time Temp Pulse Resp B/P B/P Pulse O2 O2 F low FiO2 Mean Ox Delivery Rate 03/06 0400 98.4 102 20 115/67 95 09/20 2320 98.6 100 19 121/74 95 09/20 1925 98.5 91 20 102/68 98 09/20 1815 98.7 88 109/75 94 /20 1801 107.0 09/20 1801 150/96 09/20 1800 106 31 150/86 96 09/20 1749 111.0 09/20 1749 145/83 09/20 1745 108 18 95 09/20 1730 102 27 95 09/20 1715 95 26 95 09/20 1700 105 27 96 09/20 1645 90.0 09/20 1645 100 26 120/70 96 09/20 1630 88.0 09/20 1630 93 24 118/70 97 09/20 1615 87.0 09/20 1615 109 27 115/68 98 09/20 1600 83.0 09/20 1600 123 25 111/66 97 09/20 1545 98.0 09/20 1545 79.0 09/20 1545 102 23 111/64 100 09/20 1542 80.0 09/20 1542 114/58 09/20 1338 124 100 09/20 1336 131 91 09/20 1333 125 100 09/20 1329 98.0 09/20 1329 123 127/79 09/20 1328 128 100 09/20 1324 128 92 09/20 1323 124 100 09/20 1318 118 100 09/20 1314 93.0 09/20 1314 115 121/75 09/20 1313 99.0 115 20 99 09/20 1308 117 98 09/20 1303 115 98 09/20 1259 89.0 09/20 1259 113 116/74 09/20 1258 117 98 09/20 1253 112 99 09/20 1248 113 99 09/20 1244 93.0 03/05 1244 117 120/77 03/05 1243 118 99 03/05 1238 112 99 03/05 1233 120 100 03/05 1230 104.0 03/05 1230 123 136/82 03/05 1228 127 99 03/05 1223 125 98 03/05 1218 123 98 03/05 1214 93.0 03/05 1214 120 120/74 03/05 1213 118 100 03/05 1208 90.0 03/05 1208 121 119/72 99 03/05 1203 121 98 03/05 1158 121 98 03/05 1153 97.0 03/05 1153 116 132/76 97 03/05 1148 118 99 03/05 1143 111 99 03/05 1138 113 98 03/05 1133 115 99 03/05 1129 97.0 03/05 1129 110 141/70 03/05 1128 117 100 03/05 1123 115 100 03/05 1118 109 100 03/05 1114 96.0 03/05 1114 109 141/71 03/05 1113 114 100 03/05 1108 112 100 03/05 1103 113 100 03/05 1100 103.0 03/05 1100 114 135/77 03/05 1058 115 100 03/05 1053 114 100 03/05 1048 113 100 03/05 1045 96.0 03/05 1045 113 130/75 03/05 1043 99.6 117 100 03/05 1038 113 100 03/05 1033 115 100 03/05 1030 99.0 03/05 1030 105 130/86 03/05 1029 116 92 03/05 1028 119 98 03/05 1023 111 100 03/05 1018 114 100 03/05 1015 103.0 /20 1015 111 133/82 20 1013 115 100 20 1008 119 100 20 1003 114 100 /20 1000 86.0 /20 1000 116 116/68 03/05 0958 117 99 03/05 0953 121 98 03/05 0948 120 98 03/05 0944 88.0 03/05 0944 117 121/67 03/05 0943 118 99 03/05 0938 117 100 03/05 0933 123 99 03/05 0930 97.0 09/20 0930 117 126/76 03/05 0928 121 99 03/05 0923 122 99 / 0918 119 100 03/05 0913 123 100 03/05 0908 118 100 / 0903 124 100 03/05 0858 128 100 / 0853 145 99 / 0848 119 100 / 0845 102.0 / 0845 121 136/79 03/05 0843 119 100 03/05 0830 95.0 03/05 0830 114 128/78 03/05 0820 101.2 03/05 0814 90.0 03/05 0814 115 124/64 03/05 0800 103.0 03/05 0800 120 136/82 03/05 0744 96.0 03/05 0744 116 133/73 03/05 0729 96.0 03/05 0729 113 132/72 03/05 0714 93.0 03/05 0714 112 128/71 03/05 0659 89.0 03/05 0659 112 123/68 PATIENT WEIGHT: Weight (lb): 191 Weight (oz): Weight (kg): 86.800987 Physical Exam Breasts: Breasts: filling, non-tender Feeding: breast Nursing: well Cardiac: normal sinus rhythm, no clinically sig murmur Lungs: clear to auscultation Neuro: Exam: alert, oriented x3, normal speech Abdomen: soft, no abnormal tenderness, no guardi ng Incision site: well approximated edges, dry, no drainage, no inflammation Uterus: firm, involution appropriate Fundus: firm, below the umbilicus Lochia: normal Vulva/Perineum: no hematoma, Mild swelling of th e vulva Lower extremities: Edema: none Calf tenderness: negative Result Findings/Data: Laboratory Tests: 03/05 03/05 03/05 03/05 1440 1439 1201 0925 Blood Gas Capillary pH (7.35 - 7.45) 7.269 L 7.248 L Capillary pCO2 (mmHg) 40.9 47.0 Capillary pO2 (mmHg) 39.8 39.9 Capillary HCO3 (meq/L) 18.3 20.1 Capillary Base Excess -8.1 -7.2 Capillary O2 Sat Calc (%) 67.7 66.2 Patient On Oxygen CBLA CBLV FiO2 (%) 21.0 21.0 Chemistry Lactic Acid (0.5 - 2.2 MMOL/L) <0.3 L 3.0 H 03/05 0925 Chemistry Sodium (135 - 145 mEq/L) 139 Potassium (3.5 - 5.0 mEq/L) 3.6 Chloride (100 - 115 mEq/L) 105 Carbon Dioxide (22 - 31 mEq/L) 21 L Anion Gap (10 - 20) 17.10 BUN (7 - 18 mg/dL) 3 L Creatinine (0.5 - 1.0 mg/dL) 0.7 Glomerular Filtr Rate (>60 ml/min) 104 Glucose (65 - 110 mg/dL) 111 H Calcium (8.4 - 10.2 mg/dL) 8.0 L Total Bilirubin (0.2 - 1.0 mg/dL) 0.7 AST (15 - 37 units/L) 15 ALT (12 - 78 units/L) 8 L Total Alk Phosphatase (46 - 116 units/L) 243 H Total Protein (6.3 - 8.2 gm/dL) 5.8 L Albumin (3.4 - 4.8 gm/dL) 2.0 L Coagulation PT (10.1 - 12.3 secs) 11.3 INR 1.02 PTT ([place]) (22 - 38 secs) 27.3 Hematology WBC (6.5 - 12.3 K/mm3) 19.8 H RBC (3.51 - 4.69 M/mm3) 4.07 Hgb (10.1 - 13.8 g/dL) 9.0 L Hct (32.5 - 41.8 %) 30.1 L MCV (84.6 - 96.6 fL) 74.0 L MCH (27.3 - 33.9 pg) 22.1 L MCHC (32.0 - 34.2 gm/dL) 29.9 L RDW (12.2 - 16.3 %) 17.3 H Plt Count (134 - 363 K/mm3) 309 MPV (9.2 - 12.7 fL) 10.5 Neut % (Auto) (57.9 - 77.3 %) 89.6 H Lymph % (Auto) (14.5 - 29.7 %) 4.6 L [place] % (Auto) (3.6 - 10.2 %) 5.0 Eos % (Auto) (0.0 - 3.0 %) 0.0 Baso % (Auto) (0.1 - 0.9 %) 0.1 Neut # (Auto) (K/mm3) 17.7 Lymph # (Auto) (K/mm3) 0.9 [place] # (Auto) (K/mm3) 1.0 Eos # (Auto) (K/mm3) 0 Baso # (Auto) (K/mm3) 0.0 Urines Urine Color (YELLOW) YELLOW Urine Appearance (CLEAR) CLEAR Urine pH (5 - 9) 6.0 Ur Specific [place] (1.001 - 1.035) 1.011 Urine Protein (NEG) NEGATIVE Urine Glucose (UA) (NEG) NEGATIVE Urine Ketones (NEG) 1+ H Urine Blood (NEG) 1+ H Urine Nitrite (NEG) NEG Urine Bilirubin (NEG) NEGATIVE Urine Urobilinogen (NEG mg/dL) NEGATIVE Ur Leukocyte Esterase (NEG) NEG Urine RBC (NONE SEEN #/hpf) 11-15 H Urine WBC (NONE SEEN #/hpf) 0-2 Ur Epithelial Cells (RARE - FEW #/HPF) NONE SEE N Urine Mucus (NONE SEEN) RARE Microbiology: Date/Time Procedure - Status Source Growth 03/05 925 Blood Culture - RECD BLOOD 03/05 925 Blood Culture Gram Stain - RECD BLOOD 03/05 925 Blood Culture - RES BLOOD 03/05 925 Blood Culture Gram Stain - RES BLOOD Diagnosis, Assessment Plan Diagnosis, Assessment Plan Free text A P: 25y/o s/p pLTCS 2/2 nonreassuring heart tones with persistent category 2 strip and maternal sepsis 2/2 chorioamnionitis. EBL 800mL, one dose methergine given intraoperatively due to atony. Doing well . 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 -GI: Flatus+/BM- -: Urinating normally -PO: Tolerating normal diet -Lochia: Normal -Ambulating: Up and around the room, encouraged increased ambulation -BC: No sexual activity for 6-8 weeks, will offer depo provera shot at discharge -Infant: Doing well at bedside, we ll Labs: -Hgb 9.2-->9.0-->pending -Rubella immune -Rh positive -WBC: 9.3-->19.8-->pending OB Problems: -Maternal sepsis in labor 2/2 chorio Plan: -Routine care today -Will continue to track postoperative milestones -Pending hgb today -Possible discharge tomorrow Dede Garcia. 03/06/21 0858: Attestations Physician Attestation Agree w/findings plan: Agree with the findings and plan as documented b y Dr. Farr; * my personal evaluation is HH 7.0/23.5 Pt denies feeling dizzy or SOB. She got up a lit tle yesterday, but not yet today. The pt is happy with her pain control and denies heavy VB. Pt feels tired. Pt afebrile vitals as above d/w pt that she is at the th reshold of giving a Tf. If she feels light headed or SOB--she can let us know and we can give her a unit of blood. Will recheck HH at 4pm--> if lower would give 1 unit blood. WIll also check ferritin--if low, can give an iron Tf. at 0709 Electronically Signed by Dede Garcia MD on at 0901 RPT #:[id number] END OF REPORT 2021-03-05 15:30:00-00:00 [facility] ([facility]) OB Delivery Note REPORT#:[id number] REPORT STATUS: Signed DATE:03/05/21 TIME: 1529 PATIENT: FANI GARCIA UNIT #: [id number] ROOM/BED: [address] : 97 AGE: 25 SEX: F ATTEND: Laureen Gerardo MD ADM AUTHOR: Rocío Farr DO R 2 * ALL edits or amendments must be made on the el [facility]/computer document * Rocío Farr 03/05/21 1530: OB Delivery Pre-delivery GBS status: GBS status: negative evaluation at delivery: NRP certified chiara hutchins, team Admission EGA: Weeks: 39 Days: 6 EGA at delivery (wks/days): 40 weeks Baby A Information Baby A information Delivery date: 03/05/21 Delivery time: 1424 status: live born Wt of baby (grams): 3210 Wt of baby (lbs/oz): 7#1oz Gender: female 1 minute: 8 5 minutes: 9 Presentation: vertex ABG details Baby A Cord blood gases: collected Nuchal cord Baby A Nuchal cord: yes (loose and reduced) Delivery section indication: persistent category 2, Mat ernal sepsis Priority: indicated (add on) Antibiotic prior to incision: more than 1 dose )(SCDs applied activated: Yes Uterine incision: low transverse Consent: indication discussed, questions answer ed, pt consent to op delivery Mother's condition: mother stable Infant's condition: infant stable in nursery Blood Loss/Details Blood loss at delivery: <1000 ml EBL at delivery (ml's): 800 Gavi Umanzor 03/05/21 1857: Attestations Physician Attestation Agree w/findings plan: present for entire procedure agree with above at 1549 at 2617 RPT #:[id number] END OF REPORT 2021-03-05 15:30:00-00:00 [facility] ([facility]) Full Op Note REPORT#:[id number] REPORT STATUS: Signed DATE:03/05/21 TIME: 153 PATIENT: FANI GARCIA UNIT #: [id number] ROOM/BED: [address] : 97 AGE: 25 SEX: F ATTEND: Laureen Gerardo MD ADM AUTHOR: Rocío Farr DO R2 * ALL edits or amendments must be made on the el [employer]/computer document * Rocío Farr 03/05/21 1530: Operative Report Start date: 03/05/21 Start time: 142 Pre-procedure diagnosis: Maternal sepsis Suspected chorioamnionitis Persistent category 2 tracing Post-procedure diagnosis: Same Procedures performed: Primary low transverse section Technique/Procedure: The patient was taken to the operating room where epidural anesthesia was found to not be adequate, so decision was made to put patient under general anesthesia. She was prepared and draped in the dorsal supine position. General anesthesia was applied. A Pfannenstiel skin inci higinio was made with a scalpel. The incision was carried down to the fascia with a scalpel. The fascia was incised with the scalpel and extended laterally with manual traction. The rectus muscle, pre-peritoneal fatty tissue, and the peritoneum was entered with blunt dissection. The peritoneal i ncision was extended with lateral traction, down to the bladder reflection with good visualization of the bladder. The bladder blade was inserted. The lower uter ine segment was incised with a scalpel. The amniotic sac was ruptured and clear fluid was noted. The uterine incision was extended bluntly with cephalad and caudad traction. The fetus was in the cephali c position and the head was deep in the pelvis. The head was elevated out of the pelvis with special attention paid to avoid using the uterine incision as the fulcrum. Gentle fundal pressure was applied and the head was brought through the uterine incision, a nd the rest of the infant was delivered with no difficulty . The mouth and nose were suctioned with a bulb. The cord was clamped and cut. Th e infant was handed off to the NRP personnel. A cord segment was clamped and cut to be sent for cord gases. IV oxytocin was initiated to facilitate uterine contractions. The placenta was delivered intact with manual massage of uterine fundus. The ut erus was then exteriorized. The inside of the uterus was gently wiped with a la p sponge to assure complete removal of placenta membranes. The uter ine incision was closed in a running locked fashion with a second layer for imbrication. The right c orner of the uterine incision was still bleeding, so a mattress stitch was applied and hemostasis was noted. The ovaries and tubes were found to be normal. T he posterior portion of the uterus was examined and the abdomen was suctione d. The uterus, tubes, ovaries were then returned to the ab dominal cavity. The blood clots and fluid were wiped out of the abdomen and pelvis with moist laparotomy sponges and suctioned. The uterine incision was reinspected and goo d hemostasis was noted. The peritoneum and muscle was closed together in a running fash ion. The fascial layer was closed in a running fashion. The subcutaneous la yamilex was closed in a running fashion. The skin was closed in subcutic ular fashion and dermabond was applied to the incision. The patient tolerated t he procedure well. All the counts were correct, times two. The uterus was expre ssed, and minimal blood was noted. The patient was taken to the PACU for recove ry in stable condition. A MACHINE PLASTER MIXER pump for pain control will be ordered. Primary Surgeon: Dr. Umanzor Microsystems Engineer(s): Dr. Farr Anesthesia: general anesthesia Indications: Persistent category 2 tracing Maternal sepsis Operative findings: Single term intrauterine Normal fallopian tubes and ovaries Complications: none Estimated blood loss in ml's: 800 Specimens removed/altered: none Implant(s): none Fluids: 2400mL Urine output: 300mL Counts: Sponge count: correct Instrument count: correct Needle count: correct Gavi Umanzor 03/05/21 1855: Operative Report Free Text Op Notes Free Text Op Notes: Dr. Umanzor present for entire procedure. agree w ith above at 1603 at 1856 RPT #:[id number] END OF REPORT 2021-03-05 12:24:00-00:00 [facility] ([facility]) Clinical Note REPORT#:[id number] REPORT STATUS: Signed DATE:03/05/21 TIME: 1223 PATIENT: FANI GARCIA UNIT #: [id number] ROOM/BED: [address] : 97 AGE: 25 SEX: F ATTEND: Laureen Gerardo MD ADM AUTHOR: Rocío Farr DO R2 * ALL edits or amendments must be made on the [employer]/computer document * Rocío Farr 03/05/21 1224: Clinical Note Note: S: Patient states that pain is better with replaced epidural O: -General: patient alert and oriented, no acute d istress -Vitals: -Pulse: tachycardic at 125bpm -FHTs: Category 2 with variable decelerations, d ecelerations improve when patient on left -SVE: : unchanged from last check Plan: - Severe sepsis - Continuing ampicillin and gentamicin, adding c lindamycin - IVF: 1 L NS - Patient requesting section, patient a lso meeting criteria for CS -Decelerations have continued, and FHTs show li ttle improvement -Discussed risks, benefits, and alterna tives. Patient expressed understanding and agrees to proceed with section Gavi Umanzor 03/05/21 1852: Clinical Note Note: PGY-2 reviewed above and agree with plan . discu ssed with patient plan for csection. pt agrees risks/benefits/alternatives discussed. at 1229 at 1853 RPT #:[id number] END OF REPORT 2021-03-05 11:14:00-00:00 [facility] ([facility]) Clinical Note REPORT#:[id number] REPORT STATUS: Signed DATE:03/05/21 TIME: 1114 PATIENT: FANI GARCIA UNIT #: [id number] ROOM/BED: [address] : 97 AGE: 25 SEX: F ATTEND: Laureen Gerardo MD ADM AUTHOR: Rocío Farr DO R2 * ALL edits or amendments must be made on the [employer]/computer document * Rocío Farr 03/05/21 1114: Clinical Note Note: S: Patient complaining pain with contractions, epid ural was recently replaced O: -General: patient alert and oriented, in mild di stress during contractions -Vitals: -Pulse: tachycardia has improved, pulse now 109 bpm -FHTs: Category 2 with variable decelera tions, decelerations have increased in depth and width -FSE in place -SVE: : mild change from last check -Labs: -Lactic acid->3 -WBC 19.8, elevated from admission A: -Severe sepsis due to lactic acid -> 3 -WBC count elevated at 19.8 Plan: - Continuing ampicillin and gentamicin - IVF: 1 L NS: - Discussed section with patient, offer ed elective , but patient declines and desires to try for vaginal -Discussed that if heart tracing does not improve or worsens, or patient deteriorates, will call a secti on. Patient agrees to plan. -Will check patient again in 1 hour Gavi Umanzor 03/05/21 1851: Clinical Note Note: PGy-2 discussed assessment and plan and agree wi th above at 1121 at 1852 RPT #:[id number] END OF REPORT 2021-03-05 09:05:00-00:00 [facility] ([facility]) Clinical Note REPORT#:[id number] REPORT STATUS: Signed DATE:03/05/21 TIME: 904 PATIENT: FANI GARCIA UNIT #: [id number] ROOM/BED: [address] : 97 AGE: 25 SEX: F ATTEND: Laureen Gerardo MD ADM AUTHOR: Rocío Farr DO R 2 * ALL edits or amendments must be made on the [employer]/computer document * Rocío Farr 03/05/21 0905: Clinical Note Note: S: Patient complaining of fevers and some discomfor t. -Endorses nausea and fevers O: -General: patient alert and oriented, in mild di stress -Vitals: -Pulse: tachycardic at 120bpm -Temperature: 101.2 -FHTs: Category 2 with occasional variable decel erations: -Tracing maternal FHTs for several minutes, sosa ble to get heart tones: placed IUPC -SVE unchanged from previous: /-1: caput A: Patient meets criteria for S epsis defined as: Known or suspected infection with 2 or more signs of SIRS. Assessment: Sepsis secondary to (likely chorioamnionitis). (Time of Diagnosis: 844) Plan: - Code Sepsis has been initiated. - Lab and cultures ordered. - Patient being treated with (ampicillin and gentamicin); First dose to be given within first hour - IVF: 1 L NS: - If lactic acid comes back> 4 and/or pt progres ses to septic shock will get 30ml/kg IVF required - Will continue to proceed toward vaginal delive ry, however discussed with patient the increasing possibility of the need f or section -If FHTs do not improve, or worsen -If signs of infection worsen -Due to early caput without advancing cer vical dilation, suspicion for malposition of head or cephalopelvic dispr oportion increases Gavi Umanzor 03/05/21 1000: Clinical Note Note: pt seen and evaluated with PGY2 agree with above at 0922 at 1001 RPT #:[id number] END OF REPORT 2021-03-05 07:28:00-00:00 [facility] ([facility]) Clinical Note REPORT#:[id number] REPORT STATUS: Signed DATE:03/05/21 TIME: 727 PATIENT: FANI GARCIA UNIT #: [id number] ROOM/BED: [address] : 97 AGE: 25 SEX: F ATTEND: Laureen Gerardo MD ADM AUTHOR: Rocío Farr DO R2 * ALL edits or amendments must be made on the [employer]/computer document * Rocío Farr 03/05/21 0728: Clinical Note Note: S: Patient complains of feeling fevers, states that her epidural is working for her so her pain is minimal -Denies any nausea/vomiting or headache -Denies any abdominal pain, does note some leg n umbness after epidural O: General Physical Exam: AOx3, no acute distress, resting comfortably in bed SVE: Last check at 0511, /0 Membranes: PROM @ approx 21h FHTs: Category 2 with variable decelerations [place]: Regular CTX Q2min Epidural: in place and working Augmentation: pitocin has been stopped at this t [place] due to variable decelerations Vitals: Tachycardic at 115bpm A P: -IUPC in place, amnioinfusion done, will start c ontinuous infusion per Dr. Umanzor -Will continue to monitor temperatures -Will anticipate vaginal delivery and monitor ce rvical change Gavi Umanzor 03/05/21 1001: Clinical Note Note: PGY-2 discussed status of patient will call code sepsis and start antibiotics at 0905 at 1002 RPT #:[id number] END OF REPORT 2021-03-05 05:40:00-00:00 [facility]) Clinical Note REPORT#:[id number] REPORT STATUS: Signed DATE:03/05/21 TIME: 0540 PATIENT: FANI GARCIA UNIT #: [id number] ROOM/BED: [address] : 97 AGE: 25 SEX: F ATTEND: Laureen Gerardo MD ADM AUTHOR: Laureen Gerardo MD * ALL edits or amendments must be made on the el [employer]/computer document * Clinical Note Note: L D#26/L D Hospitalist Service (AKIN) CTSP w recur decels not resolving w hold pit/IVF /O2/change position. No VB/ uncomfortable w CTX in spite of epidural, no SALAZAR or other PreE sx 131/81 99.6 17 106 abd soft/NT-feels warm SVE 5/90/0/ceph w mild caput, placed IUPC 140s/occas accels/multi vari decels to 80s/ctx q 2-4min 25yo @ 40 wPROM x 19h, slow progress-no w w recur decels, poss early chorio -monitor temp closely -IV Abx prn -IVF bolus -amnioinfus through IUPC -C/S if decels persist/worsen /dsd Electronically Signed by Laureen Gerardo MD on 02/15 at 0717 RPT #:[id number] END OF REPORT 2021-03-05 00:05:00-00:00 [id number] [facility] [address], [place] [address] PATIENT NAME: FANI GARCIA ADMIT DATE: 03/04 ACCOUNT NO: [id number] ROOM NO: [facility] AGE: 25 SEX: F ADMITTING PHYSICIAN: Laureen Gerardo MD ATTENDING PHYSICIAN: Laureen Gerardo MD ADMISSION DATE: 03/04/2021 TRIAGE EVALUATION Evaluation and admission on a patient received kim Wu in the OB ED on 03/04/2021, by. Laureen Gerardo MD, L and D [facility], for a no-doc patient. HISTORY OF PRESENT ILLNESS: The patient is a 25- year-old G3, P0-0-2-0, with last menstrual period in May of 2020, and e stimated date of confinement 03/05/2021. She presented at 39 and 6/7th weeks complaining of leakage of clear fluid since approximately 10:14 a.m. She denied vaginal bleeding and reported good movement. She reported contractions a pproximately every 1 to 2 minutes, 6/10 on the pain scale, although she st ated she was not that uncomfortable and did not feel she needed an epi dural at that time. She denied headache, vision changes, or other preecl ampsia symptoms. She denied fever, chills, nausea, vomiting, diarrhea, const ipation, or dysuria. She denied cough, sore throat, shortness of breath, loss of taste and smell or other COVID symptoms. She has not previously bee n diagnosed with COVID. She has not yet had her COVID vaccines. She was stro ngly encouraged to obtain those after discharge, per recommendations of OG and multiple other groups who recommend women and nursing moms re ceive the vaccines for COVID. Her care began at [facility] at [facility] oximately 4 weeks' gestation. Her last visit was on the and her n ext was scheduled for the coming week. She states that she did transfer to [facility] for pre care between 25 and 28 weeks, when she moved away from the area of [facility]. Then, after 28 weeks, she resumed care at [facility]. She states bell gr went to [facility] on the for cramping and was told she was 1 cm dilated. She was then seen for routine care on the at [facility] and told she was 2 cm at that time. She states the was no table for bleeding early in the first trimester. She was diagnosed with subc horionic hematoma, the bleeding resolved with conservative treatment. S he also reports history of genital herpes. She had an outbreak on , which lasted 2 days. She has been taking Valtrex 500 1 or 2 table ts daily since approximately 36 weeks. The herpes was originally diagnosed in . She requested that information be held confidential as her family is not a aragon of the infection. She last took a dose of Valtrex at approximately 10:30 a.m. on . The patient otherwise denies complications in the pr egnancy and reports all other labs and ultrasounds normal. She states her initial ultra sound was at approximately 4 weeks' gestation. Her delivery date was not fragoso ged based on that ultrasound. PAST MEDICAL HISTORY: Negative. PAST SURGICAL HISTORY: Negative. PATIENT NAME: FANI GARCIA [id number] ALLERGIES: LATEX, BUT NO KNOWN DRUG ALLERGIES. MEDICATIONS: vitamins and Valtrex 500 1 or 2 tablets daily. OBSTETRICAL HISTORY: In 2015, vaginal delivery o f 14- to 15-week fetus. She did not require D and C for that miscarriage in the early second trimester. Then in 2017, the patient reports a very early loss. She states that the was so early, no fetus was visuali zed on ultrasound. No D and C was required at that time either. GYNECOLOGIC HISTORY: Menarche at age 11 with regu lar monthly cycles lasting 6 days, heavy with moderate cramping. The patient reports a history of genital herpes as stated above, first diagnosed in 2018 with the last lesion on February 14, now on prophylactic antiv irals. She otherwise denies history of STDs and reports all Pap smears normal. SOCIAL HISTORY: The patient denies tobacco or il licit drug use. She reports occasional prepregnancy alcohol use. She lives w ith her mother. She is still involved with the father of the . He is a 21-year-old healthy male. He is not eligible to join the patient in the spital, as he has no ID other than a halfway ID. 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 She denies exposure to chemicals or heavy lifting. 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 In that position, she den ied heavy lifting or chemical exposures either. FAMILY HISTORY: Mother with asthma. Father with diabetes. Maternal grandmother in an auto-pedestrian accid ent. No information on her health history. Maternal grandfather wi [place]. Paternal grandmother with gastritis. Paternal grandfather . Octaviano gr was murdered in [place]. No information otherwise on his health hist ory. The patient has one brother and 5 half siblings. Her brother h ad a heart problem as a child and underwent surgery and is now reported to be "okay" by the patient. The patient does not know what defect was present and she denies workup fo r cardiac anomalies in the current . A half brother has asthma. Th e patient denies history of mental retardation or defects in her famil y or her partner's family other than the heart issue with her brother. REVIEW OF SYSTEMS: A 10-point review of systems is negative except as stated above. PHYSICAL EXAMINATION: GENERAL: The patient is a well-nourished , well-developed female in no acute distress, lying on bed in L and D. The pat ient has multiple tattoos on her face, trunk and extremities. VITAL SIGNS: Height 5 feet 2 inches, weight prio r to the 163 pounds and present weight 191 pounds. Initial blood pre ssure was 142/90, however, on repeat 122/72, pulse 103, respirations 18, and t emperature 98.7. HEAD AND NECK: Within normal limits without lymp hadenopathy or thyromegaly. CHEST: Unlabored breathing. HEART: Regular rate and rhythm. BREASTS: Exam deferred. ABDOMEN: Soft, nontender, gravid with a fundal h eight of 39 cm. Elio's approximately 3600 grams. PATIENT NAME: FANI GARCIA [id number] PELVIC: 1 cm dilated, 30% effaced, -4 station, m idposition, medium consistency, cephalic, ruptu red with a small amount of clear fluid noted to leak at the time of the exam. This is basically the s nati exam as reported by Dr. Wu on his arrival on her first exam in the OB ED. ROM Plus was positive in the OB ED earlier, this was not repeated. Pelvis is adequate. EXTREMITIES: Without edema. Bilateral patellar r eflexes 2+. NEUROLOGIC: Nonfocal. The patient is awake, aler t, and oriented x3. She is an excellent historian. DIAGNOSTIC STUDIES: On NST, heart tones are in the 120s, multiple 15 x 15 accelerations, no decelerations, and contraction s every 3 to 4 minutes. LABORATORY DATA: White blood cell count 9.3, hem oglobin 9.2, hematocrit 31.0, and platelets 391,000. Serologies all negative. The patient is known to be rubella immune and group B s trep negative from records. Her blood type is O positive with antibody screen negative. Uri ne drug screen negative and COVID swab negative. Urinalysis is pending at [facility]. ASSESSMENT AND PLAN: This is a 25-year-old G3, P 0-0-2-0 at 39 and 6/7th weeks with a history of genital he rpes since 2019, currently on prophylactic Valtrex, with no lesion or prodrome at this time. She pre sented complaining of leakage of fluid and PROM is confirmed. She is contracti ng mildly with early cervical changes. Will continue Valtrex daily until deliv tremayne. Epidural when desired. Pitocin as needed. Anticipate vaginal delivery. Will convert to for findings of herpetic genital lesions or nonr eassuring strip and/or arrest of labor. Will minimize vaginal exams due to the ruptured membranes. Dictated By: Laureen Gerardo MD WT: HP:TORRI/LISANDRA/NERISSA Conf#: [id number]/DID#: [id number] Authenticated and Edited by Laureen Gerardo MD On 03/07/21 7:09:32 PM Electronically Signed by Laureen Gerardo MD on at 0711 PATIENT NAME: FNAI GARCIA [id number] [id number] 19:32:00-00:00 [facility] ([facility]) Clinical Note REPORT#:[id number] REPORT STATUS: Signed DATE:03/04/21 TIME: 1931 PATIENT: FANI GARCIA UNIT #: [id number] ROOM/BED: [facility] : 97 AGE: 25 SEX: F ATTEND: Laureen Gerardo MD ADM AUTHOR: Laureen Gerardo MD * ALL edits or amendments must be made on the [employer] document * Clinical Note Note: Pt rec'd from Dr Wu, seen earlier examined. D ictated H P to follow/dsd Electronically Signed by Laureen Gerardo MD on 02/15 at 0009 RPT #:[id number] END OF REPORT 2021-03-04 11:24:00-00:00 [facility] ([facility]) EMERGENCY PROVIDER REPORT REPORT#:[id number] REPORT STATUS: Signed DATE:03/04/21 TIME: 1123 PATIENT: FANI GARCIA UNIT #: [id number] [facility] AGE: 25 SEX: F PCP PHYS: Laureen Gerardo MD SERVICE AUTHOR: Luisito Wu III, MD * ALL edits or amendments must be made on the [employer] document * PHILIP History Nursing Documentation Review Nursing data: _ [facility] PHILIP 25 year old female @ 39.6 wks LMP 020 Definite cc Leaking clear fluid vagianally HPI She recented leaked a mild amount fluid vagi sun. No vaginal bleeding, endorses positive movements. care at the [facility] in. History of HSV 1 with last outbreak earlier this month. Currently on Valtrex. Phan s outbreak symptoms at present. records available from [facility]. RH positi ve, ABS neg. Rubella Immune. Sase [facility]FM earlier in her for USG/anatomy scan. Normal anatomy scan. GBS negative. PMH Allergies Allergy Severity Reaction Updated Coded latex Intermediate SWELLING 03/04/21 OB SAB x2. Initial care at [facility] from 6 to 26 weeks, [facility]. MANAGER FIRE Herpes, HSV 1 last outbreak earlier this mo nth. PMH Scoliosis PSH Denied MEDS vitamins, valtrex FMH SH No smoke, no etoh, no drugs ROS No fever, no shortness of breath, no chest pain, no ab pain, no vaginal bleeding, endorses positive movements. Family history Relation not specified for: Family History: Unremarkable Medications: Current Hospital Medications: Electrolytic, Caloric, And Emelina Sig/Corina Start time Last Medication Dose Route Stop Time Status Admin Dextrose/Lactated 1,000 ML ASDIR 03/04 1130 AC Ringer's IV 05/03 1129 (DEXTROSE 5% IN LACTATED RINGERS 1000 ML) Lactated Ringer's 1,000 ML ASDIR PRN 03/04 1130 AC (LACTATED RINGERS) I-UTERINE 05/03 1129 Lactated Ringer's 1,000 ML ONCE ONE 03/04 1130 DC (LACTATED RINGERS) IV 03/04 1131 Oxytocics Sig/Corina Start time Last Medication Dose Route Stop Time Status Admin Oxytocin 500 ML ASDIR 03/04 1130 AC (OXYTOCIN 30 UNITS/ IV 03/04 2129 500 ML NORMAL SALINE) Other Sig/Corina Start time Last Medication Dose Route Stop Time Status Admin Pharmacy Profile Note 1 EA ONCE ONE 03/04 1130 DC (EPIDURAL TRAY) MISC 03/04 1131 Allergies Coded Allergies: latex (Intermediate, SWELLING 03/04/21) Objective General VS: PATIENT WEIGHT: Weight (lb): 191 Weight (oz): Weight (kg): [id number] No acute distress, alert, normal affect Afebrile, 142/90, pulse 103 PUL Chest clear to auscultation, unlabored norm al respiratons CVR RRR AB Gravid, nontender EFW 8 pounds SVE Initial exam by nursing staff Leaking clear fluid, ROM plus testing is positive SVE 1cm/30% effaced/ -3 station vertex EXT Mild pretibial edema, normal reflexes, no c dayton tenderness TOCO Irregular mild uterine contractions FHT Reassuring, category one, accelerations are present I came to her room and introduced myself. H and P obtained. Plan of care discussed. To be admitted to labor and delivery for induct ion of labor. Laboratory Tests: 03/04 1140 Hematology WBC (6.5 - 12.3 K/mm3) 9.3 RBC (3.51 - 4.69 M/mm3) 4.28 Hgb (10.1 - 13.8 g/dL) 9.2 L Hct (32.5 - 41.8 %) 31.0 L MCV (84.6 - 96.6 fL) 72.4 L MCH (27.3 - 33.9 pg) 21.5 L MCHC (32.0 - 34.2 gm/dL) 29.7 L RDW (12.2 - 16.3 %) 17.2 H Plt Count (134 - 363 K/mm3) 391 H MPV (9.2 - 12.7 fL) 10.6 Neut % (Auto) (57.9 - 77.3 %) 70.9 Lymph % (Auto) (14.5 - 29.7 %) 22.1 [place] % (Auto) (3.6 - 10.2 %) 5.6 Eos % (Auto) (0.0 - 3.0 %) 0.9 Baso % (Auto) (0.1 - 0.9 %) 0.1 Neut # (Auto) (K/mm3) 6.6 Lymph # (Auto) (K/mm3) 2.0 [place] # (Auto) (K/mm3) 0.5 Eos # (Auto) (K/mm3) 0.08 Baso # (Auto) (K/mm3) 0.0 Serology SARS-CoV-2 Ag (Rapid) (NEGATIVE) NEGATIVE Recent Impressions: ULTRASOUND - US FLW UP 03/04 1145 Report Impression - Status: SIGNED Entered: 03/04/2021 1233 IMPRESSION: Viable intrauterine as described. Impression By: [email or web address] - Christine Bone USG HERE TODAY, KRAUSE VERTEX, POSTERIOR GRA DE 3 PLACENTA VELASQUEZ 9.8 CM, EFW 3641 GRAMS Results Findings/Data: Laboratory Tests: 03/04 03/04 1140 1140 Hematology WBC (6.5 - 12.3 K/mm3) 9.3 RBC (3.51 - 4.69 M/mm3) 4.28 Hgb (10.1 - 13.8 g/dL) 9.2 L Hct (32.5 - 41.8 %) 31.0 L MCV (84.6 - 96.6 fL) 72.4 L MCH (27.3 - 33.9 pg) 21.5 L MCHC (32.0 - 34.2 gm/dL) 29.7 L RDW (12.2 - 16.3 %) 17.2 H Plt Count (134 - 363 K/mm3) 391 H MPV (9.2 - 12.7 fL) 10.6 Neut % (Auto) (57.9 - 77.3 %) 70.9 Lymph % (Auto) (14.5 - 29.7 %) 22.1 [place] % (Auto) (3.6 - 10.2 %) 5.6 Eos % (Auto) (0.0 - 3.0 %) 0.9 Baso % (Auto) (0.1 - 0.9 %) 0.1 Neut # (Auto) (K/mm3) 6.6 Lymph # (Auto) (K/mm3) 2.0 [place] # (Auto) (K/mm3) 0.5 Eos # (Auto) (K/mm3) 0.08 Baso # (Auto) (K/mm3) 0.0 Serology Treponema pallidum Ab (NONREACTIVE) NONREACTIV E Hep Bs Antigen (NONREACTIVE) NONREACTIVE SARS-CoV-2 Ag (Rapid) (NEGATIVE) NEGATIVE Recent Impressions: ULTRASOUND - US FLW UP 03/04 1145 Report Impression - Status: SIGNED Entered: 03/04/2021 1233 IMPRESSION: Viable intrauterine as described. Impression By: [email or web address] - Christine Bone Diagnosis, Assessment Plan Diagnosis, Assessment Plan Free Text A P: A IUP at 39.6 weeks SROMs term reasurring heart ton es. 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 OB labs. OB USG f or EFW. I spoke with Dr Gerardo, L and D Hospitalist today, who will assume care for the patient upon arrival to the floor. jr Electronically Signed by Luisito Wu III, MD on at 1308 RPT #:[id number] END OF REPORT 2021-03-03 21:06:00-00:00 [facility] EMERGENCY PROVIDER REPORT REPORT#:[id number] REPORT STATUS: Signed DATE:03/03/21 TIME: 2105 PATIENT: FANI GARCIA UNIT #: [id number] ROOM/BED: AGE: 25 SEX: F PCP PHYS: Gavi Umanzor MD SERVICE DT: AUTHOR: Gavi Umanzor MD * ALL edits or amendments must be made on the el [employer]/computer document * [facility] History Chief complaint: uterine contractions HPI: 25y/o EDC: 03/05/21 b y LMP confirmed by first trimester sono presents to [facility] ctxs unsure frequency t hinks q 3 min. no LOF/VB. +FM. pt states lost mucus plug. pt has been recently examined and was 1 cm yesterday and 2 cm today in office. denies any covid sx Past medical history: denies PMH Past surgical history: denies PSH Social history: no alcohol use, no tobacco use, no drug use Family history Relation not specified for: Family History: Unremarkable Allergies Coded Allergies: latex (Intermediate, SWELLING 03/03/21) Review of Systems Constitutional: Denies: chills, fatigue, fev er, generalized weakness, lethargy, malaise, recent wt loss, other. Skin: Denies: rash, swelling. Allergy/Immun: Denies: rhinorrhea, sneezing. Eyes: Denies: visual loss/blurred. ENT: Denies: nasal congestion, sore throat, throat pa in. Respiratory: Denies: GRIFFITH (dyspnea on exertion), hemoptysis, n on productive cough, parox nocturnal dyspnea, pleurisy, pleuritic pain, pneumonia, productive cough (sputum ), SOB, wheezing, other. Cardiovascular: Denies: chest pain, GRIFFITH (dyspnea on exer tion), edema, orthopnea, palpitations, parox nocturnal dyspnea, other. GI: Denies: abdominal pain, anorexia, constipation, diarrhea, dysphagia, GERD, hematemesis, hematochezia, h iatal hernia, melena, nausea, rectal pain, vomiting, other. : Reports: . Denies: d ysuria, flank pain, frequency, hematuria, nocturia, pelvic pain, urgency, urinary retention, vaginal bleeding, vaginal discharge, other. Musculoskeletal: Denies: extremity pain, extremity swelling, lumb ar pain, myalgias. Neuro: Denies: bladder dysfunction, bowel dysfunction, change in LOC, confusion, dizziness, focal weakness, gait problem, headach e, lightheaded, numbness, seizure, slurred speech, spinning sensation, syn cope, unable to speak, vision change, weakness, other. Psych: Denies: anxiety, depression, homicidal ideation, suicidal ideation. Objective General VS: PATIENT WEIGHT: Weight (lb): Weight (oz): Weight (kg): 86.454154 T:97.7F P:99 R:20 BP:127/82 Physical Exam HEENT: normocephalic w/o injury Cardiac: regular rate and rhythm Lungs: clear to auscultation Breasts: deferred Neuro: Exam: alert, oriented x3, normal speech Abdomen: gravid, soft, no abnormal tenderness, n ormoactive bowel sounds Musculoskeletal: no CVA tenderness Uterine activity: Monitor: toco Frequency (description): irritability Cervical/ exam: Dilatation (cm): 1 Effacement (%): 30 station: - 3 (posterior) FHR evaluation: Baseline: 130 bpm Variability: moderate 6-25 bpm Accelerations: 15 X 15 Decelerations: none FHR category: reactive Membranes: Membranes: Intact Lower extremities: Edema: none Calf tenderness: negative Diagnosis, Assessment Plan Diagnosis, Assessment Plan Free Text A P: IUP @ 39 weeks 5 days GA not in labor c are at [facility].AVSS FHR reactive Plan: pt given choice to wait and get re check versus going home. pt prefers to go home labor warnings given f/u primary ob at 2112 RPT #:[id number] END OF REPORT
[2023-03-02] MEDS ORDERED: ONDANSETRON 4 MG/2 ML VIAL ONE (22:41)
[2023-03-02] MEDS ORDERED: NA CHLORIDE 0.9% 1,000 ML ONE (22:42)
[2023-03-02 22:56] LABS: SARS-CoV-2 Antigen Rapid Res Negative (Negative)
[2023-03-02 23:08] LABS: Specific Gravity 1.025 (1.005-1.030); Urine Bacteria >50 /HPF (<20); Urine Bilirubin NEGATIVE (Negative); Urine Blood Negative (Negative); Urine Clarity Extremely Turbid (Clear); Urine Color Yellow (Yellow); Urine Glucose NEGATIVE (Negative); Urine Mucus 4+ /HPF (None Seen); Urine Protein 1+ (Negative); Urine RBC None Seen /HPF (None Seen); Urine Urobilinogen Normal (Normal); Urine pH 6.5 (5.0-7.0)
[2023-03-02 23:38] LABS: Absolute Lymphocytes (CBC) 0.4 K/uL (0.7-4.9); Hematocrit 29.3 % (36.0-45.0); Lymphocytes % 4.9 % (15.3-44.8); MCV 76.6 fL (80-100); MPV 7.8 fL (7.6-11.3); Platelets 271 thou/uL (152-406); RBC Red Blood Cell Count 3.83 M/uL (3.86-4.86)
[2023-03-03 00:07] LABS: AST/SGOT 8 U/L (15-37); Albumin 2.5 g/dL (3.4-5.0); Alkaline Phosphatase 75 U/L (45-117); BUN Blood Urea Nitrogen 5 mg/dL (7-18); Bicarbonate 24 mEq/L (21-32); Bilirubin Total 0.4 mg/dL (0.2-1.0); Glomerular Filtration Rate 134 ml/min (=/>90); Glucose Level 89 mg/dL (74-106); Potassium 3.3 mEq/L (3.5-5.1); Protein, Total 6.4 g/dL (6.4-8.2); Sodium Level 136 mEq/L (136-145)
[2023-03-03 00:11] LABS: ALT/SGPT < 10 U/L (13-56)
[2023-03-03 00:19] LABS: Blood Morphology Comment NOT SEEN (NOT SEEN); Platelet Estimate ADEQ
--- NOTE | 2023-03-03 00:28 | EDPHYS ---
Physician Documentation [facility] Name: Brittany Ingram Age: 27 yrs Sex: Female : 1995 Arrival Date: 03/02/2023 Time: 22:05 Bed 6 Private MD: ED Physician Kevin Acevedo HPI: 03/02 22:13 This 27 yrs old Female presents to ER via Unassigned with complaints of sp4 nausea, vomiting, . 22:14 27-year-old female at EGA of 20 weeks roughly by last ultrasound presents with sp4 a cute onset of nausea vomiting after a meal today. Patient states she recently moved from [place]. Her last visit with [facility] in [place] was 01/16/2023. She estimates she is about 20 weeks EGA. She cannot recall the date of her last menstrual period . Primary complaint today nausea vomiting and feeling unwell.. 22:17 PMI - Allergies: Latex, Natural Rubber; Home Meds: Tramadol Oral; PMHx: ectopic sp4 ; PSHx: section;. 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 - Social history:: Smoking status: Patient/guardian denies using tobacco, Stopped _ months ago 5. - Family history:: not pertinent. ROS: 22:14 Constitutional: Negative for fever, chills, and weight loss, Abdomen/GI: Negative for sp4 abdominal pain, diarrhea, and constipation, positive for nausea vomiting Exam: 22:14 Constitutional: This is a well developed, well nourished patient who is awake, alert, sp4 and in no acute distress. Head/Face: Normocephalic, atraumatic. Eyes: Pupils equal round and reactive to light, extra-ocular motions intact. Lids and lashes normal. Conjunctiva and sclera are not injected. Cornea within normal limits. Periorbital areas with no swelling, redness, or edema. ENT: Nares patent. No nasal discharge, no septal abnormalities noted. Tympanic membranes are normal and external auditory canals are clear. Oropharynx with no redness, swelling, or masses, exudates, or evidence of obstruction, uvula midline. Mucous membranes moist. Neck: Trachea midline, no thyromegaly or masses palpated, and no cervical lymphadenopathy. Supple, full range of motion without nuchal rigidity, or vertebral point tenderness. Chest/axilla: Normal chest wall appearance and motion. Nontender with no deformity. No lesions are appreciated. Cardiovascular: Regular rate and rhythm with a normal S1 and S2. No gallops, murmurs, or rubs. Normal PMI, no JVD. No pulse deficits. Respiratory: Lungs have equal breath sounds bilaterally, clear to auscultation and percussion. No rales, rhonchi or wheezes noted. No increased work of breathing, no retractions or nasal flaring. Abdomen/GI: Soft, non-tender, with normal bowel sounds. No distension or tympany. No guarding or rebound. No evidence of tenderness throughout. Back: No spinal tenderness. No costovertebral tenderness. Skin: Warm, dry with normal turgor. Normal color with no rashes, no lesions, and no evidence of cellulitis. MS/ Extremity: Pulses equal, no cyanosis. Neurovascular intact. Full, normal range of motion. Neuro: Awake and alert, GCS 15, oriented to person, place, time, and situation. Cranial nerves II-XII grossly intact. Motor strength 5/5 in all extremities. Sensory grossly intact. Psych: Awake, alert, with orientation to person, place and time. Behavior, mood, and affect are within normal limits Vital Signs: 22:15 BP 126 / 85; Pulse 110 MON; Resp 24 S; Temp 101.1(O); Pulse Ox 100% on R/A; Weight jw7 78.47 kg; Height 5 ft. 2 in. ; Pain 0/10; 23:23 BP 115 / 76; Pulse 106; Resp 21 S; Pulse Ox 100% on R/A; as6 03/03 00:45 Temp 98.7(O); jw7 00:45 BP 107 / 73; Pulse 92; Resp 20; Pulse Ox 100% on R/A; jw7 03/02 22:15 Body Mass Index 31.64 (78.47 kg, 157.48 cm) [facility] 03/02 22:15 Pain Scale: Adult [facility] MDM: 03/02 22:25 Patient medically screened. 4 03/03 00:33 Differential Diagnosis sepsis, flu, Gastroenteritis . Data reviewed: vital signs, sp4 nurses notes, EMS record, old medical records, lab test result(s), radiologic studies, ultrasound. ED course: Sonogram - 27 years Female vomiting, discomfort ,, assess EGA COMPARISON: None TECHNIQUE: Real-time sonography of the fetus was performed. Limited study was performed. FINDINGS: Single viable fetus is identified in cephalic presentation. Heart rate was 167 bpm. Amniotic fluid volume index is 22 cm. Cervix measured 4.5 cm and appeared closed. Placenta is anterior. measurements were as follows: Biparietal diameter 6 cm corresponding with a age of 24 weeks 3 days, head circumference 22 cm corresponding with a age of 23 weeks 4 days, also conference 21 cm corresponding with a age of 25 weeks 3 days, femur length 4.2 cm corresponding with a age of 23 weeks 4 days. Average estimated gestational age is 24 weeks 1 day. This indicates an EDC of June 21, 2023. Estimated weight is 728 g or 1 lb. 10 oz. In circumference/abdominal circumference ratio is 1.03 which is decreased. anatomy not evaluated at this time. IMPRESSION: Single viable 24 week 1 day intrauterine fetus.. ED course: Patient has basically unremarkable ultrasound. Negative for COVID and flu. Will advise follow-up with EXTENSION SERVICE SUPERVISOR in 7 to 14 days. UA reveals signs of UTI. Will prescribe Macrobid and Zofran. 03/02 22:12 Order name: CBC with Diff; Complete Time: 00:21 4 03/02 22:12 Order name: CMP 4 03/02 22:12 Order name: Lipase [facility] 03/02 22:12 Order name: Urinalysis w/ reflexes; Complete Time: 23:17 sp4 03/02 22:13 Order name: SARS RAPID; Complete Time: 23:01 sp4 03/02 22:13 Order name: Influenza Screen (a \T\ B); Complete Time: 23:17 sp4 03/02 23:41 Order name: Manual Differential; Complete Time: 00:21 EDMS 03/02 22:13 Order name: US OB Limited sp4 03/02 22:12 Order name: IV Saline Lock; Complete Time: 23:23 sp4 03/02 22:12 Order name: Labs collected and sent; Complete Time: 23:23 sp4 Administered Medications: 03/02 23:23 Drug: NS 0.9% IV 1000 ml Route: IV; Rate: 1 bolus; Site: right antecubital; 03/03 00:48 Follow up: Response: No adverse reaction; IV Status: Completed infusion; IV Intake: jw7 1000ml 03/02 23:23 Drug: Ondansetron IVP 4 mg Route: IVP; Site: right antecubital; 03/03 00:48 Follow up: Response: No adverse reaction jw7 00:35 Drug: Macrobid PO 100 mg Route: PO; jw7 00:48 Follow up: Response: No adverse reaction jw7 Disposition Summary: 03/03/23 00:27 Discharge Ordered Location: Home sp4 Problem: new sp4 Symptoms: have improved sp4 Condition: Stable sp4 Diagnosis - Noninfective gastroenteritis and colitis, unspecified sp4 - Third Trimested, discomfort of , nausea and vomiting sp4 Followup: sp4 - With: Private Physician - When: 7 - 10 days - Reason: Recheck today's complaints Discharge Instructions: - Discharge Summary Sheet sp4 - Urinary Tract Infection, Adult, [id number] sp4 Forms: - Patient Portal Instructions sp4 Prescriptions: - ondansetron 4 mg Oral Tablet,disintegrating - take 1 tablet by ORAL route every 6 hours for 24 hours PRN nausea; 30 tablet; sp4 Refills: 0, Product Selection Permitted - Macrobid 100 mg Oral Capsule - take 1 capsule by ORAL route every 12 hours for 10 days; 20 capsule; Refills: sp4 0, Product Selection Permitted Signatures: Dispatcher [employer] Yossi Rodriguez RN RN as6 Asuncion Ring RN RN jw7 Kevin Acevedo MD MD sp4
--- NOTE | 2023-03-03 00:28 | ER ---
Nurse's Notes [facility] Name: Brittany Ingram Age: 27 yrs Sex: Female : 1995 Arrival Date: 03/02/2023 Time: 22:05 Bed 6 Private MD: Diagnosis: Noninfective gastroenteritis and colitis, unspecified; Third Trimested, discomfort of , nausea and vomiting Presentation: 03/02 22:15 Chief complaint: Patient states: c/o n/v, fever, chills. Coronavirus screen: At this jw7 time, the client does not indicate any symptoms associated with coronavirus-19. Ebola Screen: No symptoms or risks identified at this time. Initial Sepsis Screen: Does the patient meet any 2 criteria? RR > 20 per min. Temp <36.0*C (96.8*F)) or > 38.3*C (100.9*F). HR > 90 bpm. Yes Does the patient have a suspected source of infection? No. Patient's initial sepsis screen is negative. Risk Assessment: Do you want to hurt yourself or someone else? Patient reports no desire to harm self or others. Onset of symptoms was March 02, 2023. 22:15 Method Of Arrival: EMS: [facility] 22:15 Acuity: WILL 3 jw7 Triage Assessment: 22:15 General: Appears in no apparent distress. uncomfortable, Behavior is calm, cooperative. jw7 Pain: Denies pain. EENT: No deficits noted. No signs and/or symptoms were reported regarding the EENT system. Neuro: No deficits noted. Cooper Agitation-Sedation Scale (RASS): 0 - Alert and Calm Level of Consciousness is awake, alert, obeys commands, Oriented to person, place, time, situation. Cardiovascular: No deficits noted. Cardiovascular: Capillary refill < 3 seconds Clubbing of nail beds is absent JVD is absent Patient's skin is warm and dry. Respiratory: No deficits noted. Respiratory: Airway is patent Trachea midline Respiratory effort is even, unlabored, Respiratory pattern is regular, symmetrical. GI: Reports nausea, vomiting. GI: Abdomen is round non-distended. : No deficits noted. No signs and/or symptoms were reported regarding the genitourinary system. Derm: No deficits noted. No signs and/or symptoms reported regarding the dermatologic system. Derm: Skin is intact, is healthy with good turgor, Skin is dry, Skin is normal, Skin temperature is warm. Musculoskeletal: No deficits noted. No signs and/or symptoms reported regarding the musculoskeletal system. Circulation, motion, and sensation intact. Range of motion: intact in all extremities. 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 - Social history:: Smoking status: Patient/guardian denies using tobacco, Stopped _ months ago 5. - Family history:: not pertinent. Screenin:12 [facility] ED Fall Risk Assessment (Adult) History of falling in the last 3 months, jw7 including since admission Yes- single mechanical fall (1 pt) Confusion or Disorientation No (0 pts) Intoxicated or Sedated No (0 pts) Impaired Gait No (0 pts) Mobility Assist Device Used No (0 pt) Altered Elimination No (0 pt) Score/Fall Risk Level 0 - 2 = Low Risk Oriented to surroundings, Maintained a safe environment. Abuse screen: Denies threats or abuse. Denies injuries from another. Nutritional screening: No deficits noted. Tuberculosis screening: No symptoms or risk factors identified. Assessment: 22:30 General: see triage assessment. jw7 23:30 Reassessment: Patient appears in no apparent distress at this time. No changes from jw7 previously documented assessment. Patient and/or family updated on plan of care and expected duration. Pain level reassessed. Patient is alert, oriented x 3, equal unlabored respirations, skin warm/dry/pink. 03/03 00:30 Reassessment: Patient appears in no apparent distress at this time. Patient and/or jw7 family updated on plan of care and expected duration. Pain level reassessed. Patient is alert, oriented x 3, equal unlabored respirations, skin warm/dry/pink. Patient states feeling better. Patient states symptoms have improved. Vital Signs: 09/17 22:15 BP 126 / 85; Pulse 110 MON; Resp 24 S; Temp 101.1(O); Pulse Ox 100% on R/A; Weight jw7 78.47 kg; Height 5 ft. 2 in. ; Pain 0/10; 23:23 BP 115 / 76; Pulse 106; Resp 21 S; Pulse Ox 100% on R/A; as6 03/03 00:45 Temp 98.7(O); jw7 00:45 BP 107 / 73; Pulse 92; Resp 20; Pulse Ox 100% on R/A; jw7 03/02 22:15 Body Mass Index 31.64 (78.47 kg, 157.48 cm) jw7 03/02 22:15 Pain Scale: Adult jw7 ED Course: 03/02 22:09 Patient arrived in ED. as6 22:11 Kevin Acevedo MD is Attending Physician. sp4 22:12 Patient has correct armband on for positive identification. Placed in gown. Bed in low jw7 position. Call light in reach. Side rails up X2. 22:27 Asuncion Ring RN is Primary Nurse. jw7 22:27 Influenza Screen (a \T\ B) Sent. cg3 22:27 SARS RAPID Sent. cg3 22:42 Influenza Screen (a \T\ B) Sent. cg3 22:42 SARS RAPID Sent. cg3 22:42 Urinalysis w/ reflexes Sent. cg3 22:52 Triage completed. jw7 22:57 US OB Limited In Process Unspecified. EDMS 23:02 Arm band placed on. jw7 23:24 Inserted saline lock: 20 gauge in right antecubital area, using aseptic technique. as6 Blood collected. 03/03 00:49 No provider procedures requiring assistance completed. IV discontinued, intact, jw7 bleeding controlled, No redness/swelling at site. Pressure dressing applied. 00:50 Provided Education on: discharge instructions, medications. jw7 Administered Medications: 03/02 23:23 Drug: NS 0.9% IV 1000 ml Route: IV; Rate: 1 bolus; Site: right antecubital; as6 03/03 00:48 Follow up: Response: No adverse reaction; IV Status: Completed infusion; IV Intake: jw7 1000ml 03/02 23:23 Drug: Ondansetron IVP 4 mg Route: IVP; Site: right antecubital; as6 03/03 00:48 Follow up: Response: No adverse reaction jw7 00:35 Drug: Macrobid PO 100 mg Route: PO; jw7 00:48 Follow up: Response: No adverse reaction jw7 Medication: 03/02 23:24 VIS not applicable for this client. as6 Intake: 03/03 00:48 IV: 1000ml; Total: 1000ml. jw7 Outcome: 00:27 Discharge ordered by . sp4 00:49 Discharged to home ambulatory. jw7 00:49 Condition: stable 00:49 Discharge instructions given to patient, Instructed on discharge instructions, follow up and referral plans. medication usage, Demonstrated understanding of instructions, follow-up care, medications, Prescriptions given X 2. 00:50 Patient left the ED. jw7 Signatures: Dispatcher [employer] EDMS Yossi Cruz RN RN as6 Asuncion Ring RN RN jw7 Kevin Acevedo MD MD sp4 Angelina Todd 3 Corrections: (The following items were deleted from the chart) 00:47 03/02 23:00 General: see triage assessment. jw7 jw7 03/03 00:49 00:48 Reassessment: Patient appears in no apparent distress at this time. Patient jw7 and/or family updated on plan of care and expected duration. Pain level reassessed. Patient is alert, oriented x 3, equal unlabored respirations, skin warm/dry/pink. jw7
[2023-03-03] MEDS ORDERED: NITROFURAN MACRO 100 MG CAP PO ONE (00:41)
[2023-03-03 01:40] VITALS: O2SAT 100
[2023-03-03 01:44] VITALS: BP 107/73; TEMP 98.7
[2023-03-03 05:01] LABS: Lipase 21 U/L (13-75)
--- NOTE | 2023-03-03 14:18 | RAD REPORT ---
EXAM DESCRIPTION: US - OB Limited - 03/02/2023 10:55 pm CLINICAL HISTORY: 27 years Female vomiting, discomfort ,, assess EGA COMPARISON: None TECHNIQUE: Real-time sonography of the fetus was performed. Limited study was performed. FINDINGS: Single viable fetus is identified in cephalic presentation. Heart rate was 167 bpm. Amniot ic fluid volume index is 22 cm. Cervix measured 4.5 cm and appeared closed. Placenta is anterior. measurements were as follows: Biparietal diameter 6 cm corresponding with a age of 24 wee ks 3 days, head circumference 22 cm corresponding with a age of 23 weeks 4 days, also conferenc e 21 cm corresponding with a age of 25 weeks 3 days, femur length 4.2 cm corresponding with a f etal age of 23 weeks 4 days. Average estimated gestational age is 24 weeks 1 day. This indicates an E DC of June 21, 2023. Estimated weight is 728 g or 1 lb. 10 oz. In circumference/abdominal cir cumference ratio is 1.03 which is decreased. anatomy not evaluated at this time. IMPRESSION: Single viable 24 week 1 day intrauterine fetus. Electronically signed by: Otilia Lord MD 03/02/2023 11:11 PM CDT Due to temporary technical issues with the PACS/Fluency reporting system, reports are being signed by the in house radiologist without review as a courtesy to ensure prompt reporting. The interpreting r adiologist is fully responsible for the content of the report.
== END 2023-03-03 00:50 | disposition home or self-care (01) ==
LOC: ER 22:05
DX: O99.612 Diseases of the digestive system complicating pregnancy, second trimester (principal); K52.9 Noninfective gastroenteritis and colitis, unspecified; O26.892 Other specified pregnancy related conditions, second trimester; O98.512 Other viral diseases complicating pregnancy, second trimester; B00.9 Herpesviral infection, unspecified; Z3A.24 24 weeks gestation of pregnancy; Z20.822 Contact with and (suspected) exposure to COVID-19; Z91.040 Latex allergy status; Z91.048 Other nonmedicinal substance allergy status
CPT/HCPCS: 85025; 81001; 36415; 83690; 80053; 87804 ×2; 76815; 87811; J2405; J7030